=== PATIENT | male | born 1945 | race Caucasian/White ===

== ENCOUNTER → 2018-01-13 07:15 | Outpatient (CLI) | payer MEDICARE, OTHER, SELFPAY ==
--- NOTE | 2018-01-13 07:17 | CT_ITS ---
STUDY: CTA OF THE ABDOMINAL AORTA REASON FOR EXAM: Male, 72 years old. History of abdominal aortic aneurysm. RADIATION DOSAGE (If Supplied By Facility): CTDIvol = ( 38.39 ) mGy, DLP = ( 781.62 ) mGycm TECHNIQUE: Axial CT angiography multi-detector data acquisition was obtained from the dome of the liver to the iliac crests following intravenous administration of 100 ml of Isovue 370 contrast. Axial images and MIP images were reconstructed from the axial data set. Post-processing of the angiographic images was performed, with multiplanar reformation and 3D reconstruction. Individualized dose optimization techniques were used for this CT. TECHNICAL QUALITY: Good COMPARISON: None. Descriptors of Narrowing: None (0%) Mild (< 50%) Moderate (50-70%) Severe (70-90%) Subtotal/Total Occlusion (90-100%) Non-Evaluable (technically non-diagnostic FINDINGS: Mild increased markings at the lung bases suggestive of mild basilar scarring. Fatty infiltration of the liver. Abdominal aorta: Scattered atherosclerotic plaques. Mild fusiform infrarenal abdominal aortic aneurysm with a transverse dimension of 2.9 cm. Minimal mural plaque formation. Celiac and superior mesenteric arteries: No demonstrated narrowing. Inferior mesenteric artery: No demonstrated narrowing. Right renal artery(arteries): Minimal atherosclerotic plaque formation at the origin of the right renal artery. Left renal artery(arteries): No demonstrated narrowing. Right common iliac artery: Nonocclusive atherosclerotic plaque formation. Right external iliac artery: Nonocclusive atherosclerotic plaque formation. Right internal iliac artery: No demonstrated narrowing. Left common iliac artery: Nonocclusive atherosclerotic plaque formation. Left external iliac artery: Nonocclusive atherosclerotic plaque formation. Left internal iliac artery: No demonstrated narrowing. CT/CTA Abdomen W/WO Contrast IMPRESSION: Infrarenal abdominal aortic aneurysm with a transverse dimension of 2.9 cm. Electronically Signed: Sunil Barnhart MD at 10:02 EST Tel [phone], Service support ,
[2018-01-13 07:26] LABS: CREATININE FINGERSTICK 0.9 mg/dL (0.70-1.30); EGFR FINGERSTICK > 60.0000 mL/min (>60)
== END ==
PROVIDERS: Family Provider Nurse Practitioner Family; PCP Nurse Practitioner Family; Visit Provider Physician Assistant Medical
DX: I71.4 Abdominal aortic aneurysm, without rupture (principal)
CPT/HCPCS: 74175; Q9967

== ENCOUNTER → 2018-01-25 06:14 | Outpatient (CLI) | payer MEDICARE, OTHER, SELFPAY ==
--- NOTE | 2018-01-25 09:22 | STRESSREP ---
Stress Test Report Exercise myocardial perfusion stress test. 73-year-old man with a history of shortness of breath and diabetes coronary artery bypass surgery. Stress protocol. Resting EKG demonstrates normal sinus rhythm with a rate of 68 bpm. Resting blood pressure is 118/70 mmHg. Exercised according to the regular Rajan protocol for a total duration of 5 minutes attaining a maximum heart rate of 130 bpm. Patient completed 2 minutes into stage II of the Rajan protocol. The patient attained 87% maximum predicted heart rate and a workload of 7 metabolic equivalents. At rest there were nonspecific ST-T wave changes noted at peak exercise nonspecific ST-T wave changes were noted frequent premature ventricular complexes were noted some in the pattern of bigeminy. The test was terminated due to shortness of breath. No chest pain was noted. The resting blood pressure is 118/70 with a peak blood pressure of 144/80. Patient did experience some tightness in the chest and shortness of breath. Myocardial perfusion protocol. 13.9 mCi of technetium 99m sestamibi was injected at rest. The patient exercised for 5 minutes attaining 7 metabolic equivalents. At peak exercise 41.7 mCi of technetium 99m sestamibi was injected. Stress images were obtained. Stress and rest images were reconstructed and compared in the short axis vertical long and horizontal long axis. Gated images were also obtained Perfusion SPECT analysis: Review of the stress images demonstrate normal uptake of tracer noted in the septum and the mid inferior wall. There is a small defect noted in the basal inferior wall. There is a medium-sized defect noted in the mid anterolateral and lateral wall. During the resting images the above appears to almost completely reperfuse. The above suggests anterolateral and lateral ischemia noted. Gated SPECT analysis. The gated ejection fraction is 59%. Conclusion: Abnormal exercise myocardial perfusion stress test with the following Medium-sized anterolateral and lateral ischemic zone. Previous basal inferior infarct. Preserved ejection fraction. Probable clinical angina.
== END ==
PROVIDERS: Family Provider Nurse Practitioner Family; PCP Nurse Practitioner Family; Visit Provider Physician Assistant Medical
DX: I25.10 Atherosclerotic heart disease of native coronary artery without angina pectoris (principal); I10 Essential (primary) hypertension; R06.09 Other forms of dyspnea
CPT/HCPCS: 78452; 93017; A9500; A4216

== ENCOUNTER → 2018-02-14 08:45 | Outpatient (CLI) | payer MEDICARE, OTHER, SELFPAY ==
--- NOTE | 2018-02-14 08:56 | RAD_ITS ---
STUDY: X-RAY CHEST REASON FOR EXAM: Male, 73 years old. Shortness of breath on extension. TECHNIQUE: PA and lateral views of the chest. COMPARISON: Comparison is made with prior examination dated December 26, 2015. FINDINGS: Mild increased markings in the lingula segment of the left upper lobe suggestive of atelectasis. There is no demonstrated pleural abnormality. Sternal cerclage wires and vascular clips are present from a prior sternotomy and coronary artery bypass graft procedure (CABG). Normal mediastinum and sergo. Normal visualized pulmonary arteries. Normal visualized aortic arch and descending thoracic aorta. There are diffuse degenerative changes of the visualized thoracic spine. Normal visualized ribs, clavicles, and shoulders. There is no demonstrated abnormality of the visualized soft tissue structures of the upper abdomen. RAD/Chest PA and Lateral IMPRESSION: Mild increased markings in the lingular segment of the left upper lobe suggestive of atelectasis. Electronically Signed: Sunil Barnhart MD at 15:45 EDT Tel [phone], Service support ,
[2018-02-14 09:40] LABS: Absolute Lymphocyte Count 1.31 X10^3/ul (0.83-4.51); Absolute Neutrophil Count 5.5 X10^3/uL (2.0-7.7); Basophil# 0.04 X10^3/uL; Basophil% 0.5 % (0-1); Eosinophil# 0.28 X10^3/uL; Eosinophils% 3.7 % (0-5); Hematocrit 43.5 % (40-54); Hemoglobin 14.4 g/dl (13.0-16.5); Lymphocyte # 1.31 X10^3/ul (4.0); Lymphocyte % 17.2 % (19-41); Mean Corp Hgb Conc 33.1 g/gl (32-36); Mean Corpuscular Hgb 33.6 pg (27.0-32.0); Mean Corpuscular Volume 101.6 fL (80-94); Mean Platelet Vol. 9.1 fl (6.2-12.0); Monocyte# 0.48 X10^3/uL; Monocyte% 6.3 % (0-10); Neutrophil % 72.2 % (47-70); POSITIVE COUNT NO; POSITIVE DIFFERENTIAL NO; POSITIVE MORPHOLOGY NO; Platelet Count 154 K/mm3 (150-450); RBC Distribution Width CV 14.3 % (11.6-14.6); RBC Distribution Width SD 52.8 fl (35.1-43.9); Red Blood Count 4.28 M/mm3 (4.6-6.2); White Blood Count 7.6 K/mm3 (4.4-11.0)
[2018-02-14 09:43] LABS: International Normalized Ratio 1.1; Prothrombin Time (Protime)PT. 13.8 SECONDS (11.7-14.9)
[2018-02-14 10:17] LABS: Anion Gap 5 (5-15); BUN 16 mg/dL (7-18); BUN/Creat Ratio 15.7 RATIO (10-20); Calcium,Total 8.3 mg/dL (8.5-10.1); Chloride 106 mmol/L (98-107); Creatinine, Serum 1.02 mg/dL (0.70-1.30); EST Glomerular Filtration Rate 77 mL/min (>60); Est Glom Filt Rate - Afr Amer 93 mL/min (>60); Glucose 96 mg/dL (74-106); Potassium 4.4 mmol/L (3.5-5.1); Sodium Level 142 mmol/L (136-145)
== END ==
PROVIDERS: Family Provider Nurse Practitioner Family; PCP Nurse Practitioner Family; Visit Provider Physician Assistant Medical
DX: I25.2 Old myocardial infarction (principal); I25.10 Atherosclerotic heart disease of native coronary artery without angina pectoris; Z95.1 Presence of aortocoronary bypass graft; Z79.899 Other long term (current) drug therapy; I71.4 Abdominal aortic aneurysm, without rupture; I10 Essential (primary) hypertension; E78.5 Hyperlipidemia, unspecified; E11.9 Type 2 diabetes mellitus without complications; R94.39 Abnormal result of other cardiovascular function study
CPT/HCPCS: 71046; 80048; 85025; 85610

== ENCOUNTER → 2018-02-24 07:01 | Day surgery (SDC) | payer MEDICARE, OTHER, SELFPAY ==
[2018-02-23 07:31] VITALS: BMI 29.5
--- NOTE | 2018-02-24 09:03 | CL.D_ITS ---
Patient Name: CLAUDINE BARONE Study Date: 02/24/2018 Performing: Jhonny Jackson MD Ht: 68.89 inches 175 cm : 1945 Wt: 200.62 lbs 91 kg Age: 73 Gender: male BSA: 2.07 PROCEDURE(S) PERFORMED [id number]/CABG DC11-[id number] ROOT ANGIO WITH HEART CATH CLINICAL PROFILE AND INDICATIONS Indications: Suspected CAD Heart Failure: None Stress/Imaging Stress Test w/SPECT MPI: Yes Result: Positive Intermediate RiskStress Test with SP ECT MPI: Positive Intermediate Risk CAD Presentations: Stable angina. CONCLUSIONS Patent left internal mammary artery to the left anterior descending artery, patent saphenous vein gra ft to the right coronary artery, diffuse distal disease of the circumflex artery. RECOMMENDATIONS Medical therapy DESCRIPTION OF PROCEDURE The patient arrived to the procedure lab. The risks and benefits of the procedure as well as a full d escription of our services here and current unavailability of surgical backup were fully explained to the patient and/or their significant other prior to the catheterization. The Timeout was completed, verifying the correct patient and procedure. The patient's procedural site was prepped and draped in the usual fashion. Local anesthetic was given subcutaneously to right groin region with Lidocaine 2%. Using a modified Seldinger technique, arterial access was obtained via the right femoral artery, a 5 Fr sheath was inserted. Left Coronary Artery selective angiography was performed in multiple views u sing a 5 Fr. JL4 catheter. Right Coronary Artery selective angiography was then performed in multiple views using a 5 Fr. 3DRC (Jomar) catheter. Saphenous Vein graft to the RPDA selective angiography was performed in multiple views using a 5 Fr. 3DRC (Jomar) catheter. Left internal mammary artery graft to the LAD selective angiography was performed in multiple views using a 5 Fr. IM catheter.Con trast was injected through the sheath and the Right Iliac and Femoral artery were assessed for possib le closure device.The arterial sheath was pulled and a Mynx closure device was deployed for hemostasi s CORONARY ANGIOGRAPHY DOMINANCE: Right Dominant LEFT HEART ASSESSMENT Left Ventricular Ejection Fraction: by Echo 50 % LEFT MAIN: Mild luminal irregularities LEFT ANTERIOR DECENDING ARTERY: MID LAD: is occluded CIRCUMFLEX ARTERY: PROX CIRC: Angiographically normal DISTAL CIRC: Diffusely diseased up to 80 % RIGHT CORONARY ARTERY: Mild luminal irregularities GRAFTS: SOMMER graft to the Mid LAD is patent Saphenous Vein graft to the RPDA is patent Saphenous Vein graft to the 1st Diagonal is totally occluded Saphenous Vein graft to the CIRC is totally occluded AORTIC ROOT: Angiographically normal COMPLICATIONS No Complications PROCEDURE MEDICATIONS Versed 1 mg IV Versed 1 mg IV Oxygen: 2 L/min via nasal cannula SUMMARY OF HEMODYNAMIC DATA Time AIR REST ECG 07:22:16 AO 150/72 (103) SA 07:58:14 Signed By Jhonny Jackson MD On 02/24/2018 09:02:54 Jhonny Jackson MD
== END ==
PROVIDERS: Family Provider Nurse Practitioner Family; PCP Nurse Practitioner Family; Visit Provider Internal Medicine Cardiovascular Disease
DX: I25.119 Atherosclerotic heart disease of native coronary artery with unspecified angina pectoris (principal); I10 Essential (primary) hypertension; E78.00 Pure hypercholesterolemia, unspecified; I71.4 Abdominal aortic aneurysm, without rupture; I25.2 Old myocardial infarction; E11.9 Type 2 diabetes mellitus without complications; Z87.891 Personal history of nicotine dependence; Z95.1 Presence of aortocoronary bypass graft; Z79.82 Long term (current) use of aspirin; Z79.02 Long term (current) use of antithrombotics/antiplatelets; Z79.899 Other long term (current) drug therapy; Z79.4 Long term (current) use of insulin
CPT/HCPCS: 93455; 93567; 99152; 99153; C1760; J7030; Q9967; C1769

== ENCOUNTER 2018-05-31 06:17 | Emergency (ER) | payer MEDICARE, OTHER, SELFPAY ==
[2018-05-31 06:18] VITALS: BP 161/87; PULSE 73; RESP 18; TEMP 37.3; O2SAT 97; BMI 29.8
--- NOTE | 2018-05-31 06:24 | CT_ITS ---
STUDY: CT ABDOMEN AND PELVIS WITHOUT CONTRAST REASON FOR EXAM: Male, 73 years old. Left flank pain RADIATION DOSAGE (If Supplied By Facility): CTDIvol = ( 14.00 ) mGy, DLP = ( 732.10 ) mGycm TECHNIQUE: Transaxial images were obtained from the dome of the diaphragm to the symphysis pubis without oral contrast, and without intravenous contrast. Sagittal and coronal images were reconstructed. Individualized dose optimization techniques were used for this CT. COMPARISON: None. FINDINGS: Chronic interstitial changes in the lung bases. No acute airspace disease. Mild cardiomegaly with coronary artery disease. Normal liver. Normal gallbladder and extrahepatic biliary system. Normal spleen. There is diffuse atrophy of the pancreas. Normal bilateral adrenal glands. Normal right kidney. Left sided perinephric fasting edema with mild to moderate hydronephrosis. There is a stone at the left UPJ measuring 1.1 x 0.8 cm. Another large stone in the left lower pole collecting system is noted measuring 0.8 cm. Remainder of the left ureter is within normal limits. Normal visualized stomach. Normal small intestine. There are multiple colonic diverticula consistent with diverticulosis. The appendix is visualized and appears normal. There is diffuse atherosclerotic calcification of the abdominal aorta, without a demonstrated aneurysm. Normal inferior vena cava. Normal retroperitoneum. Normal urinary bladder. There are prostatic calcifications. There is a left-sided inguinal hernia containing adipose tissue. There are diffuse degenerative changes of the visualized lumbar spine. CT/Abdomen/Pelvis without Cont IMPRESSION: Left-sided hydronephrosis or stones the left UPJ as detailed above. Another left lower pole stone is noted. Remaining chronic findings as above Electronically Signed: Manuel Parikh DO at 7:31 EDT Tel , Service support ,
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
[2018-05-31 06:47] LABS: Absolute Lymphocyte Count 1.47 X10^3/ul (0.83-4.51); Absolute Neutrophil Count 4.3 X10^3/uL (2.0-7.7); Basophil# 0.04 X10^3/uL; Basophil% 0.5 % (0-1); Eosinophil# 0.62 X10^3/uL; Eosinophils% 8.4 % (0-5); Lymphocyte # 1.47 X10^3/ul (4.0); Mean Corp Hgb Conc 33.3 g/gl (32-36); Mean Corpuscular Hgb 32.4 pg (27.0-32.0); Mean Corpuscular Volume 97.2 fL (80-94); Mean Platelet Vol. 8.6 fl (6.2-12.0); Monocyte# 0.91 X10^3/uL; Monocyte% 12.4 % (0-10); Neutrophil # 4.28 X10^3/uL (2.7-7.7); Neutrophil % 58.3 % (47-70); Platelet Count 234 K/mm3 (150-450); RBC Distribution Width CV 13.4 % (11.6-14.6); RBC Distribution Width SD 46.8 fl (35.1-43.9); Red Blood Count 4.32 M/mm3 (4.6-6.2); White Blood Count 7.4 K/mm3 (4.4-11.0)
[2018-05-31] MEDS: 0.9% Normal Saline 1,000 ML 1000 ML IV (06:47)
[2018-05-31] MEDS: Ondansetron 4 MG/2 ML Vial IV (06:47)
[2018-05-31] MEDS: Morphine 4 MG/ML Syringe IV (06:47)
[2018-05-31 06:52] LABS: POSITIVE COUNT NO; POSITIVE DIFFERENTIAL NO; POSITIVE MORPHOLOGY NO
[2018-05-31 07:05] LABS: ALB/GLOB Ratio 0.9 RATIO (0.9-2.4); AST(SGOT) 25 U/L (15-37); Alanine Aminotransfer ALT/SGPT 27 U/L (16-61); Albumin, Serum 3.2 g/dL (3.2-5.0); Alkaline Phosphatase 74 U/L (45-117); Anion Gap 8 (5-15); BUN 18 mg/dL (7-18); Calcium,Total 9.1 mg/dL (8.5-10.1); Chloride 108 mmol/L (98-107); Creatinine, Serum 1.29 mg/dL (0.70-1.30); EST Glomerular Filtration Rate 58 mL/min (>60); Est Glom Filt Rate - Afr Amer 71 mL/min (>60); Estimated Creatinine Clearance 52.52 ml/min; Globulin 3.7 g/dL (2.2-4.2); Glucose 123 mg/dL (74-106); Potassium 4.4 mmol/L (3.5-5.1); Protein, Total 6.9 g/dL (6.4-8.2); Sodium Level 143 mmol/L (136-145)
[2018-05-31 07:38] LABS: Bacteria 0 SEEN /hpf (None Seen); Mucous, Urine 0 SEEN /hpf (<or=2+); Squamous Epithelial Cells - UA 0 SEEN /hpf (0-5); White Blood Cells 0 SEEN /hpf (0-5)
[2018-05-31 08:08] LABS: Color, Urine Yellow (Yellow); Glucose, Dipstick Normal (Normal); Ketone-Dipstick Negative (Negative); Leukocyte Esterase-Dipstick Negative /ul (Negative); Nitrite-Dipstick Negative (Negative); Occult Blood-Urine 250 /ul (Negative); Protein-Dipstick 15 mg/dl (Negative); Specific Gravity, Urine 1.015 (1.002-1.030); Urine Bilirubin Dipstick Negative (Negative); Urine Clarity Clear (Clear); Urine Urobilinogen Normal (Normal)
[2018-05-31 08:30] VITALS: BP 139/65; PULSE 65; RESP 18; O2SAT 99
[2018-05-31 08:42] LABS: Red Blood Cells-Urine 10-25 SEEN /hpf (0-5)
[2018-05-31 09:04] VITALS: BP 138/69; PULSE 69; RESP 18; O2SAT 99
== END 2018-05-31 09:08 | disposition home or self-care (01) ==
PROVIDERS: Emergency Provider Emergency Medicine; Family Provider Nurse Practitioner Family; PCP Nurse Practitioner Family
DX: N20.0 Calculus of kidney (principal); E11.9 Type 2 diabetes mellitus without complications; I25.2 Old myocardial infarction; I10 Essential (primary) hypertension; Z79.4 Long term (current) use of insulin; Z79.82 Long term (current) use of aspirin; Z79.02 Long term (current) use of antithrombotics/antiplatelets; Z79.899 Other long term (current) drug therapy
CPT/HCPCS: 74176; 80053; 81001; 85025; 96361; 96374; 96375; 99283; J2405

== ENCOUNTER 2018-06-07 09:27 | Day surgery (SDC) | payer MEDICARE, OTHER, SELFPAY ==
[2018-06-07] VITALS (9 sets, daily range): BP systolic 113–153; BP diastolic 68–81; PULSE 57–61; RESP 16–26; TEMP 36.2–37.5; O2SAT 92–99; BMI 29.0
--- NOTE | 2018-06-07 09:15 | RAD_ITS ---
STUDY: X-RAY - ABDOMEN/PELVIS REASON FOR EXAM: Male, 73 years old. History of left renal calculi. TECHNIQUE: Single AP view of the abdomen / pelvis. COMPARISON: Comparison is made with prior CT scan and abdomen dated May 31, 2018. FINDINGS: There is an unremarkable bowel gas pattern. There is a 1.4 cm calculus in the region of the left renal pelvis. Calcific densities are also seen in the left kidney. Normal soft tissue structures. There are diffuse degenerative changes of the visualized lumbar spine. RAD/Abdomen Single View IMPRESSION: 1.4 cm calculus in the left renal pelvis. Left intrarenal calculi. Electronically Signed: Sunil Barnhart MD at 11:29 EDT Tel [phone], Service support ,
--- NOTE | 2018-06-07 09:48 | EKG12_ITS ---
Test Reason : PREOP Blood Pressure : / mmHG Vent. Rate : 058 BPM Atrial Rate : 058 BPM P-R Int : 138 ms QRS Dur : 090 ms QT Int : 398 ms P-R-T Axes : 045 006 056 degrees QTc Int : 390 ms Sinus bradycardia Incomplete right bundle branch block Nonspecific T wave abnormality Abnormal ECG Confirmed by FRANKI SILVA, SUNG ([id number]), photo editor CHICHI MOHR ([id number]) on 06/12/2018 4:08:59 PM Referred By: Phillip Barillas Confirmed By:SUNG DOAN MD
[2018-06-07 10:31] LABS: Bedside Glucose 129 mg/dL (70-110)
--- NOTE | 2018-06-07 11:57 | DCINST_ITS ---
Discharge Diet: Light diet - advance as tolerated Allergies/Adverse Reactions: Allergies caffeine Allergy (Verified 06/06/18 08:13) Other Palpitations ibuprofen Allergy (Verified 06/06/18 08:13) Rash Penicillins [PCN] Allergy (Verified 06/06/18 08:13) Other Pt doesn't remember - allergy since a child Medications to take at Discharge Atorvastatin Calcium [Lipitor] 20 mg PO QHS 09/15/15 Glimepiride [Amaryl] 2 mg PO DAILY 09/15/15 Metformin HCl [Glucophage] 1,000 mg PO BIDCM 09/15/15 Aspirin [Adult Low Dose Aspirin EC] 81 mg PO DAILY 01/22/16 Clopidogrel Bisulfate [Plavix] 75 mg PO DAILY 01/22/16 metoprolol tartrate 25 mg tablet 25 mg PO BID #180 tab 03/28/18 Omeprazole [Prilosec] 20 mg PO BID 05/31/18 Oxycodone HCl/Acetaminophen [Percocet 5/325] 1 tab PO Q6H PRN PRN 3 Days #12 tab 05/31/18 Psyllium [Metamucil] 1 packet PO DAILY 05/31/18 Tadalafil [Cialis] 5 mg PO PRN PRN 05/31/18 Tamsulosin HCl [Flomax] 0.4 mg PO QHS 05/31/18 mg Trisilicate/Alh/Nahco3/Aa [Gaviscon 80-14.2 mg Tab Chew] 2 each PO PRN PRN Insulin Degludec [Tresiba Flextouch U-100] 30 unit SQ BREAKFAST 06/06/18 Ciprofloxacin [Cipro] 500 mg PO BID #10 tab 06/07/18 Hydrocodone/Acetaminophen [[place]ford 5-325 Tablet] 1 ea PO Q4H PRN PRN 7 Days #20 tab 06/07/18 The following prescriptions were given: Hydrocodone/Acetaminophen [St[place]ford 5-325 Tablet] 1 ea PO Q4H PRN PRN 7 Days #20 tab PRN Reason: Pain Ciprofloxacin [Cipro] 500 mg PO BID #10 tab Primary Care Physician: Jacoby Oviedo, [employer] [Primary Care Provider] - Test Results: Test results from this visit will be discussed in further detail at your follow- up appointment, if applicable. Please Follow Up With: Phillip Barillas MD When: , please call to make an appointment.
--- NOTE | 2018-06-07 11:57 | PCM.OPRPT ---
Report of Operation Date of Procedure: 06/07/18 Pre-Operative Diagnosis: Left renal calculi ?2 Post-Operative Diagnosis: Same Surgery/Procedure Performed:: Cystoscopy left stent placement and left extracorporeal shockwave lithotripsy Description of Surgical Findings:: 73-year-old male taken back to the operating room after smooth induction of general anesthesia he is placed supine on the table in the dorsolithotomy position, penis and testicles were prepped and draped in usual sterile fashion within the bladder the 21 [place] rigid cystourethroscope, he did have bilateral hypertrophy had quite a large median lobe hard to get over this to once I got inside the bladder then identified the left ureteral orifice to the wire advanced a wire up into the kidney and then over the wire place a stent with a string for extraction near future. We then repositioned the patient on the table we delivered 3000 shockwaves to the 2 stones in the left kidney stones broke up really well with no significant fragments seen after the stones were treated. A total of 3000 shockwaves were delivered. At a rate of 90. At the end of the treatment cycle left stent in place a string extraction for near in the near future patient anesthetic reversed plan to see him back next week with an x-ray to get the stent out. Type of Anesthesia:: General Drains: stent - Admit VTE Documentation VTE Present on Admission: No VTE Mechan Device Prophylaxis: SCD's
[2018-06-07] MEDS: HYDROcodone Bitartrate/Apap 5/325 Tablet PO (14:06)
== END 2018-06-07 14:56 | disposition home or self-care (01) ==
LOC: SDC 09:30 → AC 09:36
PROVIDERS: Family Provider Nurse Practitioner Family; PCP Nurse Practitioner Family; Visit Provider Urology
PROC: (CPT 50590; principal; 2018-06-07 11:00)
DX: N20.0 Calculus of kidney (principal); I11.9 Hypertensive heart disease without heart failure; E11.9 Type 2 diabetes mellitus without complications; K21.9 Gastro-esophageal reflux disease without esophagitis; E78.00 Pure hypercholesterolemia, unspecified; I25.2 Old myocardial infarction; I73.9 Peripheral vascular disease, unspecified; I71.4 Abdominal aortic aneurysm, without rupture; Z95.1 Presence of aortocoronary bypass graft; Z87.891 Personal history of nicotine dependence; Z79.4 Long term (current) use of insulin; Z79.82 Long term (current) use of aspirin; Z79.02 Long term (current) use of antithrombotics/antiplatelets; Z79.899 Other long term (current) drug therapy
CPT/HCPCS: 52356; 74018; 82962; 93005; J7120; C1769; C2617; J2405

== ENCOUNTER → 2018-06-13 12:59 | Outpatient (CLI) | payer MEDICARE, OTHER, SELFPAY ==
--- NOTE | 2018-06-13 13:02 | RAD_ITS ---
STUDY: X-RAY - ABDOMEN/PELVIS REASON FOR EXAM: Male, 73 years old. Left ureter stent insertion TECHNIQUE: Two AP supine views of the abdomen and pelvis. COMPARISON: 06/07/2018 FINDINGS: A left ureter stent has been inserted extending from the left renal shadow to the lower midline pelvis. The left renal calculus seen on the prior study is not clearly identified. There is an unremarkable bowel gas pattern. There is no demonstrated free abdominal air. The visualized liver, spleen and kidneys are grossly normal in size and morphology. Normal soft tissue structures. Normal visualized osseous structures. RAD/Abdomen Single View IMPRESSION: Left ureter stent insertion. No suspicious intra-abdominal calcifications identified. Electronically Signed: Ranulfo Moser MD at 11:54 EDT , Service support ,
== END ==
PROVIDERS: Family Provider Nurse Practitioner Family; PCP Nurse Practitioner Family; Visit Provider Urology
DX: N20.0 Calculus of kidney (principal)
CPT/HCPCS: 74018

== ENCOUNTER → 2018-10-16 09:48 | Outpatient (CLI) | payer MEDICARE, OTHER, SELFPAY ==
[2018-08-10 13:32] VITALS: BMI 29.5
--- NOTE | 2018-10-16 10:00 | RAD_ITS ---
STUDY: X-RAY - ABDOMEN/PELVIS REASON FOR EXAM: Male, 73 years old. Follow-up on kidney stones. Prior left ureteral stent removal. TECHNIQUE: Single AP view of the abdomen / pelvis. COMPARISON: 2 AP supine views of the abdomen and pelvis June 13, 2018; single AP view of the abdomen and pelvis June 07, 2018. FINDINGS: Non-visualized lung bases. There is an unremarkable bowel gas pattern. There is no demonstrated free abdominal air. Left ureteral stent has been removed. The stone in the area of the left renal pelvis June 07, 2018 is no longer present. Question of 5-6 mm rounded stone at the midpole of the left renal shadow, overlapping the 12th rib, as well as question of 2-3 mm stone projecting over the lower pole of the left renal shadow. The visualized liver, spleen and right kidney are grossly normal in size and morphology. There are stable calcified phleboliths in the lower right pelvis. There are stable degenerative changes of the visualized lumbar spine and lower bilateral sacroiliac joints. RAD/Abdomen Single View IMPRESSION: 1. Left ureteral stent has been removed since previous study. 2. Question of 2 left renal calculi, as noted. If clinically indicated, these could be further evaluated with repeat renal stone protocol CT. 3. Nonspecific bowel gas pattern. Electronically Signed: Joel Mccormack MD at 19:58 EST , Service support ,
== END ==
PROVIDERS: Family Provider Nurse Practitioner Family; PCP Nurse Practitioner Family; Referring Provider Urology; Visit Provider Urology
DX: N20.0 Calculus of kidney (principal)
CPT/HCPCS: 74018

== ENCOUNTER 2018-12-12 10:32 | Emergency (ER) | payer MEDICARE, OTHER, SELFPAY ==
[2018-12-12 10:32] VITALS: BP 164/95; PULSE 70; RESP 18; TEMP 36.6; O2SAT 98; BMI 29.5
--- NOTE | 2018-12-12 10:43 | CT_ITS ---
STUDY: CT ABDOMEN AND PELVIS WITHOUT CONTRAST REASON FOR EXAM: Male, 73 years old. Left flank pain. RADIATION DOSAGE (If Supplied By Facility): CTDIvol = ( 11.93 ) mGy, DLP = ( 679.71 ) mGycm TECHNIQUE: Transaxial images were obtained from the dome of the diaphragm to the symphysis pubis without oral contrast, and without intravenous contrast. Sagittal and coronal images were reconstructed. Individualized dose optimization techniques were used for this CT. COMPARISON: Comparison is made with prior study dated May 31, 2018. FINDINGS: Mild degree of increased interstitial markings with focal areas of the coalescence at the lung bases suggestive of scarring. Coronary artery calcification. Prior CABG. Normal liver. Normal gallbladder and extrahepatic biliary system. There is mild splenomegaly. Normal pancreas. Normal bilateral adrenal glands. Tiny nonobstructive right intrarenal calculi. Mild right perinephric stranding. There is an 8.1 mm calculus in the lower pole calyx of the left kidney. Mild degree of left hydronephrosis and left hydroureter with perinephric stranding. No left ureteral calculus is seen at this time. This most likely secondary to a recently passed calculus. Normal visualized stomach. Normal small intestine. There are multiple colonic diverticula consistent with diverticulosis. The appendix is visualized and appears normal. There is diffuse atherosclerotic calcification of the abdominal aorta. The distal aorta is slightly dilated measuring 3.2 cm in transverse Normal inferior vena cava. Normal retroperitoneum. Normal urinary bladder. There is enlargement of the prostate gland. It measures 5.1 cm x 4.5 cm. Prostate calcification. There is a left-sided inguinal hernia containing adipose tissue. Small umbilical hernia containing fat. There are diffuse degenerative changes of the visualized lumbar spine. CT/Abdomen/Pelvis without Cont IMPRESSION: Mild degree of left hydronephrosis and hydroureter. No obstructive uropathy is seen at this time. This most likely presents changes secondary to recently passed calculus. Bilateral nonobstructive intrarenal calculi more prominent on the left side Electronically Signed: Sunil Barnhart MD at 12:36 EST , Service support ,
--- NOTE | 2018-12-12 10:45 | ED.VISSUMM ---
- ER Visit Summary Date of Service: 12/12/18 Chief Complaint: Flank pain, abdominal pain History of Present Illness: The patient is a 73 M presents to the emergency department with left flank pain and abdominal pain. The patient does have a history of kidney stone. He did require stenting and lithotripsy in the fall of last year. He states that he has been doing well. This morning, he had sudden pain that he describes a sharp and stabbing in his left lower quadrant into his left flank. He had mild nausea. He states the pain has now almost totally resolved. He denies any fevers or chills. He denies any other systemic symptoms. He does follow with Dr. Barillas. Physical Examination: Vital signs reviewed General: Well-nourished, well-developed Head: Normocephalic, atraumatic Eyes: Pupils equal and reactive, extraocular muscles intact Neck, supple, no lymphadenopathy Heart: Regular rate and rhythm Respiratory: No distress, clear bilaterally Abdomen: Soft, nontender, nondistended, no peritoneal signs Back: Nontender Extremities: Nontender, no edema, no cords Skin: Normal color no rash Neuro: Alert and oriented, no focal or lateralizing deficits Test Results: [] Emergency Department Course and Treatment: The patient presents with signs and symptoms of kidney stone. IV was established. He was given morphine and Zofran. He had total resolution of his pain. Screening labs are unremarkable. Urine shows no evidence of infection. Patient underwent CT imaging. It does show some mild left hydronephrosis, but no obstructing stone. I do feel the patient likely passed a stone especially since he is now pain-free. I will give him a short course of analgesics. He is already established with urology. He was counseled on concerning symptoms and reasons to return. He will be discharged home. Treatment Plan: [] Disposition: Discharge Impression: 1. Left kidney stone-past This note was generated with [employer] dictation software. It may contain incorrect words, spelling, and punctuation that were not noted in review of the chart prior to signing ED Disposition - Plan for ED Patient: Instructions: ED Stone Renal Passed Prescriptions: Hydrocodone Bitart/Apap 5-325 [[place] 5MG-325MG] 1 tab PO Q6H PRN PRN 3 Days #10 tab PRN Reason: Pain Referrals: Phillip Barillas MD [STAFF PHYSICIAN] -
[2018-12-12 11:21] LABS: Absolute Neutrophil Count 4.6 X10^3/uL (2.0-7.7); Basophil# 0.03 X10^3/uL; Basophil% 0.5 % (0-1); Eosinophil# 0.25 X10^3/uL; Eosinophils% 3.9 % (0-5); Hematocrit 42.4 % (40-54); Hemoglobin 13.7 g/dl (13.0-16.5); Lymphocyte % 15.7 % (19-41); Mean Corp Hgb Conc 32.3 g/gl (32-36); Mean Corpuscular Hgb 31.2 pg (27.0-32.0); Mean Corpuscular Volume 96.6 fL (80-94); Mean Platelet Vol. 8.9 fl (6.2-12.0); Monocyte# 0.51 X10^3/uL; Neutrophil # 4.56 X10^3/uL (2.7-7.7); Neutrophil % 71.7 % (47-70); POSITIVE COUNT NO; POSITIVE DIFFERENTIAL NO; POSITIVE MORPHOLOGY NO; Platelet Count 140 K/mm3 (150-450); RBC Distribution Width CV 13.8 % (11.6-14.6); RBC Distribution Width SD 48.8 fl (35.1-43.9); Red Blood Count 4.39 M/mm3 (4.6-6.2); White Blood Count 6.4 K/mm3 (4.4-11.0)
[2018-12-12] MEDS: 0.9% Normal Saline 1,000 ML 250 ML IV (11:23)
[2018-12-12 11:32] LABS: Anion Gap 6 (5-15); BUN 16 mg/dL (7-18); BUN/Creat Ratio 14.2 RATIO (10-20); Calcium,Total 8.2 mg/dL (8.5-10.1); Chloride 108 mmol/L (98-107); Creatinine, Serum 1.13 mg/dL (0.70-1.30); EST Glomerular Filtration Rate 68 mL/min (>60); Est Glom Filt Rate - Afr Amer 82 mL/min (>60); Estimated Creatinine Clearance 59.96 ml/min; Glucose 140 mg/dL (74-106); Potassium 4.3 mmol/L (3.5-5.1); Sodium Level 142 mmol/L (136-145)
[2018-12-12 12:00] LABS: Mucous, Urine 0 SEEN /hpf (<or=2+)
[2018-12-12 12:04] LABS: Color, Urine Yellow (Yellow); Glucose, Dipstick 50 mg/dl (Normal); Ketone-Dipstick Negative (Negative); Leukocyte Esterase-Dipstick 25 /ul (Negative); Nitrite-Dipstick Negative (Negative); Occult Blood-Urine 250 /ul (Negative); Protein-Dipstick 30 mg/dl (Negative); Specific Gravity, Urine 1.015 (1.002-1.030); Urine Bilirubin Dipstick Negative (Negative); Urine Clarity Sl. Cloudy (Clear); Urine Urobilinogen Normal (Normal)
[2018-12-12 12:10] LABS: Bacteria RARE /hpf (None Seen); Red Blood Cells-Urine 50-100 SEEN /hpf (0-5); Squamous Epithelial Cells - UA 0-5 SEEN /hpf (0-5); White Blood Cells 0-5 SEEN /hpf (0-5)
[2018-12-12 12:33] VITALS: RESP 18
[2018-12-12 12:48] VITALS: BP 140/82; PULSE 62; RESP 17; O2SAT 98
--- NOTE | 2018-12-12 12:48 | ED.RN ---
IV DC'ED, CATHETER INTACT, SMALL GAUZE DRESSING PLACED. DISCHARGE INSTRUCTIONS GIVEN TO AND REVIEWED WITH PATIENT, PATIENT DENIES QUESTIONS OR CONCERNS AND VOICES UNDERSTANDING OF DISCHARGE INSTRUCTIONS. PT AMBULATES OUT OF ROOM WITHOUT DIFFICULTY.
== END 2018-12-12 12:49 | disposition home or self-care (01) ==
LOC: ED 10:56
PROVIDERS: Emergency Provider Emergency Medicine; Family Provider Nurse Practitioner Family; PCP Nurse Practitioner Family
DX: N13.2 Hydronephrosis with renal and ureteral calculous obstruction (principal); Z87.442 Personal history of urinary calculi; Z87.891 Personal history of nicotine dependence
CPT/HCPCS: 74176; 80048; 81001; 85025; 96360; 99282; J7030; A4216; J2405

== ENCOUNTER → 2018-12-20 08:18 | Outpatient (CLI) | payer MEDICARE, OTHER, SELFPAY ==
[2018-12-12 10:32] VITALS: BMI 29.5
--- NOTE | 2018-12-20 08:19 | US_ITS ---
STUDY: RENAL ULTRASOUND - COMPLETE REASON FOR EXAM: Male, 73 years old. Hydronephrosis. TECHNIQUE: Ultrasound evaluation of the kidneys was performed with real-time and static wilson-scale imaging. COMPARISON: None. FINDINGS: RIGHT KIDNEY: Normal location of the right kidney, which is normal in size. The right kidney measures 10.3 cm. There is a normal cortex of the right kidney. The renal cortex measures 1.6 cm. There is no right renal mass or cyst. There is a 4 mm echogenic focus in lower pole. Vascular reflectivity versus kidney stone. There is no right hydronephrosis. DISTAL RIGHT URETER: There is non-visualization of the distal right ureter. There is no demonstrated right ureterovesical junction calculus. There is a visualized right ureteral jet. LEFT KIDNEY: Normal location of the left kidney, which is normal in size. The left kidney measures 10.3 cm. There is a normal cortex of the left kidney. The renal cortex measures 1.6 cm. There is no left renal mass or cyst. There is a 6 mm echogenic focus in the lower pole central sinus fat suspicious for calcification. There is no left hydronephrosis. DISTAL LEFT URETER: There is non-visualization of the distal left ureter. There is no demonstrated left ureterovesical junction calculus. There is a visualized left ureteral jet. BLADDER: The distended urinary bladder has normal wall thickness. There is no demonstrated mass within the urinary bladder. There are no demonstrated bladder calculi. The prostate measures 5.3 x 4.8 x 3.5 cm and invaginates into the floor of the urinary bladder. US/Kidney and Bladder IMPRESSION: 1. Question bilateral lower pole renal calculi. The kidneys are otherwise unremarkable. 2. No evidence of hydronephrosis. 3. Normal urinary bladder. 4. Enlarged prostate. Electronically Signed: Edil Menjivar DO at 19:24 EST Tel [phone], Service support ,
== END ==
PROVIDERS: Family Provider Nurse Practitioner Family; PCP Nurse Practitioner Family; Referring Provider Nurse Practitioner Adult Health; Visit Provider Nurse Practitioner Adult Health
DX: N13.30 Unspecified hydronephrosis (principal)
CPT/HCPCS: 76770

== ENCOUNTER 2019-05-01 12:14 | Emergency (ER) | payer MEDICARE, OTHER, SELFPAY ==
[2019-05-01 12:15] VITALS: BP 160/83; PULSE 61; RESP 16; TEMP 36.7; O2SAT 97
--- NOTE | 2019-05-01 12:46 | CT_ITS ---
STUDY: CT ABDOMEN AND PELVIS WITHOUT CONTRAST REASON FOR EXAM: Male, 74 years old. RADIATION DOSAGE (If Supplied By Facility): CTDIvol = ( 12.64 ) mGy, DLP = ( 682.18 ) mGycm TECHNIQUE: Transaxial images were obtained from the dome of the diaphragm to the symphysis pubis without oral contrast, and without intravenous contrast. Sagittal and coronal images were reconstructed. Individualized dose optimization techniques were used for this CT. COMPARISON: December 12, 2089 FINDINGS: The visualized lung bases are unremarkable. The visualized portions of the heart are within normal limits. Normal liver. Normal gallbladder and extrahepatic biliary system. Normal spleen. Normal pancreas. Normal bilateral adrenal glands. Normal right kidney revealed no obstructing tiny calculus upper calyx.. There are multiple tiny calculi within the lower calyx of the left kidney. There is fullness of the left collecting system due to the presence of a tiny stone at the UP junction. No evidence of hydroureter is seen on either side. There is mild focal aneurysmal dilatation of the distal aorta with a diameter of 3.2 cm. Arterial atherosclerotic changes seen. The urinary bladder is not distended but no evidence of free filling defect or stone. The prostate is mildly enlarged there are some phleboliths in the periventricular The small and large bowel are unremarkable the appendix is intact CT/Abdomen/Pelvis without Cont IMPRESSION: Multiple small calculi lower calyx of the left kidney with tiny stone at the UP junction causing mild fullness of the collecting system. New finding since the last exam. Tiny calcification upper half of the right kidney. Minimal aneurysmal dilatation of the distal abdominal aorta Electronically Signed: Luis Angel Cr, at 14:17 EDT Tel , Service support ,
--- NOTE | 2019-05-01 12:50 | ED.DCSUM_ITS ---
- ER Visit Summary Date of Service: 05/01/19 Chief Complaint: Left flank pain History of Present Illness: The patient is a 74 M history of prior kidney stones. Also history of CAD, [place], bypass surgery and diabetes. Patient was around 1030 this morning of left flank pain is down his left lower quadrant. As sociated nausea no vomiting. No fever. No dysuria. He has had prior kidney stones this feels the same. Physical Examination: Older male no acute distress vital signs are stable and afebrile. HEENT exam unremarkable. Neck nontender no lymphadenopathy. Lungs clear to auscultation bilaterally. Heart regular rhythm no murmur. Abdomen soft and nontender. Normal bowel sounds no peritoneal signs. Remedies moves all 4. Calves nontender without edema or cords. Neurologically the patient is awake and alert with no focal motor deficits Test Results: White count 7. Normal hemoglobin. UA shows blood consistent with a kidney stone but no signs of infection. Chemistries are unremarkable. Normal renal function. CAT scan without contrast shows a left UVJ 1 to 2 mm stone. Also a AAA at 3.2 cm I discussed that with the patient and he knew he had waited but not watching it. Emergency Department Course and Treatment: Patient left flank pain that since consistent with a possible kidney stone. He has had stones before in the past. Will be treated with morphine and Zofran. IV fluids. And labs will be obtained along with a CAT scan. Treatment Plan: On repeat exam he is doing much better 1538 PM. He will be given another dose of morphine prior to discharge. Placed on [place] for pain. Disposition: Discharge Impression: Acute left flank pain left 2 mm ureteropelvic junction stone. Known history of AAA This note was generated with [employer] dictation software. It may contain incorrect words, spelling, and punctuation that were not noted in review of the chart prior to signing ED Disposition - Plan for ED Patient: Referrals: Jacoby Oviedo, ALYSSA-C [Primary Care Provider] -
[2019-05-01 13:16] LABS: Mucous, Urine 0 SEEN /hpf (<or=2+)
[2019-05-01 13:23] LABS: Color, Urine Yellow (Yellow); Glucose, Dipstick 100 mg/dl (Normal); Ketone-Dipstick Negative (Negative); Leukocyte Esterase-Dipstick 100 /ul (Negative); Nitrite-Dipstick Negative (Negative); Occult Blood-Urine 250 /ul (Negative); Protein-Dipstick 30 mg/dl (Negative); Urine Bilirubin Dipstick Negative (Negative); Urine Clarity Sl. Cloudy (Clear); Urine Urobilinogen Normal (Normal)
[2019-05-01 13:24] LABS: Absolute Lymphocyte Count 0.94 X10^3/ul (0.83-4.51); Absolute Neutrophil Count 5.2 X10^3/uL (2.0-7.7); Basophil# 0.03 X10^3/uL; Basophil% 0.4 % (0-1); Eosinophil# 0.24 X10^3/uL; Eosinophils% 3.4 % (0-5); Hemoglobin 14.4 g/dl (13.0-16.5); Lymphocyte # 0.94 X10^3/ul (4.0); Lymphocyte % 13.4 % (19-41); Mean Corp Hgb Conc 33.5 g/gl (32-36); Mean Corpuscular Hgb 31.6 pg (27.0-32.0); Mean Corpuscular Volume 94.5 fL (80-94); Mean Platelet Vol. 8.7 fl (6.2-12.0); Monocyte# 0.58 X10^3/uL; Monocyte% 8.3 % (0-10); Neutrophil # 5.19 X10^3/uL (2.7-7.7); Neutrophil % 74.4 % (47-70); Platelet Count 147 K/mm3 (150-450); RBC Distribution Width CV 13.9 % (11.6-14.6); Red Blood Count 4.55 M/mm3 (4.6-6.2)
[2019-05-01 13:25] LABS: POSITIVE COUNT NO; POSITIVE DIFFERENTIAL NO; POSITIVE MORPHOLOGY NO
[2019-05-01 13:29] LABS: Bacteria RARE /hpf (None Seen); Red Blood Cells-Urine 10-25 SEEN /hpf (0-5); Squamous Epithelial Cells - UA 0-5 SEEN /hpf (0-5); White Blood Cells 0-5 SEEN /hpf (0-5)
[2019-05-01] MEDS: 0.9% Normal Saline 1,000 ML 1000 ML IV (13:32)
[2019-05-01] MEDS: morphine 8 MG/ML Syringe 6 MG IV (13:32)
[2019-05-01] MEDS: Ondansetron 4 MG/2 ML Vial IV (13:32)
[2019-05-01 13:37] LABS: Anion Gap 4 (5-15); BUN 17 mg/dL (7-18); BUN/Creat Ratio 13.4 RATIO (10-20); Calcium,Total 8.5 mg/dL (8.5-10.1); Chloride 104 mmol/L (98-107); Creatinine, Serum 1.27 mg/dL (0.70-1.30); EST Glomerular Filtration Rate 59 mL/min (>60); Est Glom Filt Rate - Afr Amer 72 mL/min (>60); Estimated Creatinine Clearance 52.58 ml/min; Glucose 217 mg/dL (74-106); Potassium 4.2 mmol/L (3.5-5.1); Sodium Level 137 mmol/L (136-145)
[2019-05-01 14:12] VITALS: BP 176/79; PULSE 59; RESP 18; O2SAT 97
--- NOTE | 2019-05-01 15:42 | ED.DEP ---
ED Disposition - Plan for ED Patient: Disposition: Home or Assisted Living Instructions: KIDNEY STONE w/ Colic Prescriptions: Hydrocodone/Acetaminophen [Soper 5-325 Tablet] 1 ea PO Q4H PRN PRN 3 Days #14 tab PRN Reason: Pain Prescription Printed Referrals: Jacoby Oviedo, COMMERCIAL PRODUCTION EDITOR-C [Primary Care Provider] - As Needed Phillip Barillas MD [STAFF PHYSICIAN] - As Needed Additional Instructions: Plan fluids and rest. Soper for pain. Follow-up with the urologist as needed.
[2019-05-01] MEDS: Morphine 4 MG/ML Syringe IV (16:00)
[2019-05-01 16:05] VITALS: BP 143/73; PULSE 78; RESP 16; O2SAT 97
== END 2019-05-01 16:05 | disposition home or self-care (01) ==
PROVIDERS: Emergency Provider Emergency Medicine; Family Provider Nurse Practitioner Family; PCP Nurse Practitioner Family
DX: N20.1 Calculus of ureter (principal); I71.4 Abdominal aortic aneurysm, without rupture; E11.9 Type 2 diabetes mellitus without complications; I25.10 Atherosclerotic heart disease of native coronary artery without angina pectoris; I25.2 Old myocardial infarction; Z95.1 Presence of aortocoronary bypass graft; Z87.442 Personal history of urinary calculi; Z79.4 Long term (current) use of insulin; Z79.82 Long term (current) use of aspirin; Z79.899 Other long term (current) drug therapy
CPT/HCPCS: 74176; 80048; 81001; 85025; 96361; 96374; 96375; 96376; 99283; J7030; A4216; J2405

== ENCOUNTER → 2019-06-26 | Outpatient (CLI) | payer MEDICARE, OTHER, SELFPAY ==
[2019-06-26 11:22] LABS: Absolute Lymphocyte Count 1.21 X10^3/uL (0.83-4.51); Absolute Neutrophil Count 5.1 X10^3/uL (2.0-7.7); Basophil# 0.04 X10^3/uL; Basophil% 0.5 % (0-1); Eosinophil# 0.31 X10^3/uL; Eosinophils% 4.2 % (0-5); Hematocrit 41.9 % (40-54); Hemoglobin 13.9 g/dL (13.0-16.5); Lymphocyte # 1.21 X10^3/ul (4.0); Lymphocyte % 16.6 % (19-41); Mean Corp Hgb Conc 33.2 g/dL (32-36); Mean Corpuscular Hgb 31.7 pg (27.0-32.0); Mean Corpuscular Volume 95.7 fL (80-94); Mean Platelet Vol. 8.9 fl (6.2-12.0); Monocyte# 0.66 X10^3/uL; NRBC Flagged by Analyzer 0 % (0-5); Neutrophil # 5.05 X10^3/uL (2.7-7.7); Neutrophil % 69.3 % (47-70); Platelet Count 164 K/mm3 (150-450); RBC Distribution Width CV 13.4 % (11.6-14.6); RBC Distribution Width SD 47.5 fl (35.1-43.9); Red Blood Count 4.38 M/mm3 (4.6-6.2); White Blood Count 7.3 K/mm3 (4.4-11.0)
[2019-06-26 12:02] LABS: ALB/GLOB Ratio 0.9 RATIO (0.9-2.4); AST(SGOT) 19 U/L (15-37); Alanine Aminotransfer ALT/SGPT 25 U/L (16-61); Albumin, Serum 3.3 g/dL (3.2-5.0); Alkaline Phosphatase 85 U/L (45-117); Anion Gap 4 (5-15); BUN 16 mg/dL (7-18); BUN/Creat Ratio 13.3 RATIO (10-20); Calcium,Total 8.5 mg/dL (8.5-10.1); Chloride 109 mmol/L (98-107); Cholesterol 102 mg/dL (200); EST Glomerular Filtration Rate 63 mL/min (>60); Est Glom Filt Rate - Afr Amer 76 mL/min (>60); Globulin 3.5 g/dL (2.2-4.2); Glucose 128 mg/dL (74-106); High Density Lipoprotein 22 mg/dL; PSA,Total - Annual Screen 1.78 ng/mL (0.00-4.00); Potassium 4.2 mmol/L (3.5-5.1); Protein, Total 6.8 g/dL (6.4-8.2); Sodium Level 141 mmol/L (136-145); Triglycerides 218 mg/dL; Very Low Density Lipoprotein 44 mg/dL (5-40)
[2019-06-26 12:07] LABS: Hemoglobin A1c 7.2 % (4.2-6.3)
== END | disposition home or self-care (01) ==
LOC: LAB 10:23
PROVIDERS: Family Provider Nurse Practitioner Family; PCP Nurse Practitioner Family; Referring Provider Nurse Practitioner Family; Visit Provider Nurse Practitioner Family
DX: Z00.00 Encounter for general adult medical examination without abnormal findings (principal); Z12.5 Encounter for screening for malignant neoplasm of prostate; I10 Essential (primary) hypertension; E11.9 Type 2 diabetes mellitus without complications; E78.5 Hyperlipidemia, unspecified
CPT/HCPCS: 36415; 80053; 80061; 82043; 82570; 83036; 84153; 85025; G0103

== ENCOUNTER 2019-08-12 19:22 | Observation (INO) | payer MEDICARE, OTHER, SELFPAY ==
[2019-08-09 10:09] VITALS: BMI 30.1
[2019-08-12 19:23] VITALS: BP 188/89; PULSE 59; RESP 15; TEMP 36.7; O2SAT 96; BMI 29.5
--- NOTE | 2019-08-12 19:44 | CT_ITS ---
STUDY: CT ABDOMEN AND PELVIS WITHOUT CONTRAST REASON FOR EXAM: Male, 74 years old. LLQ PAIN AND LEFT FLANK PAIN TODAY, HX KS WITH LITHOTRIPSY 1 YEAR AGO, DIAB, CABG,HTN, [place] RADIATION DOSAGE (If Supplied By Facility): CTDIvol = ( 11.55 ) mGy, DLP = ( 852.14 ) mGycm TECHNIQUE: Transaxial images were obtained from the dome of the diaphragm to the symphysis pubis without oral contrast, and without intravenous contrast. Sagittal and coronal images were reconstructed. Individualized dose optimization techniques were used for this CT. COMPARISON: None. FINDINGS: The visualized lung bases are unremarkable. The visualized portions of the heart are within normal limits. Normal liver. Normal gallbladder and extrahepatic biliary system. Normal spleen. Normal pancreas. Normal bilateral adrenal glands. Normal right kidney. Multiple stones are seen in the left kidney. There is an 9 mm stone at the ureteropelvic junction with resultant severe left hydronephrosis there is perirenal fat stranding may represent urinoma or pyelonephritis. Normal visualized stomach. Normal small intestine. Normal colon. The appendix is visualized and appears normal. There is diffuse atherosclerotic calcification of the abdominal aorta with elongation and tortuosity, there is 3.5 cm infrarenal abdominal aortic aneurysm. Normal inferior vena cava. Normal retroperitoneum. Normal urinary bladder. Normal abdominal wall. Normal osseous structures. CT/Abdomen/Pelvis without Cont IMPRESSION: Multiple stones are seen in the left kidney. There is an 9 mm stone at the ureteropelvic junction with resultant severe left hydronephrosis. There is perirenal fat stranding may represent urinoma or pyelonephritis. There is 3.5 cm infrarenal abdominal aortic aneurysm Electronically Signed: Ivan Gutierrez, at 21:12 EDT Tel , Service support ,
[2019-08-12 20:03] LABS: Absolute Neutrophil Count 5.2 X10^3/uL (2.0-7.7); Basophil# 0.05 X10^3/uL; Basophil% 0.7 % (0-1); Eosinophil# 0.31 X10^3/uL; Eosinophils% 4.2 % (0-5); Hematocrit 44.9 % (40-54); Hemoglobin 14.8 g/dL (13.0-16.5); Lymphocyte % 14.8 % (19-41); Mean Corpuscular Hgb 31.8 pg (27.0-32.0); Mean Corpuscular Volume 96.6 fL (80-94); Mean Platelet Vol. 8.8 fl (6.2-12.0); Monocyte# 0.69 X10^3/uL; Monocyte% 9.3 % (0-10); NRBC Flagged by Analyzer 0 % (0-5); Neutrophil # 5.24 X10^3/uL (2.7-7.7); Neutrophil % 70.6 % (47-70); Platelet Count 159 K/mm3 (150-450); RBC Distribution Width CV 13.3 % (11.6-14.6); RBC Distribution Width SD 47.5 fl (35.1-43.9); Red Blood Count 4.65 M/mm3 (4.6-6.2); White Blood Count 7.4 K/mm3 (4.4-11.0)
[2019-08-12] MEDS: Morphine 4 MG/ML Syringe IV ×2 (20:19→21:33)
[2019-08-12] MEDS: 0.9% Normal Saline 1,000 ML 125 ML IV (20:19)
[2019-08-12] MEDS: Ondansetron 4 MG/2 ML Vial IV (20:19)
[2019-08-12 20:21] LABS: Anion Gap 5 (5-15); BUN 15 mg/dL (7-18); BUN/Creat Ratio 11.2 RATIO (10-20); Calcium,Total 8.8 mg/dL (8.5-10.1); Chloride 104 mmol/L (98-107); Creatinine, Serum 1.34 mg/dL (0.70-1.30); EST Glomerular Filtration Rate 56 mL/min (>60); Est Glom Filt Rate - Afr Amer 67 mL/min (>60); Estimated Creatinine Clearance 49.83 ml/min; Glucose 136 mg/dL (74-106); Potassium 4.1 mmol/L (3.5-5.1); Sodium Level 140 mmol/L (136-145)
[2019-08-12 21:34] VITALS: RESP 11
[2019-08-12 21:35] LABS: Bacteria 0 SEEN /hpf (None Seen); Color, Urine Yellow (Yellow); Glucose, Dipstick 250 mg/dl (Normal); Ketone-Dipstick Negative (Negative); Leukocyte Esterase-Dipstick Negative /ul (Negative); Mucous, Urine 0 SEEN /hpf (<or=2+); Nitrite-Dipstick Negative (Negative); Occult Blood-Urine 25 /ul (Negative); Protein-Dipstick Negative (Negative); Specific Gravity, Urine 1.015 (1.002-1.030); Squamous Epithelial Cells - UA 0 SEEN /hpf (0-5); Urine Bilirubin Dipstick Negative (Negative); Urine Clarity Clear (Clear); Urine Urobilinogen Normal (Normal)
[2019-08-12 21:44] LABS: White Blood Cells 0-5 SEEN /hpf (0-5)
[2019-08-12 21:47] LABS: Red Blood Cells-Urine 5-10 SEEN /hpf (0-5)
--- NOTE | 2019-08-12 22:21 | ED.VISSUMM ---
- ER Visit Summary Date of Service: 08/12/19 Chief Complaint: [Left flank pain History of present illness: The patient is a 74-year-old male presents to the emergency department complaint of pain in the left flank that started around 4 PM. Patient states the pain can came on gradually. Patient currently rates the pain a 5 out of 10. Patient's had some mild nausea but no vomiting. He denies any diarrhea. Patient does have history of kidney stones and thinks that he is likely got another stone that he is trying to pass. Patient states that last time he had a kidney stone he required lithotripsy and stenting. Patient has history of coronary artery disease.] Physical Examination: HEENT-PERRLA, EOMI. Cranial nerves II through XII grossly intact. TMs clear. Mucous membranes moist. No adenopathy. Cardiovascular-regular rate and rhythm without murmur or ectopy Lungs-clear to auscultation, chest wall stable without crepitus or subcu emphysema Abdomen-normoactive bowel sounds, soft. Patient has tenderness over left lower quadrant and CVA tenderness on the left. There is no rebound, rigidity, or perineal signs. Extremities-intact ?4, normal range of motion, normal pulses, atraumatic [] Test Results: CBC with differential obtained showed a white count of 7.4, hemoglobin 14.8, hematocrit 45, plates 159. Chemistries unremarkable. Creatinine was 1.34. CT flank showed a 9 mm stone at the UPJ with severe hydro-and questionable neuroma or pyelonephritis.] Emergency Department Course and Treatment: Patient was medicated with morphine and Zofran which did help his pain however he had to be remedicated with morphine for an increase in his pain again. [Case was discussed with patient's urologist who can see him in consult tomorrow.] Treatment Plan: [Admit for pain control] Disposition: [Admit] Impression: [Urolithiasis Intractable pain] This note was generated with [employer] dictation software. It may contain incorrect words, spelling, and punctuation that were not noted in review of the chart prior to signing ED Disposition - Plan for ED Patient: Referrals: Jacoby Oviedo, PLANIMETER OPERATOR-C [Primary Care Provider] -
--- NOTE | 2019-08-12 22:27 | HP.PCM_ITS ---
Problem List (1) Nephrolithiasis Status: Acute History of Present Illness Date of Admission: 08/12/19 Chief Complaint: left lower quadrant pain The patient is a 74 year old M with a significant history of hypertension; BPH; type 2 diabetes; CAD status post CABG who presented to the emergency department with progressively worsening left lower quadrant pain that started on the same day of presentation. He reported his pain is steady, substantial, and not sharp. His pain radiates to his left flank area. Associated with his symptoms is mild nausea. He denies vomiting. He denies any ameliorating or aggravating factors to the pain. He took some hydrocodone at home but this did not help with his pain. He reports a previous history of multiple kidney stones for which he has seen Dr. Barillas for procedures. Emergency department doctor discussed the case with Dr. Barillas who is ok to see patient on consultation. Abdomen and pelvis CT showed multiple stones in the left kidney and at the ureteral pelvic junction with severe left hydronephrosis and stranding. Past Medical History Past Medical History (Chronic Problems): Chronic Problems (Last Reviewed 08/12/19 @ 23:15 by Ramon Smith MD) Essential (primary) hypertension (Chronic) Old myocardial infarction (Chronic) Atherosclerotic heart disease of [place] coronary artery without angina pectoris (Chronic) 12/30/15, CABG X 4, SOMMER-LAD, SVG-D1, GRX-Bkfq-Lnz CX, SVG-PDA Abdominal aortic aneurysm (Chronic) Hyperlipidemia (Chronic) Diabetes mellitus type 2 in nonobese (Chronic) Medical History: Medical History (Last Reviewed 08/13/19 @ 01:19 by Ramon Smith MD) Essential (primary) hypertension (Chronic) I10 Old myocardial infarction (Chronic) I25.2 Atherosclerotic heart disease of [place] coronary artery without angina pectoris (Chronic) I25.10 12/30/15, CABG X 4, SOMMER-LAD, SVG-D1, TTP-Xblc-Gbb CX, SVG-PDA Abdominal aortic aneurysm (Chronic) I71.4 Hyperlipidemia (Chronic) E78.5 Diabetes mellitus type 2 in nonobese (Chronic) E11.9 Benign prostatic hyperplasia N40.0 History of kidney stones Z87.442 Allergies caffeine Allergy (Verified 08/12/19 19:27) Other Palpitations ibuprofen Allergy (Verified 08/12/19 19:27) Rash Penicillins [PCN] Allergy (Verified 08/12/19 19:27) Other Pt doesn't remember - allergy since a child Home Medications: Ambulatory Orders Medication Instructions Recorded Atorvastatin Calcium [Lipitor] 20 mg PO QHS 09/15/15 Glimepiride [Amaryl] 2 mg PO DAILY 09/15/15 Aspirin [Adult Low Dose Aspirin EC] 81 mg PO DAILY 01/22/16 Mag/Aluminum/Sod Bicarb/Alginc 2 ea PO DAILY PRN PRN 05/31/18 [Gaviscon 80-14.2 mg Tab Chew] Omeprazole [Prilosec] 20 mg PO BID 05/31/18 Tadalafil [Cialis] 5 mg PO DAILY 05/31/18 Tamsulosin HCl [Flomax] 0.4 mg PO QHS 05/31/18 clopidogrel 75 mg tablet 75 mg PO DAILY #90 tab 07/24/18 metoprolol tartrate 25 mg tablet 25 mg PO BID #180 tab 04/09/19 insulin degludec (U-100) 100 40 unit SC BREAKFAST ml 08/09/19 unit/mL (3 mL) subcutaneous pen loratadine 10 mg disintegrating 10 mg PO DAILY 08/09/19 tablet metformin ER 1,000 mg 24 hr 1,000 mg PO BID tab 08/09/19 tablet,extended release psyllium husk 2.6 gram/4.1 gram 1 tsp PO DAILY 08/09/19 oral powder Surgical History: Surgical History (Last Reviewed 08/13/19 @ 01:19 by Ramon Smith MD) H/O coronary artery bypass surgery (Inactive) Onset Date: 12/30/15 Z95.1 CABG X 4, SOMMER-LAD, SVG-D1, YGN-Fjlj-Dlt CX, SVG-PDA 12/30/15 History of lithotripsy Z98.890 History of tonsillectomy Z90.89 Surgical History: coronary bypass surgery, tonsillectomy Psychiatric History: No pertinent psych hx Lives: Spouse/ Significant Other Smoking Status: Former smoker Alcohol: Occasional - *Family History Paternal Family History: Family History (Last Reviewed 08/13/19 @ 01:19 by Ramon Smith MD) Father FH: CABG (coronary artery bypass surgery) Cancer Heart disease Mother Myocardial infarction Heart disease Brother Myocardial infarction CAD (coronary artery disease) Other Family history of coronary artery disease History Items: Heart Disease Sibling Family History: Family History (Last Reviewed 08/13/19 @ 01:19 by Ramon Smith MD) Father FH: CABG (coronary artery bypass surgery) Cancer Heart disease Mother Myocardial infarction Heart disease Brother Myocardial infarction CAD (coronary artery disease) Other Family history of coronary artery disease History Items: Heart Disease Maternal Family History: Family History (Last Reviewed 08/13/19 @ 01:19 by Ramon Smith MD) Father FH: CABG (coronary artery bypass surgery) Cancer Heart disease Mother Myocardial infarction Heart disease Brother Myocardial infarction CAD (coronary artery disease) Other Family history of coronary artery disease History Items: Heart Disease Review of Systems Constitutional: Denies: Chills, Fever, Weight Change HEENT: Denies: Head Aches, Sinus Congestion, Sinus Drainage Cardiovascular: Denies: Chest Pain, Palpitations Respiratory: Denies: Cough, Shortness of breath at rest, Sputum production Gastrointestinal: Reports: Abdominal Pain, Nausea. Denies: Vomiting Genitourinary: Denies: Dysuria Musculoskeletal: Denies: Joint Pain, Joint Tenderness Skin: Denies: Rash, Wounds Neurological: Denies: Numbness, Tingling, Focal weakness Psychiatric: Denies: Anxiety, Depression, Homicidal Ideations, Suicidal Ideations Hematologic/ Lymphatic: Denies: Easy Bruising, Easy Bleeding VTE Information - Inpt Only VTE Present on Admission: No VTE Mechan Device Prophylaxis: SCD's VTE Pharm Prophylaxis ordered?: No Patient Problems: Active and Suspected Problems (Last Reviewed 08/12/19 @ 23:15 by Ramon Smith MD) Nephrolithiasis (Acute) - Physical Exam General: Alert, Oriented x3, Cooperative HEENT: Atraumatic, PERRLA, EOMI, Normocephalic Neck: Supple, No JVD, Negative Carotid Bruits Lungs: Clear to auscultation, Normal air movement Cardiovascular: Regular rate, No murmurs Abdomen: Bowel Sounds Present, Soft, Non Tender, - - No CVA tenderness Extremities: No edema, Capillary Refill Less than 3 Seconds Skin: No rashes, No breakdown Musculoskeletal: No Tenderness to Palpation of Joints or Extremities Neurological: Cranial nerves II-XII grossly intact Psych/Mental Status: Normal Affect, Appropriate Vital Signs Temp Pulse Resp BP Pulse Ox 98.1 F 59 L 11 L 188/89 H 96 08/12/19 19:23 08/12/19 19:23 08/12/19 21:34 08/12/19 19:23 08/12/19 19:23 Oxygen Delivery Method Room Air Weight: 90.718 kg Body Mass Index (BMI) 29.5 Laboratory Tests Past 24 Hrs 08/12/19 08/12/19 08/12/19 19:55 19:55 21:27 WBC 7.4 RBC 4.65 Hgb 14.8 Hct 44.9 MCV 96.6 H MCH 31.8 MCHC 33.0 RDW Std Deviation 47.5 H RDW Coeff of [place] 13.3 Plt Count 159 MPV 8.8 Immature Gran % (Auto) 0.400 Neut % (Auto) 70.6 H Lymph % (Auto) 14.8 L [place] % (Auto) 9.3 Eos % (Auto) 4.2 Baso % (Auto) 0.7 Absolute Neuts (auto) 5.2 Absolute Lymphs (auto) 1.10 Nucleated RBC % 0 Sodium 140 Potassium 4.1 Chloride 104 Carbon Dioxide 31.0 Anion Gap 5 BUN 15 Creatinine 1.34 H Estim Creat Clear Calc 49.83 Est GFR (MDRD) Af Amer 67 Est GFR (MDRD) Non-Af 56 L BUN/Creatinine Ratio 11.2 Glucose 136 H Calcium 8.8 Urine Color Yellow Urine Clarity Clear Urine pH 8.0 Ur Specific [place] 1.015 Urine Protein Negative Urine Glucose (UA) 250 H Urine Ketones Negative Urine Occult Blood 25 H Urine Nitrite Negative Urine Bilirubin Negative Urine Urobilinogen Normal Ur Leukocyte Esterase Negative Urine RBC 5-10 SEEN Urine WBC 0-5 SEEN Ur Squamous Epith Cells 0 SEEN Urine Bacteria 0 SEEN Urine Mucus 0 SEEN Assessment/Plan All Active Problems (Last Reviewed 08/12/19 @ 23:15 by Ramon Smith MD) Nephrolithiasis (Acute) The patient is a 74 year old M with a significant history of hypertension; BPH; type 2 diabetes; CAD status post CABG; kidney stones who presented to the emergency department with progressively worsening left lower quadrant pain that started on the same day of presentation and with radiographic evidence of multiple stone in the left kidney ureteric junction stones and severe hydronephrosis as well as perinephric stranding consistent with acute recurrent kidney stones. Acute recurrent nephrolithiasis with hydronephrosis and with probable urinoma Patient with classical symptoms of kidney stones and with CTA of abdomen and pelvis showing multiple stones seen in the left kidney; 9 mm stone at the ureteropelvic junction with resultant severe left hydronephrosis. Kelle-renal fat stranding which may represent uroma or pyelonephritis. CT of abdomen and pelvis was independently reviewed. I agree with the interpretation. He has no fever or white counts so unlikely pyelonephritis. We will begin symptomatic pain control with PRN IV morphine and PRN IV Zofran for antiemetics. Maintenance IV hydration with normal saline. Continue home Flomax that he takes for BPH Consult Dr. Barillas, urologist. Keep n.p.o. after midnight for possible urological procedure. Check PT/INR. Hypertensive urgency On presentation his blood pressure was 188/89 Metoprolol continued. PRN hydralazine IV ordered Trend blood pressure and adjust blood pressure medications. Diabetes mellitus Presentation his blood glucose was within goal. Will de-escalate home basal insulin. Hold Amaryl and metformin in the hospital settings. Accu-Chek every 6 hours with correction scale insulin. Lipidemia Lipitor continued GERD Prilosec continued Allergies H1 blockers continued. CAD status post CABG Hold aspirin and Plavix because of likely urological procedure. DVT prophylaxis SCD ordered Code Visit OBSV E&M: 10694 Initial observation care L3
[2019-08-12 23:24] VITALS: BMI 29.8
[2019-08-12 23:25] VITALS: BP 178/85; PULSE 67; RESP 18; TEMP 36.7; O2SAT 98
[2019-08-12 23:36] VITALS: BMI 29.9
[2019-08-12 23:56] VITALS: PULSE 67
[2019-08-12] MEDS: Metoprolol Tartrate 25 MG Tablet PO (23:56)
[2019-08-12] MEDS: Pantoprazole Sodium 20 MG Tablet PO (23:56)
[2019-08-12] MEDS: Atorvastatin Calcium 20 MG Tablet PO (23:56)
[2019-08-12] MEDS: Tamsulosin HCl 0.4 MG Capsule PO (23:56)
[2019-08-13] VITALS (17 sets, daily range): BP systolic 88–157; BP diastolic 51–84; PULSE 57–98; RESP 12–18; TEMP 36.7–37.8; O2SAT 90–99; BMI 30.1
[2019-08-13] MEDS: Insulin Lispro 100 UNIT/ML INSULN.PEN SC
[2019-08-13] MEDS: 0.9% Normal Saline 1,000 ML 75 ML IV (00:01)
[2019-08-13 00:11] LABS: Bedside Glucose 173 mg/dL (70-110)
--- NOTE | 2019-08-13 05:00 | EKG12_ITS ---
Test Reason : MORNING EKG Blood Pressure : / mmHG Vent. Rate : 063 BPM Atrial Rate : 063 BPM P-R Int : 140 ms QRS Dur : 092 ms QT Int : 462 ms P-R-T Axes : 062 021 036 degrees QTc Int : 472 ms Normal sinus rhythm Nonspecific T wave abnormality Abnormal ECG Confirmed by FRANKI SILVA, SUNG ([id number]), medical editor RIGO QUIJANO ([id number]) on 08/15/2019 2:07:21 PM Referred By: Ramon Smith Confirmed By:SUNG DOAN MD
[2019-08-13] MEDS: Morphine 2 MG/ML Syringe IV (06:17)
[2019-08-13 06:36] LABS: Bedside Glucose 115 mg/dL (70-110)
[2019-08-13 07:15] LABS: International Normalized Ratio 1.2; Prothrombin Time (Protime)PT. 14.7 SECONDS (11.7-14.9)
--- NOTE | 2019-08-13 07:33 | PCM.CONS.U ---
Reason for Consult Date of Consultation: 08/13/19 Reason for Consultation: Left kidney stone with obstruction. History of Present Illness: The patient is a 74 year old M with blocking stone in the left kidney admitted for pain control. he was worried pain would come back, I advised discharge and follow up as outpatient Past Medical History Past Medical History (Chronic Problems): Chronic Problems (Last Reviewed 08/13/19 @ 01:19 by Ramon Smith MD) Essential (primary) hypertension (Chronic) Old myocardial infarction (Chronic) Atherosclerotic heart disease of [place] coronary artery without angina pectoris (Chronic) 12/30/15, CABG X 4, SOMMER-LAD, SVG-D1, EKM-Ljbd-Woc CX, SVG-PDA Abdominal aortic aneurysm (Chronic) Hyperlipidemia (Chronic) Diabetes mellitus type 2 in nonobese (Chronic) Medical History: Medical History (Last Reviewed 08/13/19 @ 07:35 by Phillip Barillas MD) Essential (primary) hypertension (Chronic) I10 Old myocardial infarction (Chronic) I25.2 Atherosclerotic heart disease of [place] coronary artery without angina pectoris (Chronic) I25.10 12/30/15, CABG X 4, SOMMER-LAD, SVG-D1, EWU-Ronv-Nix CX, SVG-PDA Abdominal aortic aneurysm (Chronic) I71.4 Hyperlipidemia (Chronic) E78.5 Diabetes mellitus type 2 in nonobese (Chronic) E11.9 Benign prostatic hyperplasia N40.0 History of kidney stones Z87.442 Allergies caffeine Allergy (Verified 08/12/19 19:27) Other Palpitations ibuprofen Allergy (Verified 08/12/19 19:27) Rash Penicillins [PCN] Allergy (Verified 08/12/19 19:27) Other Pt doesn't remember - allergy since a child Home Medications: Ambulatory Orders Medication Instructions Recorded Atorvastatin Calcium [Lipitor] 20 mg PO QHS 09/15/15 Glimepiride [Amaryl] 2 mg PO DAILY 09/15/15 Aspirin [Adult Low Dose Aspirin EC] 81 mg PO DAILY 01/22/16 Mag/Aluminum/Sod Bicarb/Alginc 2 ea PO DAILY PRN PRN 05/31/18 [Gaviscon 80-14.2 mg Tab Chew] Omeprazole [Prilosec] 20 mg PO BID 05/31/18 Tadalafil [Cialis] 5 mg PO DAILY 05/31/18 Tamsulosin HCl [Flomax] 0.4 mg PO QHS 05/31/18 clopidogrel 75 mg tablet 75 mg PO DAILY #90 tab 07/24/18 metoprolol tartrate 25 mg tablet 25 mg PO BID #180 tab 04/09/19 insulin degludec (U-100) 100 40 unit SC BREAKFAST ml 08/09/19 unit/mL (3 mL) subcutaneous pen loratadine 10 mg disintegrating 10 mg PO DAILY 08/09/19 tablet metformin ER 1,000 mg 24 hr 1,000 mg PO BID tab 08/09/19 tablet,extended release psyllium husk 2.6 gram/4.1 gram 1 tsp PO DAILY 08/09/19 oral powder Surgical History: Surgical History (Last Reviewed 08/13/19 @ 07:35 by Phillip Barillas MD) H/O coronary artery bypass surgery (Inactive) Onset Date: 12/30/15 Z95.1 CABG X 4, SOMMER-LAD, SVG-D1, HLG-Dpwu-Ifm CX, SVG-PDA 12/30/15 History of lithotripsy Z98.890 History of tonsillectomy Z90.89 Surgical History: coronary bypass surgery, tonsillectomy Psychiatric History: No pertinent psych hx Lives: Spouse/ Significant Other Smoking Status: Former smoker Alcohol: Occasional - *Family History Paternal Family History: Family History (Last Reviewed 08/13/19 @ 01:19 by Ramon Smith MD) Father FH: CABG (coronary artery bypass surgery) Cancer Heart disease Mother Myocardial infarction Heart disease Brother Myocardial infarction CAD (coronary artery disease) Other Family history of coronary artery disease History Items: Heart Disease Sibling Family History: Family History (Last Reviewed 08/13/19 @ 01:19 by Ramon Smith MD) Father FH: CABG (coronary artery bypass surgery) Cancer Heart disease Mother Myocardial infarction Heart disease Brother Myocardial infarction CAD (coronary artery disease) Other Family history of coronary artery disease History Items: Heart Disease Maternal Family History: Family History (Last Reviewed 08/13/19 @ 01:19 by Ramon Smith MD) Father FH: CABG (coronary artery bypass surgery) Cancer Heart disease Mother Myocardial infarction Heart disease Brother Myocardial infarction CAD (coronary artery disease) Other Family history of coronary artery disease History Items: Heart Disease Review of Systems Constitutional: Denies: Chills, Fever, Weight Change HEENT: Denies: Head Aches, Sinus Congestion, Sinus Drainage Cardiovascular: Denies: Chest Pain, Palpitations Respiratory: Denies: Cough, Shortness of breath at rest, Sputum production Gastrointestinal: Reports: Abdominal Pain. Denies: Nausea, Vomiting Genitourinary: Reports: Hematuria. Denies: Dysuria Musculoskeletal: Denies: Joint Pain, Joint Tenderness Skin: Denies: Rash, Wounds Neurological: Denies: Numbness, Tingling, Focal weakness Psychiatric: Denies: Anxiety, Depression, Homicidal Ideations, Suicidal Ideations Hematologic/ Lymphatic: Denies: Easy Bruising, Easy Bleeding Physical Exam - Physical Exam Vital Signs Temp 99.1 F 08/13/19 06:13 Pulse 63 08/13/19 06:13 Resp 18 08/13/19 06:13 BP 147/78 H 08/13/19 06:13 Pulse Ox 98 08/13/19 06:13 Intake & Output 08/11/19 08/12/19 08/13/19 23:59 23:59 23:59 Intake Total 1000 / 1000 Output Total 425 / 425 Balance 1000 / 850 -425 / -425 Weight: 91.7 kg Intake: Intake, IV Amount 1000 / 1000 0.9% Normal Saline 1,000 ML @ 1000 / 1000 125 mls/hr IV .Q8H [facility] Rx#: [id number] Output: Urine 425 / 425 General: Alert, Oriented x3 HEENT: Atraumatic Oral: Moist Mucosa Neck: Supple Lungs: Normal air movement Cardiovascular: Regular rate Abdomen: Soft Laboratory Tests Past 24 Hrs 08/12/19 08/12/19 08/12/19 19:55 19:55 21:27 WBC 7.4 RBC 4.65 Hgb 14.8 Hct 44.9 MCV 96.6 H MCH 31.8 MCHC 33.0 RDW Std Deviation 47.5 H RDW Coeff of [place] 13.3 Plt Count 159 MPV 8.8 Immature Gran % (Auto) 0.400 Neut % (Auto) 70.6 H Lymph % (Auto) 14.8 L [place] % (Auto) 9.3 Eos % (Auto) 4.2 Baso % (Auto) 0.7 Absolute Neuts (auto) 5.2 Absolute Lymphs (auto) 1.10 Nucleated RBC % 0 PT INR Sodium 140 Potassium 4.1 Chloride 104 Carbon Dioxide 31.0 Anion Gap 5 BUN 15 Creatinine 1.34 H Estim Creat Clear Calc 49.83 Est GFR (MDRD) Af Amer 67 Est GFR (MDRD) Non-Af 56 L BUN/Creatinine Ratio 11.2 Glucose 136 H Hemoglobin A1c Calcium 8.8 Urine Color Yellow Urine Clarity Clear Urine pH 8.0 Ur Specific [place] 1.015 Urine Protein Negative Urine Glucose (UA) 250 H Urine Ketones Negative Urine Occult Blood 25 H Urine Nitrite Negative Urine Bilirubin Negative Urine Urobilinogen Normal Ur Leukocyte Esterase Negative Urine RBC 5-10 SEEN Urine WBC 0-5 SEEN Ur Squamous Epith Cells 0 SEEN Urine Bacteria 0 SEEN Urine Mucus 0 SEEN 08/13/19 08/13/19 05:21 05:21 WBC RBC Hgb Hct MCV MCH MCHC RDW Std Deviation RDW Coeff of [place] Plt Count MPV Immature Gran % (Auto) Neut % (Auto) Lymph % (Auto) [place] % (Auto) Eos % (Auto) Baso % (Auto) Absolute Neuts (auto) Absolute Lymphs (auto) Nucleated RBC % PT 14.7 INR 1.2 Sodium Potassium Chloride Carbon Dioxide Anion Gap BUN Creatinine Estim Creat Clear Calc Est GFR (MDRD) Af Amer Est GFR (MDRD) Non-Af BUN/Creatinine Ratio Glucose Hemoglobin A1c Pending Calcium Urine Color Urine Clarity Urine pH Ur Specific [place] Urine Protein Urine Glucose (UA) Urine Ketones Urine Occult Blood Urine Nitrite Urine Bilirubin Urine Urobilinogen Ur Leukocyte Esterase Urine RBC Urine WBC Ur Squamous Epith Cells Urine Bacteria Urine Mucus Assessment/Plan All Active Problems (Last Reviewed 08/13/19 @ 01:19 by Ramon Smith MD) Nephrolithiasis (Acute) admitted for left obstructing kidney stone admitted for pain control will take to surgery today for stent then follow up in my office after discharge with xray
[2019-08-13 08:14] LABS: Hemoglobin A1c 7.8 % (4.2-6.3)
--- NOTE | 2019-08-13 10:16 | PN_ITS ---
Patient Problems: Active and Suspected Problems (Last Reviewed 08/13/19 @ 07:35 by Phillip Barillas MD) Nephrolithiasis (Acute) Subjective: The patient is a 74-year-old male with a past medical history of hypertension, myocardial infarction, coronary artery disease with CABG x4 vessels on 12/30/2015, abdominal aortic aneurysm, hyperlipidemia tobacco dependence in remission, BPH nephrolithiasis and diabetes mellitus type 2 who presented to the emergency department at [facility] on 08/12/2019 complaining of constant left lower quadrant pain that radiated to the left flank. CT of the abdomen and pelvis showed multiple stones in the left kidney a 9 mm stone at the ureteropelvic junction with severe left hydronephrosis. There was perirenal fat stranding and a 3.5 cm infrarenal abdominal aortic aneurysm. CBC was unremarkable. Creatinine was 1.34, up from 1.2 on 06/26/2019. UA showed 5-10 RBCs and 0-5 white blood cells. It was nitrite negative. Hemoglobin A1c was elevated at 7.8. He was admitted to the hospital for pain control and consultation was ordered with Dr. Barillas. Dr. Barillas has scheduled surgery today to place a stent. - Physical Exam Vital Signs Temp Pulse Resp BP Pulse Ox 100.1 F H 63 12 149/80 H 95 08/13/19 08:43 08/13/19 08:44 08/13/19 08:44 08/13/19 08:43 08/13/19 08:44 Oxygen Delivery Method Room Air Weight: 202 lb 2.622 oz Body Mass Index (BMI) 29.8 Intake and Output for Last 24 Hours 08/11/19 08/12/19 08/13/19 23:59 23:59 23:59 Intake Total 1000 / 1000 Output Total 425 / 425 Balance 1000 / 850 -425 / -425 Laboratory Tests Past 24 Hrs 08/12/19 08/12/19 08/12/19 19:55 19:55 21:27 WBC 7.4 RBC 4.65 Hgb 14.8 Hct 44.9 MCV 96.6 H MCH 31.8 MCHC 33.0 RDW Std Deviation 47.5 H RDW Coeff of [place] 13.3 Plt Count 159 MPV 8.8 Immature Gran % (Auto) 0.400 Neut % (Auto) 70.6 H Lymph % (Auto) 14.8 L [place] % (Auto) 9.3 Eos % (Auto) 4.2 Baso % (Auto) 0.7 Absolute Neuts (auto) 5.2 Absolute Lymphs (auto) 1.10 Nucleated RBC % 0 PT INR Sodium 140 Potassium 4.1 Chloride 104 Carbon Dioxide 31.0 Anion Gap 5 BUN 15 Creatinine 1.34 H Estim Creat Clear Calc 49.83 Est GFR (MDRD) Af Amer 67 Est GFR (MDRD) Non-Af 56 L BUN/Creatinine Ratio 11.2 Glucose 136 H Hemoglobin A1c Calcium 8.8 Urine Color Yellow Urine Clarity Clear Urine pH 8.0 Ur Specific [place] 1.015 Urine Protein Negative Urine Glucose (UA) 250 H Urine Ketones Negative Urine Occult Blood 25 H Urine Nitrite Negative Urine Bilirubin Negative Urine Urobilinogen Normal Ur Leukocyte Esterase Negative Urine RBC 5-10 SEEN Urine WBC 0-5 SEEN Ur Squamous Epith Cells 0 SEEN Urine Bacteria 0 SEEN Urine Mucus 0 SEEN 08/13/19 08/13/19 05:21 05:21 WBC RBC Hgb Hct MCV MCH MCHC RDW Std Deviation RDW Coeff of [place] Plt Count MPV Immature Gran % (Auto) Neut % (Auto) Lymph % (Auto) [place] % (Auto) Eos % (Auto) Baso % (Auto) Absolute Neuts (auto) Absolute Lymphs (auto) Nucleated RBC % PT 14.7 INR 1.2 Sodium Potassium Chloride Carbon Dioxide Anion Gap BUN Creatinine Estim Creat Clear Calc Est GFR (MDRD) Af Amer Est GFR (MDRD) Non-Af BUN/Creatinine Ratio Glucose Hemoglobin A1c 7.8 H Calcium Urine Color Urine Clarity Urine pH Ur Specific [place] Urine Protein Urine Glucose (UA) Urine Ketones Urine Occult Blood Urine Nitrite Urine Bilirubin Urine Urobilinogen Ur Leukocyte Esterase Urine RBC Urine WBC Ur Squamous Epith Cells Urine Bacteria Urine Mucus POC Glucose 08/13/19 08/12/19 06:13 23:54 POC Glucose 115 H 173 H Medical Necessity - Tobacco Use Smoking Status: Former smoker Assessment/Plan All Active Problems (Last Reviewed 08/13/19 @ 07:35 by Phillip Barillas MD) Nephrolithiasis (Acute)
[2019-08-13] MEDS: Metoprolol Tartrate 25 MG Tablet PO (10:36)
--- NOTE | 2019-08-13 12:00 | CASEMGMT ---
RN CM Face to Face with patient for initial transition planning/care coordination assessment. RN CM introduced self and role at [facility]. Patient lying in bed, alert and oriented. Patient willing to participate in assessment and is able to answer all questions appropriately. Care providers, pharmacy, and demographics verified. Patient wishes to discharge home, denies need for home health at this time. Patient states he has no further needs or concerns at this time. CM to follow for discharge planning needs that may arise. PCP: Preet CUTLER Specialists: Manuel, counting machine operator; Nargis, urologist Preferred Pharmacy: [facility] Insurance: [employer] Prescription Benefit: yes Living Will/HPOA: , Alicia Szymanski HPOA LNOK: , son Living Arrangements: Patient lives with and son in 2 story home, patient able to navigate stairs. Transportation: self/ DME/HHC: Patient states he has cane at home. Patient states he has had [facility] in the past. Disposition Plan: Patient to discharge home with family support and follow-up plans in place. Olga STOUT, RN, CM
[2019-08-13 13:00] LABS: Bedside Glucose 93 mg/dL (70-110)
[2019-08-13] MEDS: Lactated Ringers 1,000 ML 100 ML IV (14:23)
--- NOTE | 2019-08-13 14:47 | DCINST_ITS ---
Discharge Diet: Light diet - advance as tolerated Discharge Activity: Return to Normal Activity Call your doctor if you observe: Fever of 101 or Higher Allergies/Adverse Reactions: Allergies caffeine Allergy (Verified 08/12/19 19:27) Other Palpitations ibuprofen Allergy (Verified 08/12/19 19:27) Rash Penicillins [PCN] Allergy (Verified 08/12/19 19:27) Other Pt doesn't remember - allergy since a child Medications to take at Discharge Atorvastatin Calcium [Lipitor] 20 mg PO QHS 09/15/15 Glimepiride [Amaryl] 2 mg PO DAILY 09/15/15 Aspirin [Adult Low Dose Aspirin EC] 81 mg PO DAILY 01/22/16 Mag/Aluminum/Sod Bicarb/Alginc [Gaviscon 80-14.2 mg Tab Chew] 2 ea PO DAILY PRN PRN 05/31/18 Omeprazole [Prilosec] 20 mg PO BID 05/31/18 Tadalafil [Cialis] 5 mg PO DAILY 05/31/18 Tamsulosin HCl [Flomax] 0.4 mg PO QHS 05/31/18 clopidogrel 75 mg tablet 75 mg PO DAILY #90 tab 07/24/18 metoprolol tartrate 25 mg tablet 25 mg PO BID #180 tab 04/09/19 insulin degludec (U-100) 100 unit/mL (3 mL) subcutaneous pen 40 unit SC BREAKFAST ml 08/09/19 loratadine 10 mg disintegrating tablet 10 mg PO DAILY 08/09/19 metformin ER 1,000 mg 24 hr tablet,extended release 1,000 mg PO BID tab 08/09/19 psyllium husk 2.6 gram/4.1 gram oral powder 1 tsp PO DAILY 08/09/19 Primary Care Physician: Jacoby Oviedo NP-C [Primary Care Provider] - Test Results: Test results from this visit will be discussed in further detail at your follow- up appointment, if applicable. Please Follow Up With: Phillip Barillas MD When: please call to make an appointment.
[2019-08-13] MEDS: Lidocaine Jelly 2% 20 ML Syringe (URO-JET) 20 APPLIC (15:05)
--- NOTE | 2019-08-13 15:05 | PCM.OPRPT ---
Report of Operation Date of Procedure: 08/13/19 Pre-Operative Diagnosis: Obstructing left renal calculi Post-Operative Diagnosis: Same Surgery/Procedure Performed:: Cystoscopy left retrograde pyelogram left stent placement interpretation fluoroscopic images. Description of Surgical Findings:: 74-year-old male presents the hospital with severe pain from an obstructing stone in the left kidney also some stones in the left lower pole of the kidney plan to place a stent today under fluoroscopic guidance and cystoscopy. 74 male was taken back to the operating room after smooth induction of anesthesia he was placed in dorsolithotomy position went into the bladder with a 21 [place] rigid cystourethroscope using all bronze bridge the entire length urethra is normal pendulous urethra is normal bulbar is normal sphincter was intact no scar tissue of normality verumontanum was identified prostate was enlarged with a large median lobe had a really torque the scope down to go over the proximal top of the prostate, very large median lobe high riding bladder neck a lot of obstruction once inside the bladder had a very distended bladder and then identified the left ureteral orifice cannulated this with a Pollack catheter performed a retrograde pyelogram to fluoroscopic images could see the stones up in the kidney the proximal ureter in the the lower pole the left kidney that the wire up in the kidney over the wire then placed a stent stent in the kidney bladder good position drained the bladder patient anesthetic reversed and he will be discharged home today after the stent placement and will follow-up this week for shockwave lithotripsy of the stones.
--- NOTE | 2019-08-13 17:09 | DCINST_ITS ---
- Discharge Diagnoses Current Active Problems: Current Active and Chronic Problems (Last Reviewed 08/13/19 @ 07:35 by Phillip Barillas MD) Nephrolithiasis (Acute) You will use the following diet at home:: Other - resume the previous diet, low fat. low salt and reduced carbs. Your food should be the consistency of: Regular Your liquids should be the consistency of: Regular/Thin Discharge Activity: Return to Normal Activity, May not drive while taking narcotic pain medications. Call your doctor if you observe: Fever of 101 or Higher, Shortness of breath, Dizziness, Fainting spells, Swelling in the ankles, Chest pain, - - Nausea, vomiting, recurrent left flank or abdominal pain, blood in the urine.....more than just a pink discoloration Additional Instructions: 1. You had a mild increase in temp on the day of discharge. If you develop fevers, night sweats, painful urination, shaking chils call your PCP or Dr. Barillas or return to the ER. 2. I am giving your oxycodone for pain control. Oxycodone does not continue Tylenol so it is OK to take Tylenol with the Oxycodone. Percocet is Oxycodone + Tylenol. I could not fax Vicodin so that is why I changed it to Oxycodone. 3. Your HGBA1C is 7.8 and this is a little high......ideally I would like to see it less than 7.5. Try an do a little better with your carbohydrate restriction and lose a few pounds and the HGBA1C should improve. Allergies/Adverse Reactions: Allergies caffeine Allergy (Verified 08/12/19 19:27) Other Palpitations ibuprofen Allergy (Verified 08/12/19 19:27) Rash Penicillins [PCN] Allergy (Verified 08/12/19 19:27) Other Pt doesn't remember - allergy since a child Medications to take at Discharge Atorvastatin Calcium [Lipitor] 20 mg PO QHS 09/15/15 Glimepiride [Amaryl] 2 mg PO DAILY 09/15/15 Aspirin [Adult Low Dose Aspirin EC] 81 mg PO DAILY 01/22/16 Mag/Aluminum/Sod Bicarb/Alginc [Gaviscon 80-14.2 mg Tab Chew] 2 ea PO DAILY PRN PRN 05/31/18 Omeprazole [Prilosec] 20 mg PO BID 05/31/18 Tadalafil [Cialis] 5 mg PO DAILY 05/31/18 Tamsulosin HCl [Flomax] 0.4 mg PO QHS 05/31/18 clopidogrel 75 mg tablet 75 mg PO DAILY #90 tab 07/24/18 metoprolol tartrate 25 mg tablet 25 mg PO BID #180 tab 04/09/19 insulin degludec (U-100) 100 unit/mL (3 mL) subcutaneous pen 40 unit SC BREAKFAST ml 08/09/19 loratadine 10 mg disintegrating tablet 10 mg PO DAILY 08/09/19 metformin ER 1,000 mg 24 hr tablet,extended release 1,000 mg PO BID tab 08/09/19 psyllium husk 2.6 gram/4.1 gram oral powder 1 tsp PO DAILY 08/09/19 Oxycodone HCl/Acetaminophen [Percocet 5/325] 1 tab PO Q4H PRN PRN 5 Days #20 tab 08/13/19 Oxycodone [Oxyir] 5 mg PO Q4H PRN PRN 4 Days #16 tablet 08/13/19 The following prescriptions were given: Oxycodone [Oxyir] 5 mg PO Q4H PRN PRN 4 Days #16 tablet PRN Reason: pain unrelieved by tylenol Transmission Status: Sent to [facility] Oxycodone HCl/Acetaminophen [Percocet 5/325] 1 tab PO Q4H PRN PRN 5 Days #20 tab PRN Reason: Pain Prescription Printed Primary Care Physician: Jacoby Oviedo, ALYSSA-C [Primary Care Provider] - Please follow up with your Primary Care Physician in: 5-7 days Test Results: Test results from this visit will be discussed in further detail at your follow- up appointment, if applicable. Please Follow Up With: Phillip Barillas MD When: please call to make an appointment. Proposed Discharge Date: 08/13/19
--- NOTE | 2019-08-13 17:16 | PCM.DC.SUM ---
Discharge Date and Diagnosis - Problem List Patient Problems: Active and Suspected Problems (Last Reviewed 08/13/19 @ 07:35 by Phillip Barillas MD) Hydronephrosis, left (Acute) S/P cystoscopy with ureteral stent placement (Acute) Left ureteral calculus (Acute) Nephrolithiasis (Acute) Date of Admission: 08/12/19 Date of Discharge: 08/13/19 - Primary Discharge Diagnosis Active and Suspected Problems (Last Reviewed 08/13/19 @ 07:35 by Phillip Barillas MD) Hydronephrosis, left (Acute) S/P cystoscopy with Left ureteral stent placement (Acute) Left ureteral calculus (Acute) Recurrent Nephrolithiasis (Acute) - Secondary Discharge Diagnosis Chronic Problems (Last Reviewed 08/13/19 @ 07:35 by Phillip Barillas MD) H/O coronary artery bypass surgery (Chronic 12/30/15) CABG X 4, SOMMER-LAD, SVG-D1, GMT-Wove-Kfi CX, SVG-PDA 12/30/15 Essential (primary) hypertension (Chronic) Old myocardial infarction (Chronic) Atherosclerotic heart disease of [place] coronary artery without angina pectoris (Chronic) 12/30/15, CABG X 4, SOMMER-LAD, SVG-D1, LWS-Lbsw-Zws CX, SVG-PDA Abdominal aortic aneurysm (Chronic) Hyperlipidemia (Chronic) Diabetes mellitus type 2 in nonobese (Chronic) - HGBA1C is 7.8 on 08/13/2019 Nephrolithiasis Overweight Hospital Course and Treatment Imaging Results: 08/13/19 14:50 O.R. Fluoro for C-Arm [RAD] Urgent Clinical Impression(s) from Imaging Studies Abdomen/Pelvis CT 08/12/19 19:44 IMPRESSION: Multiple stones are seen in the left kidney. There is an 9 mm stone at the ureteropelvic junction with resultant severe left hydronephrosis. There is perirenal fat stranding may represent urinoma or pyelonephritis. There is 3.5 cm infrarenal abdominal aortic aneurysm Electronically Signed: Ivan Gutierrez, at 21:12 EDT Tel , Service support , Laboratory Results - last 24 hr 08/12/19 08/12/1908/12/19 19:55 19:55 21:27 WBC 7.4 RBC 4.65 Hgb 14.8 Hct 44.9 MCV 96.6 H MCH 31.8 MCHC 33.0 RDW Std Deviation 47.5 H RDW Coeff of [place] 13.3 Plt Count 159 MPV 8.8 Immature Gran % (Auto) 0.400 Neut % (Auto) 70.6 H Lymph % (Auto) 14.8 L [place] % (Auto) 9.3 Eos % (Auto) 4.2 Baso % (Auto) 0.7 Absolute Neuts (auto) 5.2 Absolute Lymphs (auto) 1.10 Nucleated RBC % 0 PT INR Sodium 140 Potassium 4.1 Chloride 104 Carbon Dioxide 31.0 Anion Gap 5 BUN 15 Creatinine 1.34 H Estim Creat Clear Calc 49.83 Est GFR (MDRD) Af Amer 67 Est GFR (MDRD) Non-Af 56 L BUN/Creatinine Ratio 11.2 Glucose 136 H Hemoglobin A1c Calcium 8.8 Urine Color Yellow Urine Clarity Clear Urine pH 8.0 Ur Specific [place] 1.015 Urine Protein Negative Urine Glucose (UA) 250 H Urine Ketones Negative Urine Occult Blood 25 H Urine Nitrite Negative Urine Bilirubin Negative Urine Urobilinogen Normal Ur Leukocyte Esterase Negative Urine RBC 5-10 SEEN Urine WBC 0-5 SEEN Ur Squamous Epith Cells 0 SEEN Urine Bacteria 0 SEEN Urine Mucus 0 SEEN POC Glucose 08/12/19 08/13/19 08/13/19 23:54 05:21 05:21 WBC RBC Hgb Hct MCV MCH MCHC RDW Std Deviation RDW Coeff of [place] Plt Count MPV Immature Gran % (Auto) Neut % (Auto) Lymph % (Auto) [place] % (Auto) Eos % (Auto) Baso % (Auto) Absolute Neuts (auto) Absolute Lymphs (auto) Nucleated RBC % PT 14.7 INR 1.2 Sodium Potassium Chloride Carbon Dioxide Anion Gap BUN Creatinine Estim Creat Clear Calc Est GFR (MDRD) Af Amer Est GFR (MDRD) Non-Af BUN/Creatinine Ratio Glucose Hemoglobin A1c 7.8 H Calcium Urine Color Urine Clarity Urine pH Ur Specific [place] Urine Protein Urine Glucose (UA) Urine Ketones Urine Occult Blood Urine Nitrite Urine Bilirubin Urine Urobilinogen Ur Leukocyte Esterase Urine RBC Urine WBC Ur Squamous Epith Cells Urine Bacteria Urine Mucus POC Glucose 173 H 08/13/19 08/13/19 06:13 12:48 WBC RBC Hgb Hct MCV MCH MCHC RDW Std Deviation RDW Coeff of [place] Plt Count MPV Immature Gran % (Auto) Neut % (Auto) Lymph % (Auto) [place] % (Auto) Eos % (Auto) Baso % (Auto) Absolute Neuts (auto) Absolute Lymphs (auto) Nucleated RBC % PT INR Sodium Potassium Chloride Carbon Dioxide Anion Gap BUN Creatinine Estim Creat Clear Calc Est GFR (MDRD) Af Amer Est GFR (MDRD) Non-Af BUN/Creatinine Ratio Glucose Hemoglobin A1c Calcium Urine Color Urine Clarity Urine pH Ur Specific [place] Urine Protein Urine Glucose (UA) Urine Ketones Urine Occult Blood Urine Nitrite Urine Bilirubin Urine Urobilinogen Ur Leukocyte Esterase Urine RBC Urine WBC Ur Squamous Epith Cells Urine Bacteria Urine Mucus POC Glucose [address] Severino Barillas-urology Operations: None Procedures: - - Cystoscopy with left ureteral stent insertion Summary of Care Provided: Mr. Szymanski is a 74-year-old male with a past medical history of hypertension, myocardial infarction, coronary artery disease with CABG x4 vessels on 12/30/2015, abdominal aortic aneurysm, hyperlipidemia, tobacco dependence in remission, BPH, nephrolithiasis and diabetes mellitus type 2 who presented to the emergency department at [facility] on 08/12/2019 complaining of constant left lower quadrant pain that radiated to the left flank. CT of the abdomen and pelvis showed multiple stones in the left kidney and a 9 mm stone at the ureteropelvic junction with severe left hydronephrosis. There was perirenal fat stranding and a 3.5 cm infrarenal abdominal aortic aneurysm. CBC was unremarkable. Creatinine was 1.34, up from 1.2 on 06/26/2019. UA showed 5-10 RBCs and 0-5 white blood cells. It was nitrite negative. Hemoglobin A1c was elevated at 7.8. White blood cell count was 7.4 with an unremarkable differential. Hemoglobin was 14.8. He was admitted to the hospital for pain control and consultation was ordered with Dr. Barillas. He was taken to the OR on 08/13/[address] Barillas and had a cystoscopy with placement of a left ureteral stent. Postoperatively he was alert and oriented with stable vital signs. He denied chest pain, shortness of breath, palpitations, nausea/vomiting. Pulse ox on room air was 95 to 96%. He was discharged home with a prescription for oxycodone 5 mg tablets, #16, and this was faxed to the [facility] retail pharmacy. The printed RX for Percocet written by Dr. Barillas was destroyed. He can take Tylenol in conjunction with Oxycodone. Call Dr. Barillas's office to schedule an appointment for lithotripsy. He was instructed to call Dr. Barillas or his PCP if any significant hematuria, fever > 101F, night sweats, shaking chills or dysuria. PHYSICAL EXAM: GENERAL: alert, oriented X 3, Cooperative, NAD ORAL: moist mucosa, no mucosal lesions NECK: No JVD, supple, trachea midline, no carotid bruits, carotids had brisk upstroke and good pulse volume LUNGS: CTA, symmetric chest expansion HEART: RRR, Normal S1 and S2, no rub, no gallop ABDOMEN: soft, NT, ND, BS present, no guarding with palpation EXTREMITIES: no edema, no cyanosis, no calf tenderness SKIN: No rashes, no breakdown NEUROLOGIC: no focal neurologic deficits PSYCH: appropriate, normal affect, pleasant This note was generated with [employer] dictation software. It may contain incorrect words, spelling, and punctuation that were not noted in checking the note before signing. Patient Problems: Active and Suspected Problems (Last Reviewed 08/13/19 @ 07:35 by Phillip Barillas MD) Hydronephrosis, left (Acute) S/P cystoscopy with ureteral stent placement (Acute) Left ureteral calculus (Acute) Nephrolithiasis (Acute) - Physical Exam Vital Signs Temp Pulse Resp BP Pulse Ox 98.0 F 57 L 16 135/67 H 96 08/13/19 16:11 08/13/19 16:11 08/13/19 16:11 08/13/19 16:11 08/13/19 16:11 Oxygen Flow Rate (L/min) 5 Oxygen Delivery Method Room Air Weight: 204 lb Body Mass Index (BMI) 30.1 Intake and Output for Last 24 Hours 08/11/19 08/12/19 08/13/19 23:59 23:59 23:59 Intake Total 1000 / 1000 145 / 145 Output Total 425 / 425 Balance 1000 / 850 -280 / -280 Laboratory Tests Past 24 Hrs 08/12/19 08/12/19 08/12/19 19:55 19:55 21:27 WBC 7.4 RBC 4.65 Hgb 14.8 Hct 44.9 MCV 96.6 H MCH 31.8 MCHC 33.0 RDW Std Deviation 47.5 H RDW Coeff of [place] 13.3 Plt Count 159 MPV 8.8 Immature Gran % (Auto) 0.400 Neut % (Auto) 70.6 H Lymph % (Auto) 14.8 L [place] % (Auto) 9.3 Eos % (Auto) 4.2 Baso % (Auto) 0.7 Absolute Neuts (auto) 5.2 Absolute Lymphs (auto) 1.10 Nucleated RBC % 0 PT INR Sodium 140 Potassium 4.1 Chloride 104 Carbon Dioxide 31.0 Anion Gap 5 BUN 15 Creatinine 1.34 H Estim Creat Clear Calc 49.83 Est GFR (MDRD) Af Amer 67 Est GFR (MDRD) Non-Af 56 L BUN/Creatinine Ratio 11.2 Glucose 136 H Hemoglobin A1c Calcium 8.8 Urine Color Yellow Urine Clarity Clear Urine pH 8.0 Ur Specific [place] 1.015 Urine Protein Negative Urine Glucose (UA) 250 H Urine Ketones Negative Urine Occult Blood 25 H Urine Nitrite Negative Urine Bilirubin Negative Urine Urobilinogen Normal Ur Leukocyte Esterase Negative Urine RBC 5-10 SEEN Urine WBC 0-5 SEEN Ur Squamous Epith Cells 0 SEEN Urine Bacteria 0 SEEN Urine Mucus 0 SEEN 08/13/19 08/13/19 05:21 05:21 WBC RBC Hgb Hct MCV MCH MCHC RDW Std Deviation RDW Coeff of [place] Plt Count MPV Immature Gran % (Auto) Neut % (Auto) Lymph % (Auto) [place] % (Auto) Eos % (Auto) Baso % (Auto) Absolute Neuts (auto) Absolute Lymphs (auto) Nucleated RBC % PT 14.7 INR 1.2 Sodium Potassium Chloride Carbon Dioxide Anion Gap BUN Creatinine Estim Creat Clear Calc Est GFR (MDRD) Af Amer Est GFR (MDRD) Non-Af BUN/Creatinine Ratio Glucose Hemoglobin A1c 7.8 H Calcium Urine Color Urine Clarity Urine pH Ur Specific [place] Urine Protein Urine Glucose (UA) Urine Ketones Urine Occult Blood Urine Nitrite Urine Bilirubin Urine Urobilinogen Ur Leukocyte Esterase Urine RBC Urine WBC Ur Squamous Epith Cells Urine Bacteria Urine Mucus POC Glucose 08/13/19 08/13/19 08/12/19 12:48 06:13 23:54 POC Glucose 93 115 H 173 H Discharge Diet: Light diet - advance as tolerated Discharge Activity: Return to Normal Activity, May not drive while taking narcotic pain medications. Call your doctor if you observe: Fever of 101 or Higher, Shortness of breath, Dizziness, Fainting spells, Swelling in the ankles, Chest pain, - - Nausea, vomiting, recurrent left flank or abdominal pain, blood in the urine.....more than just a pink discoloration Home Medications: Medications to take at Discharge Atorvastatin Calcium [Lipitor] 20 mg PO QHS 09/15/15 Glimepiride [Amaryl] 2 mg PO DAILY 09/15/15 Aspirin [Adult Low Dose Aspirin EC] 81 mg PO DAILY 01/22/16 Mag/Aluminum/Sod Bicarb/Alginc [Gaviscon 80-14.2 mg Tab Chew] 2 ea PO DAILY PRN PRN 05/31/18 Omeprazole [Prilosec] 20 mg PO BID 05/31/18 Tadalafil [Cialis] 5 mg PO DAILY 05/31/18 Tamsulosin HCl [Flomax] 0.4 mg PO QHS 05/31/18 clopidogrel 75 mg tablet 75 mg PO DAILY #90 tab 07/24/18 metoprolol tartrate 25 mg tablet 25 mg PO BID #180 tab 04/09/19 insulin degludec (U-100) 100 unit/mL (3 mL) subcutaneous pen 40 unit SC BREAKFAST ml 08/09/19 loratadine 10 mg disintegrating tablet 10 mg PO DAILY 08/09/19 metformin ER 1,000 mg 24 hr tablet,extended release 1,000 mg PO BID tab 08/09/19 psyllium husk 2.6 gram/4.1 gram oral powder 1 tsp PO DAILY 08/09/19 Oxycodone HCl/Acetaminophen [Percocet 5/325] 1 tab PO Q4H PRN PRN 5 Days #20 tab 08/13/19 Oxycodone [Oxyir] 5 mg PO Q4H PRN PRN 4 Days #16 tablet 08/13/19 Following Prescrptions Were Given to Patient: Oxycodone [Oxyir] 5 mg PO Q4H PRN PRN 4 Days #16 tablet PRN Reason: pain unrelieved by tylenol Transmission Status: Sent to [facility] Oxycodone HCl/Acetaminophen [Percocet 5/325] 1 tab PO Q4H PRN PRN 5 Days #20 tab PRN Reason: Pain Prescription Printed Primary Care Physician: Jacoby Oviedo NP-C [Primary Care Provider] - Please follow up with your Primary Care Physician in: 5-7 days Please Follow Up With: Phillip Barillas MD When: please call to make an appointment. Disposition: Home Minutes spent on discharge:: 35 Patient Condition:: Good Medical Necessity - Tobacco Use Smoking Status: Former smoker Tobacco Use: Non-smoker Meaningful Use Info Meaningful Use Diagnoses (Choose all that apply): None applicable Code Visit OBSV E&M: 86894 Observation care discharge
== END 2019-08-13 17:55 | disposition home health service (06) ==
LOC: ED 19:59 → MS3 23:03
PROVIDERS: Anesthesiology; Urology; Admitting Provider Hospitalist; Emergency Provider Emergency Medicine; Family Provider Nurse Practitioner Family; PCP Nurse Practitioner Family; Referring Provider Hospitalist; Visit Provider Internal Medicine
PROC: (CPT 52332; principal; 2019-08-13 14:50)
DX: N13.2 Hydronephrosis with renal and ureteral calculous obstruction (principal); I16.0 Hypertensive urgency; I25.10 Atherosclerotic heart disease of native coronary artery without angina pectoris; E11.9 Type 2 diabetes mellitus without complications; N40.0 Benign prostatic hyperplasia without lower urinary tract symptoms; I10 Essential (primary) hypertension; I25.2 Old myocardial infarction; E78.5 Hyperlipidemia, unspecified; K21.9 Gastro-esophageal reflux disease without esophagitis; Z87.442 Personal history of urinary calculi; Z79.899 Other long term (current) drug therapy; Z79.02 Long term (current) use of antithrombotics/antiplatelets; Z79.82 Long term (current) use of aspirin; Z95.1 Presence of aortocoronary bypass graft; Z79.4 Long term (current) use of insulin; Z87.891 Personal history of nicotine dependence
CPT/HCPCS: 52332; 36415; 51702; 74176; 76000; 80048; 81001; 82962; 83036; 85025; 85610; 93005; 96361; 96374; 96375; 96376; 99218; 99283; 99284; J7030; J7120; A4216; C1769; C1876; C2617; G0378; J2405

== ENCOUNTER 2019-08-13 22:40 | Emergency (ER) | payer MEDICARE, OTHER, SELFPAY ==
[2019-08-13 14:18] VITALS: BMI 30.1
[2019-08-13 22:41] VITALS: BP 155/87; PULSE 79; RESP 13; TEMP 36.8; O2SAT 98; BMI 31.3
--- NOTE | 2019-08-13 22:54 | ED.DCSUM_ITS ---
History of Present Illness Chief Complaint: Complaint Informant: Patient Narrative: She stated he cannot urinate. He was discharged from the hospital 5 hours ago. He had a cystoscopy and a left ureter stent placed. He has a large 9 mm proximal kidney stone on that side. Patient stated he was able to urinate twice post procedure in the hospital during his hospitalization and a small amount at home. His last urination was approximately 2 hours ago. He said it was a small amount. He stated he did have some small amount of blood in it. He is supposed to follow-up in 4 days and have a lithotripsy outpatient done by Dr. Barillas. Patient stated he is not having any significant left-sided flank pain different from what he was having before. Patient stated he is never had to have a catheter before. They did not place a catheter prior or after his procedure. - Past Medical History (1) Hydronephrosis, left Status: Acute (2) Left ureteral calculus Status: Acute (3) S/P cystoscopy with ureteral stent placement Status: Acute (4) Nephrolithiasis Status: Acute (5) Abdominal aortic aneurysm Status: Chronic (6) Atherosclerotic heart disease of [place] coronary artery without angina pectoris Status: Chronic Comment: 12/30/15, CABG X 4, SOMMER-LAD, SVG-D1, CCX-Lcvp-Nhn CX, SVG-PDA (7) Diabetes mellitus type 2 in nonobese Status: Chronic (8) Essential (primary) hypertension Status: Chronic (9) H/O coronary artery bypass surgery Status: Chronic Comment: CABG X 4, SOMMER-LAD, SVG-D1, MPU-Jmto-Ggz CX, SVG-PDA 12/30/15 (10) Hyperlipidemia Status: Chronic (11) Old myocardial infarction Status: Chronic Past Medical History - Allergies and Home Meds Allergies/Adverse Reactions: Allergies caffeine Allergy (Verified 08/13/19 22:43) Other Palpitations ibuprofen Allergy (Verified 08/13/19 22:43) Rash Penicillins [PCN] Allergy (Verified 08/13/19 22:43) Other Pt doesn't remember - allergy since a child Primary Care Physician: Jacoby Oviedo, FIRE AND EXPLOSION INVESTIGATOR-C [Primary Care Provider] - Prior records reviewed: Yes Past Medical History: - - See problem list Surgical History: coronary bypass surgery, tonsillectomy, - - Left ureter stent Smoking Status: Former smoker Alcohol: None Drugs: None - Family History Paternal Family History: Family History (Last Reviewed 08/13/19 @ 01:19 by Ramon Smith MD) Father FH: CABG (coronary artery bypass surgery) Cancer Heart disease Mother Myocardial infarction Heart disease Brother Myocardial infarction CAD (coronary artery disease) Other Family history of coronary artery disease Family History: Reports: Heart Disease Sibling Family History: Family History (Last Reviewed 08/13/19 @ 01:19 by Ramon Smith MD) Father FH: CABG (coronary artery bypass surgery) Cancer Heart disease Mother Myocardial infarction Heart disease Brother Myocardial infarction CAD (coronary artery disease) Other Family history of coronary artery disease Family History: Reports: Heart Disease Maternal Family History: Family History (Last Reviewed 08/13/19 @ 01:19 by Ramon Smith MD) Father FH: CABG (coronary artery bypass surgery) Cancer Heart disease Mother Myocardial infarction Heart disease Brother Myocardial infarction CAD (coronary artery disease) Other Family history of coronary artery disease Family History: Reports: Heart Disease Review of Systems General: Denies: Chills, Fever, Sweats Eyes: Denies: Visual changes - bilaterally, Diplopia ENT: Denies: Rhinorrhea, Sore throat Cardiovascular: Denies: Chest pain, Palpitations Respiratory: Denies: Dyspnea, Cough, Dyspnea on exertion Gastrointestinal: Denies: Abdominal pain, Nausea, Vomiting, Diarrhea, Melena, Hematochezia Genitourinary: Reports: Hematuria, - - Positive urinary retention. Denies: Dysuria, Frequency Musculoskeletal: Reports: Back pain - Mild chronic in nature. Denies: Extremity Pain Skin: Denies: Rash, Wounds Neurological: Denies: Headache, Weakness, Numbness Physical Exam Vital Signs/Narrative: Vital Signs Temp Pulse Resp BP Pulse Ox 08/13/19 22:41 98.3 F 79 13 155/87 H 98 General: Well nourished, Well developed, No Acute Distress Head: Normocephalic, Atraumatic Eyes: Perrl, EOMI ENT: Moist mucous membranes, No rhinorrhea Neck: Supple, Nontender Cardiovascular: Regular rate, Regular rhythm, No murmurs Respiratory: No distress, CTA bilaterally, Chest nontender Abdomen: Soft, Nondistended, Normal bowel sounds, Tender - Mild suprapubic fullness secondary to urinary retention. Negative for: Nontender Back: Nontender, Normal Inspection Extremities: Nontender, No edema Skin: Normal color, No rash Neurological: Alert, Oriented x3, Cranial nerves II-XII grossly intact, Normal Strength, Normal Sensation Psychological: Normal affect, Normal Mood Diagnostic/Tx/Re-eval - Medical Decision Making [place] catheter placed. 20-gauge placed due to his previous hematuria. 400 cc of blood-tinged urine out. Patient has mild blood-tinged urine without clots afterwards. Feels back to normal. At this time he will be given a leg bag. He had a stent placed years ago which had some bleeding for about 4 days before it resolved I suspect this is going to happen again. Patient has an appointment in 4 days with his urologist. He was on Plavix and aspirin but stopped this as an inpatient. ED Disposition - Plan for ED Patient: Disposition: Home or Assisted Living Diagnosis: Acute urinary retention Instructions: [place] Catheter, Care Referrals: Phillip Barillas MD [STAFF PHYSICIAN] -
== END 2019-08-14 00:01 | disposition home or self-care (01) ==
PROVIDERS: Emergency Provider Emergency Medicine; Family Provider Nurse Practitioner Family; PCP Nurse Practitioner Family
DX: R33.9 Retention of urine, unspecified (principal); N13.2 Hydronephrosis with renal and ureteral calculous obstruction; I25.10 Atherosclerotic heart disease of native coronary artery without angina pectoris; E11.9 Type 2 diabetes mellitus without complications; I10 Essential (primary) hypertension; I25.2 Old myocardial infarction; Z87.891 Personal history of nicotine dependence
CPT/HCPCS: 51702

== ENCOUNTER 2019-08-19 09:08 | Emergency (ER) | payer MEDICARE, OTHER, SELFPAY ==
[2019-08-19 09:10] VITALS: BP 131/63; PULSE 101; RESP 18; TEMP 38.2; O2SAT 96; BMI 30.2
--- NOTE | 2019-08-19 09:35 | ED.DCSUM_ITS ---
History of Present Illness Chief Complaint: Fever Informant: Patient, Significant Other Onset: Days Current Severity: Mild Maximum Severity: Moderate Narrative: Patient presents with a 3 to 4-day history of fever at home. T-max is 102.8. Patient did have a urinary stent placed 6 days ago. He does report some dysuria, but states he always has this with spasms when he has a stent in place. He does report some dizziness and unsteadiness on his feet. He denies chest pain or cough. He denies abdominal pain, nausea, vomiting, or diarrhea. Last dose of Tylenol was 2-1/2 hours prior to presentation. He does have an allergy to ibuprofen. Past Medical History - Allergies and Home Meds Allergies/Adverse Reactions: Allergies caffeine Allergy (Verified 08/19/19 09:13) Other Palpitations ibuprofen Allergy (Verified 08/19/19 09:13) Rash Penicillins [PCN] Allergy (Verified 08/19/19 09:13) Other Pt doesn't remember - allergy since a child Primary Care Physician: Jacoby Oviedo, PROTOTYPE CARPENTER-C [Primary Care Provider] - Doctors: Dr. Barillas Prior records reviewed: Yes Past Medical History: - - Reviewed Surgical History: coronary bypass surgery, tonsillectomy, - - Left ureter stent Lives: Spouse/ Significant Other Smoking Status: Former smoker - Family History Paternal Family History: Family History (Last Reviewed 08/13/19 @ 01:19 by Ramon Smith MD) Father FH: CABG (coronary artery bypass surgery) Cancer Heart disease Mother Myocardial infarction Heart disease Brother Myocardial infarction CAD (coronary artery disease) Other Family history of coronary artery disease Family History: Reports: Heart Disease Sibling Family History: Family History (Last Reviewed 08/13/19 @ 01:19 by Ramon Smith MD) Father FH: CABG (coronary artery bypass surgery) Cancer Heart disease Mother Myocardial infarction Heart disease Brother Myocardial infarction CAD (coronary artery disease) Other Family history of coronary artery disease Family History: Reports: Heart Disease Maternal Family History: Family History (Last Reviewed 08/13/19 @ 01:19 by Ramon Smith MD) Father FH: CABG (coronary artery bypass surgery) Cancer Heart disease Mother Myocardial infarction Heart disease Brother Myocardial infarction CAD (coronary artery disease) Other Family history of coronary artery disease Family History: Reports: Heart Disease Review of Systems General: Reports: Fever. Denies: Chills Eyes: Denies: Visual changes - bilaterally ENT: Denies: Bilateral ear pain Cardiovascular: Denies: Chest pain Respiratory: Denies: Dyspnea, Cough Gastrointestinal: Denies: Abdominal pain, Nausea, Vomiting, Diarrhea Genitourinary: Reports: Dysuria Musculoskeletal: Denies: Back pain, Extremity Pain Skin: Denies: Rash Neurological: Reports: Weakness - Generalized weakness. Denies: Headache Endocrine: Denies: Polydipsia Hematologic: Denies: Easy bruising Allergy: Denies: Uticaria Physical Exam Vital Signs/Narrative: Vital Signs Temp Pulse Resp BP Pulse Ox 08/19/19 09:10 100.7 F H 101 H 18 131/63 H 96 Inital Vital Signs reviewed: Yes General: Well nourished, Well developed, - - Nontoxic-appearing Head: Normocephalic Eyes: Perrl ENT: Moist mucous membranes Neck: Supple Cardiovascular: Regular rate, Regular rhythm Respiratory: No distress, CTA bilaterally Abdomen: Soft, Nontender, Hypoactive bowel sounds Extremities: Nontender Skin: Normal color, No rash Neurological: Alert, Oriented x3 Psychological: Normal affect Diagnostic/Tx/Re-eval Impressions Chest X-Ray 08/19/19 10:00 IMPRESSION: Status post sternotomy. Stable lung markings no evidence of acute focal infiltrate. Electronically Signed: Alfreda Mendoza MD at 10:25 EDT Tel , Service support , 08/19/19 10:00 Chest PA and Lateral [RAD] Stat Laboratory Results 08/19/19 08/19/19 08/19/19 09:35 09:44 09:44 WBC 16.8 H RBC 4.51 L Hgb 14.4 Hct 43.6 MCV 96.7 H MCH 31.9 MCHC 33.0 RDW Std Deviation 50.1 H RDW Coeff of [place] 14.3 Plt Count 160 MPV 9.2 Immature Gran % (Auto) 0.700 Neut % (Auto) 87.1 H Lymph % (Auto) 4.6 L [place] % (Auto) 7.1 Eos % (Auto) 0.3 Baso % (Auto) 0.2 Absolute Neuts (auto) 14.7 H Absolute Lymphs (auto) 0.78 L Nucleated RBC % 0 Sodium 135 L Potassium 3.6 Chloride 99 Carbon Dioxide 27.0 Anion Gap 9 BUN 23 H Creatinine 1.79 H Estim Creat Clear Calc 37.30 Est GFR (MDRD) Af Amer 48 L Est GFR (MDRD) Non-Af 40 L BUN/Creatinine Ratio 12.8 Glucose 174 H Calcium 8.7 Urine Color Yellow Urine Clarity Cloudy Urine pH 5.0 Ur Specific [place] 1.020 Urine Protein 100 H Urine Glucose (UA) Normal Urine Ketones 15 H Urine Occult Blood 250 H Urine Nitrite Negative Urine Bilirubin Negative Urine Urobilinogen Normal Ur Leukocyte Esterase 500 H Urine RBC 5-10 SEEN Urine WBC 10-25 SEEN Ur Squamous Epith Cells 0-5 SEEN Urine Bacteria 1+ Urine Mucus 0 SEEN - Medical Decision Making Patient was given IV fluids. He did take Tylenol prior to arrival and has an allergy to ibuprofen so no other medication was given for fever. Labs are reviewed with patient and at bedside. White count is elevated. Renal function is slightly worse when compared to 1 week ago. Urine does reveal bacteria and white cells. He will receive a dose of Rocephin. I spoke with Dr. Barillas. Patient be discharged with a 7-day course of Cipro. His creatinine clearance is 37.3 so still qualifies for regular dosing at this point. ED Disposition - Plan for ED Patient: Disposition: Home or Assisted Living Diagnosis: Cystitis Instructions: Bladder Infection, Male (Adult) Prescriptions: Ciprofloxacin [Cipro] 500 mg PO BID #14 tablet Referrals: Phillip Barillas MD [STAFF PHYSICIAN] - Keep Regine appointment
[2019-08-19 09:46] LABS: Mucous, Urine 0 SEEN /hpf (<or=2+)
[2019-08-19 09:53] LABS: Color, Urine Yellow (Yellow); Glucose, Dipstick Normal (Normal); Ketone-Dipstick 15 mg/dl (Negative); Leukocyte Esterase-Dipstick 500 /ul (Negative); Nitrite-Dipstick Negative (Negative); Occult Blood-Urine 250 /ul (Negative); Protein-Dipstick 100 mg/dl (Negative); Urine Bilirubin Dipstick Negative (Negative); Urine Clarity Cloudy (Clear); Urine Urobilinogen Normal (Normal)
[2019-08-19 09:55] LABS: Bacteria 1+ /hpf (None Seen); Red Blood Cells-Urine 5-10 SEEN /hpf (0-5); Squamous Epithelial Cells - UA 0-5 SEEN /hpf (0-5); White Blood Cells 10-25 SEEN /hpf (0-5)
[2019-08-19] MEDS: 0.9% Normal Saline 1,000 ML 150 ML IV (09:56)
[2019-08-19 09:58] LABS: Absolute Lymphocyte Count 0.78 X10^3/uL (0.83-4.51); Absolute Neutrophil Count 14.7 X10^3/uL (2.0-7.7); Basophil# 0.03 X10^3/uL; Basophil% 0.2 % (0-1); Eosinophil# 0.05 X10^3/uL; Eosinophils% 0.3 % (0-5); Hematocrit 43.6 % (40-54); Hemoglobin 14.4 g/dL (13.0-16.5); Lymphocyte # 0.78 X10^3/ul (4.0); Lymphocyte % 4.6 % (19-41); Mean Corpuscular Hgb 31.9 pg (27.0-32.0); Mean Corpuscular Volume 96.7 fL (80-94); Mean Platelet Vol. 9.2 fl (6.2-12.0); Monocyte% 7.1 % (0-10); NRBC Flagged by Analyzer 0 % (0-5); Neutrophil # 14.66 X10^3/uL (2.7-7.7); Neutrophil % 87.1 % (47-70); Platelet Count 160 K/mm3 (150-450); RBC Distribution Width CV 14.3 % (11.6-14.6); RBC Distribution Width SD 50.1 fl (35.1-43.9); Red Blood Count 4.51 M/mm3 (4.6-6.2); White Blood Count 16.8 K/mm3 (4.4-11.0)
--- NOTE | 2019-08-19 10:00 | RAD_ITS ---
STUDY: X-RAY CHEST REASON FOR EXAM: Male, 74 years old. Fever TECHNIQUE: PA and lateral views of the chest. COMPARISON: February 14, 2018 chest x-ray FINDINGS: Interstitial markings are minimally prominent at the left lung base similar to the prior study. Overall the chest appears stable. There is no demonstrated pleural abnormality. Sternal cerclage wires are present from a prior sternotomy. Normal mediastinum and sergo. Normal visualized pulmonary arteries. Normal visualized aortic arch and descending thoracic aorta. There are diffuse degenerative changes of the visualized thoracic spine. Normal visualized ribs, clavicles, and shoulders. There is no demonstrated abnormality of the visualized soft tissue structures of the upper abdomen. RAD/Chest PA and Lateral IMPRESSION: Status post sternotomy. Stable lung markings no evidence of acute focal infiltrate. Electronically Signed: Alfreda Mendoza MD at 10:25 EDT Tel , Service support ,
[2019-08-19 10:13] LABS: Anion Gap 9 (5-15); BUN 23 mg/dL (7-18); BUN/Creat Ratio 12.8 RATIO (10-20); Calcium,Total 8.7 mg/dL (8.5-10.1); Chloride 99 mmol/L (98-107); Creatinine, Serum 1.79 mg/dL (0.70-1.30); EST Glomerular Filtration Rate 40 mL/min (>60); Est Glom Filt Rate - Afr Amer 48 mL/min (>60); Glucose 174 mg/dL (74-106); Potassium 3.6 mmol/L (3.5-5.1); Sodium Level 135 mmol/L (136-145)
[2019-08-19] MEDS: Ceftriaxone 1 GM/50 ML BAG IV (11:05)
[2019-08-19 11:53] VITALS: BP 138/73; PULSE 85; RESP 16; O2SAT 97
--- NOTE | 2019-08-19 11:54 | ED.RN ---
IV DC'ED, CATHETER INTACT, SMALL GUAZE DRESSING PLACED. DISCHARGE INSTRUCTIONS GIVEN TO AND REVIEWED WITH PATIENT, PATIENT DENIES QUESTIONS OR CONCERNS AND VOICES UNDERSTANDING OF DISCHARGE INSTRUCTIONS. PT AMBULATES OUT OF ROOM WITHOUT DIFFICULTY.
== END 2019-08-19 11:55 | disposition home or self-care (01) ==
PROVIDERS: Emergency Provider Emergency Medicine; Family Provider Nurse Practitioner Family; PCP Nurse Practitioner Family
DX: N30.90 Cystitis, unspecified without hematuria (principal); Z87.891 Personal history of nicotine dependence
CPT/HCPCS: 71046; 80048; 81001; 85025; 87040; 87077; 87086; 87088; 87186; 96365; 99283; J7030; A4216

== ENCOUNTER 2019-08-24 08:02 | Day surgery (SDC) | payer MEDICARE, OTHER, SELFPAY ==
[2019-08-24 08:51] VITALS: BP 130/68; PULSE 75; RESP 16; TEMP 37.6; O2SAT 95; BMI 28.9
[2019-08-24] MEDS: Lactated Ringers 1,000 ML 100 ML IV (08:51)
[2019-08-24 09:21] LABS: Bedside Glucose 140 mg/dL (70-110)
--- NOTE | 2019-08-24 09:33 | PCM.HP.BLA ---
History and Physical Date of Admission: 08/24/19 Patient returns 74-year-old male who I place a stent in, on the left side for an obstructing kidney stone also after the procedure he developed retention of urine he takes Flomax for BPH obstruction. Today we removed the catheter for a voiding trial. We talked about the treatment of the kidney stone ALLERGIES: Caffeine Ibuprofen penicillin MEDICATIONS: Cialis 5 mg tablet Allergy Relief 10 mg tablet,disintegrating 10 tablet,disintegrating None Aspir 81 81 mg tablet, delayed release 1 tablet PO Daily Atorvastatin Calcium Elocon Gaviscon Gaviscon 14.2 mg-80 mg tablet,chewable 2 tablet,chewable None Glimepiride Lantus 100 unit/ml vial Metformin Hcl Metoprolol Succinate Omeprazole Plavix psyllium husk 2.6 gram/4.1 gram oral powderDAILY DAILY Tamsulosin Hcl 0.4 mg capsule PSH: Cysto Remove Stent FB Sim - 06/13/2018 Cystoscopy Insert Stent - 06/07/2018 Cystoscopy Retrogrades - 08/13/2019 Renal ESWL - 06/07/2018 NON- PSH: Coronary Artery Bypass Grafting - 2015 PMH: Unspecified hydronephrosis - 12/18/2018 Calculus of kidney (Stable) - 10/16/2018, - 06/13/2018, - 06/01/2018 Generalized abdominal pain Hematuria, unspecified Nocturia NON- PMH: Essential (primary) hypertension Heart disease, unspecified Old myocardial infarction Type 2 diabetes mellitus without complications Immunizations: None FAMILY HISTORY: Heart Disease - Runs in Family SOCIAL HISTORY: Marital Status: Preferred Language: Persian; Race: White Current Smoking Status: Patient does not smoke anymore. Tobacco Use Assessment Completed: Used Tobacco in last 30 days? Smoking cessation counseling was provided. Does not use smokeless tobacco. Social Drinker. Has not had a blood transfusion. REVIEW OF SYSTEMS: Constitutional: Patient denies fever, chills, weight loss, and weight gain. Genitourinary: Patient denies frequent urination, urinary retention, get up at night to void, leakage of urine, painful urination, blood in the urine, frequent uti's, history of stones, difficulty starting stream, weak stream/scanty, and bedwetting. VITAL SIGNS: 08/16/2019 11:32 AM Weight 200 lb / 90.72 kg Height 69 in / 175.26 cm BP 160/80 mmHg BMI 29.5 kg/m? - BMI Counseling was provided. PHYSICAL EXAMINATION: Epididymides: Right: no spermatocele, no masses, no cysts, no tenderness, no induration, no enlargement. Left: no spermatocele, no masses, no cysts, no tenderness, no induration, no enlargement. Testes: No tenderness, no swelling, no enlargement left testes. No tenderness, no swelling, no enlargement right testes. Normal location left testes. Normal location right testes. No mass, no cyst, no varicocele, no hydrocele left testes. No mass, no cyst, no varicocele, no hydrocele right testes. Urethral Meatus: Normal size. No lesion, no wart, no discharge, no polyp. Normal location. Penis: Penile sánchez catheter present. Circumcised, no foreskin warts, no cracks. No dorsal peyronie's plaques, no left corporal peyronie's plaques, no right corporal peyronie's plaques, no scarring, no shaft warts. No balanitis, no meatal stenosis. Seminal Vesicles: Nonpalpable. MULTI-SYSTEM PHYSICAL EXAMINATION: Constitutional: Well-nourished. No physical deformities. Normally developed. Good grooming. Neck: Neck symmetrical, not swollen. Normal tracheal position. Respiratory: No labored breathing, no use of accessory muscles. Cardiovascular: Normal temperature, normal extremity pulses, no swelling, no varicosities. Lymphatic: No enlargement of neck, axillae, groin. Skin: No paleness, no jaundice, no cyanosis. No lesion, no ulcer, no rash. Neurologic / Psychiatric: Oriented to time, oriented to place, oriented to person. No depression, no anxiety, no agitation. Gastrointestinal: No mass, no tenderness, no rigidity, non obese abdomen. Eyes: Normal conjunctivae. Normal eyelids. Ears, Nose, Mouth, and Throat: Left ear no scars, no lesions, no masses. Right ear no scars, no lesions, no masses. Nose no scars, no lesions, no masses. Normal hearing. Normal lips. Musculoskeletal: Normal gait and station of head and neck. PAST DATA REVIEWED: Source Of History: Patient PROCEDURES: Voiding Trial - 35151 Voided Volume: 200 cc Notes: bladder filled with tap water. and voiding trial given. Instilled Volume: 250 cc ASSESSMENT: ICD-10 Details 1 : Calculus of kidney - N20.0 2 Benign prostatic hyperplasia with lower urinary tract symptoms - N40.1 3 Other retention of urine - R33.8 PLAN: Document Letter(s): Created for Patient: Clinical Summary Notes: 74-year-old male status post stent for kidney stone, catheter removed today if he can urinate successfully then we'll see him for treatment of the kidney stone, otherwise he can't void told to come back to the office replace catheter. Rescheduled for today because last time did not stop his blood thinner. planf or ESWL of the left side
--- NOTE | 2019-08-24 10:45 | DCINST_ITS ---
Discharge Diet: Light diet - advance as tolerated Discharge Activity: Return to Normal Activity Call your doctor if your incision/area has: Sudden Increased Bleeding Call your doctor if you observe: Fever of 101 or Higher Instructions: Shock Wave Lithotripsy Allergies/Adverse Reactions: Allergies caffeine Allergy (Verified 08/24/19 08:46) Other Palpitations ibuprofen Allergy (Verified 08/24/19 08:46) Rash Penicillins [PCN] Allergy (Verified 08/24/19 08:46) Other Pt doesn't remember - allergy since a child ciprofloxacin Adverse Reaction (Verified 08/24/19 08:47) Upset Stomach Medications to take at Discharge Atorvastatin Calcium [Lipitor] 20 mg PO QHS 09/15/15 Glimepiride [Amaryl] 2 mg PO DAILY 09/15/15 Aspirin [Adult Low Dose Aspirin EC] 81 mg PO DAILY 01/22/16 Mag/Aluminum/Sod Bicarb/Alginc [Gaviscon 80-14.2 mg Tab Chew] 2 ea PO PRN PRN 05/31/18 Omeprazole [Prilosec] 20 mg PO BID 05/31/18 Tadalafil [Cialis] 5 mg PO DAILY 05/31/18 Tamsulosin HCl [Flomax] 0.8 mg PO QHS 05/31/18 clopidogrel 75 mg tablet 75 mg PO DAILY #90 tab 07/24/18 metoprolol tartrate 25 mg tablet 25 mg PO BID #180 tab 04/09/19 insulin degludec (U-100) 100 unit/mL (3 mL) subcutaneous pen 40 unit SC KYRA KFAST ml 08/09/19 loratadine 10 mg disintegrating tablet 10 mg PO DAILY 08/09/19 metformin ER 1,000 mg 24 hr tablet,extended release 1,000 mg PO BID tab 08/09/19 psyllium husk 2.6 gram/4.1 gram oral powder 1 tsp PO DAILY 08/09/19 Hydrocodone/Acetaminophen [Kerby 5-325 Tablet] 1 ea PO Q4H PRN PRN 5 Days #14 tab 08/24/19 Nitrofurantoin Macrocrystals [Macrobid] 100 cap PO BID 08/24/19 The following prescriptions were given: Hydrocodone/Acetaminophen [Kerby 5-325 Tablet] 1 ea PO Q4H PRN PRN 5 Days #14 tab PRN Reason: Pain Or Fever Prescription Printed Primary Care Physician: Jacoby Oviedo, [employer] [Primary Care Provider] - Test Results: Test results from this visit will be discussed in further detail at your follow- up appointment, if applicable. Please Follow Up With: Phillip Barillas MD When: please call to make an appointment.
[2019-08-24] MEDS: Cefazolin 2 GM in 0.9% Normal Saline 100 ML IV (10:52)
--- NOTE | 2019-08-24 11:48 | PCM.OPRPT ---
Report of Operation Date of Procedure: 08/24/19 Pre-Operative Diagnosis: Left renal calculi x2 Post-Operative Diagnosis: Same Surgery/Procedure Performed:: Left extracorporeal shockwave lithotripsy. Description of Surgical Findings:: 74-year-old male presented with obstructing stone in the left ureter he underwent cystoscopy and stent placement, he is now stopped his Plavix and aspirin and now he presents the hospital for shockwave lithotripsy and treatment of the kidney stones. He was taken back to the operating room at the smooth induction of general anesthesia he was placed supine on the table we then identified the stones in the left renal pelvis and left lower pole the kidney and proceeded with shockwave lithotripsy stones were monitored with fluoroscopy during the treatment we made sure that the F2 focal point was on the stone during during entire treatment. We increased the power from 3 kV to 7 kV and we gave treatment of the stones at 90 shocks per minute at the end of 3000 shockwaves we completed the total treatment and the stone the broken up fairly well on fluoroscopy appeared to be a successful treatment. Plan to see him back in about a week for a KUB and then at that point we will plan to remove the stent. Patient anesthetic was reversed to take back to PACU in good condition. Type of Anesthesia:: General Drains: stent in place - Admit VTE Documentation VTE Present on Admission: No VTE Mechan Device Prophylaxis: SCD's
[2019-08-24 11:57] VITALS: BP 111/64; BP 130/68; PULSE 72; RESP 16; TEMP 36.4; O2SAT 93
[2019-08-24 12:00] VITALS: BP 121/70; BP 130/68; PULSE 69; RESP 16; O2SAT 92
[2019-08-24 12:15] VITALS: BP 130/68; PULSE 67; RESP 16; O2SAT 93
[2019-08-24 12:21] VITALS: BP 130/65; BP 130/68; PULSE 67; RESP 16; TEMP 36.4; O2SAT 94
[2019-08-24 13:12] VITALS: BP 108/69; BP 130/68; PULSE 64; RESP 18; TEMP 36.3; O2SAT 95
== END 2019-08-24 13:16 | disposition home or self-care (01) ==
LOC: SDC 08:03 → AC 08:03
PROVIDERS: Family Provider Nurse Practitioner Family; PCP Nurse Practitioner Family; Referring Provider Urology; Visit Provider Urology
PROC: (CPT 50590; principal; 2019-08-24 10:00)
DX: N20.0 Calculus of kidney (principal); N40.1 Benign prostatic hyperplasia with lower urinary tract symptoms; R33.8 Other retention of urine; K21.9 Gastro-esophageal reflux disease without esophagitis; E78.00 Pure hypercholesterolemia, unspecified; E11.9 Type 2 diabetes mellitus without complications; I25.2 Old myocardial infarction; I10 Essential (primary) hypertension; Z79.4 Long term (current) use of insulin; Z79.82 Long term (current) use of aspirin; Z79.02 Long term (current) use of antithrombotics/antiplatelets; Z79.899 Other long term (current) drug therapy; Z87.891 Personal history of nicotine dependence; Z87.442 Personal history of urinary calculi; Z95.1 Presence of aortocoronary bypass graft
CPT/HCPCS: 00873; 50590; 82962; J7120; J2405

== ENCOUNTER → 2019-08-30 | Outpatient (CLI) | payer MEDICARE, OTHER, SELFPAY ==
[2019-08-24 08:51] VITALS: BMI 28.9
--- NOTE | 2019-08-30 08:06 | RAD_ITS ---
STUDY: X-RAY - ABDOMEN/PELVIS REASON FOR EXAM: Male, 74 years old. Kidney stones TECHNIQUE: Single AP view of the abdomen / pelvis. COMPARISON: None. FINDINGS: Normal visualized lung bases. There is an unremarkable bowel gas pattern. There is no demonstrated free abdominal air. There is a left-sided ureteral stent in place. No distinct stone along the trajectory of the left ureter. There is a questionable subtle stone projecting over the lower pole of the left kidney measuring 3 mm. The visualized liver, spleen and kidneys are grossly normal in size and morphology. Normal soft tissue structures. Normal visualized osseous structures. RAD/Abdomen Single View IMPRESSION: Left-sided ureteral stent in place with no distinct stone along the trajectory of the stent. Possible tiny calcification in the expected region of the lower pole of the left kidney measuring approximately 3 mm. Electronically Signed: Princess Jo MD at 0:19 EDT , Service support ,
[2019-09-11 12:08] LABS: Uric Acid 100 % (.)
== END | disposition home or self-care (01) ==
LOC: RAD 08:01
PROVIDERS: Family Provider Nurse Practitioner Family; PCP Nurse Practitioner Family; Referring Provider Urology; Visit Provider Urology
DX: N20.0 Calculus of kidney (principal)
CPT/HCPCS: 74018; 82360

== ENCOUNTER → 2020-04-28 15:35 | Outpatient (CLI) | payer MEDICARE, OTHER, SELFPAY ==
--- NOTE | 2020-04-28 15:39 | RAD_ITS ---
STUDY: X-RAY - LUMBAR SPINE REASON FOR EXAM: Male, 75 years old. ACUTE BACK PAIN WITH SCIATICA, NO KNOWN INJURY TECHNIQUE: 3 view(s) of the lumbar spine were obtained. COMPARISON: None FINDINGS: There is straightening of the normal lumbar lordosis. There is no substantial scoliosis. There is a normal alignment of the vertebrae. There is multilevel endplate spondylosis of the lumbar vertebrae. Disc spaces are fairly well-preserved except for significant narrowing at L3-4. Additionally at L3-4 there are significant sclerotic changes involving the inferior endplate of L3 and superior endplate of L4 along with anterior and posterior spurs. There is likely disc pathology at this level but MRI would be needed for more thorough evaluation. Calcifications noted in the abdominal aorta with a likely infrarenal aneurysm measuring 4 cm. RAD/Lumbar Spine 2 or 3 Views IMPRESSION: Significant degenerative changes at L3-4 with significant disc space narrowing, endplate changes and spur formation. Disc pathology is suspected here but MRI would be needed for more thorough evaluation Mild degenerative changes elsewhere, no demonstrated fracture Peripherally calcified 4 cm infrarenal abdominal aortic aneurysm Electronically Signed: Joel Reeves MD at 7:46 EDT , Service support ,
--- NOTE | 2020-04-28 15:40 | RAD_ITS ---
STUDY: X-RAY - THORACIC SPINE REASON FOR EXAM: Male, 75 years old. ACUTE BACK PAIN WITH SCIATICA, NO KNOWN INJURY TECHNIQUE: 3 view(s) of the thoracic spine were obtained. COMPARISON: None. FINDINGS: Normal kyphosis of the thoracic spine. There is no substantial scoliosis. There is multilevel endplate spondylosis of the thoracic vertebrae. There is multilevel disc space narrowing of the thoracic spine. Multiple bridging anterior osteophytic spurs throughout the mid and lower thoracic spine. Remote CABG. RAD/Thoracic Spine 2 Views IMPRESSION: Multilevel degenerative changes, no acute findings Electronically Signed: Joel Reeves MD at 7:44 EDT , Service support ,
== END ==
PROVIDERS: PCP Nurse Practitioner Family; Referring Provider Nurse Practitioner Family; Visit Provider Nurse Practitioner Family
DX: M54.40 Lumbago with sciatica, unspecified side (principal)
CPT/HCPCS: 72070; 72100

== ENCOUNTER 2020-05-08 15:47 | Inpatient (IN) | payer MEDICARE, OTHER, SELFPAY ==
[2020-05-08] VITALS (17 sets, daily range): BP systolic 95–173; BP diastolic 63–88; PULSE 73–92; RESP 15–24; TEMP 36.3–39.6; O2SAT 94–99; BMI 29.5; BMI 29.2; BMI 28.3; BMI 28.4
--- NOTE | 2020-05-08 16:02 | ED.RN ---
reports pt had fever starting yesterday. pt denies pain, urinary or GI symptoms. denies resp symptoms. reports pt was sleepy yesterday and all day today. noticed delay in speech since this am when he woke up. none noticed at this time.
[2020-05-08 16:11] LABS: Bedside Glucose 233 mg/dL (70-110)
--- NOTE | 2020-05-08 16:16 | CT_ITS ---
We are attempting to reach an attending provider to discuss findings. An addendum with communication details will be sent when the communication is complete. STUDY: CT BRAIN WITHOUT CONTRAST REASON FOR EXAM: Male, 75 years old. EXPRESSIVE [place]IA RADIATION DOSAGE (If Supplied By Facility): CTDIvol = ( 44.99 ) mGy, DLP = ( ) mGycm TECHNIQUE: Transaxial CT imaging of the brain was performed without administration of intravenous contrast material. Individualized dose optimization techniques were used for this CT. COMPARISON: No relevant priors. FINDINGS: Normal soft tissue structures. Normal calvarium. Normal size ventricles and extra-axial spaces for the patient''s age. Normal white matter tracts of the cerebral hemispheres. Normal basal ganglia and thalami. Normal brainstem. Normal cerebellum. There is no intracranial hemorrhage. There are no findings of an acute ischemic infarction. Normal visualized paranasal sinuses. CT/Brain/Head without Contrast IMPRESSION: Normal unenhanced CT scan of the brain. Electronically Signed: Jacoby Phillips MD at 16:36 EDT Tel , Service support ,
--- NOTE | 2020-05-08 16:16 | EKG12_ITS ---
Test Reason : STROKE Blood Pressure : / mmHG Vent. Rate : 086 BPM Atrial Rate : 086 BPM P-R Int : 134 ms QRS Dur : 092 ms QT Int : 390 ms P-R-T Axes : 075 040 066 degrees QTc Int : 466 ms Normal sinus rhythm Nonspecific ST and T wave abnormality Prolonged QT Abnormal ECG Confirmed by ALEX AHUMADA ([id number]), supervising editor news reel SARAH HO ([id number]) on 05/12/2020 2:21:12 PM Referred By: ZOE Confirmed By:ALEX AHUMADA
--- NOTE | 2020-05-08 16:17 | CT_ITS ---
We are attempting to reach an attending provider to discuss findings. An addendum with communication details will be sent when the communication is complete. STUDY: CTA HEAD AND NECK WITH CONTRAST REASON FOR EXAM: Male, 75 years old. EXPRESSIVE [place]IA RADIATION DOSAGE (If Supplied By Facility): CTDIvol = ( 20.94 ) mGy, DLP = ( 874.34 ) mGycm TECHNIQUE: CT angiography was performed with a multi-detector CT scanner. Data acquisition was obtained from the skull base through the vertex following intravenous administration of [id number] [id number]. MIP images were reconstructed from the axial data set. Post-processing of the angiographic images was performed, with multiplanar reformation and 3D reconstruction. Individualized dose optimization techniques were used for this CT. COMPARISON: No relevant priors. FINDINGS: Normal bilateral petrous carotid arteries. Normal right cavernous carotid artery with a normal supraclinoid bifurcation. Normal left cavernous carotid artery with a normal supraclinoid bifurcation. Normal right A1 segments of the anterior cerebral artery. Normal left A1 segments of the anterior cerebral artery. Normal intact anterior communicating artery (ACOM). Normal bilateral A2 segments of the anterior cerebral arteries. Normal right M1 and M2 segments of the middle cerebral arteries, with a normal M1 bifurcation. Normal left M1 and M2 segments of the middle cerebral arteries, with a normal M1 bifurcation. Normal right posterior communicating artery (PCOM). Normal left posterior communicating artery (PCOM). Normal bilateral vertebral arteries. Normal basilar artery with a normal basilar bifurcation. The visualized bilateral superior cerebellar (SCA) arteries are normal. Normal bilateral P1, P2 and visualized P3 segments of the posterior cerebral arteries. There is no demonstrated aneurysm of the [place]. There is no demonstrated abnormality of the visualized brain. AORTIC ARCH: Normal visualized aortic arch. Normal origins of the brachiocephalic, left common carotid, and left subclavian arteries. RIGHT CAROTID ARTERIES: Normal right common carotid artery (CCA). Normal right common carotid bulb. Normal origin of the right internal carotid (ICA) artery without a hemodynamically significant stenosis. Normal visualized cervical portion of the right internal carotid artery. Normal origin of the right external carotid artery (ECA). LEFT CAROTID ARTERIES: Normal left common carotid artery (CCA). Normal left common carotid bulb. Normal origin of the left internal carotid (ICA) artery without a hemodynamically significant stenosis. Normal visualized cervical portion of the left internal carotid artery. Normal origin of the left external carotid artery (ECA). VERTEBRAL ARTERIES: Normal bilateral vertebral arteries. CT/CTA Head AND Neck W/ Contrast IMPRESSION: Normal CTA Head and neck with contrast. Electronically Signed: Jacoby Phillips MD at 16:43 EDT Tel , Service support ,
--- NOTE | 2020-05-08 16:20 | ED.DCSUM_ITS ---
History of Present Illness Chief Complaint: Neuro S/Sx Informant: Patient, Family Onset: Today Narrative: Patient here with by private vehicle after calling PCP. Spouse reports he slept all day yesterday. He did have a good night's rest prior. Other than sleeping he was normal. States today similar however about 1:30 PM discussion about him calling his PCP, patient and spouse reports he had troubles trying to verbalize what he wanted to do. There was no slurring. He states he was slower to respond than normal. He is typically sharp. Denies headache or visual changes. No weakness or hemiparesis. Spouse does state he has history of sciatica and seemed more off balance today. No cough. No vomiting or diarrhea. No urinary symptoms. No strokes in the past. He does have history of four- vessel CABG on baby aspirin. There is no other anticoagulation medications. After discussion with PCP, was told to go the ED for evaluation. Prior similar symptoms: No Past Medical History - Allergies and Home Meds Allergies/Adverse Reactions: Allergies caffeine Allergy (Verified 05/08/20 15:50) Other Palpitations ibuprofen Allergy (Verified 05/08/20 15:50) Rash Penicillins [PCN] Allergy (Verified 05/08/20 15:50) Other Pt doesn't remember - allergy since a child ciprofloxacin Adverse Reaction (Verified 05/08/20 15:50) Upset Stomach Past Medical History: - - Hypertension, hyperlipidemia, diabetes, sciatica, coronary disease, MS Surgical History: coronary bypass surgery, tonsillectomy, - - Left ureter stent Smoking Status: Former smoker - Family History Paternal Family History: Family History (Last Reviewed 08/13/19 @ 01:[address] Ramon Smith MD) Father FH: CABG (coronary artery bypass surgery) Cancer Heart disease Mother Myocardial infarction Heart disease Brother Myocardial infarction CAD (coronary artery disease) Other Family history of coronary artery disease Family History: Reports: Heart Disease Sibling Family History: Family History (Last Reviewed 08/13/19 @ 01:[address] Ramon Smith MD) Father FH: CABG (coronary artery bypass surgery) Cancer Heart disease Mother Myocardial infarction Heart disease Brother Myocardial infarction CAD (coronary artery disease) Other Family history of coronary artery disease Family History: Reports: Heart Disease Maternal Family History: Family History (Last Reviewed 08/13/19 @ 01:[address] Ramon Smith MD) Father FH: CABG (coronary artery bypass surgery) Cancer Heart disease Mother Myocardial infarction Heart disease Brother Myocardial infarction CAD (coronary artery disease) Other Family history of coronary artery disease Family History: Reports: Heart Disease Review of Systems General: Denies: Chills, Fever, Sweats Eyes: Denies: Visual changes - bilaterally, Diplopia ENT: Denies: Rhinorrhea, Sore throat Cardiovascular: Denies: Chest pain, Palpitations Respiratory: Denies: Dyspnea, Cough, Dyspnea on exertion Gastrointestinal: Denies: Abdominal pain, Nausea, Vomiting, Diarrhea, Melena, Hematochezia Genitourinary: Denies: Dysuria, Hematuria, Frequency Musculoskeletal: Denies: Back pain, Extremity Pain Skin: Denies: Rash, Wounds Neurological: Reports: - - Expressive aphasia,. Denies: Headache, Weakness, Numbness Physical Exam Vital Signs/Narrative: Vital Signs Temp Pulse Resp BP Pulse Ox 05/08/20 15:57 89 19 H 152/70 H 96 05/08/20 15:48 98.1 F 92 18 146/79 H 96 Inital Vital Signs reviewed: Yes General: Well nourished, Well developed, No Acute Distress Head: Normocephalic, Atraumatic Eyes: Perrl, EOMI ENT: Moist mucous membranes, No rhinorrhea Neck: Supple, Nontender Cardiovascular: Regular rate, Regular rhythm, No murmurs Respiratory: No distress, CTA bilaterally, Chest nontender Abdomen: Soft, Nontender, Nondistended, Normal bowel sounds Back: Nontender, Normal Inspection Extremities: Nontender, No edema Skin: Normal color, No rash Neurological: Alert, Oriented x3, Cranial nerves II-XII grossly intact, Normal Strength, Normal Sensation, - - NIH equal 1 for not knowing the month. Upper and lower cerebellar testing intact. Psychological: Normal affect, Normal Mood Diagnostic/Tx/Re-eval Clinical Impression(s) from Imaging Studies Brain CT 05/08/20 16:16 IMPRESSION: Normal unenhanced CT scan of the brain. Electronically Signed: Jacoby Phillips MD at 16:36 EDT Tel , Service support , ADDENDUM: 05/08/20 1654 IMPRESSION: Normal unenhanced CT scan of the brain. N.B. : The above information has been verbally conveyed by Jacoby Phillips MD to Alexis Brush on 05/08/2020 16:47:01 (ET). Electronically Signed: Jacoby Phillips MD at 16:36 EDT Tel , Service support , Head/Neck CTA 05/08/20 16:17 IMPRESSION: Normal CTA Head and neck with contrast. Electronically Signed: Jacoby Phillips MD at 16:43 EDT Tel , Service support , ADDENDUM: 05/08/20 1653 IMPRESSION: Normal CTA Head and neck with contrast. N.B. : The above information has been verbally conveyed by Jacoby Phillips MD to Dr. Alexis Brush MD, on 05/08/2020 16:46:57 (ET). Electronically Signed: Jacoby Phillips MD at 16:43 EDT Tel , Service support , Chest X-Ray 05/08/20 17:43 IMPRESSION: Normal x-ray examination of the chest. Electronically Signed: Romaine Gannon at 17:53 EDT Tel , Service support , Abnormal Lab Results 05/08/20 05/08/20 05/08/20 15:57 16:35 16:35 WBC 11.2 H RBC 4.00 L Hgb 12.8 L Hct 39.0 L MCV 97.5 H MCH 32.0 MCHC 32.8 RDW Std Deviation 50.2 H RDW Coeff of [place] 14.1 Plt Count 123 L MPV 8.7 Immature Gran % (Auto) 0.600 Neut % (Auto) 81.4 H Lymph % (Auto) 7.6 L [place] % (Auto) 10.1 H Eos % (Auto) 0.0 Baso % (Auto) 0.3 Absolute Neuts (auto) 9.1 H Absolute Lymphs (auto) 0.85 Nucleated RBC % 0 Differential Comment PT 15.9 H INR 1.3 APTT 38.2 H Sodium Potassium Chloride Carbon Dioxide Anion Gap BUN Creatinine Estim Creat Clear Calc Est GFR (MDRD) Af Amer Est GFR (MDRD) Non-Af BUN/Creatinine Ratio Glucose Lactic Acid Calcium Troponin I Procalcitonin Urine Color Urine Clarity Urine pH Ur Specific [place] Urine Protein Urine Glucose (UA) Urine Ketones Urine Occult Blood Urine Nitrite Urine Bilirubin Urine Urobilinogen Ur Leukocyte Esterase Urine RBC Urine WBC Ur Squamous Epith Cells Urine Bacteria Urine Mucus COVID-19 (LETTY) POC Glucose 233 H 05/08/20 05/08/20 05/08/20 16:35 16:35 16:40 WBC RBC Hgb Hct MCV MCH MCHC RDW Std Deviation RDW Coeff of [place] Plt Count MPV Immature Gran % (Auto) Neut % (Auto) Lymph % (Auto) [place] % (Auto) Eos % (Auto) Baso % (Auto) Absolute Neuts (auto) Absolute Lymphs (auto) Nucleated RBC % Differential Comment PT INR APTT Sodium 133 L Potassium 4.1 Chloride 96 L Carbon Dioxide 28.0 Anion Gap 9 BUN 20 H Creatinine 1.46 H Estim Creat Clear Calc 45.06 Est GFR (MDRD) Af Amer 61 Est GFR (MDRD) Non-Af 50 L BUN/Creatinine Ratio 13.7 Glucose 222 H Lactic Acid Calcium 7.8 L Troponin I < 0.015 Procalcitonin 0.23 H Urine Color Yellow Urine Clarity Sl. Cloudy Urine pH 5.0 Ur Specific [place] 1.015 Urine Protein 30 H Urine Glucose (UA) 250 H Urine Ketones 5 H Urine Occult Blood 50 H Urine Nitrite Negative Urine Bilirubin Negative Urine Urobilinogen Normal Ur Leukocyte Esterase 25 H Urine RBC 0-5 SEEN Urine WBC 5-10 SEEN Ur Squamous Epith Cells 0 SEEN Urine Bacteria 0 SEEN Urine Mucus 0 SEEN COVID-19 (LETTY) POC Glucose 05/08/20 05/08/20 16:45 16:55 WBC RBC Hgb Hct MCV MCH MCHC RDW Std Deviation RDW Coeff of [place] Plt Count MPV Immature Gran % (Auto) Neut % (Auto) Lymph % (Auto) [place] % (Auto) Eos % (Auto) Baso % (Auto) Absolute Neuts (auto) Absolute Lymphs (auto) Nucleated RBC % Differential Comment PT INR APTT Sodium Potassium Chloride Carbon Dioxide Anion Gap BUN Creatinine Estim Creat Clear Calc Est GFR (MDRD) Af Amer Est GFR (MDRD) Non-Af BUN/Creatinine Ratio Glucose Lactic Acid 2.0 Calcium Troponin I Procalcitonin Urine Color Urine Clarity Urine pH Ur Specific [place] Urine Protein Urine Glucose (UA) Urine Ketones Urine Occult Blood Urine Nitrite Urine Bilirubin Urine Urobilinogen Ur Leukocyte Esterase Urine RBC Urine WBC Ur Squamous Epith Cells Urine Bacteria Urine Mucus COVID-19 (LETTY) Not Detected POC Glucose - EKG Initial EKG Interpretation: Sinus Rhythm - Sinus rate of 86, no ST changes, there is T wave inversions in lead II and flattening of T3. - Medical Decision Making Blood glucose 233. Patient onset of symptoms 1:30 PM less than 3 hours ago with NIH of 1. Stroke alert initiated. CT CTA ordered. Shortly after returning from CT recheck of his temperature was 103 orally. I did sepsis labs lactic acid was 2. He is evaluated by stroke neurologist, Dr. Lopez on the monitor, did not feel he was a TPA candidate state he is outside the window especially with fever. Chest x-ray negative. CAT scans were normal. Urine noted leukocytes and white blood cells. Urine culture and blood culture pending. Patient started on antibiotics of Rocephin. Patient admitted to hospitalist service. - Critical Care Time Critical care time (excluding procedures): 30-74 minutes, Discussing w/Patient &/or Family/Automotive Repair Technician, Discussing w/Consultants ED Disposition - Plan for ED Patient: Disposition: Acute Care Hospital [facility] Diagnosis: Sepsis, UTI (urinary tract infection), TIA (transient ischemic attack), CKD (chronic kidney disease)
--- NOTE | 2020-05-08 16:22 | CM.ED ---
Social Work Responding to Stroke Alert. Patient spouse, Alicia present. Support provided. Patient lives at home with spouse. Arcelia PALAFOX, EVITA
--- NOTE | 2020-05-08 16:22 | NURSING ---
FACESHEET FAXED TO [facility]
--- NOTE | 2020-05-08 16:38 | ED.RN ---
[facility] neurologist on robot computer with ED physician at bedside.
[2020-05-08 16:41] LABS: Absolute Lymphocyte Count 0.85 X10^3/uL (0.83-4.51); Absolute Neutrophil Count 9.1 X10^3/uL (2.0-7.7); Basophil# 0.03 X10^3/uL; Basophil% 0.3 % (0-1); Hemoglobin 12.8 g/dL (13.0-16.5); Lymphocyte # 0.85 X10^3/ul (4.0); Lymphocyte % 7.6 % (19-41); Mean Corp Hgb Conc 32.8 g/dL (32-36); Mean Corpuscular Volume 97.5 fL (80-94); Mean Platelet Vol. 8.7 fl (6.2-12.0); Monocyte# 1.13 X10^3/uL; Monocyte% 10.1 % (0-10); NRBC Flagged by Analyzer 0 % (0-5); Neutrophil # 9.14 X10^3/uL (2.7-7.7); Neutrophil % 81.4 % (47-70); POSITIVE MORPHOLOGY YES; Platelet Count 123 K/mm3 (150-450); RBC Distribution Width CV 14.1 % (11.6-14.6); RBC Distribution Width SD 50.2 fl (35.1-43.9); White Blood Count 11.2 K/mm3 (4.4-11.0)
--- NOTE | 2020-05-08 16:44 | CHAPLAIN ---
Type of Pastoral Visit ___ Initial Visit ___ Follow-up Visit ___ On-call Visit ___ General Patient Visit ___ Spiritual Assessment ___ Family Conference ___ Bereavement _x__ Rapid Response ___ Code Blue ___ Other (describe below) Pastoral Care Referral From ___ Patient ___ Family ___ Nurse ___ Physician ___ Fashion Consultant ___ Supervisor Agency Appointments _x__ Other (describe below) Sacrament/Intervention _x__ Active listening ___ Anointing ___ Gnosticism ___ Bereavement ___ Communion ___ Stella exploration ___ ___ Life review ___ Prayer ___ Reconciliation ___ Sacrament of Sick _x__ Supportive presence ___ Wedding ___ Other (describe below) Pastoral Comments met with spouse as patient was in CT Scan; spouse is talkative about situation and health history of her and herself; gave presence, time, and water
[2020-05-08 16:45] LABS: Differential Indicated SCAN CRITERIA MET
[2020-05-08] MEDS: Acetaminophen 500 MG Tablet 1000 MG PO (16:45)
[2020-05-08 17:05] LABS: Bacteria 0 SEEN /hpf (None Seen); Mucous, Urine 0 SEEN /hpf (<or=2+); Squamous Epithelial Cells - UA 0 SEEN /hpf (0-5)
[2020-05-08 17:09] LABS: International Normalized Ratio 1.3; Partial Thromboplast Time 38.2 Seconds (24.1-36.2); Prothrombin Time (Protime)PT. 15.9 SECONDS (11.7-14.9)
[2020-05-08 17:14] LABS: Color, Urine Yellow (Yellow); Glucose, Dipstick 250 mg/dl (Normal); Ketone-Dipstick 5 mg/dl (Negative); Leukocyte Esterase-Dipstick 25 /ul (Negative); Nitrite-Dipstick Negative (Negative); Occult Blood-Urine 50 /ul (Negative); Protein-Dipstick 30 mg/dl (Negative); Specific Gravity, Urine 1.015 (1.002-1.030); Urine Bilirubin Dipstick Negative (Negative); Urine Clarity Sl. Cloudy (Clear); Urine Urobilinogen Normal (Normal)
[2020-05-08 17:18] LABS: Anion Gap 9 (5-15); BUN 20 mg/dL (7-18); BUN/Creat Ratio 13.7 RATIO (10-20); Calcium,Total 7.8 mg/dL (8.5-10.1); Chloride 96 mmol/L (98-107); Creatinine, Serum 1.46 mg/dL (0.70-1.30); EST Glomerular Filtration Rate 50 mL/min (>60); Est Glom Filt Rate - Afr Amer 61 mL/min (>60); Estimated Creatinine Clearance 45.06 ml/min; Glucose 222 mg/dL (74-106); Potassium 4.1 mmol/L (3.5-5.1); Sodium Level 133 mmol/L (136-145)
[2020-05-08 17:22] LABS: Red Blood Cells-Urine 0-5 SEEN /hpf (0-5); White Blood Cells 5-10 SEEN /hpf (0-5)
--- NOTE | 2020-05-08 17:43 | RAD_ITS ---
STUDY: X-RAY CHEST REASON FOR EXAM: Male, 75 years old. INCREASED FATIGUE AND DIFFICULTY WITH SPEECH, NEURO SX TECHNIQUE: Frontal view of the chest COMPARISON: August 19, 2019 FINDINGS: Sternotomy wires are present. The lungs are clear and expanded. There is no demonstrated pleural abnormality. Normal size heart. Normal mediastinum and sergo. Normal visualized pulmonary arteries. Normal visualized aortic arch and descending thoracic aorta. Normal visualized thoracic spine. Normal visualized ribs, clavicles, and shoulders. There is no demonstrated abnormality of the visualized soft tissue structures of the upper abdomen. RAD/Chest 1 View IMPRESSION: Normal x-ray examination of the chest. Electronically Signed: Romaine Gannon, at 17:53 EDT Tel , Service support ,
--- NOTE | 2020-05-08 18:32 | NURSING ---
DR EJ ENRIQUEZ
[2020-05-08] MEDS: Ceftriaxone 1 GM/50 ML BAG IV (18:40)
--- NOTE | 2020-05-08 18:41 | NURSING ---
MS2 COVID LE SEPSIS, UTI, EXPRESSIVE ASHPAGIA, CKD
--- NOTE | 2020-05-08 19:12 | PCM.HP.STD ---
Problem List (1) Dysarthria Status: Acute (2) Hyponatremia Status: Acute (3) Thrombocytopenia Status: Acute (4) LAZARA (acute kidney injury) Status: Acute History of Present Illness Date of Admission: 05/08/20 Chief Complaint: slurred speech The patient is a 75 year old M who presented to the ED today after calling PCP with concerns about a fever that the pt had had since Tuesday. Yesterday he had a Tmax of 102 and slept most of the day. The pt was on the phone with the PCP and asked to speak to his and requested she bring him to the ED as he felt he was slow to answer questions and his speech was slurred. Per his he is typically very sharp. A stroke team was called. Initial NIH was 1 and repeat was 0. No tPA was given with sx resolution and retrospectively the thinks all of his sx are fever related. Tmas in the ED was 101.5. He reports fatigue over the last few days but denies, N/V/D, chills, myalgias, URI sx and pharyngitis. He feels like he is just about back to baseline after the APAP he was given for his fever and his confims this. His VS are otherwise stable. He has a mildly elevated white count with a L shift. Mild thrombocytopenia and sCr elevation although when compared to older lab work is stable. His lactate is neg. His UA is mildly suspicious. He was given CTX by the ED and Blood and Ucx were sent. COVID 19 was also sent. Past Medical History Past Medical History (Chronic Problems): Chronic Problems (Last Reviewed 05/08/20 @ 19:[address] Ilene Lopez DO) H/O coronary artery bypass surgery (Chronic 12/30/15) CABG X 4, SOMMER-LAD, SVG-D1, QKO-Kwln-Rbg CX, SVG-PDA 12/30/15 Essential (primary) hypertension (Chronic) Old myocardial infarction (Chronic) Atherosclerotic heart disease of [place] coronary artery without angina pectoris (Chronic) 12/30/15, CABG X 4, SOMMER-LAD, SVG-D1, HMU-Hayi-Hlo CX, SVG-PDA Abdominal aortic aneurysm (Chronic) Hyperlipidemia (Chronic) Diabetes mellitus type 2 in nonobese (Chronic) Medical History: Medical History (Last Reviewed 05/08/20 @ 19:[address] Ilene Lopez, DO) Essential (primary) hypertension (Chronic) I10 Old myocardial infarction (Chronic) I25.2 Atherosclerotic heart disease of [place] coronary artery without angina pectoris (Chronic) I25.10 12/30/15, CABG X 4, SOMMER-LAD, SVG-D1, ITL-Jahr-Pkh CX, SVG-PDA Abdominal aortic aneurysm (Chronic) I71.4 Hyperlipidemia (Chronic) E78.5 Diabetes mellitus type 2 in nonobese (Chronic) E11.9 Benign prostatic hyperplasia N40.0 History of kidney stones Z87.442 Allergies caffeine Allergy (Verified 05/08/20 15:50) Other Palpitations ibuprofen Allergy (Verified 05/08/20 15:50) Rash Penicillins [PCN] Allergy (Verified 05/08/20 15:50) Other Pt doesn't remember - allergy since a child ciprofloxacin Adverse Reaction (Verified 05/08/20 15:50) Upset Stomach Home Medications: Ambulatory Orders Medication Instructions Recorded Atorvastatin Calcium [Lipitor] 20 mg PO QHS 09/15/15 Glimepiride [Amaryl] 2 mg PO DAILY 09/15/15 Aspirin [Adult Low Dose Aspirin EC] 81 mg PO DAILY 01/22/16 Tadalafil [Cialis] 5 mg PO DAILY 05/31/18 Tamsulosin HCl [Flomax] 0.8 mg PO QHS 05/31/18 clopidogrel 75 mg tablet 75 mg PO DAILY #90 tab 07/24/18 metoprolol tartrate 25 mg tablet 25 mg PO BID #180 tab 04/09/19 metformin 1,000 mg 24 hr 1,000 mg PO BID tab 08/09/19 tablet,extended release Insulin Degludec [Tresiba 40 units SQ DAILY 05/08/20 Flextouch U-200] Loratadine 10 mg PO DAILY 05/08/20 Omeprazole 40 mg PO DAILY 05/08/20 Psyllium Husk (with Sugar) [Fiber 5 ml PO DAILY 05/08/20 Therapy Powder] Surgical History: Surgical History (Last Reviewed 05/08/20 @ 19:[address] Ilene Lopez DO) H/O coronary artery bypass surgery (Chronic) Onset Date: 12/30/15 Z95.1 CABG X 4, SOMMER-LAD, SVG-D1, EVM-Iggi-Sxx CX, SVG-PDA 12/30/15 History of lithotripsy Z98.890 History of tonsillectomy Z90.89 Surgical History: coronary bypass surgery, tonsillectomy, - - Left ureter stent Psychiatric History: No pertinent psych hx Smoking Status: Former smoker Alcohol: Rare Drugs: None - *Family History Paternal Family History: Family History (Last Reviewed 08/13/19 @ 01:[address] Ramon Smith MD) Father FH: CABG (coronary artery bypass surgery) Cancer Heart disease Mother Myocardial infarction Heart disease Brother Myocardial infarction CAD (coronary artery disease) Other Family history of coronary artery disease History Items: Heart Disease Sibling Family History: Family History (Last Reviewed 08/13/19 @ 01:[address] Ramon Smith MD) Father FH: CABG (coronary artery bypass surgery) Cancer Heart disease Mother Myocardial infarction Heart disease Brother Myocardial infarction CAD (coronary artery disease) Other Family history of coronary artery disease History Items: Heart Disease Maternal Family History: Family History (Last Reviewed 08/13/19 @ 01:[address] Ramon Smith MD) Father FH: CABG (coronary artery bypass surgery) Cancer Heart disease Mother Myocardial infarction Heart disease Brother Myocardial infarction CAD (coronary artery disease) Other Family history of coronary artery disease History Items: Heart Disease Review of Systems Constitutional: Reports: Chills, Fever, Malaise, Weakness, Fatigue. Denies: Anorexia, Night Sweats, Weight Change Eyes: Denies: Blurred vision, Conjunctivae Inflammation, Drainage, Pain, Redness HEENT: Denies: Difficulty Swallowing, Eye Pain, Nasal bleeding, Nasal Congestion, Post Nasal Drip, Sinus Congestion, Sinus Drainage, Sore Throat Cardiovascular: Denies: Chest Pain, Claudication, Chest Pressure, Chest Tightness, Edema, Heaviness, Light Headedness, Orthopnea, Palpitations, Paroxysmal Noc. Dyspnea, Syncope Respiratory: Denies: Cough, Hemoptysis, Pleuritic Pain, Shortness of Breath, Shortness of breath at rest, Shortness of breath upon exertion, Sputum production, Wheezing Gastrointestinal: Denies: Abdominal Pain, Constipation, Diarrhea, Dyspepsia, Hematemesis, Hematochezia, Nausea, Melena, Vomiting Genitourinary: Reports: Dysuria. Denies: Frequency, Hematuria, Hesitancy, Incontinence, Nocturia, Retention, Urgency Musculoskeletal: Reports: Arm Pain. Denies: Back Pain, Joint Pain, Joint stiffness, Joint swelling, Joint Tenderness, Muscle pain, Neck Pain Skin: Reports: Pruritis - back, Rash - back. Denies: Dryness, Jaundice, Lesions, Skin Changes, Wounds Neurological: Reports: Slurred speech - now resolved. Denies: Balance problems, Blurred vision, Double vision, Change in Speech, Confusion, Difficulty swallowing, Focal weakness, Headaches, Incoordination, Numbness, Tingling, Tremor, Seizures Psychiatric: Denies: Anxiety, Depression, Homicidal Ideations, Suicidal Ideations Endocrine: Denies: Change in Body Habitus, Heat/ Cold Intolerance, Polydipsia, Polyuria Hematologic/ Lymphatic: Denies: Adenopathy, Anemia, Easy Bruising, Easy Bleeding, Petechiae, Purpura VTE Information - Inpt Only VTE Present on Admission: No VTE Mechan Device Prophylaxis: None VTE Pharm Prophylaxis ordered?: Yes Patient Problems: Active and Suspected Problems (Last Reviewed 05/08/20 @ 19:[address] Ilene Lopez, DO) Dysarthria (Acute) Hyponatremia (Acute) Thrombocytopenia (Acute) LAZARA (acute kidney injury) (Acute) - Physical Exam Vitals/I&O's: Vital Signs Temp Pulse Resp BP Pulse Ox 100.3 F H 80 19 H 115/63 95 05/08/20 18:41 05/08/20 18:41 05/08/20 18:41 05/08/20 18:41 05/08/20 18:41 Oxygen Delivery Method Room Air Weight: 89.7 kg Body Mass Index (BMI) 29.2 Finger Stick Blood Glucose 233 General: Alert, Oriented x3, Cooperative, No apparent distress, Well developed, Well nourished, - - WM, sitting up in bed, at bedside, appears well HEENT: Atraumatic, PERRLA, EOMI, Normocephalic, EAC Clear Oral: Moist Mucosa, No Gingival or Mucosal Lesions/ Ulcerations, - - mallampati 2 Neck: Supple, No JVD, Negative Carotid Bruits, Negative Hepatojugular Reflux, No Nodes, No Nuchal Rigidity, Trachea Midline, Thyroid Normal Size and Texture Lungs: Clear to auscultation, Normal air movement, No rhonchi, No wheeze, No rales Cardiovascular: Regular rate, Regular Rhythm, Normal S1, Normal S2, No murmurs, No rub noted, No Gallop Abdomen: Bowel Sounds Present, Soft, Non Tender, Non-Distended, No Hepato-splenomegaly, Hernia - mild umbilical hernia Extremities: No clubbing, No cyanosis, No edema, Capillary Refill Less than 3 Seconds, No Calf Tenderness, Peripheral Pulses Normal Skin: No rashes, No breakdown Musculoskeletal: No Tenderness to Palpation of Joints or Extremities, No Muscle Wasting Lymphatic: No Cervical, Supraclavicular, or Inguinal Adenopathy Neurological: Cranial nerves II-XII grossly intact, Deep Tendon Reflexes 2+/4 and Symmetrical, Neuro grossly intact, Motor Exam 5/5 strength throughout, Muscle tone normal, Sensory exam intact to light touch and pain, Coordination normal Psych/Mental Status: Normal Affect, Appropriate, Alert and oriented to time, place, person, mood and affect Laboratory Results 05/08/20 15:57: POC Glucose 233 H 05/08/20 16:35: WBC 11.2 H, RBC 4.00 L, Hgb 12.8 L, Hct 39.0 L, MCV 97.5 H, MCH 32.0, MCHC 32.8, RDW Std Deviation 50.2 H, RDW Coeff of [place] 14.1, Plt Count 123 L, MPV 8.7, Immature Gran % (Auto) 0.600, Neut % (Auto) 81.4 H, Lymph % (Auto) 7.6 L, [place] % (Auto) 10.1 H, Eos % (Auto) 0.0, Baso % (Auto) 0.3, Absolute Neuts (auto) 9.1 H, Absolute Lymphs (auto) 0.85, Nucleated RBC % 0, Differential Comment 05/08/20 16:35: PT 15.9 H, INR 1.3, APTT 38.2 H 05/08/20 16:35: Sodium 133 L, Potassium 4.1, Chloride 96 L, Carbon Dioxide 28.0, Anion Gap 9, BUN 20 H, Creatinine 1.46 H, Estim Creat Clear Calc 45.06, Est GFR (MDRD) Af Amer 61, Est GFR (MDRD) Non-Af 50 L, BUN/Creatinine Ratio 13.7, Glucose 222 H, Calcium 7.8 L, Troponin I < 0.015 05/08/20 16:40: Urine Color Yellow, Urine Clarity Sl. Cloudy, Urine pH 5.0, Ur Specific [place] 1.015, Urine Protein 30 H, Urine Glucose (UA) 250 H, Urine Ketones 5 H, Urine Occult Blood 50 H, Urine Nitrite Negative, Urine Bilirubin Negative, Urine Urobilinogen Normal, Ur Leukocyte Esterase 25 H, Urine RBC 0-5 SEEN, Urine WBC 5-10 SEEN, Ur Squamous Epith Cells 0 SEEN, Urine Bacteria 0 SEEN, Urine Mucus 0 SEEN 05/08/20 16:45: Lactic Acid 2.0 05/08/20 16:55: COVID-19 (LETTY) Pending Current Medications Labetalol HCl (Trandate) 20 mg IV X1 PRN PRN Reason: BLOOD PRESSURE Assessment/Plan All Active Problems (Last Reviewed 05/08/20 @ 19:[address] Ilene Lopez, DO) Dysarthria (Acute) Hyponatremia (Acute) Thrombocytopenia (Acute) LAZARA (acute kidney injury) (Acute) Hydronephrosis, left (Acute) S/P cystoscopy with ureteral stent placement (Acute) Left ureteral calculus (Acute) Nephrolithiasis (Acute) Slurred Speech--> R/O Stroke -Stroke team called -NIH 1 on presentation and now 0 -CT neg -check MRI in am--> suspect will be negative -ECHO if + -continue home ASA and Plavix -check NIH Fever -103 in ED -apap PRN -UA done and cx sent -blood cx sent -lactate WNL -COVID P -start Cefepime (PCN allergy) and VANC x 1 dose -procal -vanc level in am LAZARA on ?CKD -sCr has been elevated since 08/2019 -will hydrate with LR and trend Mild Anemia and Thrombocytopenia -both a bit lower than baseline -will trend Hyponatremia -133 in admission -hydration and repeat in am DM-2 -hold orals -continue basal insulin -ssi -BGT q ACHS H/O nephrolithiasis -no sx now -if urine is + may need imaging CAD/HTN/HPL -CABG x 4 2015 -stable -continue statin/antihypertensives/plavix/asa BPH -continue Flomax GERD -PPI DVT Prophylaxis -heparin Code Status -FUll Inpatient E&M: 76084 Init Hosp L3
--- NOTE | 2020-05-08 19:41 | MRI_ITS ---
STUDY: MRI BRAIN WITHOUT CONTRAST REASON FOR EXAM: Male, 75 years old. cva, aphasia, confusion TECHNIQUE: Standardized multiplanar fat and water weighted pulse sequences were obtained. COMPARISON: CT head without contrast 05/08/2020. FINDINGS: No restricted diffusion to suspect acute or subacute ischemic infarct. No midline shift and no mass effects. Normal size of the ventricles and extra-axial spaces for the patient''s age. Normal white matter tracts of the supratentorial brain. Tiny solitary FLAIR hyperintensity focus in the left frontal convexity (series 6, image 19) is nonspecific. It may represent focal gliosis possibly from remote injury. Normal bilateral basal ganglia. Normal thalami. There is no extra-axial fluid accumulation. Normal flow voids within the major intracranial circulation suggesting patency by spin echo criteria. Normal sella turcica, pituitary gland, infundibular stalk, optic chiasm and hypothalamus. Normal tectal plate and pineal gland. Normal midbrain, isidro and medulla. Normal cerebellum. Normal basal cisterns. Normal bilateral temporal bones. Normal bilateral internal auditory canals. No demonstrated orbital abnormality, within the constraints of a routine brain study. Normal visualized paranasal sinuses. Normal calvarium and skull base. Normal visualized soft tissue structures. Normal visualized upper cervical spine. MRI/Brain without Contrast IMPRESSION: 1. No MRI evidence of acute or subacute ischemic infarct or remote ischemic infarct. 2. No MRI evidence of internal mass. 3. No significant interval change when compared to noncontrast CT head scan of 05/08/2020. Electronically Signed: Kwesi Ace MD at 10:31 EDT , Service support ,
[2020-05-08] MEDS: Lactated Ringers 1,000 ML 75 ML IV (20:30)
[2020-05-08 20:50] LABS: Reflex Lactate? Y
[2020-05-08 20:55] LABS: Procalcitonin 0.23 ng/mL (0.00-0.09)
[2020-05-08 22:01] LABS: Bedside Glucose 200 mg/dL (70-110)
[2020-05-08] MEDS: Metoprolol Tartrate 25 MG Tablet PO (22:02)
[2020-05-08] MEDS: Atorvastatin Calcium 20 MG Tablet PO (22:02)
[2020-05-08] MEDS: Tamsulosin HCl 0.4 MG Capsule 0.8 MG PO (22:03)
[2020-05-08] MEDS: 0.9% Saline Lock 10 ML Syringe IV (22:05)
[2020-05-08] MEDS: Acetaminophen 325 MG Tablet 650 MG PO (22:06)
[2020-05-09] VITALS (13 sets, daily range): BP systolic 103–137; BP diastolic 61–71; PULSE 64–110; RESP 10–18; TEMP 36.4–37.6; O2SAT 94–99; BMI 28.3
--- NOTE | 2020-05-09 00:15 | DIALYSIS ---
Pt tolerated 3.75hrs of 4hr tx fair. BP low throughout, stable with decrease in UFR. Venous needle infiltrated LUAF while turning pt to get onto bedpan.Small hematoma noted distal to insertion site. Thrill and bruit noted, ice pack applied. Pt denies pain at site. Net UF -1125ml. See flow record for other tx data.
--- NOTE | 2020-05-09 01:40 | NURSING ---
Auditing pt's chart and found inaccurate information documented in error on wrong pt by HD RN Dae German timed for 001. This pt, Ananth Szymanski, did not receive dialysis.
[2020-05-09] MEDS: 0.9% Saline Lock 10 ML Syringe IV (04:27)
[2020-05-09] MEDS: Acetaminophen 325 MG Tablet 650 MG PO ×2 (04:27→18:42)
[2020-05-09 04:36] LABS: Absolute Lymphocyte Count 0.72 X10^3/uL (0.83-4.51); Absolute Neutrophil Count 7.6 X10^3/uL (2.0-7.7); Basophil# 0.03 X10^3/uL; Basophil% 0.3 % (0-1); Eosinophil# 0.01 X10^3/uL; Eosinophils% 0.1 % (0-5); Hemoglobin 14.1 g/dL (13.0-16.5); Lymphocyte # 0.72 X10^3/ul (4.0); Lymphocyte % 7.7 % (19-41); Mean Corpuscular Hgb 31.2 pg (27.0-32.0); Mean Corpuscular Volume 97.3 fL (80-94); Mean Platelet Vol. 8.9 fl (6.2-12.0); Monocyte# 0.86 X10^3/uL; Monocyte% 9.2 % (0-10); NRBC Flagged by Analyzer 0 % (0-5); Neutrophil # 7.64 X10^3/uL (2.7-7.7); Neutrophil % 82.1 % (47-70); Platelet Count 119 K/mm3 (150-450); RBC Distribution Width CV 14.3 % (11.6-14.6); RBC Distribution Width SD 50.4 fl (35.1-43.9); Red Blood Count 4.52 M/mm3 (4.6-6.2); White Blood Count 9.3 K/mm3 (4.4-11.0)
[2020-05-09 04:58] LABS: Anion Gap 5 (5-15); BUN 18 mg/dL (7-18); BUN/Creat Ratio 13.7 RATIO (10-20); Calcium,Total 8.5 mg/dL (8.5-10.1); Chloride 100 mmol/L (98-107); Cholesterol 115 mg/dL (200); Creatinine, Serum 1.31 mg/dL (0.70-1.30); EST Glomerular Filtration Rate 57 mL/min (>60); Est Glom Filt Rate - Afr Amer 69 mL/min (>60); Estimated Creatinine Clearance 50.22 ml/min; Glucose 156 mg/dL (74-106); High Density Lipoprotein 11 mg/dL; Potassium 3.9 mmol/L (3.5-5.1); Sodium Level 135 mmol/L (136-145); Triglycerides 331 mg/dL; Vancomycin, Random Level 14.1 ug/mL (0.0-15.0); Very Low Density Lipoprotein 66 mg/dL (5-40)
[2020-05-09 05:05] LABS: Lactic Acid 1.1 mmol/L (0.4-1.9)
--- NOTE | 2020-05-09 07:16 | PN_ITS ---
Patient Problems: Active and Suspected Problems (Last Reviewed 05/08/20 @ 19:[address] Ilene Lopez, DO) Dysarthria (Acute) Hyponatremia (Acute) Thrombocytopenia (Acute) LAZARA (acute kidney injury) (Acute) Sepsis (Acute) UTI (urinary tract infection) (Acute) TIA (transient ischemic attack) (Acute) Vitals/I&O's: Vital Signs Temp Pulse Resp BP Pulse Ox 99.7 F H 66 16 103/71 99 05/09/20 04:00 05/09/20 06:00 05/09/20 06:00 05/09/20 06:00 05/09/20 06:00 Oxygen Flow Rate (L/min) 4 Oxygen Delivery Method Room Air Weight: 87.09 kg Body Mass Index (BMI) 28.3 Finger Stick Blood Glucose 233 Intake and Output for Last 24 Hours 05/07/20 05/08/20 05/09/20 23:59 23:59 23:59 Intake Total 387.5 / 387.5 680 / 680 Output Total 1475 / 1475 300 / 300 Balance -1087.5 / -1087.5 380 / 380 Laboratory Results 05/08/20 15:57: POC Glucose 233 H 05/08/20 16:35: WBC 11.2 H, RBC 4.00 L, Hgb 12.8 L, Hct 39.0 L, MCV 97.5 H, MCH 32.0, MCHC 32.8, RDW Std Deviation 50.2 H, RDW Coeff of [place]ip[place] 14.1, Plt Count 123 L, MPV 8.7, Immature Gran % (Auto) 0.600, Neut % (Auto) 81.4 H, Lymph % (Auto) 7.6 L, [place] % (Auto) 10.1 H, Eos % (Auto) 0.0, Baso % (Auto) 0.3, Absolute Neuts (auto) 9.1 H, Absolute Lymphs (auto) 0.85, Nucleated RBC % 0, Differential Comment 05/08/20 16:35: PT 15.9 H, INR 1.3, APTT 38.2 H 05/08/20 16:35: Sodium 133 L, Potassium 4.1, Chloride 96 L, Carbon Dioxide 28.0, Anion Gap 9, BUN 20 H, Creatinine 1.46 H, Estim Creat Clear Calc 45.06, Est GFR (MDRD) Af Amer 61, Est GFR (MDRD) Non-Af 50 L, BUN/Creatinine Ratio 13.7, Glucose 222 H, Calcium 7.8 L, Troponin I < 0.015 05/08/20 16:35: Procalcitonin 0.23 H 05/08/20 16:40: Urine Color Yellow, Urine Clarity Sl. Cloudy, Urine pH 5.0, Ur Specific [place] 1.015, Urine Protein 30 H, Urine Glucose (UA) 250 H, Urine Ketones 5 H, Urine Occult Blood 50 H, Urine Nitrite Negative, Urine Bilirubin Negative, Urine Urobilinogen Normal, Ur Leukocyte Esterase 25 H, Urine RBC 0-5 SEEN, Urine WBC 5-10 SEEN, Ur Squamous Epith Cells 0 SEEN, Urine Bacteria 0 SEEN, Urine Mucus 0 SEEN 05/08/20 16:45: Lactic Acid 2.0 05/08/20 16:55: COVID-19 (LETTY) Not Detected 05/08/20 21:55: Lactic Acid 3.0 H* 05/08/20 21:55: POC Glucose 200 H 05/09/20 04:20: Sodium 135 L, Potassium 3.9, Chloride 100, Carbon Dioxide 30.0, Anion Gap 5, BUN 18, Creatinine 1.31 H, Estim Creat Clear Calc 50.22, Est GFR (MDRD) Af Amer 69, Est GFR (MDRD) Non-Af 57 L, BUN/Creatinine Ratio 13.7, Glucose 156 H, Calcium 8.5, Triglycerides 331 H, Cholesterol 115, LDL Cholesterol 38, VLDL Cholesterol 66 H, HDL Cholesterol 11 L 05/09/20 04:20: WBC 9.3, RBC 4.52 L, Hgb 14.1, Hct 44.0, MCV 97.3 H, MCH 31.2, MCHC 32.0, RDW Std Deviation 50.4 H, RDW Coeff of [place] 14.3, Plt Count 119 L, MPV 8.9, Immature Gran % (Auto) 0.600, Neut % (Auto) 82.1 H, Lymph % (Auto) 7.7 L, Holmes % (Auto) 9.2, Eos % (Auto) 0.1, Baso % (Auto) 0.3, Absolute Neuts (auto) 7.6, Absolute Lymphs (auto) 0.72 L, Nucleated RBC % 0 05/09/20 04:20: Random Vancomycin 14.1 05/09/20 04:20: Lactic Acid 1.1 Current Medications Acetaminophen (Tylenol) 650 mg PO Q6H PRN PRN PRN Reason: Pain Score 1-10/Temp > 100.7 F Last Admin: 05/09/20 04:27 Dose: 650 mg Documented by: [facility]) [facility] Atorvastatin Calcium (Lipitor) 20 mg PO QHS [facility] Last Admin: 05/08/20 22:02 Dose: 20 mg Documented by: Clopidogrel Bisulfate (Plavix) 75 mg PO DAILY [facility] Dextrose (D50w Syringe) 0 gm IV X1 PRN; Protocol PRN Reason: Hypoglycemia Glucagon () 1 mg IM .X1 PRN PRN Reason: Hypoglycemia Hydralazine HCl (Apresoline Iv) 5 mg IV Q30M PRN PRN Reason: to maintain BP goals Lactated Ringer's () 1,000 mls @ 75 mls/hr IV .[id number] [facility] Last Infusion: 05/09/20 00:15 Dose: 75 mls/hr Documented by: Cefepime HCl 1 gm/ Sodium (Chloride) 50 mls @ 100 mls/hr IV Q12 [facility] Last Infusion: 05/08/20 22:40 Dose: Infused Documented by: Sodium Chloride () 250 mls @ 15 mls/hr IV .[id number] PRN PRN Reason: Saline Flush Sodium Chloride () 250 mls @ 15 mls/hr IV .[id number] PRN PRN Reason: Additional IVPB Infusion Insulin Glargine (Lantus (Bkc)) 40 units SC DAILY [facility] Insulin Human Lispro (Humalog Kwikpen (Bkc)) 0 unit SC TIDAC [facility]; Protocol Labetalol HCl (Trandate) 10 - 20 mg IV Q10M PRN PRN PRN Reason: TO MAINTAIN BP GOALS Loratadine (Claritin) 10 mg PO DAILY [facility] Metoprolol Tartrate (Lopressor (Beta Lucie)) 25 mg PO BID [facility] Last Admin: 05/08/20 22:02 Dose: 25 mg Documented by: Pantoprazole Sodium (Protonix) 40 mg PO DAILY [facility] Psyllium Hydrophilic Mucilloid (Metamucil) 1 packet PO DAILY [facility] Sodium Chloride () 10 - 40 ml IV UD PRN PRN Reason: SALINE FLUSH Last Admin: 05/09/20 04:27 Dose: 10 ml Documented by: Tamsulosin HCl (Flomax) 0.8 mg PO QHS [facility] Last Admin: 05/08/20 22:03 Dose: 0.8 mg Documented by: STROKE Vital Signs/Narrative: Vital Signs Temp Pulse Resp BP Pulse Ox 05/09/20 06:00 66 16 103/71 99 05/09/20 04:00 99.7 F H 72 18 137/67 H 94 Medical Necessity - Tobacco Use Smoking Status: Former smoker Assessment/Plan All Active Problems (Last Reviewed 05/08/20 @ 19:[address] Ilene Lopez, DO) Dysarthria (Acute) Hyponatremia (Acute) Thrombocytopenia (Acute) LAZARA (acute kidney injury) (Acute) Sepsis (Acute) UTI (urinary tract infection) (Acute) TIA (transient ischemic attack) (Acute) Hydronephrosis, left (Acute) S/P cystoscopy with ureteral stent placement (Acute) Left ureteral calculus (Acute) Nephrolithiasis (Acute)
--- NOTE | 2020-05-09 07:19 | PCM.PN.HOSP ---
Patient Problems: Active and Suspected Problems (Last Reviewed 05/08/20 @ 19:[address] Ilene Lopez, DO) Dysarthria (Acute) Hyponatremia (Acute) Thrombocytopenia (Acute) LAZARA (acute kidney injury) (Acute) Sepsis (Acute) UTI (urinary tract infection) (Acute) TIA (transient ischemic attack) (Acute) Reason for Visit: Follow-up severe sepsis and TIA Subjective: Patient is a 75-year-old gentleman admitted with slurred speech. Patient was also found to be febrile in the ED with elevated lactic acid. Urinalysis obtained was slightly abnormal admitted to the intensive care unit for further management Objective: GENERAL: cooperative HEENT: Atraumatic; EYES; Anicteric, Normal Conjunctiva NECK; supple, normal thyroid, RESPIRATORY: Diminished to auscultation CARDIOVASCULAR: Regular S1 S2, GI: soft, normoactive bowel sounds, : No Renal angle tenderness; EXTREMITIES: No edema, no clubbing, MUSCULOSKELETAL: no muscle waisting NEURO: Awake; no lateralizing signs. SKIN: No Rash PSYCH; Flat affect Vitals/I&O's: Vital Signs Temp Pulse Resp BP Pulse Ox 99.7 F H 66 16 103/71 99 05/09/20 04:00 05/09/20 06:00 05/09/20 06:00 05/09/20 06:00 05/09/20 06:00 Oxygen Flow Rate (L/min) 4 Oxygen Delivery Method Room Air Weight: 87.09 kg Body Mass Index (BMI) 28.3 Finger Stick Blood Glucose 233 Intake and Output for Last 24 Hours 05/07/20 05/08/20 05/09/20 23:59 23:59 23:59 Intake Total 387.5 / 387.5 680 / 680 Output Total 1475 / 1475 300 / 300 Balance -1087.5 / -1087.5 380 / 380 Laboratory Results 05/08/20 15:57: POC Glucose 233 H 05/08/20 16:35: WBC 11.2 H, RBC 4.00 L, Hgb 12.8 L, Hct 39.0 L, MCV 97.5 H, MCH 32.0, MCHC 32.8, RDW Std Deviation 50.2 H, RDW Coeff of Mariposa 14.1, Plt Count 123 L, MPV 8.7, Immature Gran % (Auto) 0.600, Neut % (Auto) 81.4 H, Lymph % (Auto) 7.6 L, [place] % (Auto) 10.1 H, Eos % (Auto) 0.0, Baso % (Auto) 0.3, Absolute Neuts (auto) 9.1 H, Absolute Lymphs (auto) 0.85, Nucleated RBC % 0, Differential Comment 05/08/20 16:35: PT 15.9 H, INR 1.3, APTT 38.2 H 05/08/20 16:35: Sodium 133 L, Potassium 4.1, Chloride 96 L, Carbon Dioxide 28.0, Anion Gap 9, BUN 20 H, Creatinine 1.46 H, Estim Creat Clear Calc 45.06, Est GFR (MDRD) Af Amer 61, Est GFR (MDRD) Non-Af 50 L, BUN/Creatinine Ratio 13.7, Glucose 222 H, Calcium 7.8 L, Troponin I < 0.015 05/08/20 16:35: Procalcitonin 0.23 H 05/08/20 16:40: Urine Color Yellow, Urine Clarity Sl. Cloudy, Urine pH 5.0, Ur Specific [place] 1.015, Urine Protein 30 H, Urine Glucose (UA) 250 H, Urine Ketones 5 H, Urine Occult Blood 50 H, Urine Nitrite Negative, Urine Bilirubin Negative, Urine Urobilinogen Normal, Ur Leukocyte Esterase 25 H, Urine RBC 0-5 SEEN, Urine WBC 5-10 SEEN, Ur Squamous Epith Cells 0 SEEN, Urine Bacteria 0 SEEN, Urine Mucus 0 SEEN 05/08/20 16:45: Lactic Acid 2.0 05/08/20 16:55: COVID-19 (LETTY) Not Detected 05/08/20 21:55: Lactic Acid 3.0 H* 05/08/20 21:55: POC Glucose 200 H 05/09/20 04:20: Sodium 135 L, Potassium 3.9, Chloride 100, Carbon Dioxide 30.0, Anion Gap 5, BUN 18, Creatinine 1.31 H, Estim Creat Clear Calc 50.22, Est GFR (MDRD) Af Amer 69, Est GFR (MDRD) Non-Af 57 L, BUN/Creatinine Ratio 13.7, Glucose 156 H, Calcium 8.5, Triglycerides 331 H, Cholesterol 115, LDL Cholesterol 38, VLDL Cholesterol 66 H, HDL Cholesterol 11 L 05/09/20 04:20: WBC 9.3, RBC 4.52 L, Hgb 14.1, Hct 44.0, MCV 97.3 H, MCH 31.2, MCHC 32.0, RDW Std Deviation 50.4 H, RDW Coeff of [place] 14.3, Plt Count 119 L, MPV 8.9, Immature Gran % (Auto) 0.600, Neut % (Auto) 82.1 H, Lymph % (Auto) 7.7 L, [place] % (Auto) 9.2, Eos % (Auto) 0.1, Baso % (Auto) 0.3, Absolute Neuts (auto) 7.6, Absolute Lymphs (auto) 0.72 L, Nucleated RBC % 0 05/09/20 04:20: Random Vancomycin 14.1 05/09/20 04:20: Lactic Acid 1.1 Current Medications Acetaminophen (Tylenol) 650 mg PO Q6H PRN PRN PRN Reason: Pain Score 1-10/Temp > 100.7 F Last Admin: 05/09/20 04:27 Dose: 650 mg Documented by: [facility]) [facility] Atorvastatin Calcium (Lipitor) 20 mg PO QHS [facility] Last Admin: 05/08/20 22:02 Dose: 20 mg Documented by: Clopidogrel Bisulfate (Plavix) 75 mg PO DAILY [facility] Dextrose (D50w Syringe) 0 gm IV X1 PRN; Protocol PRN Reason: Hypoglycemia Glucagon () 1 mg IM .X1 PRN PRN Reason: Hypoglycemia Hydralazine HCl (Apresoline Iv) 5 mg IV Q30M PRN PRN Reason: to maintain BP goals Lactated Ringer's () 1,000 mls @ 75 mls/hr IV .[id number] [facility] Last Infusion: 05/09/20 00:15 Dose: 75 mls/hr Documented by: Cefepime HCl 1 gm/ Sodium (Chloride) 50 mls @ 100 mls/hr IV Q12 [facility] Last Infusion: 05/08/20 22:40 Dose: Infused Documented by: Sodium Chloride () 250 mls @ 15 mls/hr IV .[id number] PRN PRN Reason: Saline Flush Sodium Chloride () 250 mls @ 15 mls/hr IV .[id number] PRN PRN Reason: Additional IVPB Infusion Insulin Glargine (Lantus (Bkc)) 40 units SC DAILY [facility] Insulin Human Lispro (Humalog Kwikpen (Bkc)) 0 unit SC TIDAC [facility]; Protocol Labetalol HCl (Trandate) 10 - 20 mg IV Q10M PRN PRN PRN Reason: TO MAINTAIN BP GOALS Loratadine (Claritin) 10 mg PO DAILY [facility] Metoprolol Tartrate (Lopressor (Beta Lucie)) 25 mg PO BID [facility] Last Admin: 05/08/20 22:02 Dose: 25 mg Documented by: Pantoprazole Sodium (Protonix) 40 mg PO DAILY [facility] Psyllium Hydrophilic Mucilloid (Metamucil) 1 packet PO DAILY [facility] Sodium Chloride () 10 - 40 ml IV UD PRN PRN Reason: SALINE FLUSH Last Admin: 05/09/20 04:27 Dose: 10 ml Documented by: Tamsulosin HCl (Flomax) 0.8 mg PO QHS [facility] Last Admin: 05/08/20 22:03 Dose: 0.8 mg Documented by: STROKE Vital Signs/Narrative: Vital Signs Temp Pulse Resp BP Pulse Ox 05/09/20 06:00 66 16 103/71 99 05/09/20 04:00 99.7 F H 72 18 137/67 H 94 Medical Necessity - Tobacco Use Smoking Status: Former smoker Assessment/Plan All Active Problems (Last Reviewed 05/08/20 @ 19:[address] Ilene Lopez, DO) Dysarthria (Acute) Hyponatremia (Acute) Thrombocytopenia (Acute) LAZARA (acute kidney injury) (Acute) Sepsis (Acute) UTI (urinary tract infection) (Acute) TIA (transient ischemic attack) (Acute) Hydronephrosis, left (Acute) S/P cystoscopy with ureteral stent placement (Acute) Left ureteral calculus (Acute) Nephrolithiasis (Acute) Patient is a 75-year-old gentleman admitted with slurred speech. Patient was also found to be febrile in the ED with elevated lactic acid. Urinalysis obtained was slightly abnormal admitted to the intensive care unit for further management 1. Severe sepsis (present on admission) ?Secondary to acute cystitis admitted to the intensive care unit managed per protocol patient started on cefepime after cultures have been sent 2. Suspected TIA -Seen in consultation by neurology. Recommendations reviewed. Plans for patient to undergo subsequent evaluation with an MRI 2D echo. Already on aspirin and Plavix did continue 3. Diabetes mellitus type II - Controlled patient's oral hypoglycemics held. Placed on long acting insulin, Accu-Cheks a.c. and at bedtime and covered with sliding scale insulin 4. Diabetic nephropathy (chronic kidney disease stage III) -Patient kidney function was slightly elevated on admission started on IV fluid with some improvement 5. Hypertension - Blood pressure controlled, home medications continued with dose adjustment as needed 6. Dyslipidemia -Patient is on statin therapy, continued at home dose 7. Coronary artery disease ?With previous CABG patient is is on recommended medications 8. BPH ?Patient is on tamsulosin did continue 9. History of nephrolithiasis ?Currently asymptomatic 10. Mild hyponatremia ?On fluids with monitoring of electrolyte 11. GERD ?On PPI 12. DVT prophylaxis ?Heparin Advance planning; did discuss with the patient regarding advanced directives as well as CODE STATUS. Did explain the various scenarios involved ( FULL CODE, DNR CCA, DNR CCA with no intubation, and DNR CC and what each meant) patient elected to full code with CPR and intubation if indicated order was placed. Time spent on discussion 18 minutes. Inpatient E&M: [id number] [facility] L[facility] Procedures: [id number] Advncd Care Plan 30 Min
[2020-05-09] MEDS: Insulin Lispro 100 UNIT/ML INSULN.PEN SC ×3 (07:56→16:11)
[2020-05-09 08:01] LABS: Bedside Glucose 203 mg/dL (70-110)
[2020-05-09] MEDS: Aspirin E.C. 81 MG Tablet PO (10:11)
[2020-05-09] MEDS: Clopidogrel Bisulfate 75 MG Tablet PO (10:12)
[2020-05-09] MEDS: Loratadine 10 MG Tablet PO (10:12)
[2020-05-09] MEDS: Metoprolol Tartrate 25 MG Tablet PO ×2 (10:12→21:08)
[2020-05-09] MEDS: Pantoprazole Sodium 40 MG Tablet PO (10:13)
[2020-05-09] MEDS: Psyllium 1 PACKET PO (10:13)
[2020-05-09] MEDS: Lactated Ringers 1,000 ML 75 ML IV (10:52)
[2020-05-09 11:06] LABS: Bedside Glucose 265 mg/dL (70-110)
--- NOTE | 2020-05-09 14:15 | CASEMGMT ---
RN CM VENDOR MANAGEMENT SPECIALIST CM to room to meet with patient for initial transition planning/care coordination assessment. RN KRISTY introduced self and role at [facility]. Pt voices understanding and consents to assessment at this time. Pt resting in bed in no distress at this time. Pt is A/O at this time and answers all questions appropriately. Care providers, pharmacy, and demographics verified/updated at this time. PCP: Jacoby Oviedo NP Specialists: Dr Jackson--cardiology, Dr Barillas--urology Preferred Pharmacy: [facility] Insurance: [employer] Prescription Benefit: Yes Living Will/HPOA: Has both LW and POA, who is his , Julianna LNOK: , Julianna. Son, Wero Living Arrangements: Lives w/his in 2-story home. Bed and bath on 2nd floor. Denies difficulty w/stairs. Independent w/ADL's and IADL's. Transportation: Pt states drives self and states no transportation concerns at this time. will take him home @ discharge DME: States has the following DME: glucometer. Has a cane he uses as needed. Pt states no need for further DME at this time. HHC/SNF: No history of either, no needs identified, and pt denies needs. Also denies OP therapy at this time. Pt wishes to return home and states has no concerns with going home at time of discharge. CM to follow for any discharge planning/needs. Pt voices no concerns/needs at this time. Advised pt to ask for CM if any questions/concerns/needs arise. Voices understanding. PLAN: Home [employer] [facility] RN, CM
[2020-05-09 16:16] LABS: Bedside Glucose 178 mg/dL (70-110)
[2020-05-09] MEDS: Atorvastatin Calcium 20 MG Tablet PO (21:07)
[2020-05-09] MEDS: Tamsulosin HCl 0.4 MG Capsule 0.8 MG PO (21:08)
[2020-05-09 22:31] LABS: Bedside Glucose 168 mg/dL (70-110)
[2020-05-10] MEDS: Lactated Ringers 1,000 ML 75 ML IV (00:12)
[2020-05-10] MEDS: Heparin Injection (Vial) 5,000 UNIT/ML VIAL 5000 UNIT SC ×2 (00:13→08:51)
[2020-05-10 02:59] VITALS: PULSE 69
[2020-05-10 03:00] VITALS: BP 131/70; PULSE 68; RESP 16; TEMP 37.2; O2SAT 94
[2020-05-10] MEDS: Acetaminophen 325 MG Tablet 650 MG PO (03:08)
[2020-05-10] MEDS: 0.9% Saline Lock 10 ML Syringe IV (06:13)
[2020-05-10 06:46] LABS: Bedside Glucose 111 mg/dL (70-110)
[2020-05-10 06:52] VITALS: PULSE 76
--- NOTE | 2020-05-10 07:58 | PN_ITS ---
Patient Problems: Active and Suspected Problems (Last Reviewed 05/08/20 @ 19:[address] Ilene Lopez DO) Dysarthria (Acute) Hyponatremia (Acute) Thrombocytopenia (Acute) LAZARA (acute kidney injury) (Acute) Sepsis (Acute) UTI (urinary tract infection) (Acute) TIA (transient ischemic attack) (Acute) Reason for Visit: Follow-up acute cystitis Subjective: Patient seen reports significant improvement in overall condition. Culture results still pending. Patient was transferred from intensive care unit to PCU today. Objective: GENERAL: cooperative HEENT: Atraumatic; EYES; Anicteric, Normal Conjunctiva NECK; supple, normal thyroid, RESPIRATORY: Diminished to auscultation CARDIOVASCULAR: Regular S1 S2, GI: soft, normoactive bowel sounds, : No Renal angle tenderness; EXTREMITIES: No edema, no clubbing, MUSCULOSKELETAL: no muscle waisting NEURO: Awake; no lateralizing signs. SKIN: No Rash PSYCH; Flat affect Vitals/I&O's: Vital Signs Temp Pulse Resp BP Pulse Ox 99.0 F 76 16 131/70 H 94 05/10/20 03:00 05/10/20 06:52 05/10/20 03:00 05/10/20 03:00 05/10/20 03:00 Oxygen Flow Rate (L/min) 4 Oxygen Delivery Method Room Air Weight: 87.09 kg Body Mass Index (BMI) 28.3 Finger Stick Blood Glucose 233 Intake and Output for Last 24 Hours 05/08/20 05/09/20 05/10/20 23:59 23:59 23:59 Intake Total 387.5 / 387.5 2346.25 / 2346.25 1685 / 1685 Output Total 1475 / 1475 1275 / 1275 400 / 400 Balance -1087.5 / -1087.5 1071.25 / 1071.25 1285 / 1285 Laboratory Results 05/09/20 07:51: POC Glucose 203 H 05/09/20 10:52: POC Glucose 265 H 05/09/20 16:10: POC Glucose 178 H 05/09/20 21:02: POC Glucose 168 H 05/10/20 06:39: POC Glucose 111 H Current Medications Acetaminophen (Tylenol) 650 mg PO Q6H PRN PRN PRN Reason: Pain Score 1-10/Temp > 100.7 F Last Admin: 05/10/20 03:08 Dose: 650 mg Documented by: Aspirin (Ecotrin) 81 mg PO DAILYCM [facility] Last Admin: 05/09/20 10:11 Dose: 81 mg Documented by: Atorvastatin Calcium (Lipitor) 20 mg PO QHS [facility] Last Admin: 05/09/20 21:07 Dose: 20 mg Documented by: Clopidogrel Bisulfate (Plavix) 75 mg PO DAILY [facility] Last Admin: 05/09/20 10:12 Dose: 75 mg Documented by: Dextrose (D50w Syringe) 0 gm IV X1 PRN; Protocol PRN Reason: Hypoglycemia Glucagon () 1 mg IM .X1 PRN PRN Reason: Hypoglycemia Heparin Sodium (Porcine) (Heparin Na) 5,000 unit SC Q12 [facility] Last Admin: 05/10/20 00:13 Dose: 5,000 unit Documented by: Hydralazine HCl (Apresoline Iv) 5 mg IV Q30M PRN PRN Reason: to maintain BP goals Lactated Ringer's () 1,000 mls @ 75 mls/hr IV .[id number] [facility] Last Infusion: 05/10/20 06:00 Dose: 75 mls/hr Documented by: Cefepime HCl 1 gm/ Sodium (Chloride) 50 mls @ 100 mls/hr IV Q12 [facility] Last Infusion: 05/09/20 21:37 Dose: Infused Documented by: Sodium Chloride () 250 mls @ 15 mls/hr IV .[id number] PRN PRN Reason: Saline Flush Sodium Chloride () 250 mls @ 15 mls/hr IV .[id number] PRN PRN Reason: Additional IVPB Infusion Insulin Glargine (Lantus (Bkc)) 40 units SC DAILY [facility] Last Admin: 05/09/20 10:12 Dose: 40 u Documented by: Insulin Human Lispro (Humalog Kwikpen (Bk)) 0 unit SC TIDAC [facility]; Protocol Last Admin: 05/10/20 06:41 Dose: Not Given Documented by: Labetalol HCl (Trandate) 10 - 20 mg IV Q10M PRN PRN PRN Reason: TO MAINTAIN BP GOALS Loratadine (Claritin) 10 mg PO DAILY [facility] Last Admin: 05/09/20 10:12 Dose: 10 mg Documented by: Metoprolol Tartrate (Lopressor (Beta Lucie)) 25 mg PO BID [facility] Last Admin: 05/09/20 21:08 Dose: 25 mg Documented by: Pantoprazole Sodium (Protonix) 40 mg PO DAILY [facility] Last Admin: 05/09/20 10:13 Dose: 40 mg Documented by: Psyllium Hydrophilic Mucilloid (Metamucil) 1 packet PO DAILY [facility] Last Admin: 05/09/20 10:13 Dose: 1 packet Documented by: Sodium Chloride () 10 - 40 ml IV UD PRN PRN Reason: SALINE FLUSH Last Admin: 05/10/20 06:13 Dose: 30 ml Documented by: Tamsulosin HCl (Flomax) 0.8 mg PO QHS [facility] Last Admin: 05/09/20 21:08 Dose: 0.8 mg Documented by: STROKE Vital Signs/Narrative: Vital Signs Pulse 05/10/20 06:52 76 Medical Necessity - Tobacco Use Smoking Status: Former smoker Assessment/Plan All Active Problems (Last Reviewed 05/08/20 @ 19:[address] Ilene Lopez, DO) Dysarthria (Acute) Hyponatremia (Acute) Thrombocytopenia (Acute) LAZARA (acute kidney injury) (Acute) Sepsis (Acute) UTI (urinary tract infection) (Acute) TIA (transient ischemic attack) (Acute) Hydronephrosis, left (Acute) S/P cystoscopy with ureteral stent placement (Acute) Left ureteral calculus (Acute) Nephrolithiasis (Acute) Patient is a 75-year-old gentleman admitted with slurred speech. Patient was also found to be febrile in the ED with elevated lactic acid. Urinalysis obtained was slightly abnormal admitted to the intensive care unit for further management 1. Severe sepsis (present on admission) ?Secondary to acute cystitis admitted to the intensive care unit managed per protocol patient started on cefepime after cultures have been sent 05/10/2020: Patient continues to improve clinically cultures still pending. 2. Suspected TIA -Seen in consultation by neurology. Recommendations reviewed. Plans for patient to undergo subsequent evaluation with an MRI 2D echo. Already on aspirin and Plavix did continue ?05/10/2020 MRI obtained was negative for acute CVA 3. Diabetes mellitus type II - Controlled patient's oral hypoglycemics held. Placed on long acting insulin, Accu-Cheks a.c. and at bedtime and covered with sliding scale insulin 4. Diabetic nephropathy (chronic kidney disease stage III) -Patient kidney function was slightly elevated on admission started on IV fluid with some improvement 5. Hypertension - Blood pressure controlled, home medications continued with dose adjustment as needed 6. Dyslipidemia -Patient is on statin therapy, continued at home dose 7. Coronary artery disease ?With previous CABG patient is is on recommended medications 8. BPH ?Patient is on tamsulosin did continue 9. History of nephrolithiasis ?Currently asymptomatic 10. Mild hyponatremia ?On fluids with monitoring of electrolyte 11. GERD ?On PPI 12. DVT prophylaxis ?Heparin Inpatient E&M: 74967 Subs Hosp L2
[2020-05-10] MEDS: Aspirin E.C. 81 MG Tablet PO (08:41)
[2020-05-10] MEDS: Loratadine 10 MG Tablet PO (08:41)
[2020-05-10 08:42] VITALS: PULSE 67
[2020-05-10] MEDS: Clopidogrel Bisulfate 75 MG Tablet PO (08:42)
[2020-05-10] MEDS: Psyllium 1 PACKET PO (08:42)
[2020-05-10] MEDS: Metoprolol Tartrate 25 MG Tablet PO (08:42)
[2020-05-10] MEDS: Pantoprazole Sodium 40 MG Tablet PO (08:43)
[2020-05-10 09:00] VITALS: BP 115/61; PULSE 68; RESP 16; TEMP 36.8; O2SAT 99
[2020-05-10] MEDS: Insulin Lispro 100 UNIT/ML INSULN.PEN SC (11:31)
[2020-05-10 11:51] LABS: Bedside Glucose 235 mg/dL (70-110)
--- NOTE | 2020-05-10 12:29 | PCM.DC ---
- Discharge Diagnoses Current Active Problems: Current Active and Chronic Problems (Last Reviewed 05/08/20 @ 19:[address] Ilene Lopez, DO) Dysarthria (Acute) Hyponatremia (Acute) Thrombocytopenia (Acute) LAZARA (acute kidney injury) (Acute) Sepsis (Acute) UTI (urinary tract infection) (Acute) TIA (transient ischemic attack) (Acute) CKD (chronic kidney disease) (Chronic) You will use the following diet at home:: Calorie/Carbohydrate Controlled (specify 1200, 1400, etc) - 1800 Discharge Activity: Return to Normal Activity Allergies/Adverse Reactions: Allergies caffeine Allergy (Verified 05/08/20 15:50) Other Palpitations ibuprofen Allergy (Verified 05/08/20 15:50) Rash Penicillins [PCN] Allergy (Verified 05/08/20 15:50) Other Pt doesn't remember - allergy since a child ciprofloxacin Adverse Reaction (Verified 05/08/20 15:50) Upset Stomach Medications to take at Discharge Atorvastatin Calcium [Lipitor] 20 mg PO QHS 09/15/15 Glimepiride [Amaryl] 2 mg PO DAILY 09/15/15 Aspirin [Adult Low Dose Aspirin EC] 81 mg PO DAILY 01/22/16 Tadalafil [Cialis] 5 mg PO DAILY 05/31/18 Tamsulosin HCl [Flomax] 0.8 mg PO QHS 05/31/18 clopidogrel 75 mg tablet 75 mg PO DAILY #90 tab 07/24/18 metoprolol tartrate 25 mg tablet 25 mg PO BID #180 tab 04/09/19 metformin 1,000 mg 24 hr tablet,extended release 1,000 mg PO BID tab 08/09/19 Insulin Degludec [Tresiba Flextouch U-200] 40 units SQ DAILY 05/08/20 Loratadine 10 mg PO DAILY 05/08/20 Omeprazole 40 mg PO DAILY 05/08/20 Psyllium Husk (with Sugar) [Fiber Therapy Powder] 5 ml PO DAILY 05/08/20 Cefdinir [Omnicef [equiv]] 300 mg PO Q12H #10 cap 05/10/20 The following prescriptions were given: Cefdinir [Omnicef [equiv]] 300 mg PO Q12H #10 cap Transmission Status: Pending to [employer] [employer] [facility] Primary Care Physician: Jacoby Oviedo, [employer]-C [Primary Care Provider] - Please follow up with your Primary Care Physician in: in 1 week Test Results: Test results from this visit will be discussed in further detail at your follow-up appointment, if applicable. Proposed Discharge Date: 05/10/20
--- NOTE | 2020-05-10 12:30 | PCM.DC.SUM ---
Discharge Date and Diagnosis - Problem List Patient Problems: Active and Suspected Problems (Last Reviewed 05/08/20 @ 19:[address] Ilene Lopez DO) Dysarthria (Acute) Hyponatremia (Acute) Thrombocytopenia (Acute) LAZARA (acute kidney injury) (Acute) Sepsis (Acute) UTI (urinary tract infection) (Acute) TIA (transient ischemic attack) (Acute) Date of Admission: 05/08/20 Date of Discharge: 05/10/20 - Primary Discharge Diagnosis Acute Problems: Active Problems (Last Reviewed 05/08/20 @ 19:[address] Ilene Lopez DO) Dysarthria (Acute) Hyponatremia (Acute) Thrombocytopenia (Acute) LAZARA (acute kidney injury) (Acute) Sepsis (Acute) UTI (urinary tract infection) (Acute) TIA (transient ischemic attack) (Acute) - Secondary Discharge Diagnosis Chronic Problems: Chronic Problems (Last Reviewed 05/08/20 @ 19:[address] 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) CABG X 4, SOMMER-LAD, SVG-D1, JDU-Xqhl-Igp CX, SVG-PDA 12/30/15 Essential (primary) hypertension (Chronic) Old myocardial infarction (Chronic) Atherosclerotic heart disease of [place] coronary artery without angina pectoris (Chronic) 12/30/15, CABG X 4, SOMMER-LAD, SVG-D1, BPV-Gvnm-Xqw CX, SVG-PDA Abdominal aortic aneurysm (Chronic) Hyperlipidemia (Chronic) Diabetes mellitus type 2 in nonobese (Chronic) Hospital Course and Treatment Imaging Results: Microbiology 05/08/20 16:40 Urine Culture - Preliminary Urine, Catheterized GPC Poss Enterococcus sp Clinical Impression(s) from Imaging Studies Brain CT 05/08/20 16:16 IMPRESSION: Normal unenhanced CT scan of the brain. Electronically Signed: Jacoby Phillips MD at 16:36 EDT Tel , Service support , ADDENDUM: 05/08/20 6799 IMPRESSION: Normal unenhanced CT scan of the brain. N.B. : The above information has been verbally conveyed by Jacoby Phillips MD to Alexis Brush on 05/08/2020 16:47:01 (ET). Electronically Signed: Jacoby Phillips MD at 16:36 EDT Tel , Service support , Head/Neck CTA 05/08/20 16:17 IMPRESSION: Normal CTA Head and neck with contrast. Electronically Signed: Jacoby Phillips MD at 16:43 EDT Tel , Service support , ADDENDUM: 05/08/20 1653 IMPRESSION: Normal CTA Head and neck with contrast. N.B. : The above information has been verbally conveyed by Jacoby Phillips MD to Dr. Alexis Brush MD, on 05/08/2020 16:46:57 (ET). Electronically Signed: Jacoby Phillips MD at 16:43 EDT Tel , Service support , Chest X-Ray 05/08/20 17:43 IMPRESSION: Normal x-ray examination of the chest. Electronically Signed: Romaine Gannon at 17:53 EDT Tel , Service support , Brain MRI 05/08/20 19:41 IMPRESSION: 1. No MRI evidence of acute or subacute ischemic infarct or remote ischemic infarct. 2. No MRI evidence of internal mass. 3. No significant interval change when compared to noncontrast CT head scan of 05/08/2020. Electronically Signed: Kwesi Ace MD at 10:31 EDT , Service support , Operations: None Summary of Care Provided: The patient is a 75 year old M [] Patient is a 75-year-old gentleman admitted with slurred speech. Patient was also found to be febrile in the ED with elevated lactic acid. Urinalysis obtained was slightly abnormal admitted to the intensive care unit for further management 1. Severe sepsis (present on admission) ?Secondary to acute cystitis admitted to the intensive care unit managed per protocol patient started on cefepime after cultures have been sent 05/10/2020: Patient continues to improve clinically cultures still pending. -Urine cultures came back positive for enterococcus with no significant colony count. Patient was discharged home on Omnicef 300 mg p.o. twice daily for 5 more days. 2. Suspected TIA -Seen in consultation by neurology. Recommendations reviewed. Plans for patient to undergo subsequent evaluation with an MRI 2D echo. Already on aspirin and Plavix did continue ?05/10/2020 MRI obtained was negative for acute CVA 3. Diabetes mellitus type II - Controlled patient's oral hypoglycemics held. Placed on long acting insulin, Accu-Cheks a.c. and at bedtime and covered with sliding scale insulin 4. Diabetic nephropathy (chronic kidney disease stage III) -Patient kidney function was slightly elevated on admission started on IV fluid with some improvement 5. Hypertension - Blood pressure controlled, home medications continued with dose adjustment as needed 6. Dyslipidemia -Patient is on statin therapy, continued at home dose 7. Coronary artery disease ?With previous CABG patient is is on recommended medications 8. BPH ?Patient is on tamsulosin did continue 9. History of nephrolithiasis ?Currently asymptomatic 10. Mild hyponatremia ?On fluids with monitoring of electrolyte 11. GERD ?On PPI 12. DVT prophylaxis ?Heparin Patient Problems: Active and Suspected Problems (Last Reviewed 05/08/20 @ 19:[address] Ilene Lopez, DO) Dysarthria (Acute) Hyponatremia (Acute) Thrombocytopenia (Acute) LAZARA (acute kidney injury) (Acute) Sepsis (Acute) UTI (urinary tract infection) (Acute) TIA (transient ischemic attack) (Acute) - Physical Exam Vitals/I&O's: Vital Signs Temp Pulse Resp BP Pulse Ox 98.3 F 68 16 115/61 99 05/10/20 09:00 05/10/20 09:00 05/10/20 09:00 05/10/20 09:00 05/10/20 09:00 Oxygen Flow Rate (L/min) 4 Oxygen Delivery Method Room Air Weight: 87.09 kg Body Mass Index (BMI) 28.3 Finger Stick Blood Glucose 233 Intake and Output for Last 24 Hours 05/08/20 05/09/20 05/10/20 23:59 23:59 23:59 Intake Total 387.5 / 387.5 2346.25 / 2346.25 2215 / 2215 Output Total 1475 / 1475 1275 / 1275 900 / 900 Balance -1087.5 / -1087.5 1071.25 / 1071.25 1315 / 1315 General: Alert, Oriented x3 Cardiovascular: Regular rate, Regular Rhythm Neurological: Neuro grossly intact Psych/Mental Status: Normal Affect Microbiology Past 72 Hours 05/08/20 16:40 Urine, Catheterized Urine Culture - Preliminary GPC Poss Enterococcus sp Laboratory Results 05/09/20 16:10: POC Glucose 178 H 05/09/20 21:02: POC Glucose 168 H 05/10/20 06:39: POC Glucose 111 H 05/10/20 11:30: POC Glucose 235 H Current Medications Acetaminophen (Tylenol) 650 mg PO Q6H PRN PRN PRN Reason: Pain Score 1-10/Temp > 100.7 F Last Admin: 05/10/20 03:08 Dose: 650 mg Documented by: [facility] Last Admin: 05/10/20 08:41 Dose: 81 mg Documented by: Atorvastatin Calcium (Lipitor) 20 mg PO QHS [facility] Last Admin: 05/09/20 21:07 Dose: 20 mg Documented by: Clopidogrel Bisulfate (Plavix) 75 mg PO DAILY [facility] Last Admin: 05/10/20 08:42 Dose: 75 mg Documented by: Dextrose (D50w Syringe) 0 gm IV X1 PRN; Protocol PRN Reason: Hypoglycemia Glucagon () 1 mg IM .X1 PRN PRN Reason: Hypoglycemia Heparin Sodium (Porcine) (Heparin Na) 5,000 unit SC Q12 [facility] Last Admin: 05/10/20 08:51 Dose: 5,000 unit Documented by: Hydralazine HCl (Apresoline Iv) 5 mg IV Q30M PRN PRN Reason: to maintain BP goals Lactated Ringer's () 1,000 mls @ 75 mls/hr IV .[id number] [facility] Last Infusion: 05/10/20 06:00 Dose: 75 mls/hr Documented by: Cefepime HCl 1 gm/ Sodium (Chloride) 50 mls @ 100 mls/hr IV Q12 [facility] Last Infusion: 05/10/20 11:33 Dose: Infused Documented by: Sodium Chloride () 250 mls @ 15 mls/hr IV .[id number] PRN PRN Reason: Saline Flush Sodium Chloride () 250 mls @ 15 mls/hr IV .[id number] PRN PRN Reason: Additional IVPB Infusion Insulin Glargine (Lantus ([facility])) 40 units SC DAILY [facility] Last Admin: 05/10/20 08:41 Dose: 40 u Documented by: Insulin Human Lispro (Humalog Kwikpen ([facility])) 0 unit SC TIDAC [facility]; Protocol Last Admin: 05/10/20 11:31 Dose: 2 u Documented by: Labetalol HCl (Trandate) 10 - 20 mg IV Q10M PRN PRN PRN Reason: TO MAINTAIN BP GOALS Loratadine (Claritin) 10 mg PO DAILY [facility] Last Admin: 05/10/20 08:41 Dose: 10 mg Documented by: Metoprolol Tartrate (Lopressor (Beta Lucie)) 25 mg PO BID [facility] Last Admin: 05/10/20 08:42 Dose: 25 mg Documented by: Pantoprazole Sodium (Protonix) 40 mg PO DAILY [facility] Last Admin: 05/10/20 08:43 Dose: 40 mg Documented by: Psyllium Hydrophilic Mucilloid (Metamucil) 1 packet PO DAILY [facility] Last Admin: 05/10/20 08:42 Dose: 1 packet Documented by: Sodium Chloride () 10 - 40 ml IV UD PRN PRN Reason: SALINE FLUSH Last Admin: 05/10/20 06:13 Dose: 30 ml Documented by: Tamsulosin HCl (Flomax) 0.8 mg PO QHS [facility] Last Admin: 05/09/20 21:08 Dose: 0.8 mg Documented by: Discharge Diet: 1800 Calorie Control Diet Discharge Activity: Return to Normal Activity Home Medications: Medications to take at Discharge Atorvastatin Calcium [Lipitor] 20 mg PO QHS 09/15/15 Glimepiride [Amaryl] 2 mg PO DAILY 09/15/15 Aspirin [Adult Low Dose Aspirin EC] 81 mg PO DAILY 01/22/16 Tadalafil [Cialis] 5 mg PO DAILY 05/31/18 Tamsulosin HCl [Flomax] 0.8 mg PO QHS 05/31/18 clopidogrel 75 mg tablet 75 mg PO DAILY #90 tab 07/24/18 metoprolol tartrate 25 mg tablet 25 mg PO BID #180 tab 04/09/19 metformin 1,000 mg 24 hr tablet,extended release 1,000 mg PO BID tab 08/09/19 Insulin Degludec [Tresiba Flextouch U-200] 40 units SQ DAILY 05/08/20 Loratadine 10 mg PO DAILY 05/08/20 Omeprazole 40 mg PO DAILY 05/08/20 Psyllium Husk (with Sugar) [Fiber Therapy Powder] 5 ml PO DAILY 05/08/20 Cefdinir [Omnicef [equiv]] 300 mg PO Q12H #10 cap 05/10/20 Following Prescrptions Were Given to Patient: Cefdinir [Omnicef [equiv]] 300 mg PO Q12H #10 cap Transmission Status: Received by [facility] Primary Care Physician: Jacoby Oviedo NP-C [Primary Care Provider] - Please follow up with your Primary Care Physician in: in 1 week Disposition: Home Minutes spent on discharge:: 35 Patient Condition:: Stable Medical Necessity - Tobacco Use Smoking Status: Former smoker Meaningful Use Info Meaningful Use Diagnoses (Choose all that apply): None applicable Inpatient E&M: [id number] Disch Hosp
[2020-05-10 13:52] VITALS: BP 136/73; PULSE 71; RESP 18; TEMP 37.3; O2SAT 98
[2020-05-10 14:13] VITALS: BMI 28.3
--- NOTE | 2020-05-12 15:15 | CASEMGMT ---
AUDREY WAGNER DC PHONE CALL DC DATE: 05/10/2020 DC DISPOSITION: Home DC DIAGNOSIS: Dysarthria, Hyponatremia. LACE/STRATA: 10/10 F/U APPTS MADE PRIOR TO DC: NO PRESCRIPTIONS ACQUIRED BY PT: yes. Intro role of CM to patient via phone. Patient states he is doing well, no questions re: instructions, medications or f/u. Patient has his Cefdinir medication and f/u appointment with his PCP is made for next week. No care improvement suggestions given. Rosario CAGLEN RN ACM
== END 2020-05-10 14:11 | disposition home or self-care (01) | DRG 872 ==
LOC: ED 16:18 → ICU 19:31 → PCU 05-12 07:57
PROVIDERS: Hospitalist; Admitting Provider Internal Medicine; Emergency Provider Emergency Medicine; PCP Nurse Practitioner Family; Visit Provider Internal Medicine
DX: A41.9 Sepsis, unspecified organism (principal); G45.9 Transient cerebral ischemic attack, unspecified; N17.9 Acute kidney failure, unspecified; E87.1 Hypo-osmolality and hyponatremia; N30.00 Acute cystitis without hematuria; D69.6 Thrombocytopenia, unspecified; R47.1 Dysarthria and anarthria; Z95.1 Presence of aortocoronary bypass graft; I12.9 Hypertensive chronic kidney disease with stage 1 through stage 4 chronic kidney disease, or unspecified chronic kidney disease; N18.3 Chronic kidney disease, stage 3 (moderate); E78.5 Hyperlipidemia, unspecified; E11.22 Type 2 diabetes mellitus with diabetic chronic kidney disease; D63.1 Anemia in chronic kidney disease; I25.2 Old myocardial infarction; Z87.891 Personal history of nicotine dependence; R29.701 NIHSS score 1; Z79.82 Long term (current) use of aspirin; Z79.899 Other long term (current) drug therapy; Z79.4 Long term (current) use of insulin; Z79.02 Long term (current) use of antithrombotics/antiplatelets; I25.10 Atherosclerotic heart disease of native coronary artery without angina pectoris; N40.0 Benign prostatic hyperplasia without lower urinary tract symptoms; K21.9 Gastro-esophageal reflux disease without esophagitis; E11.21 Type 2 diabetes mellitus with diabetic nephropathy; Z87.442 Personal history of urinary calculi; R65.20 Severe sepsis without septic shock; B95.2 Enterococcus as the cause of diseases classified elsewhere
CPT/HCPCS: 70450; 70496; 70498; 70551; 71045; 80048; 80061; 80202; 81001; 82962; 83605; 84145; 84484; 85025; 85610; 85730; 87040; 87077; 87086; 87088; 87186; 87635; 93005; 99251; 99285; G2023; J7040; J7050; J7120; Q9967; A4216; G0463; U0003

== ENCOUNTER → 2020-05-15 | Outpatient (CLI) | payer MEDICARE, OTHER, SELFPAY ==
[2020-05-10 14:13] VITALS: BMI 28.3
[2020-05-15 11:36] LABS: Color, Urine Yellow (Yellow); Glucose, Dipstick 1000 mg/dl (Normal); Ketone-Dipstick 5 mg/dl (Negative); Leukocyte Esterase-Dipstick Negative /ul (Negative); Nitrite-Dipstick Negative (Negative); Occult Blood-Urine 10 /ul (Negative); Protein-Dipstick 15 mg/dl (Negative); Urine Bilirubin Dipstick Negative (Negative); Urine Clarity Clear (Clear); Urine Urobilinogen Normal (Normal)
[2020-05-15 12:46] LABS: Hematocrit 40.5 % (40-54); Hemoglobin 13.2 g/dL (13.0-16.5); Mean Corp Hgb Conc 32.6 g/dL (32-36); Mean Corpuscular Hgb 31.8 pg (27.0-32.0); Mean Corpuscular Volume 97.6 fL (80-94); Mean Platelet Vol. 9.2 fl (6.2-12.0); Platelet Count 290 K/mm3 (150-450); RBC Distribution Width CV 14.2 % (11.6-14.6); RBC Distribution Width SD 51.4 fl (35.1-43.9); Red Blood Count 4.15 M/mm3 (4.6-6.2)
[2020-05-15 13:25] LABS: ALB/GLOB Ratio 0.7 RATIO (0.9-2.4); AST(SGOT) 23 U/L (15-37); Alanine Aminotransfer ALT/SGPT 46 U/L (16-61); Albumin, Serum 2.9 g/dL (3.2-5.0); Alkaline Phosphatase 101 U/L (45-117); Anion Gap 8 (5-15); BUN 14 mg/dL (7-18); BUN/Creat Ratio 11.3 RATIO (10-20); Calcium,Total 8.4 mg/dL (8.5-10.1); Chloride 106 mmol/L (98-107); Creatinine, Serum 1.24 mg/dL (0.70-1.30); EST Glomerular Filtration Rate 61 mL/min (>60); Est Glom Filt Rate - Afr Amer 73 mL/min (>60); Globulin 4.1 g/dL (2.2-4.2); Glucose 297 mg/dL (74-106); Potassium 4.2 mmol/L (3.5-5.1); Sodium Level 140 mmol/L (136-145)
== END | disposition home or self-care (01) ==
LOC: LAB 10:56
PROVIDERS: PCP Nurse Practitioner Family; Referring Provider Nurse Practitioner Family; Visit Provider Nurse Practitioner Family
DX: A41.9 Sepsis, unspecified organism (principal); N17.9 Acute kidney failure, unspecified; N39.0 Urinary tract infection, site not specified
CPT/HCPCS: 36415; 80053; 81002; 85027; 87086

== ENCOUNTER 2020-05-28 09:48 | Outpatient (RCR) | payer MEDICARE, OTHER, SELFPAY ==
--- NOTE | 2020-05-28 11:39 | HP.PTEVAL_ITS ---
Patient's Visit Information CLAUDINE BARONE is a 75 year old M referred to Physical Therapy by Jacoby Oviedo NP-C with a diagnosis of INTERVERTBRAL DISC DEGENERATION ,LUMBAR REGION. Date of Evaluation: 05/28/20 Physical Therapist: Arya Delgado PT, Cert MDT, OCS - Visit Plan Frequency: 1VISIT Plan: D/C TO HEP - Subjective This 75 y/o male presents to physical therapy with lumbar pain . Patient has had lumbar pain ~ 1 month. Patient also states that right knee pain gives way. Patient had on incident falling on step due to right knee giving way. Patient developed right lumbar pain with symptoms lateral knee,but those symptoms improved. Patient has decrease pain but impaired walking with weakness right leg . Denies parathesia/tingling. Coughing/sneezing -. Bowel/bladder -.Patient had no diagnostics . Patient condition affects QOL and ADL'S. Patient sleeping good. Pateint seen DR marcelino COSTA pain is better.As walking back patient tripped on feet fell to ground on knee and hands caused small abrasion left knee no pain,placed bandage -assesed balance and strength. Patient has h/o back pain. SOCIAL: . VOCATION: retired - Objective POSTURE: mild foward posture. GAIT: mild foward posture foot flat. NEURO: denies parathesia/tingling ,reflexes L3-4,L4-5,L5-S1 1/3. SYMMTRIES: aligned. FLEXABLITY: hams min tight. MMT: quads/hams R 4-/5,left 4/5,hip flexion 4- /5,hip abd 4-/5. LUMBAR ROM: flexion min loss,extension min/mod loss,side glides min loss - Special Tests L/S Slump test left side: Negative L/S Slump test right side: Negative L/S Left Straight Leg Raise: Negative L/S Right Straight Leg Raise: Negative Lumbar Standing: Flexion - Mechanical Response: No effect Lumbar Standing: Flexion - Symptoms During Testing: No effect Lumbar Standing: Flexion - Symptoms After Testing: No effect Lumbar Standing: Extension - Mechanical Response: No effect Lumbar Standing: Extension - Symptoms During Testing: No effect Lumbar Standing: Extension - Symptoms After Testing: No effect Lumbar Standing: Right Side Glides - Mechanical Response: No effect Lumbar Standing: Right Side [place] - Symptoms During Testing: No effect Lumbar Standing: Right Side [place] - Symptoms After Testing: No effect Lumbar Standing: Left Side [place] - Mechanical Response: No effect Lumbar Standing: Left Side [place] - Symptoms During Testing: No effect Lumbar Standing: Left Side [place] - Symptoms After Testing: No effect - Goals Goal 1:: Patient provide HEP - Rehabilitation Potential Physical Therapy Diagnosis: This patient developed lumbar pain affects RLE with pain is improved with weakness right impairs gait with incidant of falling at home tripped and today tripped with right foot got on floor assessed balance and strength.Patient only wants HEP and D/C Rehabilitation Potential: Good - Anticipated Interventions Patient/Client Instruction: Educate patient on: Condition, Plan of Care For the Purpose of:: To increase ROM, To improve muscle performance and motor function, To improve ability to perform ADL's, To increase tolerance to activity/condition/position, To improve ability of physical actions for home/community/work/leisure, To increase flexibility/ROM, To improve safety with gait Other: HEP Thank you for the opportunity to evaluate your patient. For Medicare and Medicare HMO plans, please review the plan of care and approve it. It will need to be FAXED BACK to us at [phone] for Medicare purposes. For Medicare only, by signing this I certify the plan of care. Please let me know if there are questions or concerns regarding this plan of care. Physician Jewels gnature: Date:
== END 2020-05-28 19:00 | disposition home or self-care (01) ==
LOC: PT 09:48
PROVIDERS: PCP Nurse Practitioner Family; Referring Provider Nurse Practitioner Family; Visit Provider Nurse Practitioner Family
DX: M51.36 Other intervertebral disc degeneration, lumbar region (principal)
CPT/HCPCS: 97110; 97162

== ENCOUNTER → 2020-06-24 | Outpatient (CLI) | payer MEDICARE, OTHER, SELFPAY ==
[2020-06-24 10:41] LABS: Hematocrit 41.3 % (40-54); Hemoglobin 13.4 g/dL (13.0-16.5); Mean Corp Hgb Conc 32.4 g/dL (32-36); Mean Corpuscular Hgb 31.9 pg (27.0-32.0); Mean Corpuscular Volume 98.3 fL (80-94); Mean Platelet Vol. 8.9 fl (6.2-12.0); Platelet Count 180 K/mm3 (150-450); RBC Distribution Width CV 14.2 % (11.6-14.6); RBC Distribution Width SD 51.2 fl (35.1-43.9)
[2020-06-24 11:02] LABS: Hemoglobin A1c 8.1 % (3.8-5.6)
[2020-06-24 11:15] LABS: ALB/GLOB Ratio 0.9 RATIO (0.9-2.4); AST(SGOT) 20 U/L (15-37); Alanine Aminotransfer ALT/SGPT 28 U/L (16-61); Albumin, Serum 3.2 g/dL (3.2-5.0); Alkaline Phosphatase 83 U/L (45-117); Anion Gap 5 (5-15); BUN 12 mg/dL (7-18); BUN/Creat Ratio 11.5 RATIO (10-20); Calcium,Total 8.1 mg/dL (8.5-10.1); Chloride 107 mmol/L (98-107); Cholesterol 91 mg/dL (200); Creatinine, Serum 1.04 mg/dL (0.70-1.30); EST Glomerular Filtration Rate 74 mL/min (>60); Est Glom Filt Rate - Afr Amer 90 mL/min (>60); Globulin 3.5 g/dL (2.2-4.2); Glucose 114 mg/dL (74-106); High Density Lipoprotein 23 mg/dL; PSA,Total - Annual Screen 1.79 ng/mL (0.00-4.00); Potassium 3.7 mmol/L (3.5-5.1); Protein, Total 6.7 g/dL (6.4-8.2); Sodium Level 141 mmol/L (136-145); Triglycerides 193 mg/dL; Very Low Density Lipoprotein 39 mg/dL (5-40)
== END | disposition home or self-care (01) ==
LOC: LAB 09:49
PROVIDERS: PCP Nurse Practitioner Family; Referring Provider Nurse Practitioner Family; Visit Provider Nurse Practitioner Family
DX: E11.9 Type 2 diabetes mellitus without complications (principal); I10 Essential (primary) hypertension; E78.5 Hyperlipidemia, unspecified; Z12.5 Encounter for screening for malignant neoplasm of prostate
CPT/HCPCS: 36415; 80053; 80061; 83036; 84153; 85027; G0103

== ENCOUNTER → 2021-01-01 09:52 | Outpatient (CLI) | payer MEDICARE, OTHER, SELFPAY ==
[2020-08-12 10:09] VITALS: BMI 29.3
[2021-01-01 10:22] LABS: Hematocrit 46.3 % (40-54); Mean Corp Hgb Conc 32.4 g/dL (32-36); Mean Corpuscular Hgb 31.2 pg (27.0-32.0); Mean Corpuscular Volume 96.3 fL (80-94); Mean Platelet Vol. 8.8 fl (6.2-12.0); Platelet Count 190 K/mm3 (150-450); RBC Distribution Width CV 13.7 % (11.6-14.6); RBC Distribution Width SD 48.3 fl (35.1-43.9); Red Blood Count 4.81 M/mm3 (4.6-6.2); White Blood Count 8.3 K/mm3 (4.4-11.0)
[2021-01-01 10:58] LABS: Hemoglobin A1c 8.9 % (3.8-5.6)
[2021-01-01 11:10] LABS: AST(SGOT) 17 U/L (15-37); Alanine Aminotransfer ALT/SGPT 28 U/L (16-61); Albumin, Serum 3.5 g/dL (3.2-5.0); Alkaline Phosphatase 93 U/L (45-117); Anion Gap 4 (5-15); BUN 17 mg/dL (7-18); Calcium,Total 8.8 mg/dL (8.5-10.1); Chloride 107 mmol/L (98-107); Cholesterol 85 mg/dL (200); Creatinine, Serum 1.21 mg/dL (0.70-1.30); EST Glomerular Filtration Rate 62 mL/min (>60); Est Glom Filt Rate - Afr Amer 75 mL/min (>60); Globulin 3.5 g/dL (2.2-4.2); Glucose 98 mg/dL (74-106); High Density Lipoprotein 21 mg/dL; Potassium 4.1 mmol/L (3.5-5.1); Sodium Level 142 mmol/L (136-145); Triglycerides 192 mg/dL; Very Low Density Lipoprotein 38 mg/dL (5-40)
== END ==
PROVIDERS: PCP Nurse Practitioner Family; Visit Provider Nurse Practitioner Family
DX: E11.9 Type 2 diabetes mellitus without complications (principal); I10 Essential (primary) hypertension; I25.10 Atherosclerotic heart disease of native coronary artery without angina pectoris; E78.5 Hyperlipidemia, unspecified; E78.1 Pure hyperglyceridemia
CPT/HCPCS: 36415; 80053; 80061; 83036; 85027

== ENCOUNTER 2021-01-05 08:56 | Outpatient (RCR) | payer MEDICARE, OTHER, SELFPAY ==
[2020-08-12 10:09] VITALS: BMI 29.3
== END 2021-01-05 23:59 ==
LOC: IMMUN 08:56
PROVIDERS: PCP Nurse Practitioner Family; Visit Provider Family Medicine
DX: Z23 Encounter for immunization (principal)
CPT/HCPCS: 0011A; 0012A

== ENCOUNTER 2021-05-05 20:27 | Emergency (ER) | payer MEDICARE, OTHER, SELFPAY ==
[2020-08-12 10:09] VITALS: BMI 29.3
[2021-05-05 20:28] VITALS: BP 165/84; PULSE 70; RESP 15; TEMP 36.4; O2SAT 98; BMI 29.2
[2021-05-05 21:39] LABS: Bacteria 0 SEEN /hpf (None Seen); Mucous, Urine 0 SEEN /hpf (<or=2+); Squamous Epithelial Cells - UA 0 SEEN /hpf (0-5)
[2021-05-05 21:40] LABS: Absolute Lymphocyte Count 1.08 X10^3/uL (0.83-4.51); Absolute Neutrophil Count 5.7 X10^3/uL (2.0-7.7); Basophil# 0.05 X10^3/uL; Basophil% 0.6 % (0-1); Color, Urine Yellow (Yellow); Eosinophil# 0.53 X10^3/uL; Eosinophils% 6.4 % (0-5); Glucose, Dipstick 1000 mg/dl (Normal); Hematocrit 44.2 % (40-54); Hemoglobin 14.8 g/dL (13.0-16.5); Ketone-Dipstick 5 mg/dl (Negative); Leukocyte Esterase-Dipstick 25 /ul (Negative); Lymphocyte # 1.08 X10^3/ul (0.83-4.51); Mean Corp Hgb Conc 33.5 g/dL (32-36); Mean Corpuscular Hgb 31.8 pg (27.0-32.0); Mean Corpuscular Volume 94.8 fL (80-94); Monocyte# 0.86 X10^3/uL; Monocyte% 10.4 % (0-10); NRBC Flagged by Analyzer 0 % (0-5); Neutrophil % 68.9 % (47-70); Nitrite-Dipstick Negative (Negative); Occult Blood-Urine 250 /ul (Negative); Platelet Count 195 K/mm3 (150-450); Protein-Dipstick 100 mg/dl (Negative); RBC Distribution Width CV 13.7 % (11.6-14.6); RBC Distribution Width SD 47.9 fl (35.1-43.9); Red Blood Count 4.66 M/mm3 (4.6-6.2); Urine Bilirubin Dipstick Negative (Negative); Urine Clarity Sl. Cloudy (Clear); Urine Urobilinogen Normal (Normal); White Blood Count 8.3 K/mm3 (4.4-11.0)
[2021-05-05] MEDS: Ondansetron 4 MG/2 ML Vial IV (21:44)
[2021-05-05] MEDS: 0.9% Normal Saline 1,000 ML 1000 ML IV (21:44)
[2021-05-05] MEDS: Morphine 4 MG/ML Syringe IV (21:45)
--- NOTE | 2021-05-05 21:52 | CT_ITS ---
INDICATION: Pain EXAMINATION: CT Abdomen And Pelvis W/O Contrast Injection TECHNIQUE: Helically acquired images were obtained of the abdomen and pelvis without the use of IV contrast. A radiation dose optimization technique was used for this scan. Oral contrast: None. COMPARISON: 08/12/2019 FINDINGS: Evaluation of the solid organs and vascular structures is limited without intravenous contrast. Visualized lung bases: Chronic interstitial fibrotic changes. Liver: Unremarkable Gallbladder: Unremarkable Spleen: Unremarkable Pancreas: Unremarkable Adrenal Glands: Unremarkable Kidneys: Obstructing 4 mm stone in the left ureterovesical junction with associated mild left hydroureteronephrosis. Additional nonobstructing 7 mm stone in the left lower pole. Vasculature: Moderate aortoiliac atherosclerotic disease. Stable 3.4 cm infrarenal abdominal aortic aneurysm. GI Tract: Unremarkable Lymphadenopathy: None Peritoneum: No ascites. Bladder: Unremarkable Reproductive organs: The prostate is moderately enlarged. Bones/Soft tissues: There are diffuse degenerative changes of the spine. Small fat-containing umbilical hernia. CT/Abdomen/Pelvis without Cont IMPRESSION: Obstructing 4 mm stone in the left ureterovesical junction with associated mild left hydroureteronephrosis. Additional nonobstructing 7 mm stone in the left lower pole. Stable 3.4 cm infrarenal abdominal aortic aneurysm. Moderate prostatomegaly. Correlate with PSA levels. Interstitial lung disease. Electronically Signed: Mich Tirado MD at 22:32 EDT Tel , Service support ,
[2021-05-05 21:53] LABS: ALB/GLOB Ratio 0.9 RATIO (0.9-2.4); AST(SGOT) 18 U/L (15-37); Alanine Aminotransfer ALT/SGPT 23 U/L (16-61); Albumin, Serum 3.5 g/dL (3.2-5.0); Alkaline Phosphatase 99 U/L (45-117); Anion Gap 7 (5-15); BUN 17 mg/dL (7-18); Calcium,Total 8.7 mg/dL (8.5-10.1); Chloride 106 mmol/L (98-107); Creatinine, Serum 1.21 mg/dL (0.70-1.30); EST Glomerular Filtration Rate 62 mL/min (>60); Est Glom Filt Rate - Afr Amer 75 mL/min (>60); Estimated Creatinine Clearance 53.56 ml/min; Globulin 3.8 g/dL (2.2-4.2); Glucose 164 mg/dL (74-106); Potassium 4.1 mmol/L (3.5-5.1); Protein, Total 7.3 g/dL (6.4-8.2); Red Blood Cells-Urine > 100 SEEN /hpf (0-5); Sodium Level 139 mmol/L (136-145); White Blood Cells 0-5 SEEN /hpf (0-5)
[2021-05-05 22:23] VITALS: RESP 16
--- NOTE | 2021-05-06 00:07 | EDS_ITS ---
HPI History of Present Illness Chief Complaint: Flank Pain Informant: patient Onset/Context/Timing Onset: Today Narrative Narrative: Patient is presenting with left lower quadrant abdominal pain that radiates from his back. He states he feels like his prior kidney stones. It started around 4 PM today. He has associated nausea but no vomiting. He notes his stomach feels upset. He denies associated dysuria or hematuria but does note his urine is dark. He has had prior lithotripsy with Dr. Barillas. He describes pain is sharp. No other complaints at this time. Is currently on Flomax. [facility] Medical History (Updated 05/06/21 @ 00:[address] Lilliam Austin, DO) Abdominal aortic aneurysm Atherosclerosis of coronary artery bypass graft without angina pectoris Atherosclerotic heart disease of [place] coronary artery without angina pectoris Benign prostatic hyperplasia CKD (chronic kidney disease) Diabetes mellitus type 2 in nonobese Dysarthria Essential (primary) hypertension History of kidney stones History of non-ST elevation myocardial infarction (NSTEMI) (12/2015) Hydronephrosis, left Hyperlipidemia Left ureteral calculus Nephrolithiasis Seasonal allergies Thrombocytopenia TIA (transient ischemic attack) Home Medications atorvastatin 20 mg PO QHS 09/15/15 [History Last Taken 05/07/20] aspirin 81 mg PO DAILY 01/22/16 [History Last Taken 05/07/20] tadalafil 5 mg PO DAILY 05/31/18 [History Last Taken 05/07/20] tamsulosin 0.8 mg PO QHS 05/31/18 [History Last Taken 05/07/20] clopidogrel 75 mg tablet 75 mg PO DAILY #90 tab 07/24/18 [Rx Last Taken 05/07/20] metoprolol tartrate 25 mg tablet 25 mg PO BID #180 tab 04/09/19 [Rx Last Taken 05/07/20] metformin 1,000 mg 24 hr tablet,extended release 1,000 mg PO BID tab 08/09/19 [History Last Taken 05/07/20] loratadine 10 mg PO DAILY 05/08/20 [History Last Taken 05/07/20] omeprazole 40 mg PO DAILY 05/08/20 [History Last Taken 05/07/20] psyllium husk (with sugar) 5 ml PO DAILY 05/08/20 [History Last Taken 05/07/20] clobetasol 0.05 % topical ointment g TOPICAL 08/12/20 [History Last Taken Unknown] insulin degludec 200 unit/mL (3 mL) subcutaneous pen 54 unit SC DAILY ml 08/12/20 [History Last Taken Unknown] allopurinol 100 mg PO DAILY 05/05/21 [History Last Taken Unknown] ondansetron HCl [Zofran] 4 mg PO Q8H PRN #14 tab 05/06/21 [Rx Last Taken Unknown] oxycodone-acetaminophen [Percocet] 1 tab PO Q6H PRN 3 Days #12 tab 05/06/21 [Rx Last Taken Unknown] Allergy/AdvReac Type Severity Reaction Status Date / Time caffeine Allergy Other Verified 05/05/21 20:28 ibuprofen Allergy Rash Verified 05/05/21 20:28 Penicillins [PCN] Allergy Other Verified 05/05/21 20:28 ciprofloxacin AdvReac Upset Verified 05/05/21 20:28 Stomach Family History Father FH: CABG (coronary artery bypass surgery) Cancer Pancreatic cancer Heart disease Mother Myocardial infarction Heart disease Brother Myocardial infarction CAD (coronary artery disease) Other Family history of coronary artery disease Surgical History H/O coronary artery bypass surgery (12/30/15) History of cystoscopy History of lithotripsy History of tonsillectomy Social History (Updated 08/12/20 @ 10:[address] Jhonny Jackson MD) Smoking Status: Former smoker how long ago did patient quit smokin + years ago alcohol intake: current alcohol intake frequency: a few times a month Alcohol type: hard liquor substance use type: does not use caffeine: No what type of physical activity do you participate in: none seatbelt use: always do you feel safe at home: Yes ROS ROS ED Constitutional Constitutional ED: Denies chills or fever(s) Eyes Eyes: Denies change in vision ENT ENT ED: Denies rhinorrhea or sore throat Cardiovascular Cardiovascular: Denies chest pain or palpitations Respiratory/Chest Respiratory/Chest: Denies dyspnea Gastrointestinal Gastrointestinal: Reports abdominal pain and nausea; Denies diarrhea or vomiting Genitourinary Genitourinary ED: Reports urinary frequency; Denies dysuria or hematuria Musculoskeletal Musculoskeletal: Reports back pain; Denies arthralgias or myalgias Integumentary Denies rash Neurologic Neurologic: Denies headache(s) or weakness EXAM Physical Exam Const Vital Signs: 05/05/21 20:28 05/05/21 22:23 05/06/21 00:22 Temperature 97.6 F L Temperature Source Temporal Pulse Rate 70 75 Respiratory Rate 15 16 15 Blood Pressure 165/84 H 146/82 H Blood Pressure Mean 111 Pulse Ox 98 98 Oxygen Delivery Method Room Air Positive well nourished and well developed General Appearance ED: well developed HEENT Reports moist mucous membranes Negative for trauma Eyes PERRL and EOMs intact bilaterally Neck supple and no JVD Chest Wall inspection of chest normal Resp normal respiratory effort and clear to auscultation bilaterally Cardio regular rate and regular rhythm GI normal to inspection, nondistended, normoactive bowel sounds Back/Spine no CVA tenderness Thoracic Spine / Upper Back: Negative for paraspinal muscle tenderness Extremity normal to inspection Neuro oriented x3 Sensorium / Orientation: alert Psych mental status grossly normal Skin no rashes or lesions noted MDM MDM MDM Narrative Medical decision making narrative: Patient is evaluated for 1 day of flank pain. It feels like his prior kidney stones. He is given IV morphine, fluids and Zofran in the ER. His kidney function is at his baseline with a creatinine of 1.21. CBC is unremarkable. Urinalysis is consistent with a kidney stone as he has greater than 100 red blood cells and 0-5 white blood cells with no bacteria. CT of the abdomen pelvis without contrast shows a 4 mm obstructing stone at the left UVJ. Case is discussed with his urologist who agrees that he is stable for outpatient follow-up. Patient should pass the stone spontaneously. Patient is already on Flomax. He is allergic to NSAIDs. He will be discharged home with a prescription for Zofran and Percocet for pain control. Patient agreeable with this plan of care. He is discharged home in stable and improved condition. Lab Data Labs: Laboratory Results - last 24 hr 05/05/21 05/05/21 05/05/21 21:05 21:05 21:05 WBC 8.3 RBC 4.66 Hgb 14.8 Hct 44.2 MCV 94.8 H MCH 31.8 MCHC 33.5 RDW Std Deviation 47.9 H RDW Coeff of [place] 13.7 Plt Count 195 MPV 9.0 Immature Gran % (Auto) 0.700 Neut % (Auto) 68.9 Lymph % (Auto) 13.0 L [place] % (Auto) 10.4 H Eos % (Auto) 6.4 H Baso % (Auto) 0.6 Absolute Neuts (auto) 5.7 Absolute Lymphs (auto) 1.08 Nucleated RBC % 0 Sodium 139 Potassium 4.1 Chloride 106 Carbon Dioxide 26.0 Anion Gap 7 BUN 17 Creatinine 1.21 Estim Creat Clear Calc 53.56 Est GFR (MDRD) Af Amer 75 Est GFR (MDRD) Non-Af 62 BUN/Creatinine Ratio 14.0 Glucose 164 H Calcium 8.7 Total Bilirubin 0.30 AST 18 ALT 23 Alkaline Phosphatase 99 Total Protein 7.3 Albumin 3.5 Globulin 3.8 Albumin/Globulin Ratio 0.9 Urine Color Yellow Urine Clarity Sl. Cloudy Urine pH 5.0 Ur Specific [place] 1.020 Urine Protein 100 H Urine Glucose (UA) 1000 H Urine Ketones 5 H Urine Occult Blood 250 H Urine Nitrite Negative Urine Bilirubin Negative Urine Urobilinogen Normal Ur Leukocyte Esterase 25 H Urine RBC > 100 SEEN Urine WBC 0-5 SEEN Ur Squamous Epith Cells 0 SEEN Urine Bacteria 0 SEEN Urine Mucus 0 SEEN Radiography Diagnostic Testing: Radiology Impression Abdomen/Pelvis CT 05/05/21 21:52 IMPRESSION: Obstructing 4 mm stone in the left ureterovesical junction with associated mild left hydroureteronephrosis. Additional nonobstructing 7 mm stone in the left lower pole. Stable 3.4 cm infrarenal abdominal aortic aneurysm. Moderate prostatomegaly. Correlate with PSA levels. Interstitial lung disease. Electronically Signed: Mich Tirado MD at 22:32 EDT Tel , Service support , Discharge Plan Triage Chief Complaint: Flank Pain ED Provider: Lilliam Austin Dx/Rx/DC Orders Clinical Impression: Calculus of distal left ureter Instructions: ED Kidney Stone w/ Colic Prescriptions: New oxycodone-acetaminophen [Percocet] 5-325 mg tablet 1 tab PO Q6H PRN (Reason: pain) 3 Days Qty: 12 RF: 0 ondansetron HCl [Zofran] 4 mg tablet 4 mg PO Q8H PRN (Reason: nausea and vomiting) Qty: 14 RF: 0 No Action metformin 1,000 mg tablet,ER gita.retention 24 hr 1,000 mg PO BID RF: 0 clobetasol 0.05 % ointment TOPICAL RF: 0 atorvastatin 20 MG tablet 20 mg PO QHS RF: 0 aspirin 81 MG tablet,delayed release (DR/EC) 81 mg PO DAILY RF: 0 tamsulosin 0.4 MG capsule 0.8 mg PO QHS RF: 0 tadalafil 5 MG tablet 5 mg PO DAILY RF: 0 omeprazole 40 MG capsule,delayed release(DR/EC) 40 mg PO DAILY RF: 0 loratadine 10 MG tablet 10 mg PO DAILY RF: 0 psyllium husk (with sugar) 368 GM powder 5 ml PO DAILY RF: 0 insulin degludec 200 unit/mL (3 mL) insulin pen 54 unit SC DAILY RF: 0 allopurinol 100 mg Tablet 100 mg PO DAILY RF: 0 clopidogrel 75 mg tablet 75 mg PO DAILY Qty: 90 RF: 3 metoprolol tartrate 25 mg tablet 25 mg PO BID Qty: 180 RF: 3 Primary Care Provider: Jacoby Oviedo NP Referrals: Phillip Barillas MD [STAFF PHYSICIAN] - Jacoby Oviedo NP, CUSTOMER SERVICE SALES CONSULTANT-C [Primary Care Provider] - Disposition Disposition: Home, Self Care Discharge Date/Time: 05/06/21 00:23
[2021-05-06 00:22] VITALS: BP 146/82; PULSE 75; RESP 15; O2SAT 98
== END 2021-05-06 00:23 | disposition home or self-care (01) ==
PROVIDERS: Emergency Provider Emergency Medicine; PCP Nurse Practitioner Family
DX: N13.2 Hydronephrosis with renal and ureteral calculous obstruction (principal); I25.10 Atherosclerotic heart disease of native coronary artery without angina pectoris; I12.9 Hypertensive chronic kidney disease with stage 1 through stage 4 chronic kidney disease, or unspecified chronic kidney disease; E11.22 Type 2 diabetes mellitus with diabetic chronic kidney disease; N18.9 Chronic kidney disease, unspecified; E78.5 Hyperlipidemia, unspecified; Z86.73 Personal history of transient ischemic attack (TIA), and cerebral infarction without residual deficits; Z87.442 Personal history of urinary calculi; Z79.4 Long term (current) use of insulin; Z79.899 Other long term (current) drug therapy; Z87.891 Personal history of nicotine dependence
CPT/HCPCS: 74176; 80053; 81001; 85025; 96361; 96374; 96375; 99285; J7030; A4216; J2405

== ENCOUNTER 2021-06-16 16:39 | Emergency (ER) | payer MEDICARE, OTHER, SELFPAY ==
[2021-06-16 16:40] VITALS: BP 158/97; PULSE 72; RESP 16; TEMP 36.9; O2SAT 100; BMI 29.7
--- NOTE | 2021-06-16 17:14 | EKG12_ITS ---
Test Reason : CP Blood Pressure : / mmHG Vent. Rate : 069 BPM Atrial Rate : 069 BPM P-R Int : 152 ms QRS Dur : 084 ms QT Int : 414 ms P-R-T Axes : 043 012 032 degrees QTc Int : 443 ms Normal sinus rhythm Nonspecific ST and T wave abnormality Abnormal ECG Confirmed by DALTON SILVA, NILESH ([id number]), market editor SARAH HO ([id number]) on 06/19/2021 9:25:32 AM Referred By: PAULIE/MICHAEL Confirmed By:RODERICK HOFFMAN MD
--- NOTE | 2021-06-16 17:15 | EDS_ITS ---
HPI History of Present Illness Chief Complaint: Chest Pain Informant: patient Onset/Context/Timing Onset: Days Activity at onset: sudden Timing: Intermittent Quality: Negative for Aching, Burning, Dull, Heaviness, Indigestion, Pain, Pressure, Sharp, Stabbing and Tightness Location: Left Parasternal Current Severity: Gone Maximum Severity: Mild Worsened By: Nothing; Not Worsened By Exertion, Movement of Torso, Eating, Palpation, Breathing and Coughing Relieved By: Nothing Associated Symptoms: Negative for Nausea, Vomiting, Diaphoresis, Dyspnea, Cough, Fever, Lightheadedness, Acid Reflux and Palpitations Narrative Narrative: 76-year-old male history of prior HI about 6 years ago with a four- way bypass. Has had no symptoms since that time. At that time it was exertional chest pain with nausea and shortness of breath. He states this is nothing like that for the last three or 4 days he has had intermittent chest discomfort that only last 15 to 20 seconds. Is not at all related to exertion. Currently he is completely symptom-free. No history of DVT or PE in the past. No recent travel, surgery or immobilization. No leg pain or swelling. No hemoptysis. Nothing specifically makes his chest discomfort better or worse. He describes it as a pinching sensation that resolves quickly. Prior Similar Symptoms: No Recent Illness/Hospitalization: No CVD Risk Factors: Positive for Hypertension, Diabetes and Hypercholesterolemia PE Risk Factors: Negative for Recent Travel/Surgery, Recent Immobilization, Prior DVT or PE and Cancer TAD Risk Factors: Negative for Marfan's Syndrome and Hypertension [facility] Medical History (Updated 06/16/21 @ 19:[address] Josemanuel Romero MD) Abdominal aortic aneurysm Atherosclerosis of coronary artery bypass graft without angina pectoris Atherosclerotic heart disease of [place] coronary artery without angina pectoris Benign prostatic hyperplasia CKD (chronic kidney disease) Diabetes mellitus type 2 in nonobese Dysarthria Essential (primary) hypertension History of kidney stones History of non-ST elevation myocardial infarction (NSTEMI) (12/2015) Hydronephrosis, left Hyperlipidemia Left ureteral calculus Nephrolithiasis Seasonal allergies Thrombocytopenia TIA (transient ischemic attack) Home Medications atorvastatin 20 mg PO QHS 09/15/15 [History Last Taken 05/07/20] aspirin 81 mg PO DAILY 01/22/16 [History Last Taken 05/07/20] tadalafil 5 mg PO DAILY 05/31/18 [History Last Taken 05/07/20] tamsulosin 0.8 mg PO QHS 05/31/18 [History Last Taken 05/07/20] clopidogrel 75 mg tablet 75 mg PO DAILY #90 tab 07/24/18 [Rx Last Taken 05/07/20] metoprolol tartrate 25 mg tablet 25 mg PO BID #180 tab 04/09/19 [Rx Last Taken 05/07/20] metformin 1,000 mg 24 hr tablet,extended release 1,000 mg PO BID tab 08/09/19 [History Last Taken 05/07/20] loratadine 10 mg PO DAILY 05/08/20 [History Last Taken 05/07/20] omeprazole 40 mg PO DAILY 05/08/20 [History Last Taken 05/07/20] psyllium husk (with sugar) 5 ml PO DAILY 05/08/20 [History Last Taken 05/07/20] clobetasol 0.05 % topical ointment g TOPICAL 08/12/20 [History Last Taken Unknown] insulin degludec 200 unit/mL (3 mL) subcutaneous pen 52 unit SC DAILY ml 08/12/20 [History Last Taken Unknown] allopurinol 100 mg PO DAILY 05/05/21 [History Last Taken Unknown] ondansetron HCl [Zofran] 4 mg PO Q8H PRN #14 tab 05/06/21 [Rx Last Taken Unknown] oxycodone-acetaminophen [Percocet] 1 tab PO Q6H PRN 3 Days #12 tab 05/06/21 [Rx Last Taken Unknown] dulaglutide [Trulicity] 0.75 mg SUBCUT QWEEK 06/16/21 [History Last Taken Unknown] Allergy/AdvReac Type Severity Reaction Status Date / Time caffeine Allergy Other Verified 06/16/21 16:42 ibuprofen Allergy Rash Verified 06/16/21 16:42 Penicillins [PCN] Allergy Other Verified 06/16/21 16:42 ciprofloxacin AdvReac Upset Verified 06/16/21 16:42 Stomach Family History Father FH: CABG (coronary artery bypass surgery) Cancer Pancreatic cancer Heart disease Mother Myocardial infarction Heart disease Brother Myocardial infarction CAD (coronary artery disease) Other Family history of coronary artery disease Surgical History H/O coronary artery bypass surgery (12/30/15) History of cystoscopy History of lithotripsy History of tonsillectomy Social History Smoking Status: Former smoker how long ago did patient quit smokin + years ago alcohol intake: current alcohol intake frequency: a few times a month Alcohol type: hard liquor substance use type: does not use caffeine: No what type of physical activity do you participate in: none seatbelt use: always do you feel safe at home: Yes ROS ROS ED Review of Systems ROS Unobtainable: Denies due to encephalopathy Constitutional Constitutional ED: Denies chills or fever(s) Eyes Eyes: Denies none ENT ENT ED: Denies ear pain Cardiovascular Cardiovascular: Reports as per HPI and chest pain; Denies palpitations or racing heartbeat Respiratory/Chest Respiratory/Chest: Denies cough or dyspnea Gastrointestinal Gastrointestinal: Denies abdominal pain, diarrhea, nausea or vomiting Genitourinary Genitourinary ED: Denies dysuria Musculoskeletal Musculoskeletal: Denies myalgias Integumentary Denies rash Neurologic Neurologic: Denies headache(s) Psychiatric Psychiatric: Denies depression Endocrine Endocrinology: Denies polyuria Hematologic/Lymphatic Hematologic/Lymphatic: Denies easy bruising Allergic/Immunologic Allergic/Immunologic ED: Denies urticaria EXAM Physical Exam Narrative Exam Narrative: Older male no acute distress. Vital signs stable afebrile. Pulse ox 100% on room air no signs hypoxia. Lungs are clear. Heart regular rate and rhythm no murmur rate about seventy. Chest wall nontender. Abdomen soft nontender. Patient moving all four extremities. Calves are nontender without edema or cords. Neurologically patient is awake alert with no focal motor deficits. Const Vital Signs: 06/16/21 16:40 06/16/21 16:46 06/16/21 17:25 Temperature 98.4 F Temperature Source Oral Pulse Rate 72 Respiratory Rate 16 Respiratory Effort Normal Non-Labored Blood Pressure 158/97 H Blood Pressure Mean 117 Pulse Ox 100 Oxygen Delivery Method Room Air Room Air 06/16/21 17:52 06/16/21 19:00 Temperature Temperature Source Pulse Rate 63 66 Respiratory Rate 16 16 Respiratory Effort Blood Pressure 138/85 H 154/88 H Blood Pressure Mean 102 110 Pulse Ox 97 98 Oxygen Delivery Method Room Air Room Air Positive well nourished and well developed; Negative for obese or cachectic General Appearance ED: well developed; Negative for cachectic Nutritional Appearance: Negative for cachectic or obese HEENT Reports moist mucous membranes normocephalic and atraumatic; Negative for trauma or tenderness Eyes PERRL and EOMs intact bilaterally Neck no lymphadenopathy, supple and no JVD General: Negative for tenderness Chest Wall inspection of chest normal and palpation of chest normal Resp normal respiratory effort and clear to auscultation bilaterally Effort and Inspection: respiratory distress Auscultation: Negative for rales, rhonchi or wheezes Cardio regular rate, regular rhythm, S1 normal heart sound, S2 normal heart sound and no murmurs GI normal to inspection, nondistended, normoactive bowel sounds, soft to palpation, non-tender, non-distended and no masses Back/Spine no CVA tenderness Extremity normal to inspection General Extremety ED: Negative for edema or tenderness General Extremity: Negative for edema Neuro oriented x3 and CN's II-XII intact bilaterally Sensorium / Orientation: awake, alert, oriented to person, oriented to place and oriented to time Motor Exam: strength 5/5 throughout Psych mental status grossly normal Skin no rashes or lesions noted and no wounds Heart Score History: Slightly/Non-Suspicious ECG: Normal Age: >/= 65 years Risk Factors: >/= 3 Risk Factors or History of CAD Troponin: </= Normal Limit Score: 4 MDM MDM MDM Narrative Medical decision making narrative: 76-year-old male history of cardiac disease with prior CABG. Having very atypical nonexertional chest discomfort. Clinically does not sound cardiac. He will undergo cardiac work-up due to this atypical chest pain. Repeat exam patient is doing well at 7:20 PM. Will be discharged home with outpatient follow-up. He knows return if feeling worse. He had I discussed all his test results. Lab Data Attestation: I reviewed the patient's lab results. Lab results narrative: CBC normal white count 8. Hemoglobin 14. Electrolytes unremarkable gap of 5. Creatinine 1. High-sensitivity troponin normal at 5. Labs: Laboratory Results - last 24 hr 06/16/21 06/16/21 16:45 16:45 WBC 8.5 RBC 4.70 Hgb 14.8 Hct 46.2 MCV 98.3 H MCH 31.5 MCHC 32.0 RDW Std Deviation 50.1 H RDW Coeff of [place] 13.8 Plt Count 190 MPV 9.2 Immature Gran % (Auto) 0.700 Neut % (Auto) 68.9 Lymph % (Auto) 15.4 L [place] % (Auto) 8.9 Eos % (Auto) 5.4 H Baso % (Auto) 0.7 Absolute Neuts (auto) 5.8 Absolute Lymphs (auto) 1.30 Nucleated RBC % 0 Sodium 139 Potassium 4.1 Chloride 103 Carbon Dioxide 31.0 Anion Gap 5 BUN 17 Creatinine 1.10 Estim Creat Clear Calc 58.92 Est GFR (MDRD) Af Amer 84 Est GFR (MDRD) Non-Af 70 BUN/Creatinine Ratio 15.5 Glucose 220 H Calcium 8.8 Troponin I High Sens 5.2 Radiography Chest X-Ray - ED: 1 View, Read by Radiologist, Heart, Lungs, Mediastinum, Bony Structures, No Acute Disease and Chronic Changes Diagnostic Testing: Radiology Impression Chest X-Ray 06/16/21 17:25 IMPRESSION: No acute radiographic abnormalities. Electronically Signed: Mich Tirado MD at 17:54 EDT Tel , Service support , Checks x-ray interpreted by me shows no acute abnormality. Also read by the radiologist and agrees. Rhythm Strip Rhythm Strip: Sinus Rhythm Rate: 69 Ectopy: None EKG Initial EKG: Attestation: I personally reviewed and interpreted this EKG as follows: Interpretation: Sinus Rhythm and No Acute Injury Pattern Comments: Normal sinus rhythm rate sixty-nine no acute signs of HI or ischemia. Discharge Plan Triage Chief Complaint: Chest Pain ED Provider: Josemanuel Romero Dx/Rx/DC Orders Clinical Impression: Chest pain in adult Instructions: ED Chest Pain, Uncertain Cause Prescriptions: No Action metformin 1,000 mg tablet,ER gita.retention 24 hr 1,000 mg PO BID RF: 0 clobetasol 0.05 % ointment TOPICAL RF: 0 atorvastatin 20 MG tablet 20 mg PO QHS RF: 0 aspirin 81 MG tablet,delayed release (DR/EC) 81 mg PO DAILY RF: 0 tamsulosin 0.4 MG capsule 0.8 mg PO QHS RF: 0 tadalafil 5 MG tablet 5 mg PO DAILY RF: 0 omeprazole 40 MG capsule,delayed release(DR/EC) 40 mg PO DAILY RF: 0 loratadine 10 MG tablet 10 mg PO DAILY RF: 0 psyllium husk (with sugar) 368 GM powder 5 ml PO DAILY RF: 0 insulin degludec 200 unit/mL (3 mL) insulin pen 52 unit SC DAILY RF: 0 allopurinol 100 mg Tablet 100 mg PO DAILY RF: 0 oxycodone-acetaminophen [Percocet] 5-325 mg tablet 1 tab PO Q6H PRN (Reason: pain) 3 Days Qty: 12 RF: 0 ondansetron HCl [Zofran] 4 mg tablet 4 mg PO Q8H PRN (Reason: nausea and vomiting) Qty: 14 RF: 0 Trulicity 0.75 mg/0.5 mL pen injector 0.75 mg SUBCUT QWEEK RF: 0 clopidogrel 75 mg tablet 75 mg PO DAILY Qty: 90 RF: 3 metoprolol tartrate 25 mg tablet 25 mg PO BID Qty: 180 RF: 3 Primary Care Provider: Jacoby Oviedo NP Referrals: Jacoby Oviedo NP, MARKETING INSTRUCTOR-C [Primary Care Provider] - 1 Week if not improving Activity Restrictions/Additional Instructions: All your test tonight were normal. This does not sound like cardiac chest pain. Your exam is normal. Follow-up your primary care physician if not improving. Return if worse. Disposition Disposition: Home, Self Care
--- NOTE | 2021-06-16 17:25 | RAD_ITS ---
INDICATION: chest pain EXAMINATION/TECHNIQUE: X-RAY - XR Chest 1 View COMPARISON: 05/08/2020. FINDINGS: The lungs are clear. Sternal cerclage wires and vascular clips are present from a prior sternotomy and coronary artery bypass graft procedure (CABG). No pleural effusion or pneumothorax. No acute osseous abnormalities. RAD/Chest 1 View (Portable) IMPRESSION: No acute radiographic abnormalities. Electronically Signed: Mich Tirado MD at 17:54 EDT Tel , Service support ,
[2021-06-16] MEDS: Aspirin 81 MG TAB.CHEW 324 MG PO (17:29)
[2021-06-16 17:39] LABS: Absolute Neutrophil Count 5.8 X10^3/uL (2.0-7.7); Basophil# 0.06 X10^3/uL; Basophil% 0.7 % (0-1); Eosinophil# 0.46 X10^3/uL; Eosinophils% 5.4 % (0-5); Hematocrit 46.2 % (40-54); Hemoglobin 14.8 g/dL (13.0-16.5); Lymphocyte % 15.4 % (19-41); Mean Corpuscular Hgb 31.5 pg (27.0-32.0); Mean Corpuscular Volume 98.3 fL (80-94); Mean Platelet Vol. 9.2 fl (6.2-12.0); Monocyte# 0.75 X10^3/uL; Monocyte% 8.9 % (0-10); NRBC Flagged by Analyzer 0 % (0-5); Neutrophil # 5.82 X10^3/uL (2.7-7.7); Neutrophil % 68.9 % (47-70); Platelet Count 190 K/mm3 (150-450); RBC Distribution Width CV 13.8 % (11.6-14.6); RBC Distribution Width SD 50.1 fl (35.1-43.9); White Blood Count 8.5 K/mm3 (4.4-11.0)
[2021-06-16 17:50] LABS: Anion Gap 5 (5-15); BUN 17 mg/dL (7-18); BUN/Creat Ratio 15.5 RATIO (10-20); Calcium,Total 8.8 mg/dL (8.5-10.1); Chloride 103 mmol/L (98-107); EST Glomerular Filtration Rate 70 mL/min (>60); Est Glom Filt Rate - Afr Amer 84 mL/min (>60); Estimated Creatinine Clearance 58.92 ml/min; Glucose 220 mg/dL (74-106); Potassium 4.1 mmol/L (3.5-5.1); Sodium Level 139 mmol/L (136-145); Troponin-I HS 5.2 pg/mL (3.0-78.5)
[2021-06-16 17:52] VITALS: BP 138/85; PULSE 63; RESP 16; O2SAT 97
[2021-06-16 19:00] VITALS: BP 154/88; PULSE 66; RESP 16; O2SAT 98
[2021-06-16 19:55] VITALS: BP 151/71; PULSE 63; RESP 16; O2SAT 97
== END 2021-06-16 20:07 | disposition home or self-care (01) ==
PROVIDERS: Emergency Provider Emergency Medicine; PCP Nurse Practitioner Family
DX: R07.9 Chest pain, unspecified (principal); I25.810 Atherosclerosis of coronary artery bypass graft(s) without angina pectoris; I12.9 Hypertensive chronic kidney disease with stage 1 through stage 4 chronic kidney disease, or unspecified chronic kidney disease; E11.22 Type 2 diabetes mellitus with diabetic chronic kidney disease; N18.9 Chronic kidney disease, unspecified; E78.5 Hyperlipidemia, unspecified; Z95.1 Presence of aortocoronary bypass graft; Z79.4 Long term (current) use of insulin; Z79.899 Other long term (current) drug therapy; Z87.891 Personal history of nicotine dependence
CPT/HCPCS: 71045; 80048; 84484; 85025; 93005; 99284; A4216

== ENCOUNTER → 2021-07-09 09:06 | Outpatient (CLI) | payer MEDICARE, OTHER, SELFPAY ==
[2021-07-09 09:48] LABS: Hematocrit 45.5 % (40-54); Hemoglobin 14.8 g/dL (13.0-16.5); Mean Corp Hgb Conc 32.5 g/dL (32-36); Mean Corpuscular Volume 98.3 fL (80-94); Mean Platelet Vol. 8.7 fl (6.2-12.0); Platelet Count 172 K/mm3 (150-450); RBC Distribution Width CV 13.8 % (11.6-14.6); Red Blood Count 4.63 M/mm3 (4.6-6.2); White Blood Count 7.9 K/mm3 (4.4-11.0)
[2021-07-09 10:20] LABS: AST(SGOT) 17 U/L (15-37); Alanine Aminotransfer ALT/SGPT 27 U/L (16-61); Albumin, Serum 3.4 g/dL (3.2-5.0); Alkaline Phosphatase 91 U/L (45-117); Anion Gap 4 (5-15); BUN 15 mg/dL (7-18); Calcium,Total 8.3 mg/dL (8.5-10.1); Chloride 106 mmol/L (98-107); Cholesterol 79 mg/dL (200); Creatinine, Serum 1.07 mg/dL (0.70-1.30); EST Glomerular Filtration Rate 72 mL/min (>60); Est Glom Filt Rate - Afr Amer 87 mL/min (>60); Globulin 3.3 g/dL (2.2-4.2); Glucose 109 mg/dL (74-106); High Density Lipoprotein 18 mg/dL; PSA,Total - Annual Screen 1.71 ng/mL (0.00-4.00); Protein, Total 6.7 g/dL (6.4-8.2); Sodium Level 140 mmol/L (136-145); Triglycerides 233 mg/dL; Very Low Density Lipoprotein 47 mg/dL (5-40)
[2021-07-09 10:36] LABS: Hemoglobin A1c 7.6 % (3.8-5.6)
== END ==
PROVIDERS: PCP Nurse Practitioner Family; Referring Provider Nurse Practitioner Family; Visit Provider Nurse Practitioner Family
DX: E11.9 Type 2 diabetes mellitus without complications (principal); I10 Essential (primary) hypertension; E78.5 Hyperlipidemia, unspecified; E78.1 Pure hyperglyceridemia; I25.10 Atherosclerotic heart disease of native coronary artery without angina pectoris; Z12.5 Encounter for screening for malignant neoplasm of prostate
CPT/HCPCS: 36415; 80053; 80061; 83036; 84153; 85027; G0103

== ENCOUNTER 2021-11-12 10:47 | Outpatient (CLI) | payer MEDICARE, OTHER, SELFPAY ==
--- NOTE | 2021-11-12 11:05 | RAD_ITS ---
STUDY: X-RAY - ABDOMEN/PELVIS REASON FOR EXAM: Male, 76 years old. CALCULUS OF KIDNEY W/CALCULUS OF URETER TECHNIQUE: Single AP view of the abdomen / pelvis. COMPARISON: None. FINDINGS: Normal visualized lung bases. There is an unremarkable bowel gas pattern. There is no demonstrated free abdominal air. There is a stone in the lower pole calyx of the left kidney measuring 3 mm. The visualized liver, spleen and kidneys are grossly normal in size and morphology. Normal soft tissue structures. Normal visualized osseous structures. RAD/Abdomen Single View IMPRESSION: There is a stone in the lower pole calyx of the left kidney measuring 3 mm. Electronically Signed: Ivan Gutierrez MD at 5:05 EST Tel , Service support ,
== END 2021-11-12 23:59 | disposition short-term general hospital (02) ==
LOC: RAD.FUTURE 10:54
PROVIDERS: PCP Nurse Practitioner Family; Referring Provider Urology; Visit Provider Urology
DX: N20.0 Calculus of kidney (principal)
CPT/HCPCS: 74018

== ENCOUNTER 2022-01-07 08:12 | Outpatient (CLI) | payer MEDICARE, OTHER, SELFPAY ==
[2022-01-07 09:29] LABS: Hematocrit 46.4 % (40-54); Hemoglobin 15.2 g/dL (13.0-16.5); Mean Corp Hgb Conc 32.8 g/dL (32-36); Mean Corpuscular Volume 97.7 fL (80-94); Mean Platelet Vol. 8.9 fl (6.2-12.0); Platelet Count 182 K/mm3 (150-450); RBC Distribution Width CV 13.5 % (11.6-14.6); RBC Distribution Width SD 48.8 fl (35.1-43.9); Red Blood Count 4.75 M/mm3 (4.6-6.2); White Blood Count 5.7 K/mm3 (4.4-11.0)
[2022-01-07 09:50] LABS: Hemoglobin A1c 7.7 % (3.8-5.6)
[2022-01-07 09:56] LABS: AST(SGOT) 14 U/L (15-37); Alanine Aminotransfer ALT/SGPT 22 U/L (16-61); Albumin, Serum 3.4 g/dL (3.2-5.0); Alkaline Phosphatase 82 U/L (45-117); Anion Gap 3 (5-15); BUN 14 mg/dL (7-18); BUN/Creat Ratio 11.8 RATIO (10-20); Chloride 105 mmol/L (98-107); Cholesterol 77 mg/dL (200); Creatinine, Serum 1.19 mg/dL (0.70-1.30); EST Glomerular Filtration Rate 63 mL/min (>60); Est Glom Filt Rate - Afr Amer 77 mL/min (>60); Globulin 3.4 g/dL (2.2-4.2); Glucose 96 mg/dL (74-106); High Density Lipoprotein 18 mg/dL; Potassium 4.1 mmol/L (3.5-5.1); Protein, Total 6.8 g/dL (6.4-8.2); Sodium Level 140 mmol/L (136-145); Triglycerides 211 mg/dL; Very Low Density Lipoprotein 42 mg/dL (5-40)
== END 2022-01-07 23:59 | disposition home or self-care (01) ==
LOC: LAB 08:14
PROVIDERS: PCP Nurse Practitioner Family; Referring Provider Nurse Practitioner Family; Visit Provider Nurse Practitioner Family
DX: E11.9 Type 2 diabetes mellitus without complications (principal); I10 Essential (primary) hypertension; E78.5 Hyperlipidemia, unspecified; I25.10 Atherosclerotic heart disease of native coronary artery without angina pectoris; K21.9 Gastro-esophageal reflux disease without esophagitis
CPT/HCPCS: 36415; 80053; 80061; 83036; 85027

== ENCOUNTER 2022-04-12 12:10 | Day surgery (SDC) | payer MEDICARE, OTHER, SELFPAY ==
[2022-04-12] MEDS: Lactated Ringers 1,000 ML 15 ML IV (12:20)
[2022-04-12 12:32] VITALS: BP 162/97; PULSE 66; RESP 18; TEMP 36.2; O2SAT 100; BMI 28.3
--- NOTE | 2022-04-12 13:15 | COLBX_PTH ---
PATIENT: CLAUDINE BARONE LOC: EN U#:[id number] AGE/SX: 77/M ROOM: RE04/12/[address]: Dr. Drew Branham MD : 1945 BED: DIS: 04/12/2022 SPEC #: [id number] RECD: 04/12/22 14:43 STATUS: MICHEL REAlan #: [id number] EDWIGE: 04/12/22 13:[address]: Drew Branham DEPT: SURGICAL PATHOLOGY RECD BY: Sujata Delvalle ENTERED: 04/13/22 07:51 SP TYPE: COLON BX OT DR: Jacoby Oviedo, MASTER MECHANIC-C Tissues: A - Ascending colon B - Descending colon Procedures: Surgery Specimen Level IV HEADER OPERATION: Colonoscopy (MAC) PRE-OP DIAGNOSIS: Surveillance colonoscopy for history of colon polyps TISSUE SUBMITTED: A ? Ascending colon polyp, B ? Descending colon polyp biopsy MICROSCOPIC DIAGNOSIS A. Ascending colon polyp, biopsy: Tubular adenoma with cautery artifacts. B. Descending colon polyp, biopsy: Tubular adenoma. YAN:nya 04/14/2022 MICROSCOPIC DESCRIPTION Slides are reviewed. GROSS DESCRIPTION A - Received in fixative is one container labeled with the patient's name and designated ascending colon polyp. The specimen consists of one irregular fragment of light lloyd soft tissue that measures 0.3 x 0.2 x 0.1 cm. The specimen is totally submitted in one cassette. B - Received in fixative is one container labeled with the patient's name and designated descending colon polyp biopsy. The specimen consists of one irregular fragment of light lloyd soft tissue that measures 0.4 x 0.3 x 0.1 cm. The specimen is totally submitted in one cassette. / YAN:nya 04/13/2022 TC:1 CPT: 41456 x2
--- NOTE | 2022-04-12 13:22 | HP.PCM_ITS ---
History and Physical Date of Admission: 04/12/22 HISTORY AND PHYSICAL ? Ananth Szymanski 1945 ? REFERRING PHYSICIAN: Self ? CHIEF COMPLAINT: Consult (colonoscopy) ? HPI: The patient is a pleasant 77 year old male presents for screening for colon cancer via colonoscopy ? The patient denies blood in stools, denies abdominal pain, and denies changes in bowel habits. ? The patient notes no colon cancer in immediate family. ? The patient has previous colonoscopy in 2017 with findings of multiple tubular adenomas and was rec'd for follow up in 5 years. ? ? PAST MEDICAL HISTORY Diagnosis Date ? Diabetes mellitus (HCC) ? ? Essential hypertension ? ? Kidney stones ? ? PAST SURGICAL HISTORY Procedure Laterality Date ? COLONOSCOPY ? 2017 ? PAST SURGICAL HISTORY OF ? 2017 ? open heart surgery ? REMOVE KIDNEY STONE ? Current Outpatient Medications Medication Sig ? omeprazole (PRILOSEC) 40 mg capsule ? ? TRULICITY 4.5 mg/0.5 mL pen injector ? ? TRESIBA FLEXTOUCH U-200 200 unit/mL (3 mL) injection ? ? metoprolol tartrate, short acting, (LOPRESSOR) 25 mg tablet ? ? allopurinol (ZYLOPRIM) 100 mg tablet Take 100 mg by mouth once daily. ? Psyllium powd Take 1 Packet by mouth once daily. ? aspirin 81 mg chewable tablet Take 81 mg by mouth once daily. ? atorvastatin (LIPITOR) 20 mg tablet Take 20 mg by mouth once daily. ? Tadalafil (CIALIS) 5 mg tablet Take 5 mg by mouth. ? clopidogrel (PLAVIX) 75 mg tablet Take 75 mg by mouth once daily. ? metFORMIN (GLUCOPHAGE) 1,000 mg tablet Take 1,000 mg by mouth twice daily with meals. ? metoprolol feliz-hydrochlorothiaz 25-12.5 mg Tb24 Take by mouth. ? tamsulosin ER (FLOMAX) 0.4 mg cp24 Take 0.4 mg by mouth. ? acetaminophen (TYLENOL) 325 mg tablet Take 650 mg by mouth every 6 hours as needed. ? CLENPIQ 10 mg-3.5 gram -12 gram/160 mL soln Refer to instructions given by your provider. ? Al Hyd-Mg Tr-Alg Ac-Sod Bicarb (GAVISCON) 80-14.2 mg tablet Aluminum Hydroxide / magnesium trisilicate Mag/Aluminum/Sod Bicarb/Alginc [Gaviscon 80- 14.2 Mg Tab Chew] 2 EA PO NEEDED PRN For bowels May 31, 2018 Active 05-31-2018 [facility] ([id number]) ? iv contrast (radiology procedure) CT Enterography W Inject, intravenously, once for 1 dose.No IV access, insert saline lock prior to the beginning of sedation, infusion, injection of imaging exam. Discontinue saline lock post exam. If Pt. has a central line or IVAD, may access for administration according to line specific nursing protocol. Once exam is complete flush line and de- access according to line specific nursing protocol in the CT contrast administration guidelines link. ? enteric contrast (radiology procedure) For CT ENTEROGRAPHY W IVCON order Administer, As Directed One Time Only, via Oral, Rectal, both Oral and Rectal, Enteric Tube, Stoma or Indwelling Catheter,? Enteric Contrast as designated per enteric contrast guidelines. ? dicyclomine (BENTYL) 20 mg tablet Take 20 mg by mouth every 6 hours. ? mometasone (ELOCON) 0.1 % cream Apply to affected area once daily. ? glimepiride (AMARYL) 1 mg tablet Take 2 mg by mouth daily with breakfast. ? Multivitamin capsule Take 1 capsule by mouth once daily. ? ? ALLERGIES: Caffeine, Ibuprofen, and Penicillin ? PERSONAL HISTORY: Social History ? Tobacco Use ? Smoking status: Former Smoker ? Smokeless tobacco: Never Used ? Tobacco comment: QUIT 35 years ago Vaping Use ? Vaping Use: Never used Substance Use Topics ? Alcohol use: Yes ? ? Comment: occasional ? Drug use: No ? FAMILY HISTORY Problem Relation Age of Onset ? Pancreatic Cancer Father ? ? Coronary Artery Disease Father ? ? Heart disease Father ? ? Hypertension Father ? ? The review of systems data was entered by the nurse and reviewed by me ? Nursing Notes: Nirmala Zhou RN 01/29/2022 1:20 PM Signed REVIEW OF SYSTEMS: General: The patient denies fatigue, denies weight loss, denies weight gain, denies feeling hot, and denies feelings of cold. Eyes: The patient denies glaucoma, denies eye injury/surgery, wears glasses or contacts. Ear/Nose/Throat: The patient NOTES allergies, denies hayfever, denies ear infections, and denies bloody noses. Cardiovascular: The patient NOTES chest pain, NOTES heart disease, NOTES high blood pressure,denies cardiac stent, NOTES prior heart attack, NOTES irregular heart beat, NOTES high cholesterol, denies poor circulation, denies heart failure, other cardiac issues, denies claudication, denies cold feet, denies peripheral arterial stent. Respiratory: The patient denies tuberculosis, NOTES pneumonia, denies frequent cough, denies pulmonary embolism, denies shortness of breath, and denies coughing up blood. Gastrointestinal: The patient denies difficulty swallowing, denies acid reflux, denies ulcers, denies vomiting, denies jaundice/hepatitis, denies gallbladder problems, denies black or tarry stools, NOTES hemorrhoids, denies bleeding from rectum, denies diverticulitis, denies constipation, denies diarrhea, denies loss of stool control, and denies hernias. Kidney/Bladder: The patient NOTES kidney stones, denies urine infections, and denies bloody urine. Skin: The patient denies a history of skin cancer, denies bleeding/changing moles, and denies a history of skin rash. Neurologic: The patient denies a history of epilepsy/convulsions, NOTES headaches, denies head/spinal injuries, and denies stroke/TIA. Psychiatric: The patient denies psychiatric medications, denies depression, and denies voices, denies substance abuse. Endocrine: The patient denies thyroid disorders, NOTES diabetes, and denies hormonal problems. Hematologic: The patient NOTES a history of bruising, denies bleeding, and denies anemia, denies blood clots. Infections: The patient NOTES a history of measles and mumps, denies rheumatic fever, and denies sexually transmitted diseases. Musculoskeletal: The patient NOTES back pain/injury, denies back problems, NOTES sciatica, denies knee/foot trouble, denies arthritis, or denies gout. When was patient's last Mammogram screening? N/A Last Colonoscopy: 2017 Nirmala Zhou RN ? ? PHYSICAL EXAMINATION: ? General: The patient is 77 year old male, well nourished, well hydrated in no acute distress. The patient is oriented to time, place, and person. ? VITALS: Blood pressure 130/74, pulse (!) 53, temperature 36.4 ?C (97.5 ?F), height 175.3 cm (5' 9), weight 91.3 kg (201 lb 3.2 oz), SpO2 98 %. Body mass index is 29.71 kg/m?. ? Head: Normal cephalic, atraumatic ? Eyes: pupils are equally round, sclera are clear/anicteric ? Neck is supple with no tracheal deviation ? Respiratory: Normal respiratory excursion and pattern. ? Abdominal exam: benign ? Extremities: no clubbing, cyanosis or edema. ? Neuro: non focal ? Psych: normal mood ? ? Assessment IMPRESSION: surveillance colonoscopy for history of colon polyps ? PLAN: I have discussed the above with the patient. I have offered colonoscopy , possible biopsies I have explained the procedure to the patient. I have counseled the patient as to the risks of the procedure, including but not limited to: infection, bleeding, injury to any intrabdominal organs such as liver/spleen, perforation of the GI tract, inability to complete the procedure, complications of anesthesia, etc. ? the patient understands. ? The patient was offered a surgery/procedure at a [facility] facility. The provider and patient have discussed in detail the risk of exposure to and/or potential harm posed by the COVID-19 virus with having a surgery/procedure at this time versus the risk of? delaying the surgery/procedure. It is not possible to know either the risk of delaying the surgery or procedure or chance of getting an infection with perfect accuracy, but a joint decision was made between the patient and the provider ?to proceed at this time with the scheduled surgery/procedure. ? I have explained to the patient the difference between IV conscious sedation and MAC anesthesia - and I have offered either, according to the patient's wishes. I have explained that with IV conscious sedation there is no anesthesia provider available and therefore there is a limitation of the amount of IV medications that can be given and that the patient may wake up in the middle of the procedure and/or experience pain/discomfort during the procedure. Further discussion was done and the patient was given the opportunity to ask questions and all questions were answered. The patient chooses IV conscious sedation. ? The patient wishes to proceed. I have answered all questions to the patient?s satisfaction and the patient has no further questions. ? Will order Clenpiq colon cleansing preparation as per patient's request. ? Diagnoses: (Z86.010) History of colonic polyps (primary encounter diagnosis) ? I have confirmed and edited as necessary, the PFSH and ROS obtained by others. ? Medical Decision Making: Risk: Low: Low risk from testing/treatment ? Medical Decision Making Level: 2 - Straightforward ? . ? Tess Kothari MD I have re-examined the patient. There are no clinical changes since date of exam.
[2022-04-12 13:50] LABS: Bedside Glucose 89 mg/dL (74-106)
--- NOTE | 2022-04-12 14:05 | OP.COLON_ITS ---
Patient Name: Ananth Szymanski Procedure Date: 04/12/2022 1:31 PM Date of : 1945 Age: 77 Procedure: Colonoscopy Indications: High risk colon cancer surveillance: Personal history of colonic polyps Providers: Drew Branham MD Referring MD: Drew Branham MD Medicines: See the Anesthesia note for documentation of the administered medications Patient Profile: This is a 77 year old male. Refer to note in patient chart for documentation of history and physical. Last Colonoscopy: 2016. Complications: No immediate complications. Estimated blood loss: Minimal. Procedure: Pre-Anesthesia Assessment: - Prior to the procedure, a History and Physical was performed, and patient medications and allergies were reviewed. The patient's tolerance of previous anesthesia was also reviewed. The risks and benefits of the procedure and the sedation options and risks were discussed with the patient. All questions were answered, and informed consent was obtained. Prior Anticoagulants: The patient has taken Plavix (clopidogrel), last dose was 5 days prior to procedure. ASA Grade Assessment: III - A patient with severe systemic disease. After reviewing the risks and benefits, the patient was deemed in satisfactory condition to undergo the procedure. After I obtained informed consent, the scope was passed under direct vision. Throughout the procedure, the patient's blood pressure, pulse, and oxygen saturations were monitored continuously. The Colonoscope was introduced through the anus and advanced to the cecum, identified by appendiceal orifice and ileocecal valve. The colonoscopy was performed without difficulty. The patient tolerated the procedure well. The quality of the bowel preparation was good. The ileocecal valve, appendiceal orifice, and rectum were photographed. Scope In: 1:40:30 PM Scope Withdrawal Time 0 hours 8 minutes 53 seconds Scope Out: 1:58:26 PM Total Procedure Duration Time 0 hours 17 minutes 56 seconds Findings: A small polyp was found in the ascending colon. The polyp was sessile. The polyp was removed with a hot snare. Resection and retrieval were complete. A few small-mouthed diverticula were found in the sigmoid colon. Non-bleeding internal hemorrhoids were found during retroflexion. The hemorrhoids were mild and small. The exam was otherwise without abnormality. Impression: - One small polyp in the ascending colon, removed with a hot snare. Resected and retrieved. - Diverticulosis in the sigmoid colon. - Non-bleeding internal hemorrhoids. - The examination was otherwise normal. Recommendation: - Patient has a contact number available for emergencies. The signs and symptoms of potential delayed complications were discussed with the patient. Return to normal activities tomorrow. Written discharge instructions were provided to the patient. - Resume previous diet. - Continue present medications. - Await pathology results. - Repeat colonoscopy in 3 - 5 years for surveillance. - Return to physician metallurgical laboratory assistant in 1 week. Procedure Code(s): --- Professional --- 72664, Colonoscopy, flexible; with removal of tumor(s), polyp(s), or other lesion(s) by snare technique Diagnosis Code(s): --- Professional --- Z86.010, Personal history of colonic polyps D12.2, Benign neoplasm of ascending colon K64.8, Other hemorrhoids K57.30, Diverticulosis of large intestine without perforation or abscess without bleeding CPT copyright 2017 [employer]. All rights reserved. The codes documented in this report are preliminary and upon distribution tech review may be revised to meet current compliance requirements. MD Drew Shahid MD 04/12/2022 2:05:03 PM This report has been signed electronically. Number of Addenda: 0 Note Initiated On: 04/12/2022 1:31 PM
[2022-04-12 14:06] VITALS: BP 153/119; PULSE 77; RESP 16; TEMP 36.3; O2SAT 94
--- NOTE | 2022-04-12 14:06 | OP.CCLET_ITS ---
04/12/2022 Jacoby Oviedo Re : Colonoscopy procedure for Ananth Heard Preet This procedure was performed on Tuesday, April 12, 2022. My impressions and recommendations are as follows: Impressions : - One small polyp in the ascending colon, removed with a hot snare. Resected and retrieved. - Diverticulosis in the sigmoid colon. - Non-bleeding internal hemorrhoids. - The examination was otherwise normal. Recommendations : - Patient has a contact number available for emergencies. The signs and symptoms of potential delayed complications were discussed with the patient. Return to normal activities tomorrow. Written discharge instructions were provided to the patient. - Resume previous diet. - Continue present medications. - Await pathology results. - Repeat colonoscopy in 3 - 5 years for surveillance. - Return to physician assistant analyst in 1 week. My findings are described in the full procedure note, which is enclosed. If I can be of further assistance, please feel free to contact me at Doctor phone number(s): , Work: . Sincerely, MD Drew Shahid MD 04/12/2022 2:05:03 PM This report has been signed electronically.
[2022-04-12 14:10] VITALS: BP 105/67; PULSE 71; RESP 16; O2SAT 97
[2022-04-12 14:14] VITALS: BP 105/69; PULSE 67; RESP 16; O2SAT 97
[2022-04-12 14:19] VITALS: BP 113/74; PULSE 67; RESP 16; O2SAT 96
[2022-04-12 14:21] VITALS: BP 113/70; PULSE 66; RESP 16; TEMP 36.6; O2SAT 98
== END 2022-04-12 15:00 | disposition home or self-care (01) ==
LOC: EN 12:11 → AC 12:12
PROVIDERS: PCP Nurse Practitioner Family; Referring Provider Surgery; Visit Provider Surgery
PROC: 0DJD8ZZ Inspection of Lower Intestinal Tract, Via Natural or Artificial Opening Endoscopic (ICD-10-PCS; CPT 45378; principal; 2022-04-12 13:10)
DX: Z12.11 Encounter for screening for malignant neoplasm of colon (principal); E11.9 Type 2 diabetes mellitus without complications; D12.4 Benign neoplasm of descending colon; D12.2 Benign neoplasm of ascending colon; K64.8 Other hemorrhoids; I25.10 Atherosclerotic heart disease of native coronary artery without angina pectoris; I25.2 Old myocardial infarction; N40.0 Benign prostatic hyperplasia without lower urinary tract symptoms; I10 Essential (primary) hypertension; K57.30 Diverticulosis of large intestine without perforation or abscess without bleeding; E78.00 Pure hypercholesterolemia, unspecified; Z86.73 Personal history of transient ischemic attack (TIA), and cerebral infarction without residual deficits; Z87.891 Personal history of nicotine dependence; Z79.82 Long term (current) use of aspirin; Z79.84 Long term (current) use of oral hypoglycemic drugs; Z79.899 Other long term (current) drug therapy; Z79.02 Long term (current) use of antithrombotics/antiplatelets; Z95.1 Presence of aortocoronary bypass graft; Z79.01 Long term (current) use of anticoagulants
CPT/HCPCS: 45385; 82962; 88305; J7120

== ENCOUNTER → 2022-07-06 | Outpatient (CLI) | payer MEDICARE, OTHER, SELFPAY ==
[2022-07-06 11:52] LABS: ALB/GLOB Ratio 0.9 RATIO (0.9-2.4); AST(SGOT) 13 U/L (15-37); Alanine Aminotransfer ALT/SGPT 22 U/L (16-61); Albumin, Serum 3.3 g/dL (3.2-5.0); Alkaline Phosphatase 92 U/L (45-117); Anion Gap 5 (5-15); BUN 14 mg/dL (7-18); BUN/Creat Ratio 12.6 RATIO (10-20); Calcium,Total 8.5 mg/dL (8.5-10.1); Chloride 102 mmol/L (98-107); Cholesterol 76 mg/dL (200); Creatinine, Serum 1.11 mg/dL (0.70-1.30); EST Glomerular Filtration Rate 69 mL/min (>60); Est Glom Filt Rate - Afr Amer 83 mL/min (>60); Globulin 3.7 g/dL (2.2-4.2); Glucose 101 mg/dL (74-106); High Density Lipoprotein 18 mg/dL; PSA,Total- Diagnostic 2.86 ng/mL (0.0-4.0); Potassium 4.2 mmol/L (3.5-5.1); Sodium Level 138 mmol/L (136-145); Triglycerides 214 mg/dL; Very Low Density Lipoprotein 43 mg/dL (5-40)
[2022-07-06 11:54] LABS: Hemoglobin A1c 6.4 % (3.8-5.6)
== END | disposition home or self-care (01) ==
LOC: LAB 10:16
PROVIDERS: PCP Nurse Practitioner Family; Referring Provider Nurse Practitioner Family; Visit Provider Nurse Practitioner Family
DX: I10 Essential (primary) hypertension (principal); E11.9 Type 2 diabetes mellitus without complications; E78.5 Hyperlipidemia, unspecified; I25.10 Atherosclerotic heart disease of native coronary artery without angina pectoris; N40.0 Benign prostatic hyperplasia without lower urinary tract symptoms
CPT/HCPCS: 36415; 80053; 80061; 83036; 84153

== ENCOUNTER → 2022-09-22 | Outpatient (CLI) | payer MEDICARE, OTHER, SELFPAY ==
--- NOTE | 2022-09-22 06:28 | ECHOCS_ITS ---
Reason For Study: S/P CABG Procedure This was a 2D Doppler, Color Flow transthoracic echocardiogram. The study was technically difficult. Exam performed in department. Left Ventricle Normal LV size. Left ventricular systolic function is normal. The estimated ejection fraction is 60 %. No regional wall motion abnormalities noted. Right Ventricle Normal RV size. Normal systolic function. Atria Normal left atrium. Normal right atrium. Bubble contrast study negative for right to left interatrial shunt. Mitral Valve Normal mitral valve. Tricuspid Valve Normal tricuspid valve. Mild (1+) tricuspid valve insufficiency. Pulmonary artery systolic pressure is 34 mmHg. Aortic Valve Trisinus/trileaflet aortic valve. Pulmonic Valve Normal pulmonic valve. Great Vessels Normal aortic root. The pulmonary artery is normal size. Normal inferior vena cava. Pericardium/Pleural No pericardial effusion. Medication Diluted definity 2ml given slow IV push to enhance endocardial definition. Performed a rapid injection of agitated mix of 9 cc saline and 1cc air to assess for atrial septal defect. MMode/2D Measurements & Calculations LVIDd: 5.5 cm IVSd: 0.99 cm Ao root diam: 3.2 cm LVIDs: 4.4 cm LVPWd: 0.98 cm RVDd: 3.0 cm FS: 19.7 % LAV(MOD-bp): 40.0 ml LVAd ap4: 30.9 cm2 SV(MOD-sp4): 45.8 ml LAV(MOD-bp) Indexed: 28.1 ml/m2 LVLd ap4: 8.3 cm LAV(MOD-sp2): 39.6 ml EDV(MOD-sp4): 97.1 ml LAV(MOD-sp4): 36.3 ml EDV(sp4-el): 97.4 ml LVAs ap4: 20.7 cm2 LVLs ap4: 7.3 cm ESV(MOD-sp4): 51.3 ml ESV(sp4-el): 49.6 ml EF(MOD-sp4): 47.2 % EF(sp4-el): 49.0 % SV(sp4-el): 47.8 ml LA A4 area: 17.2 cm2 LA dimension(2D): 3.7 cm RA A4 area: 15.3 cm2 Time Measurements MV dec time: 0.18 sec Doppler Measurements & Calculations MV E max bucky: 64.6 cm/sec Lat Peak E' Bucky: 10.3 cm/sec Med Peak E' Bucky: 7.2 cm/sec MV A max bucky: 101.5 cm/sec E/E' lat: 6.3 E/E' med: 8.9 MV E/A: 0.64 Ao V2 max: 146.2 cm/sec LV V1 max: 89.2 cm/sec PA V2 max: 136.5 cm/sec Ao max P.6 mmHg LV V1 max P.2 mmHg TR max bucky: 276.3 cm/sec TR max P.5 mmHg ECHO/Echo Complete W/ Contrast Interpretation Summary Normal LV size. Left ventricular systolic function is normal. The estimated ejection fraction is 60 %. Bubble contrast study negative for right to left interatrial shunt. Pulmonary artery systolic pressure is 34 mmHg. Contrast injection was performed. Ordering Physician: Jhonny Jackson Referring Physician: KYLE ZHOU Performed By: Jory Heredia RDCS
--- NOTE | 2022-09-22 09:04 | STRESSREP ---
Stress Test Report Pharmacologic myocardial perfusion stress test. 77-year-old man with a history of coronary artery disease. Stress protocol: Resting EKG demonstrates normal sinus rhythm with a rate of 75 bpm resting blood pressure is 118/80 mmHg. 0.4 mg of regadenoson was infused per usual protocol followed by Intravenous saline flush injection continuous EKG monitoring was performed. The maximum heart rate attained was 123 bpm which was 84% of max impacted heart rate the maximum workload was 1 metabolic equivalent. At rest there were no ST or T wave changes noted to suggest abnormal flow reserve and at peak infusion nonspecific ST changes were noted with did not meet the criteria for ischemia. No clinical angina was noted. The test was terminated due to completion of the protocol. Myocardial perfusion protocol. 8.8 mCi of technetium 99m sestamibi was injected at rest. 0.4 mg of regadenoson was infused per usual protocol. At peak infusion 32.1 mCi of technetium 99m sestamibi was injected stress images were obtained stress and rest images were reconstructed and compared in the short axis vertical long and horizontal long axis. Gated images were also obtained Perfusion SPECT analysis: Review of the stress images demonstrates mildly reduced perfusion noted in the mid anterior wall on the stress and rest images to a similar extent. There is also a focal area in the mid lateral wall with a medium size perfusion defect. The resting images demonstrate a similar pattern in the anterior wall as well as in the lateral wall. The above is suggestive of a previous lateral infarct. No ischemia is noted. Gated ejection fraction. Estimated ejection fraction is 58%. Conclusion: Pharmacologic myocardial perfusion stress test with no evidence of ischemia noted. 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
== END | disposition home or self-care (01) ==
LOC: CVS 06:26
PROVIDERS: PCP Nurse Practitioner Family; Referring Provider Internal Medicine Cardiovascular Disease; Visit Provider Internal Medicine Cardiovascular Disease
DX: I25.10 Atherosclerotic heart disease of native coronary artery without angina pectoris (principal); I71.40 Abdominal aortic aneurysm, without rupture, unspecified; Z95.1 Presence of aortocoronary bypass graft
CPT/HCPCS: 78452; 93017; 93306; A9500; Q9957; A4216; C8929; J2785

== ENCOUNTER → 2022-10-01 | Outpatient (CLI) | payer MEDICARE, OTHER, SELFPAY ==
--- NOTE | 2022-10-01 08:05 | US_ITS ---
PROCEDURES: ULTRASOUND AORTA REASON FOR EXAM: Male, 77 years old. AAA TECHNIQUE: Ultrasound evaluation of the aorta was performed with real-time and static vo-scale imaging. COMPARISON: CT May 05, 2001. FINDINGS: There is obscuration of the abdominal aorta by overlying bowel gas Aorta measures: Proximal 2.3 cm. Middle 1.8 cm. Distal 3.0 cm. Aorta measure transversely: Proximal 2.1 cm. Middle 2.4 cm. Distal 3.3 cm. Right iliac artery measures: 0.9 cm. Right iliac artery measure transversely: 1.4 cm. Left iliac artery measures: 0.8 cm. Left iliac artery measure transversely: 0.8 cm. There is a demonstrated aneurysm. US/US ABD AORTA SCREEN/AAA IMPRESSION: Infrarenal abdominal aortic aneurysm. Electronically Signed: Ion Mahajan MD at 9:21 EST ,
== END | disposition home or self-care (01) ==
LOC: US 07:59
PROVIDERS: PCP Nurse Practitioner Family; Visit Provider Internal Medicine Cardiovascular Disease
DX: I71.43 Infrarenal abdominal aortic aneurysm, without rupture (principal)
CPT/HCPCS: 76706

== ENCOUNTER 2022-10-21 11:00 | Outpatient (RCR) | payer MEDICARE, OTHER, SELFPAY ==
--- NOTE | 2022-09-23 11:34 | HP.PTEVAL_ITS ---
Patient's Visit Information CLAUDINE BARONE is a 77 year old M referred to Physical Therapy by Jacoby Oviedo, ALYSSA-C with a diagnosis of Chronic back pain. Date of Evaluation: 09/23/22 Physical Therapist: MELODY AmaralT, OCS, CSCS - Visit Plan Frequency: 2x /Week Duration: 4-6 Weeks Plan: 2x/week for 4-6 weeks for.. 1. rollout and stretch gluts, quads, psoas and progress to HEP. 2. pelvic and LB mobility exercises. 3. core NS strength and progress to HEP. Home vs gym. Emphasize NS with ambulation and ex. Aggressive pelvic, LB ROM flexion bias. - Subjective Lori got LBP. Had it twenty years ago and it went away . it came back about 6 months ago for no apparent reason. Has some deterioration of discs. Had x ray long time ago showing DDD. Saw chiropractor a few times which did not help. No t on meds except tylenol and has not had injections. Problem is standing and walking and wants to go on cruise in [place]. Avoids walking dog b/c a mile is all he can tolerate and then it hurts for a while.Pain is mid LB and down into B buttocks. Nothing further down legs. No numbness or tingling. Sits down and feels better. Sitting and sleeping are no problem. Basic ADLs are no problem. Jarring and steps can hurt a lot. 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 - Pain LBP Pain Intensity (Out of 10): 0 Pain Intensity Range: 0, 6 - Objective Walks I with short stance time on R but no problems and good balance. Transfers I chair and bed, pain with shear force in supine pelvic movements. L/S AROM is poor in extension and painful, flexion is stiff adn painfree, SB are mod limtied adn without pain. poor pelvic mobility but good motor control to the movement that he does have. Hips are very stiff. With ROM WFL but max tight in psoas, quads and mod tightness in HS to -25 90/90 test. reflexes 2/3 patella and achilles B. sensation LE WNL to gross light touch. strength knees and ankles 4+, hip flexion 4 B and painful in LB, abd and ext 3+ B. - slump, - SLR, + instability - Balance/Special Test Scores Oswestry Low Back Score: 11 - Goals Goal 1:: 4 laps a Gault without pain Goal 2:: Pain 80% better adn 1/10 at worst Goal Time Frame: 4-6 Weeks Goal 3:: I management of condtion with posture, stretches and strength ex Goal Time Frame: 4-6 Weeks Goal 4:: oswestry score 5 or better Goal Time Frame: 4-6 Weeks Goal 5:: walk dog>1 mile without pain increase Goal Time Frame: 4-6 Weeks - Rehabilitation Potential Physical Therapy Diagnosis: chronic back pain starting to effect function/ambulation Rehabilitation Potential: Fair - Anticipated Interventions Patient/Client Instruction: Educate patient on: Condition, Plan of Care For the Purpose of:: To decrease pain, To increase ROM, To improve muscle performance and motor function, To increase tolerance to activity/condition/position, To improve ability of physical actions for home/community/work/leisure Therapeutic Exercise to Include: Strength training, Balance training, Postural training, Flexibilty training For the Purpose of:: To decrease pain, To increase ROM, To improve muscle perfor carolyn and motor function, To increase tolerance to activity/condition/position, To improve ability of physical actions for home/community/work/leisure Manual Therapy Techniques to Include: Mobilization, Passive ROM, Soft tissue mobilization For the Purpose of:: To decrease pain, To increase ROM Thank you for the opportunity to evaluate your patient. For Medicare and Medicare HMO plans, please review the plan of care and approve it. It will need to be FAXED BACK to us at [phone] for Medicare purposes. For Medicare only, by signing this I certify the plan of care. Please let me know if there are questions or concerns regarding this plan of care. Physician Signature: Date:
--- NOTE | 2022-10-21 11:49 | HP.PTDCSUM ---
It has been my pleasure to treat CLAUDINE BARONE referred by Jacoby Oviedo NP-Manohar, with the diagnosis of Chronic back pain for a total of 8 visit(s). Discharge Date: 10/21/22 Please see the following information for a summary of their discharge status. Subjective: Feel some relief after exercise but pain returns not too much lately. Walking and standing are still problematic after an hour. Pain gets to 4/10 LB and gone with sitting. NS position helps but hard to find at times. No f/u scheduled with doctor. Doing home exercises and strength at home. LBP Pain Intensity (Out of 10): 0 % Improvement: 10 Objective/Function: Good aROM lumbar but painful extension still. Hurts to walk too far, comfortable sitting. Walks slow but I. Goal 1:: 4 laps a G[place] without pain Goal Progress: No Goal 2:: Pain 80% better adn 1/10 at worst Goal Progress: SLOW Goal 3:: I management of condtion with posture, stretches and strength ex Goal Progress: Progressing Goal 4:: oswestry score 5 or better Goal Progress: Goal Met Goal 5:: walk dog>1 mile without pain increase Goal Progress: Not Progressing Plan: d/c, pt to go back to doctor for next step adn continue NS focus, strength adn ROM at home. Discharge Comments: Pt to doctor for next medical option. Continue home exercises for ROM and strength adn NE position. If there are questions or concerns regarding this patient's physical therapy, please feel free to call me at [phone]. Thank you for the referral of this patient. Sincerely, Travis Richardson, DPT, OCS, CSCS Balance/Gait/Functional tests - Balance/Special Test Scores Oswestry Low Back Score: 5
== END 2022-10-21 13:03 | disposition home or self-care (01) ==
LOC: PT 11:00
PROVIDERS: PCP Nurse Practitioner Family; Referring Provider Nurse Practitioner Family; Visit Provider Nurse Practitioner Family
DX: M54.9 Dorsalgia, unspecified (principal); G89.29 Other chronic pain
CPT/HCPCS: 97110; 97140; 97161; 97164

== ENCOUNTER → 2022-12-15 | Outpatient (CLI) | payer MEDICARE, OTHER, SELFPAY ==
--- NOTE | 2022-12-15 12:17 | MRI_ITS ---
INDICATION: Low back and bilateral lower extremity pain. EXAMINATION: MRI - MR Spine Lumbar W/O Contrast TECHNIQUE: Multiplanar and multisequence MR images of the lumbar spine. IV Contrast Dosage and Agent: None. COMPARISON: 01/13/2018 CT abdomen. FINDINGS: No fracture or acute osseous abnormality. Marked disc degeneration at L3-4 with complete loss of disc space, vacuum phenomenon, and prominent endplate and vertebral body degenerative signal changes, similar to the previous CT. Marked bilateral facet degeneration L4-5 and to a lesser extent L3-4 also similar to prior. Mild, 2 mm, degenerative anterolisthesis of L4 on L5. Alignment otherwise anatomic. Conus terminates at the level of the L2 superior endplate with normal contour and signal. Normal arborization of the cauda equina. At L1-2 and L2-3, mild bilateral facet degeneration causes only mild narrowing of the spinal canal and foramina with no evidence of nerve root impingement. At L3-4, vertebral body osteophytes and facet degeneration with degenerative buckling of the ligamentum flavum causes moderate narrowing of the bilateral subarticular zones and foramina. Disc and ligamentum flavum abut and may compress the traversing bilateral L4 nerve roots in the subarticular zones, and osteophyte abuts but does not displace the exiting bilateral L3 nerve roots in the foramina. At L4-5, diffuse disc bulge, marked bilateral facet degeneration with mild degenerative anterolisthesis and unroofing of the disc, causes moderate to severe narrowing of both subarticular zones with disc and ligamentum flavum likely compressing the traversing bilateral L5 nerve roots. Disc and osteophyte extend into and moderately now both foramina, abutting but not compressing the exiting bilateral L4 nerve roots. At L5-S1, facet osteophytes mildly narrow the foramina. Small disc bulge but no significant narrowing of the spinal canal. Infrarenal abdominal aortic aneurysm 4.4 cm in AP diameter, increased from 3.3 cm. No acute finding in the paraspinal soft tissues. MRI/Spine Lumbar (Routine) IMPRESSION: Marked disc degeneration L3-4. This could cause discogenic pain. Changes at L4-5 which could cause either side L5 radiculopathy. Marked facet degeneration bilaterally at L4-5 with mild anterolisthesis; consider flexion-extension views to assess for mechanical instability. Less prominent degenerative changes at other levels. Electronically Signed: Harinder Norman MD at 3:56 EST Reading Location ID and State: [facility] [place] Tel , Service support ,
== END | disposition home or self-care (01) ==
LOC: MRI 12:17
PROVIDERS: PCP Nurse Practitioner Family; Referring Provider Orthopaedic Surgery; Visit Provider Orthopaedic Surgery
DX: M54.50 Low back pain, unspecified (principal)
CPT/HCPCS: 72148

== ENCOUNTER → 2023-01-04 | Outpatient (CLI) | payer MEDICARE, OTHER, SELFPAY ==
[2023-01-04 10:35] LABS: ALB/GLOB Ratio 0.9 RATIO (0.9-2.4); AST(SGOT) 19 U/L (15-37); Alanine Aminotransfer ALT/SGPT 24 U/L (16-61); Albumin, Serum 3.3 g/dL (3.2-5.0); Alkaline Phosphatase 94 U/L (45-117); Anion Gap 7 (5-15); BUN 13 mg/dL (7-18); BUN/Creat Ratio 11.4 RATIO (10-20); Calcium,Total 8.8 mg/dL (8.5-10.1); Chloride 104 mmol/L (98-107); Cholesterol 71 mg/dL (200); Creatinine, Serum 1.14 mg/dL (0.70-1.30); EST Glomerular Filtration Rate 66 mL/min (>60); Est Glom Filt Rate - Afr Amer 80 mL/min (>60); Globulin 3.6 g/dL (2.2-4.2); Glucose 96 mg/dL (74-106); High Density Lipoprotein 20 mg/dL; Protein, Total 6.9 g/dL (6.4-8.2); Sodium Level 140 mmol/L (136-145); Triglycerides 187 mg/dL; Very Low Density Lipoprotein 37 mg/dL (5-40)
[2023-01-04 11:06] LABS: Hemoglobin A1c 7.4 % (3.8-5.6)
== END | disposition home or self-care (01) ==
LOC: LAB 09:10
PROVIDERS: PCP Nurse Practitioner Family; Referring Provider Nurse Practitioner Family; Visit Provider Nurse Practitioner Family
DX: E11.9 Type 2 diabetes mellitus without complications (principal); I10 Essential (primary) hypertension; E78.5 Hyperlipidemia, unspecified; E78.1 Pure hyperglyceridemia; I25.10 Atherosclerotic heart disease of native coronary artery without angina pectoris
CPT/HCPCS: 36415; 80053; 80061; 83036

== ENCOUNTER → 2023-07-06 | Outpatient (CLI) | payer MEDICARE, OTHER, SELFPAY ==
[2023-07-06 08:27] LABS: ALB/GLOB Ratio 0.9 RATIO (0.9-2.4); AST(SGOT) 19 U/L (15-37); Alanine Aminotransfer ALT/SGPT 25 U/L (16-61); Albumin, Serum 3.2 g/dL (3.2-5.0); Alkaline Phosphatase 89 U/L (45-117); Anion Gap 4 (5-15); BUN 13 mg/dL (7-18); Calcium,Total 8.3 mg/dL (8.5-10.1); Chloride 106 mmol/L (98-107); Cholesterol 81 mg/dL (200); EST Glomerular Filtration Rate 57 mL/min (>60); Est Glom Filt Rate - Afr Amer 69 mL/min (>60); Globulin 3.7 g/dL (2.2-4.2); Glucose 99 mg/dL (74-106); High Density Lipoprotein 19 mg/dL; Potassium 3.7 mmol/L (3.5-5.1); Protein, Total 6.9 g/dL (6.4-8.2); Sodium Level 140 mmol/L (136-145); Triglycerides 292 mg/dL; Very Low Density Lipoprotein 58 mg/dL (5-40)
== END | disposition home or self-care (01) ==
LOC: LAB 07:40
PROVIDERS: PCP Nurse Practitioner Family; Referring Provider Nurse Practitioner Family; Visit Provider Nurse Practitioner Family
DX: I10 Essential (primary) hypertension (principal); E11.9 Type 2 diabetes mellitus without complications; E78.5 Hyperlipidemia, unspecified; I25.10 Atherosclerotic heart disease of native coronary artery without angina pectoris
CPT/HCPCS: 36415; 80053; 80061

== ENCOUNTER → 2023-11-22 | Outpatient (CLI) | payer MEDICARE, OTHER, SELFPAY ==
--- NOTE | 2023-11-22 11:13 | RAD_ITS ---
STUDY: X-RAY - ABDOMEN/PELVIS REASON FOR EXAM: Male, 78 years old. Left kidney stone. TECHNIQUE: Single AP view of the abdomen / pelvis. COMPARISON: Comparison is made with prior study dated 2021. FINDINGS: There is an abundance of fecal material throughout the colon. 2 mm calculus is seen overlying the lower pole of the left kidney. Normal soft tissue structures. There are diffuse degenerative changes of the visualized lumbar spine. RAD/Abdomen Single View IMPRESSION: Stable tiny calculus in the lower pole of the left kidney. Large amount of fecal material is seen in the colon Electronically Signed: Sunil Barnhart MD at 15:02 EST ,
--- OUTSIDE RECORDS SUMMARY | 2023-11-22 11:43 | XMS RPT_ITS | CCD ---
Author Name Unknown Address [address] [place] [address] Organization [facility] Care Team Providers Care [place] Name Role Phone Natividad Ann Unavailable Natividad Ann Unavailable Tania Adam PA-C Unavailable KACI DUMONT Attending Unavailable SELF, SELF Referring Unavailable JACOBY BLOCK APRN, CNP Primary Care Phys ician Jacoby Oviedo CNP Primary Care Provider JACOBY OVIEDO Primary Care Unavailable JACOBY OVIEDO Attending Unavailable JACOBY OVIEDO Attending Unavailable JACOBY OVIEDO Primary Care Unavailable Allergies Allergy Classification Reported Allergen(s) Allergy Type Date of Onset Reaction(s) Facility (19 sources) caffeine drug allergy 5 Intolerance [facility] Work Phone: (17 sources) ibuprofen; Translations: [Ibuprofen] drug allergy 5 Rash [facility] Work Phone: (17 sources) penicillin; Translations: [penicillins] drug allergy 5 Unknown [facility] Work Phone: (5 sources) Ciprofloxacin; Translations: [ciprofloxacin] Drug Allergy Nausea (finding) [facility] (5 sources) Hydrocortisone; Translations: [hydrocortisone topical] Drug Allergy Eruption of skin (disorder) [facility] (5 sources) Lisinopril; Translations: [lisinopril] Drug Allergy Weal (disorder) [facility] (1 source) dulaglutide; Translations: [dulaglutide] Drug Allergy Fatigue (finding), Vomiting (disorder), Diarrhea (finding), Nausea (finding) [facility] (1 source) insulin degludec; Translations: [insulin degludec] Drug Allergy Diarrhea (finding), Headache (finding) [facility] (1 source) metFORMIN; Translations: [metformin] Drug Allergy Diarrhea (finding), Nausea (finding) [facility] Omeprazole; Translations: [omeprazole] Drug Allergy Headache (finding), Nausea (finding) [facility] (1 source) tadalafil; Translations: [tadalafil] Drug Allergy Indigestion (finding), Headache (finding), Nausea (finding) [facility] (1 source) tamsulosin; Translations: [tamsulosin] Drug Allergy Drowsy (finding), Dizziness (finding) [facility] Medic[facility] Current Medications Medication Drug Class(es) Dates Sig (Normalized) Sig (Original) acetaminophen 325 mg oral tablet (17 sources) Start: 08-20-2019 Tylenol 325 mg oral tablet Dose : 650 mg = 2 tab(s), Oral, q4hr, PRN for pain, 0 Refill(s) Start Date: 08/20/19 Status: Ordered Completed/Discontinued Medications Medication Drug Class(es) Dates Sig (Normalized) Sig (Original) ALUM HYDROXIDE-MAG TRISILICATE CHEW (7 sources) Start: 07-12-2017 ANTACID CHEW Two tablets by mouth as needed ALUM HYDROXIDE-MAG TRISILICATE CHEW Jhonny Jackson MD Problems Active Problems Problem Classification Problem Date Documented Da te Episodic/Chronic Abdominal pain (1 source) Epigastric pain 06-03-2022 Episodic Acute myocardial infarction (7 sources) Non-ST elevation (NSTEMI) myocardial infarction; Translations: [Non-ST elevation (NSTEMI) myocardial infarction] Onset: 01-06-2016 01-06-2016 Chronic Aortic; peripheral; and visceral artery aneurysms (12 sources) Abdominal aortic aneurysm; Translations: [Abdominal aortic aneurysm, without rupture] Onset: 01-12-2017 01-12-2017 Chronic Past or Other Problems Problem Classification Problem Date Documented Da te Episodic/Chronic Coronary atherosclerosis and other heart disease (7 sources) Presence of aortocoronary bypass graft; Translations: [Presence of aortocoronary bypass graft] Onset: 01-06-2016 01-06-2016 Episodic Other aftercare (2 sources) 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; Translations: [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] Onset: 01-06-2016 01-06-2016 Episodic Other nutritional; endocrine; and metabolic disorders (7 sources) Body mass index (BMI) 29.0-29.9, adult; Translations: [Body mass index (BMI) 29.0-29.9, adult] Onset: 01-06-2016 04-08-2016 Episodic Unclassified (7 sources) Encounter for screening for malignant neoplasm of colon; Translations: [Encounter for screening for malignant neoplasm of colon] Onset: 09-01-2015 09-01-2015 Episodic Unclassified (14 sources) Family history of ischemic heart disease and other diseases of the circulatory system; Translations: [Family history of ischemic heart disease and other diseases of the circulatory system] 01-06-2016 Episodic Results Test Name Value Interpretation Reference Range Facil ity Vital Signs Date Time Vital Sign Value Performing Clinician Facility 01-29-2022 13:04-0400 Body height 175.3 cm Tess Kothari MD Work Phone: [facility] 01-29-2022 13:04-0400 Body temperature 97.5 [degF] Tess Kothari MD Work Phone: [facility] 01-29-2022 13:04-0400 Body weight 91.26 kg Tess Kothari MD Work Phone: [facility] 01-29-2022 13:04-0400 Diastolic blood pressure 74 mm[Hg] Tess Kothari MD Work Phone: [facility] 01-29-2022 13:04-0400 Heart rate 53 /min Tess Kothari MD Work Phone: [facility] 01-29-2022 13:04-0400 SaO2% (BldA) [Mass fraction] 98 % Tess Kothari MD Work Phone: [facility] 01-29-2022 13:04-0400 Systolic blood pressure 130 mm[Hg] Tess Kothari MD Work Phone: [facility] 08-18-2017 13:48-0400 BMI (Body Mass Index) 29.45 kg/m2 Tania Mahajandiamante MAURER-C [facility] Work Phone: 08-18-2017 13:48-0400 Body Temperature 98.5 [degF] Tania Adam PA-C [facility] Work Phone: 08-18-2017 13:48-0400 Body Temperature 98.49 [degF] Tania Adam PA-C [facility] Work Phone: 08-18-2017 13:48-0400 BP Diastolic 77 mm[Hg] Tania Adam LIBERTAD-C [facility] Work Phone: 08-18-2017 13:48-0400 BP Systolic 118 mm[Hg] Tanai Adam LIBERTAD-C [facility] Work Phone: 08-18-2017 13:48-0400 Height 173.99 cm Tania Adam PA-C [facility] Work Phone: 08-18-2017 13:48-0400 Pulse (Heart Rate) 60 /min Tania Adam LIBERTADAllanC [facility] Work Phone: 08-18-2017 13:48-0400 Respiratory Rate 20 /min Tania Adam LIBERTAD-C [facility] Work Phone: 08-18-2017 13:48-0400 Weight 89.18 kg Tania Mahajandiamante MAURER-C [facility] Work Phone: 07-12-2017 10:50-0400 BMI (Body Mass Index) 29.89 kg/m2 Natividad Ann [facility] Work Phone: 07-12-2017 10:50-0400 BP Diastolic 50 mm[Hg] [facility]ad [facility] Work Phone: 07-12-2017 10:50-0400 BP Systolic 90 mm[Hg] [facility]ividad [facility] Work Phone: 07-12-2017 10:50-0400 Height 173.99 cm Natividad [facility] Work Phone: 07-12-2017 10:50-0400 Pulse (Heart Rate) 68 /min Natividad [facility] Work Phone: 07-12-2017 10:50-0400 Respiratory Rate 20 /min [facility] Work Phone: 07-12-2017 10:50-0400 Weight 90.49 kg [facility]ividad [facility] Work Phone: 01-12-2017 09:13-0500 Heart rate 63 /min Tania Adam PA-C [facility] Work Phone: 07-16-2016 10:22-0400 BSA (Body Surface Area) 2.08 m2 Natividad [facility] Work Phone: 01-07-2016 11:00-0500 Body Temperature 96.9 [degF] [facility]ividad [facility] Work Phone: 01-07-2016 11:00-0500 Pulse Oximetry 98 % [facility]ividad [facility] Work Phone: Encounters Encounter Date Encounter Type Care Provider Facility Start: 10-11-2023 ambulatory JACOBY OVIEDO Facili ty:B Start: 04-08-2023 End: 04-13-2023 ambulatory JACOBY OVIEDO Facility:B Start: 04-08-2023 End: 04-12-2023 Outreach Lab JACOBY OVIEDO PRESS BRAKE OPERATOR - INSTRUCTIONAL RESOURCE TEACHER [facility] Start: 04-19-2022 Telephone encounter Drew mcadams MD Work Phone: General Surgery Procedures Date Procedure Procedure Detail Performing Clinician Start: 09-13-2017 Colonoscopy Tess Kothari MD Work Phone: Start: 07-12-2017 End: 07-12-2017 Follow Up Appt 6 months Jozef Donato Start: 07-12-2017 End: 07-12-2017 CORNELIO Jackson MD Start: 07-12-2017 End: 07-12-2017 Follow Up Appt 6 months Jozef Donato Start: 07-12-2017 End: 07-12-2017 CORNELIO Jackson MD Start: 01-12-2017 End: 01-12-2017 FACILITATOR Sonia Ye PA-C Work Phone: Start: 01-12-2017 End: 01-12-2017 Ecg routine ecg w/least 12 lds w/i&r Sonia Ye PA-C Work Phone: Start: 01-12-2017 End: 01-12-2017 Follow Up Appt 6 months Sonia page PA-C Work Phone: Start: 01-12-2017 End: 01-12-2017 FACILITATOR Sonia Ye PA-C Work Phone: Start: 01-12-2017 End: 01-12-2017 Electrocardiogram, complete Sonia Ye PA-C Work Phone: Start: 01-12-2017 End: 01-12-2017 Follow Up Appt 6 months Sonia page PA-C Work Phone: Start: 07-16-2016 End: 07-16-2016 Follow Up Appt 6 months Jozef Donato Start: 07-16-2016 End: 07-16-2016 CORNELIO Jackson MD Start: 07-16-2016 End: 07-16-2016 Follow Up Appt 6 months Jozef Donato Start: 07-16-2016 End: 07-16-2016 CORNELIO Jackson MD Start: 04-08-2016 End: 04-08-2016 FACILITATOR Sonia Ye PA-C Work Phone: Start: 04-08-2016 End: 04-08-2016 Follow Up Appt 3 months Sonia page PA-C Work Phone: Start: 04-08-2016 End: 04-08-2016 TANNA Ye PA-C Work Phone: Start: 04-08-2016 End: 04-08-2016 Follow Up Appt 3 months Sonia page PA-C Work Phone: Start: 01-07-2016 End: 01-07-2016 Ecg routine ecg w/least 12 lds w/i&r Jhonny Jackson MD Start: 01-07-2016 End: 01-07-2016 Follow Up Appt 3 months Jozef Donato Start: 01-07-2016 End: 01-07-2016 CORNELIO Jackson MD Start: 01-07-2016 End: 01-08-2016 Referral to self sealing fuel tank builder Jhonny Jackson MD Start: 01-07-2016 End: 01-07-2016 Electrocardiogram, complete Jhonny Jackson MD Start: 01-07-2016 End: 01-07-2016 Follow Up Appt 3 months Jozef Donato Start: 01-07-2016 End: 01-07-2016 CORNELIO Jackson MD Start: 01-07-2016 End: 01-08-2016 Referral to self sealing fuel tank builder Jhonny Jackson MD Start: 09-01-2015 End: 09-13-2017 Colonoscopy flx dx w/collj spec when pfrmd Tess Haskins Taye Work Phone: Arthritis (disorder) JACOBY OVIEDO PRESS BRAKE OPERATOR - INSTRUCTIONAL RESOURCE TEACHER Plan of Treatment Date Care Activity Detail Author Start: 09-13-2022 Colonoscopy COLONOSCOPY [facility] Start: 09-13-2022 COLORECTAL CANCER SCREENING COLORECTAL CANCER SCREENING [facility] Start: 02-12-2022 COVID-19 VACCINE (4 - Booster for Moderna series) COVID-19 VACCINE (4 - Booster for Moderna series) [facility] Start: 11-07-2021 ADVANCE DIRECTIVE DISCUSSION ADVANCE DIRECTIVE DISCUSSION [facility] Start: 03-02-2020 DIABETES SCREEN DIABETES SCREEN [facility] Start: 09-13-2018 Colonoscopy COLONOSCOPY [facility] Start: 09-13-2018 COLORECTAL CANCER SCREENING COLORECTAL CANCER SCREENING [facility] Start: 01-10-2018 End: 01-10-2018 Appointment Appointment [facility] Work Phone: Start: 08-18-2017 End: 08-18-2017 Appointment Appointment [facility] Work Phone: Start: 07-12-2017 End: 07-12-2017 Follow Up Appt 6 months Follow Up Appt 6 months [facility] Work Phone: Start: 07-12-2017 End: 07-12-2017 MMM MMM [facility] Work Phone: Start: 07-12-2017 End: 07-12-2017 Follow Up Appt 6 months Follow Up Appt 6 months [facility] Work Phone: Start: 07-12-2017 End: 07-12-2017 MMM MMM [facility] Work Phone: Start: 01-12-2017 End: 01-12-2017 FACILITATOR FACILITATOR [facility] Work Phone: Start: 01-12-2017 End: 01-12-2017 Ecg routine ecg w/least 12 lds w/i&r EKG (In office) [facility] Work Phone: Start: 01-12-2017 End: 01-12-2017 Follow Up Appt 6 months Follow Up Appt 6 months [facility] Work Phone: Start: 01-12-2017 End: 01-12-2017 FACILITATOR FACILITATOR [facility] Work Phone: Start: 01-12-2017 End: 01-12-2017 Electrocardiogram, complete EKG (In office) [facility] Work Phone: Start: 01-12-2017 End: 01-12-2017 Follow Up Appt 6 months Follow Up Appt 6 months [facility] Work Phone: Start: 07-16-2016 End: 07-16-2016 Follow Up Appt 6 months Follow Up Appt 6 months [facility] Work Phone: Start: 07-16-2016 End: 07-16-2016 MMM MMM [facility] Work Phone: Start: 07-16-2016 End: 07-16-2016 Follow Up Appt 6 months Follow Up Appt 6 months [facility] Work Phone: Start: 07-16-2016 End: 07-16-2016 MMM MMM [facility] Work Phone: Start: 04-08-2016 End: 04-08-2016 FACILITATOR FACILITATOR [facility] Work Phone: Start: 04-08-2016 End: 04-08-2016 Follow Up Appt 3 months Follow Up Appt 3 months [facility] Work Phone: Start: 04-08-2016 End: 04-08-2016 FACILITATOR FACILITATOR [facility] Work Phone: Start: 04-08-2016 End: 04-08-2016 Follow Up Appt 3 months Follow Up Appt 3 months [facility] Work Phone: Start: 01-07-2016 End: 03-23-2016 Cardiac Rehab Cardiac Rehab [email or web address] Work Phone: Start: 01-07-2016 End: 01-07-2016 Ecg routine ecg w/least 12 lds w/i&r EKG (In office) [email or web address] Work Phone: Start: 01-07-2016 End: 01-07-2016 Follow Up Appt 3 months Follow Up Appt 3 months [email or web address] Work Phone: Start: 01-07-2016 End: 01-07-2016 MMM MMM [email or web address] Work Phone: Start: 01-07-2016 End: 03-23-2016 Cardiac Rehab Cardiac Rehab [facility] Work Phone: Start: 01-07-2016 End: 01-07-2016 Electrocardiogram, complete EKG (In office) [facility] Work Phone: Start: 01-07-2016 End: 01-07-2016 Follow Up Appt 3 months Follow Up Appt 3 months [facility] Work Phone: Start: 01-07-2016 End: 01-07-2016 MMM MMM [facility] Work Phone: Start: 09-01-2015 End: 09-13-2017 Colonoscopy flx dx w/collj spec when pfrmd Colonoscopy [email or web address] Work Phone: Start: 09-01-2015 End: 09-01-2015 Diagnostic colonoscopy Colonoscopy [facility] Work Phone: Start: 01-15-2012 PNEUMOCOCCAL: 65+ (1 - PCV) PNEUMOCOCCAL: 65+ (1 - PCV) [facility] Start: 01-15-2012 PNEUMOVAX AGE 65 AND OVER WITH 5YR LOOKBACK (#1) PNEUMOVAX AGE 65 AND OVER WITH 5YR LOOKBACK (#1) [facility] Start: 1997 SHINGRIX VACCINE (1 of 2) SHINGRIX VACCINE (1 of 2) [facility] Start: 01-15-1992 COLOGUARD (FIT-DNA) COLOGUARD (FIT-DNA) [facility] Start: 01-15-[address] COLONOGRAPHY [facility] Start: 01-15-1992 FECAL OCCULT BLOOD FECAL OCCULT BLOOD [facility] Start: 01-15-1992 SIGMOIDOSCOPY SIGMOIDOSCOPY [facility] Start: 1982 LIPID SCREEN LIPID SCREEN [facility] Start: 1966 Urine microalbumin profile DTAP,TDAP,TD (1 - Tdap) [facility] Start: 1965 HEPATITIS C SCREENING HEPATITIS C SCREENING [facility] Start: 1959 Adult depression screening assessment DEPRESSION SCREENING [facility] Start: 1947 ABDOMINAL AORTIC ANEURYSM SCREENING ABDOMINAL AORTIC ANEURYSM SCREENING [facility] Patient Education Medications [facility] Work Phone: End: 01-29-2023 Screening colonoscopy COLONOSCOPY SCREENING Endoscopy Routine History of colonic polyps 1 Occurrences starting 01/29/2022 until 01/29/2023 [facility] Work Phone: Immunizations Immunization Date Immunization Notes Care Provider Fa cili 08-15-2022 influenza virus vacc ine, unspecified formulation JACOBY OVIEDO PRESS BRAKE OPERATOR - INSTRUCTIONAL RESOURCE TEACHER [facility] 10-14-2021 SARS-CoV-2 (COVID-19 ) mRNA-1273 vaccine JACOBY OVIEDO PRESS BRAKE OPERATOR - INSTRUCTIONAL RESOURCE TEACHER [facility] 08-05-2021 influenza virus vacc ine, unspecified formulation JACOBY OVIEDO PRESS BRAKE OPERATOR - INSTRUCTIONAL RESOURCE TEACHER [facility] 02-02-2021 SARS-CoV-2 (COVID-19 ) mRNA-1273 vaccine JACOBY OVIEDO PRESS BRAKE OPERATOR - INSTRUCTIONAL RESOURCE TEACHER [facility] 01-05-2021 SARS-CoV-2 (COVID-19 ) mRNA-1273 vaccine JACOBY OVIEDO PRESS BRAKE OPERATOR - INSTRUCTIONAL RESOURCE TEACHER [facility] 07-27-2016 influenza virus vacc ine, unspecified formulation JACOBY OVIEDO PRESS BRAKE OPERATOR - INSTRUCTIONAL RESOURCE TEACHER [facility] 07-29-2015 influenza virus vacc ine, unspecified formulation JACOBY OVIEDO PRESS BRAKE OPERATOR - INSTRUCTIONAL RESOURCE TEACHER [facility] 05-15-2015 pneumococcal conjuga te vaccine, 13 valent JACOBY OVIEDO PRESS BRAKE OPERATOR - INSTRUCTIONAL RESOURCE TEACHER [facility] 05-07-2015 pneumococcal conjuga te vaccine, 13 valent JACOBY OVIEDO PRESS BRAKE OPERATOR - INSTRUCTIONAL RESOURCE TEACHER [facility] 05-06-2015 pneumococcal conjuga te vaccine, 13 valent JACOBY OVIEDO PRESS BRAKE OPERATOR - INSTRUCTIONAL RESOURCE TEACHER [facility] 09-07-2014 influenza virus vacc ine, unspecified formulation JACOBY OVIEDO PRESS BRAKE OPERATOR - INSTRUCTIONAL RESOURCE TEACHER [facility] 01-31-2014 pneumococcal polysaccharide vaccine, 23 valent JACOBY OVIEDO PRESS BRAKE OPERATOR - INSTRUCTIONAL RESOURCE TEACHER [facility] 08-15-2013 influenza virus vacc ine, unspecified formulation JACOBY OVIEDO PRESS BRAKE OPERATOR - INSTRUCTIONAL RESOURCE TEACHER [facility] 08-01-2012 influenza virus vacc ine, unspecified formulation JACOBY OVIEDO PRESS BRAKE OPERATOR - INSTRUCTIONAL RESOURCE TEACHER [facility] 06-07-2011 zoster vaccine, live JACOBY OVIEDO PRESS BRAKE OPERATOR - INSTRUCTIONAL RESOURCE TEACHER [facility] 06-06-2011 zoster vaccine, live JACOBY OVIEDO PRESS BRAKE OPERATOR - INSTRUCTIONAL RESOURCE TEACHER [facility] 03-07-2011 tetanus toxoid, redu chandrakant diphtheria toxoid, and acellular pertussis vaccine, adsorbed JACOBY OVIEDO PRESS BRAKE OPERATOR - INSTRUCTIONAL RESOURCE TEACHER [facility] 03-06-2011 tetanus toxoid, redu chandrakant diphtheria toxoid, and acellular pertussis vaccine, adsorbed JACOBY OVIEDO PRESS BRAKE OPERATOR - INSTRUCTIONAL RESOURCE TEACHER [facility] 11-07-2006 pneumococcal polysaccharide vaccine, 23 valent JACOBY OVIEDO PRESS BRAKE OPERATOR - INSTRUCTIONAL RESOURCE TEACHER [facility] 11-06-2006 pneumococcal polysaccharide vaccine, 23 valent JACOBY OVIEDO PRESS BRAKE OPERATOR - INSTRUCTIONAL RESOURCE TEACHER [facility] Payers Date Payer Category Payer Private Health Insurance [id number] 2017 Medicare [id number] 2015 Private Health Insurance HUMANA HUMANA MEDICARE SUPPLEMENT [id number] 2015-Present [phone] [address] [address] [place] [address] Indemnity [id number] 2012 Medicare MEDICARE MEDICAR E A AND B [id number] 2012-Present [phone] [place] [address] Medicare [id number] 1945 Unknown [id number] 1945 Unknown [id number] 1945 Unknown [id number] Social History Date Type Detail Facility Start: 12-24-2016 End: 07-10-2020 Ex-smoker (finding) [facility] Medical Equipment Procedure Code Equipment Code Equipment Origin al Text Equipment Identifier Dates Blood Glucose Te st Strips Start: 04-03-[address] Start: 04-03-[address] Start: 04-03-2021 See Instructions , 1 bottle of 100 True Metrix Test strips. Pt. tests TID, # 1 EA, 11 Refill(s), Pharmacy: [facility] [address], 172.5, cm, 01/08/21 11:25:00 EST, Height, 91.1, kg, 01/08/21 11:25:00 EST, Dosing Weight Start: 04-03-2021 See Instructions , 1 bottle of 100 True Metrix Test strips. Pt. tests TID, # 1 EA, 11 Refill(s), Pharmacy: [facility] [address], 172.5, cm, 01/08/21 11:25:00 EST, Height, 91.1, kg, 01/08/21 11:25:00 EST, Dosing Weight Start: 04-03-2021 Clinical Notes 01-29-2022 to 04-19-2022 Telephone Encounter - Margarita Gama RN - 04/19/2022 2:17 PM EDTTelephone Encounter - Drew Branham MD - 04/09/2022 12:14 PM EDTTelephone Encounter - Nicole Katz - 04/08/2022 3:40 PM EDT Note Date & Type Note Facility 04-19-2022 Miscellaneous Notes Received results of colonoscopy from 04/12/2022. Per Dr. Branham, the polyp removed was returned as a tubular adenoma and Claudine will need to have a colonoscopy repeated in 5 years. Called Claudine and reviewed Dr. Branham's note. Patient voiced understanding. Health maintenance, surgical history and placed a recall letter for 5 years. Margarita Gama RN documented in this encounter [facility] 04-09-2022 Miscellaneous Notes Sounds good thank you Patient informed and made aware okay to continue Aspirin Nicole Katz Patient called back and is wondering if he should also stop taking his low dose Asprin as well? Nicole Katz Called patient and informed him that he can be seen for his procedure with his originally schedule provider; Dr. Kothari at [facility]. When stated this to the patient per patient stated No way am I going to [place]. I will stick with the doctor I have now and do the procedure at [facility]. Patient is still set to have procedure at [facility] with [place] 04/12 as patient wishes Patient was made aware per Dr. Kothari to hold Plavix X 2 days and will be stopping the medication on 04/10. [facility] called and made aware of holding Plavix X 2 days Nicole Katz Spoke with Dr. Kothari. Claudine was supposed to be placed on her schedule for the colonoscopy, not Dr. Branham. Please reschedule Claudine for [facility] on 04/22/2022. Claudine will need to hold his Plavix for 2 days prior to the procedure. Margarita Gama RN [facility] with [facility] pre admission called regarding patient, medication to be held prior to procedure on 04/12/22. Questioning if patient should hold Plavix? [phone] [facility] pre admission documented in this encounter [facility] 03-09-2022 Miscellaneous Notes 04-12-2022 was rescheduled to [facility], patient received the max does op sedation and should be done in a hospital setting to be properly sedated. Patient agreed to be rescheduled but wishes to be done at [facility]. Due to the original reschedule of Dr Kothari to Dr Branham and then cancellation I scheduled accordingly to patients wishes. 03-12-2022 Colon ASC documented in this encounter [facility] 03-01-2022 Miscellaneous Notes Spoke to patient, will call [facility] and have Rx pulled for CLENPIQ to be filled. documented in this encounter [facility] 01-29-2022 Note HNO ID: [id number] Author: Tess Kothari MD Service: ? Author Type: Physician Type: Progress Notes Filed: 02/01/2022 7:39 AM Note Text: HISTORY AND PHYSICAL Claudine Barone 1945 REFERRING PHYSICIAN: Self CHIEF COMPLAINT: Consult (colonoscopy) HPI: The patient is a pleasant 77 year old male presents for screening for colon cancer via colonoscopy The patient denies blood in stools, denies abdominal pain, and denies changes in bowel habits. The patient notes no colon cancer in immediate family. The patient has previous colonoscopy in 2017 with findings of multiple tubular adenomas and was rec'd for follow up in 5 years. PAST MEDICAL HISTORY Diagnosis Date - Diabetes mellitus (HCC) - Essential hypertension - Kidney stones PAST SURGICAL HISTORY Procedure Laterality Date - COLONOSCOPY 2017 - PAST SURGICAL HISTORY OF 2017 open heart surgery - REMOVE KIDNEY STONE Current Outpatient Medications Medication Sig - omeprazole (PRILOSEC) 40 mg capsule - TRULICITY 4.5 mg/0.5 mL pen injector - TRESIBA FLEXTOUCH U-200 200 unit/mL (3 mL) injection - metoprolol tartrate, short acting, (LOPRESSOR) 25 mg tablet - allopurinol (ZYLOPRIM) 100 mg tablet Take 100 mg by mouth once daily. - Psyllium powd Take 1 Packet by mouth once daily. - aspirin 81 mg chewable tablet Take 81 mg by mouth once daily. - atorvastatin (LIPITOR) 20 mg tablet Take 20 mg by mouth once daily. - Tadalafil (CIALIS) 5 mg tablet Take 5 mg by mouth. - clopidogrel (PLAVIX) 75 mg tablet Take 75 mg by mouth once daily. - metFORMIN (GLUCOPHAGE) 1,000 mg tablet Take 1,000 mg by mouth twice daily with meals. - metoprolol feliz-hydrochlorothiaz 25-12.5 mg Tb24 Take by mouth. - tamsulosin ER (FLOMAX) 0.4 mg cp24 Take 0.4 mg by mouth. - acetaminophen (TYLENOL) 325 mg tablet Take 650 mg by mouth every 6 hours as needed. - CLENPIQ 10 mg-3.5 gram -12 gram/160 mL soln Refer to instructions given by your provider. - Al Hyd-Mg Tr-Alg Ac-Sod Bicarb (GAVISCON) 80-14.2 mg tablet Aluminum Hydroxide / magnesium trisilicate Mag/Aluminum/Sod Bicarb/Alginc [Gaviscon 80-14.2 Mg Tab Chew] 2 EA PO NEEDED PRN For bowels May 31, 2018 Active 05-31-2018 [facility] ([id number]) - iv contrast (radiology procedure) CT Enterography W Inject, intravenously, once for 1 dose.No IV access, insert saline lock prior to the beginning of sedation, infusion, injection of imaging exam. Discontinue saline lock post exam. If Pt. has a central line or IVAD, may access for administration according to line specific nursing protocol. Once exam is complete flush line and de-access according to line specific nursing protocol in the CT contrast administration guidelines link. - enteric contrast (radiology procedure) For CT ENTEROGRAPHY W IVCON order Administer, As Directed One Time Only, via Oral, Rectal, both Oral and Rectal, Enteric Tube, Stoma or Indwelling Catheter,? Enteric Contrast as designated per enteric contrast guidelines. - dicyclomine (BENTYL) 20 mg tablet Take 20 mg by mouth every 6 hours. - mometasone (ELOCON) 0.1 % cream Apply to affected area once daily. - glimepiride (AMARYL) 1 mg tablet Take 2 mg by mouth daily with breakfast. - Multivitamin capsule Take 1 capsule by mouth once daily. ALLERGIES: Caffeine, Ibuprofen, and Penicillin PERSONAL HISTORY: Social History Tobacco Use - Smoking status: Former Smoker - Smokeless tobacco: Never Used - Tobacco comment: QUIT 35 years ago Vaping Use - Vaping Use: Never used Substance Use Topics - Alcohol use: Yes Comment: occasional - Drug use: No FAMILY HISTORY Problem Relation Age of Onset - Pancreatic Cancer Father - Coronary Artery Disease Father - Heart disease Father - Hypertension Father The review of systems data was entered by the nurse and reviewed by wy Nursing Notes: Nirmala Zhou RN 01/29/2022 1:20 PM Signed REVIEW OF SYSTEMS: General: The patient denies fatigue, denies weight loss, denies weight gain, denies feeling hot, and denies feelings of cold. Eyes: The patient denies glaucoma, denies eye injury/surgery, wears glasses or contacts. Ear/Nose/Throat: The patient NOTES allergies, denies hayfever, denies ear infections, and denies bloody noses. Cardiovascular: The patient NOTES chest pain, NOTES heart disease, NOTES high blood pressure,denies cardiac stent, NOTES prior heart attack, NOTES irregular heart beat, NOTES high cholesterol, denies poor circulation, denies heart failure, other cardiac issues, denies claudication, denies cold feet, denies peripheral arterial stent. Respiratory: The patient denies tuberculosis, NOTES pneumonia, denies frequent cough, denies pulmonary embolism, denies shortness of breath, and denies coughing up blood. Gastrointestinal: The patient denies difficulty swallowing, denies acid reflux, denies ulcers, denies vomiting, denies jaundice/hepatitis, denies gallbladder problems, de (more content not included)... [facility] 01-29-2022 Nurse Note REVIEW OF SYSTEMS: General: The patient denies fatigue, denies weight loss, denies weight gain, denies feeling hot, and denies feelings of cold. Eyes: The patient denies glaucoma, denies eye injury/surgery, wears glasses or contacts. Ear/Nose/Throat: The patient NOTES allergies, denies hayfever, denies ear infections, and denies bloody noses. Cardiovascular: The patient NOTES chest pain, NOTES heart disease, NOTES high blood pressure,denies cardiac stent, NOTES prior heart attack, NOTES irregular heart beat, NOTES high cholesterol, denies poor circulation, denies heart failure, other cardiac issues, denies claudication, denies cold feet, denies peripheral arterial stent. Respiratory: The patient denies tuberculosis, NOTES pneumonia, denies frequent cough, denies pulmonary embolism, denies shortness of breath, and denies coughing up blood. Gastrointestinal: The patient denies difficulty swallowing, denies acid reflux, denies ulcers, denies vomiting, denies jaundice/hepatitis, denies gallbladder problems, denies black or tarry stools, NOTES hemorrhoids, denies bleeding from rectum, denies diverticulitis, denies constipation, denies diarrhea, denies loss of stool control, and denies hernias. Kidney/Bladder: The patient NOTES kidney stones, denies urine infections, and denies bloody urine. Skin: The patient denies a history of skin cancer, denies bleeding/changing moles, and denies a history of skin rash. Neurologic: The patient denies a history of epilepsy/convulsions, NOTES headaches, denies head/spinal injuries, and denies stroke/TIA. Psychiatric: The patient denies psychiatric medications, denies depression, and denies voices, denies substance abuse. Endocrine: The patient denies thyroid disorders, NOTES diabetes, and denies hormonal problems. Hematologic: The patient NOTES a history of bruising, denies bleeding, and denies anemia, denies blood clots. Infections: The patient NOTES a history of measles and mumps, denies rheumatic fever, and denies sexually transmitted diseases. Musculoskeletal: The patient NOTES back pain/injury, denies back problems, NOTES sciatica, denies knee/foot trouble, denies arthritis, or denies gout. When was patient's last Mammogram screening? N/A Last Colonoscopy: 2016 Nirmala Zhou RN documented in this encounter [facility] 01-29-2022 History of Presen t illness Narrative HISTORY AND PHYSICAL Claudine Barone 1945 REFERRING PHYSICIAN: Self CHIEF COMPLAINT: Consult (colonoscopy) HPI: The patient is a pleasant 77 year old male presents for screening for colon cancer via colonoscopy The patient denies blood in stools, denies abdominal pain, and denies changes in bowel habits. The patient notes no colon cancer in immediate family. The patient has previous colonoscopy in 2017 with findings of multiple tubular adenomas and was rec'd for follow up in 5 years. PAST MEDICAL HISTORY Diagnosis Date Diabetes mellitus (HCC) Essential hypertension Kidney stones PAST SURGICAL HISTORY Procedure Laterality Date COLONOSCOPY 2016 PAST SURGICAL HISTORY OF 2017 open heart surgery REMOVE KIDNEY STONE Current Outpatient Medications Medication Sig omeprazole (PRILOSEC) 40 mg capsule TRULICITY 4.5 mg/0.5 mL pen injector TRESIBA FLEXTOUCH U-200 200 unit/mL (3 mL) injection metoprolol tartrate, short acting, (LOPRESSOR) 25 mg tablet allopurinol (ZYLOPRIM) 100 mg tablet Take 100 mg by mouth once daily. Psyllium powd Take 1 Packet by mouth once daily. aspirin 81 mg chewable tablet Take 81 mg by mouth once daily. atorvastatin (LIPITOR) 20 mg tablet Take 20 mg by mouth once daily. Tadalafil (CIALIS) 5 mg tablet Take 5 mg by mouth. clopidogrel (PLAVIX) 75 mg tablet Take 75 mg by mouth once daily. metFORMIN (GLUCOPHAGE) 1,000 mg tablet Take 1,000 mg by mouth twice daily with meals. metoprolol feliz-hydrochlorothiaz 25-12.5 mg Tb24 Take by mouth. tamsulosin ER (FLOMAX) 0.4 mg cp24 Take 0.4 mg by mouth. acetaminophen (TYLENOL) 325 mg tablet Take 650 mg by mouth every 6 hours as needed. CLENPIQ 10 mg-3.5 gram -12 gram/160 mL soln Refer to instructions given by your provider. Al Hyd-Mg Tr-Alg Ac-Sod Bicarb (GAVISCON) 80-14.2 mg tablet Aluminum Hydroxide / magnesium trisilicate Mag/Aluminum/Sod Bicarb/Alginc [Gaviscon 80-14.2 Mg Tab Chew] 2 EA PO NEEDED PRN For bowels May 31, 2018 Active 05-31-2018 [facility] ([id number]) iv contrast (radiology procedure) CT Enterography W Inject, intravenously, once for 1 dose.No IV access, insert saline lock prior to the beginning of sedation, infusion, injection of imaging exam. Discontinue saline lock post exam. If Pt. has a central line or IVAD, may access for administration according to line specific nursing protocol. Once exam is complete flush line and de-access according to line specific nursing protocol in the CT contrast administration guidelines link. enteric contrast (radiology procedure) For CT ENTEROGRAPHY W IVCON order Administer, As Directed One Time Only, via Oral, Rectal, both Oral and Rectal, Enteric Tube, Stoma or Indwelling Catheter, Enteric Contrast as designated per enteric contrast guidelines. dicyclomine (BENTYL) 20 mg tablet Take 20 mg by mouth every 6 hours. mometasone (ELOCON) 0.1 % cream Apply to affected area once daily. glimepiride (AMARYL) 1 mg tablet Take 2 mg by mouth daily with breakfast. Multivitamin capsule Take 1 capsule by mouth once daily. ALLERGIES: Caffeine, Ibuprofen, and Penicillin PERSONAL HISTORY: Social History Tobacco Use Smoking status: Former Smoker Smokeless tobacco: Never Used Tobacco comment: QUIT 35 years ago Vaping Use Vaping Use: Never used Substance Use Topics Alcohol use: Yes Comment: occasional Drug use: No FAMILY HISTORY Problem Relation Age of Onset Pancreatic Cancer Father Coronary Artery Disease Father Heart disease Father Hypertension Father The review of systems data was entered by the nurse and reviewed by wy Nursing Notes: Nirmala Zhou RN 01/29/2022 1:20 PM Signed REVIEW OF SYSTEMS: General: The patient denies fatigue, denies weight loss, denies weight gain, denies feeling hot, and denies feelings of cold. Eyes: The patient denies glaucoma, denies eye injury/surgery, wears glasses or contacts. Ear/Nose/Throat: The patient NOTES allergies, denies hayfever, denies ear infections, and denies bloody noses. Cardiovascular: The patient NOTES chest pain, NOTES heart disease, NOTES high blood pressure,denies cardiac stent, NOTES prior heart attack, NOTES irregular heart beat, NOTES high cholesterol, denies poor circulation, denies heart failure, other cardiac issues, denies claudication, denies cold feet, denies peripheral arterial stent. Respiratory: The patient denies tuberculosis, NOTES pneumonia, denies frequent cough, denies pulmonary embolism, denies shortness of breath, and denies coughing up blood. Gastrointestinal: The patient denies difficulty swallowing, denies acid reflux, denies ulcers, denies vomiting, denies jaundice/hepatitis, denies gallbladder problems, denies black or tarry stools, NOTES hemorrhoids, denies bleeding from rectum, denies diverticulitis, denies constipation, denies diarrhea, denies loss of stool control, and denies hernias. Kidney/Bladder: The patient NOTES kidney stones, denies urine infections, and denies bloody urine. Skin: The patient denies a history of skin cancer, denies bleeding/changing moles, and denies a history of skin rash. Neurologic: The patient denies a history of epilepsy/convulsions, NOTES headaches, denies head/spinal injuries, and denies stroke/TIA. Psychiatric: The patient denies psychiatric medications, denies depression, and denies voices, denies substance abuse. Endocrine: The patient denies thyroid disorders, NOTES diabetes, and denies hormonal problems. Hematologic: The patient NOTES a history of bruising, denies bleeding, and denies anemia, denies blood clots. Infections: The patient NOTES a history of measles and mumps, denies rheumatic fever, and denies sexually transmitted diseases. Musculoskeletal: The patient NOTES back pain/injury, denies back problems, NOTES sciatica, denies knee/foot trouble, denies arthritis, or denies gout. When was patient's last Mammogram screening? N/A Last Colonoscopy: 2017 Nirmala Zhou RN PHYSICAL EXAMINATION: General: The patient is 77 year old male, well nourished, well hydrated in no acute distress. The patient is oriented to time, place, and person. VITALS: Blood pressure 130/74, pulse (!) 53, temperature 36.4 C (97.5 F), height 175.3 cm (5' 9 ), weight 91.3 kg (201 lb 3.2 oz), SpO2 98 %. Body mass index is 29.71 kg/m . Head: Normal cephalic, atraumatic Eyes: pupils are equally round, sclera are clear/anicteric Neck is supple with no tracheal deviation Respiratory: Normal respiratory excursion and pattern. Abdominal exam: benign Extremities: no clubbing, cyanosis or edema. Neuro: non focal Psych: normal mood Assessment IMPRESSION: surveillance colonoscopy for history of colon polyps PLAN: I have discussed the above with the patient. I have offered colonoscopy , possible biopsies I have explained the procedure to the patient. I have counseled the patient as to the risks of the procedure, including but not limited to: infection, bleeding, injury to any intrabdominal organs such as liver/spleen, perforation of the GI tract, inability to complete the procedure, complications of anesthesia, etc. the patient understands. The patient was offered a surgery/procedure at a [facility] facility. The provider and patient have discussed in detail the risk of exposure to and/or potential harm posed by the COVID-19 virus with having a surgery/procedure at this time versus the risk of delaying the surgery/procedure. It is not possible to know either the risk of delaying the surgery or procedure or chance of getting an infection with perfect accuracy, but a joint decision was made between the patient and the provider to proceed at this time with the scheduled surgery/procedure. I have explained to the patient the difference between IV conscious sedation and MAC anesthesia - and I have offered either, according to the patient's wishes. I have explained that with IV conscious sedation there is no anesthesia provider available and therefore there is a limitation of the amount of IV medications that can be given and that the patient may wake up in the middle of the procedure and/or experience pain/discomfort during the procedure. Further discussion was done and the patient was given the opportunity to ask questions and all questions were answered. The patient chooses IV conscious sedation. The patient wishes to proceed. I have answered all questions to the patient s satisfaction and the patient has no further questions. Will order Clenpiq colon cleansing preparation as per patient's request. Diagnoses: (Z86.010) History of colonic polyps (primary encounter diagnosis) I have confirmed and edited as necessary, the PFSH and ROS obtained by others. Medical Decision Making: Risk: Low: Low risk from testing/treatment Medical Decision Making Level: 2 - Straightforward . Tess Kothari MD documented in this encounter [facility] 01-29-2022 Instructions Tess Kothari MD - 01/29/2022 1:09 PM EDT Images from the original note were not included. Bowel Preparation Instructions for: CLENPIQ IF YOU DO NOT FOLLOW THESE DIRECTIONS, YOUR COLONOSCOPY WILL BE CANCELLED. [facility] Instructions: Your bowel must be empty so that your doctor can clearly view your colon. Follow all of the instructions in this handout EXACTLY as they are written. Do NOT eat any solid food the ENTIRE day before your colonoscopy. Buy your bowel preparation at least 5 days before your colonoscopy. TRANSPORTATION on the Day of Your Exam A responsible adult MUST be present with you at Check In prior to your colonoscopy and REMAIN in the endoscopy area until you are discharged. You are NOT ALLOWED to drive, take a taxi or bus, or leave the Endoscopy Center ALONE. If you do not have a responsible day haul or farm charter bus driver (family member or friend) with you to take you home, your exam cannot be done with sedation and will be cancelled. Please bring a list of all of your current medications, including any Over-the Counter medications with you. Medications If you take insulin, diabetic medications or blood thinners such as Coumadin (warfarin), Plavix (clopidogrel), Ticlid (ticlopidine hydrochloride), Agrylin (anagrelide), Xarelto (Rivaroxaban), Pradaxa (Dabigatran), Eliquis (Apixaban), and Effient (Prasugrel). You MUST call the doctors who orders those medicines for instructions on altering the dosage before your colonoscopy. All other medications should be taken the day of the exam with a sip of water including ASPIRIN. Five (5) Days Before Your Colonoscopy Do NOT take medicines that stop diarrhea - such as Imodium, Kaopectate, or Pepto Bismol. Do NOT take fiber supplements - such as Metamucil, Citrucel, or Perdiem. Do NOT take products that contain iron - such as multi-vitamins (the label lists what is in the products). Three (3) Days Before Your Colonoscopy Do NOT eat high-fiber foods - such as popcorn, beans, seeds (flax, sunflower, quinoa), multigrain bread, nuts, salad/vegetables, or fresh and dried fruit. 2 10/2019 Bowel Preparation Instructions for: CLENPIQ One (1) Day Before Your Colonoscopy Only drink clear liquids the ENTIRE DAY before your colonoscopy. Do NOT eat any solid foods. Drink at least 8 ounces of clear liquids every hour after waking up. The clear liquids you can drink include: Clear Liquid (NO RED LIQUIDS) DO NOT DRINK Gatorade, Pedialyte or Powerade Clear broth or bouillon Coffee or tea (no milk or non-dairy creamer) Carbonated and non-carbonated soft drinks Russel-Aid or other fruit flavored drinks Strained fruit juices (no pulp) Jell-O, popsicles, hard candy Water Alcohol Milk or non-dairy creamers Noodles or vegetables in soup Juice with pulp Liquid you cannot see through The bowel preparation solution will be consumed in two parts. Part 1 6 PM - Evening before your colonoscopy Drink one bottle of CLENPIQ. Over the next 5 hours, drink at least 5 cups (8 oz. Each) of clear liquid, at your own pace. You may continue to drink clear liquids until midnight. Part 2 4 1/2 hours before your colonoscopy Drink the bottle of CLENPIQ, then drink one cup (8 oz. Each) of clear liquid, every 15 minutes for at least 4 cups. You may continue to drink clear liquids up to (three) 3 hours before your exam. 2 10/2019 Do not take Plavix and Cialis at least 72 hours prior to procedure Hold any diabetic medication that you take in the morning, until after the procedure documented in this encounter [facility] Evaluation + Plan note Future Appointments Appointment Date:01/04/2022 11:30:00 AM Scheduled Provider: Location:[facility] Appointment Type:NUT Diet Visit Individual Appointment Date:01/11/2022 09:00:00 AM Scheduled Provider: Location:[facility] Appointment Type:DB Diabetic Individual Visit Appointment Date:2022 10:20:00 AM Scheduled Provider:JACOBY OVIEDO APRN, CNP Location:[facility] Appointment Type:PC OV Follow Up Future Scheduled [id number] Hemoglobin 01/13/22A1C Hemoglobin 01/13/22Complete Blood Count 01/13/22Lipid Profile 01/13/22Complete Metabolic Panel 01/13/22 [facility] Evaluation + Plan note Future Appointments Appointment Date:01/11/2022 09:00:00 AM Scheduled Provider: Location:[facility] Appointment Type:DB Diabetic Individual Visit Appointment Date:2022 10:20:00 AM Scheduled Provider:JACOBY OVIEDO APRN, CNP Location:[facility] Appointment Type:PC OV Follow Up Appointment Date:01/27/2022 11:30:00 AM Scheduled Provider: Location:[facility] Appointment Type:NUT Diet Visit Individual Future Scheduled [id number] Hemoglobin 01/13/22A1C Hemoglobin 01/13/22Complete Blood Count 01/13/22Lipid Profile 01/13/22Complete Metabolic Panel 01/13/22 [facility] Evaluation + Plan note Future Appointments Appointment Date:02/16/2022 11:30:00 AM Scheduled Provider: Location:[facility] Appointment Type:NUT Diet Visit Individual Appointment Date:04/13/2022 10:00:00 AM Scheduled Provider: Location:[facility] Appointment Type:DB Diabetic Individual Visit Appointment Date:04/15/2022 10:40:00 AM Scheduled Provider:JACOBY OVIEDO APRN, CNP Location:[facility] Appointment Type:PC OV Follow Up Appointment Date:07/15/2022 11:00:00 AM Scheduled Provider:JACOBY OVIEDO APRN, CNP Location:[facility] Appointment Type:PC OV Follow Up Future Scheduled TestsProstate Specific Antigen 07/17/22A1C Hemoglobin 01/13/22A1C Hemoglobin 04/16/22A1C Hemoglobin 07/17/22Lipid Profile 07/17/22Microalbumin Level Urine 07/17/22Complete Metabolic Panel 07/17/22 [facility] Evaluation + Plan note Future Appointments Appointment Date:04/13/2022 10:00:00 AM Scheduled Provider: Location:[facility] Appointment Type:DB Diabetic Individual Visit Appointment Date:04/15/2022 10:40:00 AM Scheduled Provider:JACOBY OVIEDO APRN, CNP Location:[facility] Appointment Type:PC OV Follow Up Appointment Date:07/15/2022 11:00:00 AM Scheduled Provider:JACOBY OVIEDO APRN, CNP Location:[facility] Appointment Type:PC OV Follow Up Future Scheduled TestsProstate Specific Antigen 9/10/22A1C Hemoglobin 3/9/22A1C Hemoglobin 6/10/22A1C Hemoglobin 9/10/22Lipid Profile 9/10/22Microalbumin Level Urine 9//22Complete Metabolic Panel 07/17/22 [facility] Evaluation + Plan note Future Appointments Appointment Date:07/12/2023 01:00:00 PM Scheduled Provider: Location:[facility] Appointment Type:DB Diabetic Individual Visit ([facility]OH) Appointment Date:07/14/2023 10:40:00 AM Scheduled Provider:JACOBY OVIEDO APRN, CNP Location:[facility] Appointment Type:PC OV Follow Up Future Scheduled TestsProstate Specific Antigen 9/A1C Hemoglobin 9/2/23A1C Hemoglobin 9//23A1C Hemoglobin 9//22A1C Hemoglobin 6/10/22Lipid Profile 9/2/23Lipid Profile 9//23Lipid Profile 07/16/Albumin/Creatinine Ratio, Random Urine 9//Microalbumin Level Urine 9//23Microalbumin Level Urine 9//22Microalbumin Level Urine 3/8/23Microalbumin Level Urine //Complete Metabolic Panel 9/2/23Complete Metabolic Panel 9//23Complete Metabolic Panel /07/29 [facility] N[facility] No data available for this section [facility] Hospital Discharge instructions No data available for this section [facility] Progress note No data available for this section [facility] Reason for referral (narrative)* Outpatient Procedure (Routine) - Authorized Specialty Diagnoses / Procedures Referred By Patty t Referred To Contact [facility] Diagnoses History of colonic polyps Procedures COLONOSCOPY SCREENING COLONOSCOPY FLX DX W/COLLJ SPEC WHEN PFRMD Tess Kothari MD [address] [place] [address] [facility] [address] [place] [address] Referral ID Status Reason Start Date Expiration Date Visits Requested Visits Authorized [id number] Authorized Auto-Generat ed Referral 01/29/2022 01/29/2023 1 1 [facility] Summary Purpose Family History No Family History Records FoundNo Family History Records FoundNo Family History Records Found Advance Directives No Advanced Directives Records FoundDocuments on File Type Date 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 Advance Directive(s) 02/26/2022 1:13 PM Additional Source Comments (unrecognized sect ion and content) No Status Records FoundNo Status Records FoundNo Status Records Found INFORMATION SOURCE (unrecogn ized section and content) DATE CREATED AUTHOR AUTHOR'S ORGANIZ ATION 05/05/2022 [facility] DATE CREATED AUTHOR AUTHOR'S ORGANIZ ATION 10/13/2023 [facility] [place] [facility] ([place]) Source Comments (unrecognize d section and content) In the event this informatio n is protected by the Federal Confidentiality of Alcohol and Drug Abuse Patient Records regulations: The Federal rules restrict any use of the information to criminally investigate or prosecute any alcohol or drug abuse patient.[facility] the event this information is protected by the Federal Confidentiality of Alcohol and Drug Abuse Patient Records regulations: The Federal rules restrict any use of the information to criminally investigate or prosecute any alcohol or drug abuse patient.[facility] the event this information is protected by the Federal Confidentiality of Alcohol and Drug Abuse Patient Records regulations: The Federal rules restrict any use of the information to criminally investigate or prosecute any alcohol or drug abuse patient.[facility] the event this information is protected by the Federal Confidentiality of Alcohol and Drug Abuse Patient Records regulations: The Federal rules restrict any use of the information to criminally investigate or prosecute any alcohol or drug abuse patient.[facility] the event this information is protected by the Federal Confidentiality of Alcohol and Drug Abuse Patient Records regulations: The Federal rules restrict any use of the information to criminally investigate or prosecute any alcohol or drug abuse patient.[facility] Reason for Visit (unrecogniz ed section and content) Reason Comments 04-12-2022 Colon [facility] Medical Research Associate - Other Reason Comments Results Colonoscopy results 04/12/2022 Reason Comments Patient Question plavix Care Teams (unrecognized sec tion and content) Wood Buffer Relationship Specialty Start Date End Date Jacoby Oviedo, INSTRUCTIONAL RESOURCE TEACHER [address] [place] [address] PCP - General Family Practice 07/29/16 Wood Buffer Relationship Specialty Start Date End Date Jacoby Oviedo, INSTRUCTIONAL RESOURCE TEACHER [address] [place] [address] PCP - General Family Practice 07/29/16 Wood Buffer Relationship Specialty Start Date End Date Jacoby Oviedo, INSTRUCTIONAL RESOURCE TEACHER [address] [place] [address] PCP - General Family Practice 07/29/16 Wood Buffer Relationship Specialty Start Date End Date Jacoby Oviedo, INSTRUCTIONAL RESOURCE TEACHER [address] [place] [address] PCP - General Family Practice 07/29/16 FOR RECORDS PERTAINING TO PATIENTS WHO ARE OR HAVE BEEN ENROLLED IN A CHEMICAL DEPENDENCY/SUBSTANCEABUSE PROGRAM, SOME INFORMATION MAY BE OMITTED. This clinical summary was aggregated from multiple sources. Caution should be exercised in using it in the provision of clinical care. This summary normalizes information from multiple sources, and as a consequence, information in this document may materially change the coding, format and clinical context of patient data. In addition, data may be omitted in some cases. CLINICAL DECISIONS SHOULD BE BASED ON THE PRIMARY CLINICAL RECORDS. [facility] [email or web address] [facility] provides no warranty or guarantee of the accuracy or completeness of information in this document.
== END | disposition home or self-care (01) ==
LOC: LAB 11:01 → RAD 11:04
PROVIDERS: PCP Nurse Practitioner Family; Referring Provider Nurse Practitioner; Visit Provider Nurse Practitioner
DX: N20.0 Calculus of kidney (principal)
CPT/HCPCS: 74018

== ENCOUNTER → 2024-01-03 | Outpatient (CLI) | payer MEDICARE, OTHER, SELFPAY ==
--- OUTSIDE RECORDS SUMMARY | 2024-01-03 08:42 | XMS RPT_ITS | CCD ---
Author Name Unknown Address [address] [place] [address] Organization [facility] Care Team Providers Care Lure Maker Name Role Phone Natividad Ann Unavailable Natividad [...] (19 sources) caffeine drug allergy 5 Intolerance [facility] Work Phone: (17 sources) ibuprofen; Translations: [Ibuprofen] drug allergy 5 Rash [facility] Work Phone: (17 sources) penicillin; Translations: [penicillins] drug allergy 5 Unknown [facility] Work Phone: (5 sources) Ciprofloxacin; Translations: [ciprofloxacin] Drug Allergy Nausea (finding) [facility] (5 sources) Hydrocortisone; Translations: [hydrocortisone topical] Drug Allergy Eruption of skin (disorder) [facility] (5 sources) Lisinopril; Translations: [lisinopril] Drug Allergy Weal (disorder) [facility] (1 source) dulaglutide; Translations: [dulaglutide] Drug Allergy Fatigue (finding), Vomiting (disorder), Diarrhea (finding), Nausea (finding) [facility] (1 source) insulin degludec; Translations: [insulin degludec] Drug Allergy Diarrhea (finding), Headache (finding) [facility] (1 source) metFORMIN; Translations: [metformin] Drug Allergy Diarrhea (finding), Nausea (finding) [facility] ([facility] source) Omeprazole; Translations: [omeprazole] Drug Allergy Headache (finding), Nausea (finding) [facility] (1 source) tadalafil; Translations: [tadalafil] Drug Allergy Indigestion (finding), Headache (finding), Nausea (finding) [facility] (1 source) tamsulosin; Translations: [tamsulosin] Drug Allergy Drowsy (finding), Dizziness (finding) [facility] Medic[facility] Current Medications Medication Drug Class(es) Dates [...] 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; Translations: [Other longterm (current) drug therapy] Onset: 01-06-2016 01-06-2016 Episodic [...] 175.3 cm Tess Kothari MD Work Phone: [facility] 01-29-2022 13:04-0400 Body temperature 97.5 [degF] Tess Kothari MD Work Phone: [facility] 01-29-2022 13:04-0400 Body weight 91.26 kg Tess Kothari MD Work Phone: [facility] 01-29-2022 13:04-0400 Diastolic blood pressure 74 mm[Hg] Tess Kothari MD Work Phone: [facility] 01-29-2022 13:04-0400 Heart rate 53 /min Tess Kothari MD Work Phone: [facility] 01-29-2022 13:04-0400 SaO2% (BldA) [Mass fraction] 98 % Tess oKthari MD Work Phone: [facility] 01-29-2022 13:04-0400 Systolic blood pressure 130 mm[Hg] Tess Kothari MD Work Phone: [facility] 08-18-2017 13:48-0400 BMI (Body Mass Index) 29.45 kg/m2 Tania Mahajandiamante MAURER-C [facility] Work Phone: 08-18-2017 13:48-0400 Body Temperature 98.5 [degF] Tania Adam PA-C [facility] Work Phone: 08-18-2017 13:48-0400 Body Temperature 98.49 [degF] Tania Adam PA-C [facility] Work Phone: 08-18-2017 13:48-0400 BP Diastolic 77 mm[Hg] Tania Adam LIBERTAD-C [facility] Work Phone: 08-18-2017 13:48-0400 BP Systolic 118 mm[Hg] Tania Adam LIBERTAD-C [facility] Work Phone: 08-18-2017 13:48-0400 Height 173.99 cm Tania Adam PA-C [facility] Work Phone: 08-18-2017 13:48-0400 Pulse (Heart Rate) 60 /min Tania Adam LIBERTADAllanC [facility] Work Phone: 08-18-2017 13:48-0400 Respiratory Rate 20 /min Tania Adam LIBERTAD-C [facility] Work Phone: 08-18-2017 13:48-0400 Weight 89.18 kg Tania Mahajandiamante MAURER-C [facility] Work Phone: 07-12-2017 10:50-0400 BMI (Body Mass Index) 29.89 kg/m2 Natividad Ann [facility] Work Phone: 07-12-2017 10:50-0400 BP [...] Heart rate 63 /min Tania Adam PA-C [facility] Work Phone: 07-16-2016 10:22-0400 BSA (Body Surface Area) 2.08 m2 Natividad [facility] Work Phone: 01-07-2016 11:00-0500 Body Temperature 96.9 [degF] [facility]ividad [facility] Work Phone: 01-07-2016 11:00-0500 Pulse Oximetry 98 % Nativdiad [facility] Work Phone: Encounters Encounter Date Encounter Type Care Provider Facility Start: 10-11-2023 ambulatory JACOBY OVIEDO Facili ty:B Start: 04-08-2023 End: 04-13-2023 ambulatory JACOBY OVIEDO Facility:B Start: 04-08-2023 End: 04-12-2023 Outreach Lab JACOBY OVIEDO [employer]INTER - CLIENT SERVICE CONSULTANT [facility] Start: 04-19-2022 Telephone encounter Drew mcadams [...] CORNELIO Jackson MD Start: 01-12-2017 End: 01-12-2017 OCCUPATIONAL MEDICINE OFFICER Sonia Ye PA-C Work Phone: Start: 01-12-2017 End: 01-12-2017 Ecg routine ecg w/least 12 lds w/i&r Sonia Ye PA-C Work Phone: Start: 01-12-2017 End: 01-12-2017 Follow Up Appt 6 months Sonia page PA-C Work Phone: Start: 01-12-2017 End: 01-12-2017 OCCUPATIONAL MEDICINE OFFICER Sonia Ye PA-C Work Phone: Start: 01-12-2017 [...] CORNELIO Jackson MD Start: 04-08-2016 End: 04-08-2016 OCCUPATIONAL MEDICINE OFFICER Sonia Ye PA-C Work Phone: Start: 04-08-2016 [...] MD Start: 01-07-2016 End: 01-08-2016 Referral to speech instructor Jhonny Jackson MD Start: 01-07-2016 End: 01-07-2016 Electrocardiogram, complete Jhonny Jackson MD Start: 01-07-2016 End: 01-07-2016 Follow Up Appt 3 months Jozef Donato Start: 01-07-2016 End: 01-07-2016 CORNELIO Jackson MD Start: 01-07-2016 End: 01-08-2016 Referral to speech instructor Jhonny Jackson MD Start: 09-01-2015 End: 09-13-2017 Colonoscopy flx dx w/collj spec when pfrmd Tess Haskins Taye Work Phone: Arthritis (disorder) JACOBY OVIEDO [employer] LEAF PRINTER - CLIENT SERVICE CONSULTANT Plan of Treatment Date Care Activity Detail Author Start: 09-13-2022 Colonoscopy COLONOSCOPY [facility] Start: 09-13-2022 COLORECTAL CANCER SCREENING COLORECTAL CANCER SCREENING [facility] Start: 02-12-2022 COVID-19 VACCINE (4 - Booster for Moderna series) COVID-19 VACCINE (4 - Booster for Moderna series) [facility] Start: 11-07-2021 ADVANCE DIRECTIVE DISCUSSION ADVANCE DIRECTIVE DISCUSSION [facility] Start: 03-02-2020 DIABETES SCREEN DIABETES SCREEN [facility] Start: 09-13-2018 Colonoscopy COLONOSCOPY [facility] Start: 09-13-2018 COLORECTAL CANCER SCREENING COLORECTAL CANCER SCREENING [facility] Start: 01-10-2018 End: 01-10-2018 Appointment Appointment [facility] Work Phone: Start: 08-18-2017 End: 08-18-2017 Appointment Appointment [facility] Work Phone: Start: 07-12-2017 End: 07-12-2017 Follow Up Appt 6 months Follow Up Appt 6 months [facility] Work Phone: Start: 07-12-2017 End: 07-12-2017 MMM MMM [facility] Work Phone: Start: 07-12-2017 End: 07-12-2017 Follow Up Appt 6 months Follow Up Appt 6 months [facility] Work Phone: Start: 07-12-2017 End: 07-12-2017 MMM MMM [facility] Work Phone: Start: 01-12-2017 End: 01-12-2017 OCCUPATIONAL MEDICINE OFFICER OCCUPATIONAL MEDICINE OFFICER [facility] Work Phone: Start: 01-12-2017 End: 01-12-2017 Ecg routine ecg w/least 12 lds w/i&r EKG (In office) [facility] Work Phone: Start: 01-12-2017 End: 01-12-2017 Follow Up Appt 6 months Follow Up Appt 6 months [facility] Work Phone: Start: 01-12-2017 End: 01-12-2017 OCCUPATIONAL MEDICINE OFFICER OCCUPATIONAL MEDICINE OFFICER [facility] Work Phone: Start: 01-12-2017 End: 01-12-2017 Electrocardiogram, complete EKG (In office) [facility] Work Phone: Start: 01-12-2017 End: 01-12-2017 Follow Up Appt 6 months Follow Up Appt 6 months [facility] Work Phone: Start: 07-16-2016 End: 07-16-2016 Follow Up Appt 6 months Follow Up Appt 6 months [facility] Work Phone: Start: 07-16-2016 End: 07-16-2016 MMM MMM [facility] Work Phone: Start: 07-16-2016 End: 07-16-2016 Follow Up Appt 6 months Follow Up Appt 6 months [facility] Work Phone: Start: 07-16-2016 End: 07-16-2016 MMM MMM [facility] Work Phone: Start: 04-08-2016 End: 04-08-2016 OCCUPATIONAL MEDICINE OFFICER OCCUPATIONAL MEDICINE OFFICER [facility] Work Phone: Start: 04-08-2016 End: 04-08-2016 Follow Up Appt 3 months Follow Up Appt 3 months [facility] Work Phone: Start: 04-08-2016 End: 04-08-2016 OCCUPATIONAL MEDICINE OFFICER OCCUPATIONAL MEDICINE OFFICER [facility] Work Phone: Start: 04-08-2016 End: 04-08-2016 Follow Up Appt 3 months Follow Up Appt 3 months [facility] Work Phone: Start: 01-07-2016 End: 03-23-2016 Cardiac Rehab Cardiac Rehab [facility] [employer] Work Phone: Start: 01-07-2016 End: 01-07-2016 Ecg routine ecg w/least 12 lds w/i&r EKG (In office) [facility] [employer] Work Phone: Start: 01-07-2016 End: 01-07-2016 Follow Up Appt 3 months Follow Up Appt 3 months [facility] [employer] Work Phone: Start: 01-07-2016 End: 01-07-2016 MMM MMM [facility] [employer] Work Phone: Start: 01-07-2016 End: 03-23-2016 Cardiac Rehab Cardiac Rehab [facility] Work Phone: Start: 01-07-2016 End: 01-07-2016 Electrocardiogram, complete EKG (In office) [facility] Work Phone: Start: 01-07-2016 End: 01-07-2016 Follow Up Appt 3 months Follow Up Appt 3 months [facility] Work Phone: Start: 01-07-2016 End: 01-07-2016 MMM MMM [facility] Work Phone: Start: 09-01-2015 End: 09-13-2017 Colonoscopy flx dx w/collj spec when pfrmd Colonoscopy [facility] [employer] Work Phone: Start: 09-01-2015 End: 09-01-2015 Diagnostic colonoscopy Colonoscopy [facility] Work Phone: Start: 01-15-2012 PNEUMOCOCCAL: 65+ (1 - PCV) PNEUMOCOCCAL: 65+ (1 - PCV) [facility] Start: 01-15-2012 PNEUMOVAX AGE 65 AND OVER WITH 5YR LOOKBACK (#1) PNEUMOVAX AGE 65 AND OVER WITH 5YR LOOKBACK (#1) [facility] Start: 1997 SHINGRIX VACCINE (1 of 2) SHINGRIX VACCINE (1 of 2) [facility] Start: 01-15-1992 COLOGUARD (FIT-DNA) COLOGUARD (FIT-DNA) [facility] Start: 01-15-[address] COLONOGRAPHY [facility] Start: 01-15-1992 FECAL OCCULT BLOOD FECAL OCCULT BLOOD [facility] Start: 01-15-1992 SIGMOIDOSCOPY SIGMOIDOSCOPY [facility] Start: 1982 LIPID SCREEN LIPID SCREEN [facility] Start: 1966 Urine microalbumin profile DTAP,TDAP,TD (1 - Tdap) [facility] Start: 1965 HEPATITIS C SCREENING HEPATITIS C SCREENING [facility] Start: 1959 Adult depression screening assessment DEPRESSION SCREENING [facility] Start: 1947 ABDOMINAL AORTIC ANEURYSM SCREENING ABDOMINAL AORTIC ANEURYSM SCREENING [facility] Patient Education Medications [facility] Work Phone: End: 01-29-2023 Screening colonoscopy COLONOSCOPY SCREENING Endoscopy Routine History of colonic polyps 1 Occurrences starting 01/29/2022 until 01/29/2023 [facility] Work Phone: Immunizations Immunization Date Immunization Notes Care Provider Fa cili 08-15-2022 influenza virus vacc ine, unspecified formulation JACOBY OVIEDO GOLD LEAF [employer]INTER - CLIENT SERVICE CONSULTANT [facility] 10-14-2021 SARS-CoV-2 (COVID-19 ) mRNA-1273 vaccine JACOBY OVIEDO G[employer] LEAF PRINTER - CLIENT SERVICE CONSULTANT [facility] 08-05-2021 influenza virus vacc ine, unspecified formulation JACOBY OVIEDO GOLD LEAF PRINTER - CLIENT SERVICE CONSULTANT [facility] 02-02-2021 SARS-CoV-2 (COVID-19 ) mRNA-1273 vaccine JACOBY OVIEDO GOLD LEAF PRINTER - CLIENT SERVICE CONSULTANT [facility] 01-05-2021 SARS-CoV-2 (COVID-19 ) mRNA-1273 vaccine JACOBY OVIEDO GOLD LEAF PRINTER - CLIENT SERVICE CONSULTANT [facility] 07-27-2016 influenza virus vacc ine, unspecified formulation JACOBY OVIEDO GOLD LEAF PRINTER - CLIENT SERVICE CONSULTANT [facility] 07-29-2015 influenza virus vacc ine, unspecified formulation JACOBY OVIEDO GOLD LEAF PRINTER - CLIENT SERVICE CONSULTANT [facility] 05-15-2015 pneumococcal conjuga te vaccine, 13 valent JACOBY OVIEDO GOLD LEAF PRINTER - CLIENT SERVICE CONSULTANT [facility] 05-07-2015 pneumococcal conjuga te vaccine, 13 valent JACOBY OVIEDO GOLD LEAF PRINTER - CLIENT SERVICE CONSULTANT [facility] 05-06-2015 pneumococcal conjuga te vaccine, 13 valent JACOBY OVIEDO GOLD LEAF PRINTER - CLIENT SERVICE CONSULTANT [facility] 09-07-2014 influenza virus vacc ine, unspecified formulation JACOBY OVIEDO GOLD LEAF PRINTER - CLIENT SERVICE CONSULTANT [facility] 01-31-2014 pneumococcal polysaccharide vaccine, 23 valent JACOBY OVIEDO GOLD LEAF PRINTER - CLIENT SERVICE CONSULTANT [facility] 08-15-2013 influenza virus vacc ine, unspecified formulation JACOBY OVIEDO GOLD LEAF PRINTER - CLIENT SERVICE CONSULTANT [facility] 08-01-2012 influenza virus vacc ine, unspecified formulation JACOBY OVIEDO GOLD LEAF PRINTER - CLIENT SERVICE CONSULTANT [facility] 06-07-2011 zoster vaccine, live JACOBY OVIEDO GOLD LEAF PRINTER - CLIENT SERVICE CONSULTANT [facility] 06-06-2011 zoster vaccine, live JACOBY OVIEDO GOLD LEAF PRINTER - CLIENT SERVICE CONSULTANT [facility] 03-07-2011 tetanus toxoid, redu chandrakant diphtheria toxoid, and acellular pertussis vaccine, adsorbed JACOBY OVIEDO GOLD LEAF PRINTER - CLIENT SERVICE CONSULTANT [facility] 03-06-2011 tetanus toxoid, redu chandrakant diphtheria toxoid, and acellular pertussis vaccine, adsorbed JACOBY OVIEDO GOLD LEAF PRINTER - CLIENT SERVICE CONSULTANT [facility] 11-07-2006 pneumococcal polysaccharide vaccine, 23 valent JACOBY OVIEDO GOLD LEAF PRINTER - CLIENT SERVICE CONSULTANT [facility] 11-06-2006 pneumococcal polysaccharide vaccine, 23 valent JACOBY OVIEDO GOLD LEAF PRINTER - CLIENT SERVICE CONSULTANT [facility] Payers Date Payer Category Payer Private Health Insurance [id number] 2017 Medicare [id number] 2015 Private Health Insurance HUMANA HUMANA MEDICARE SUPPLEMENT [id number] 2015-Present [phone] [address] [address] [place] [address] Indemnity [id number] 2012 Medicare MEDICARE MEDICAR E A AND B [id number] 2012-Present [phone] [place] [address] Medicare [id number] 1945 Unknown [id number] 1945 Unknown [id number] 1945 Unknown [id number] Social History Date Type Detail Facility Start: 12-24-2016 End: 07-10-2020 Ex-smoker (finding) [facility] Medical Equipment Procedure Code Equipment Code Equipment Origin al Text Equipment Identifier Dates Blood Glucose Te st Strips Start: 04-03-[address] Start: 04-03-[address] Start: 04-03-2021 See Instructions , 1 bottle of 100 True Metrix Test strips. Pt. tests TID, # 1 EA, 11 Refill(s), Pharmacy: [facility] [address], 172.5, cm, 01/08/21 11:25:00 EST, Height, 91.1, kg, 01/08/21 11:25:00 EST, Dosing Weight Start: 04-03-2021 See Instructions , 1 bottle of 100 True Metrix Test strips. Pt. tests TID, # 1 EA, 11 Refill(s), Pharmacy: [facility] [address], 172.5, cm, 01/08/21 11:25:00 EST, [...] Margarita Gama RN documented in this encounter [facility] 04-09-2022 Miscellaneous Notes Sounds good thank you Patient informed and made aware okay to continue Aspirin Nicole Katz Patient called back and is wondering if he should also stop taking his low dose Asprin as well? Nicole Katz Called patient and informed him that he can be seen for his procedure with his originally schedule provider; Dr. Kothari at [facility]. When stated this to the patient per patient stated No way am I going to [place]. I will stick with the doctor I have now and do the procedure at [facility]. Patient is still set to have procedure at [facility] with Carrol 04/12 as patient wishes Patient was made aware per Dr. Kothari to hold Plavix X 2 days and will be stopping the medication on 04/10. [facility] called and made aware of holding Plavix X 2 days Nicole Katz Spoke with Dr. Kothari. Claudine was supposed to be placed on her schedule for the colonoscopy, not Dr. Branham. Please reschedule Claudine for [facility] on 04/22/2022. Claudine will need to hold his Plavix for 2 days prior to the procedure. Margarita Gama RN [place] with [facility] pre admission called regarding patient, medication to be held prior to procedure on 04/12/22. Questioning if patient should hold Plavix? [phone] [facility] pre admission documented in this encounter [facility] 03-09-2022 Miscellaneous Notes 04-12-2022 was rescheduled to [facility], patient received the max does op sedation and should be done in a hospital setting to be properly sedated. Patient agreed to be rescheduled but wishes to be done at [place]. Due to the original reschedule of Dr Kothari to Dr Branham and then cancellation I scheduled accordingly to patients wishes. 03-12-2022 Colon ASC documented in this encounter [facility] 03-01-2022 Miscellaneous Notes Spoke to patient, will call [facility] and have Rx pulled for CLENPIQ to be filled. documented in this encounter [facility] 01-29-2022 Note HNO ID: [id number] Author: Tess Kotahri MD Service: ? Author Type: Physician Type: [...] For bowels May 31, 2018 Active 05-31-2018 [facility] ([id number]) - iv contrast (radiology procedure) CT Enterography [...] entered by the nurse and reviewed by or Nursing Notes: Nirmala Zhou RN 01/29/2022 1:20 [...] gallbladder problems, de (more content not included)... [facility] 01-29-2022 Nurse Note REVIEW OF SYSTEMS: [...] Nirmala Zhou RN documented in this encounter [facility] 01-29-2022 History of Presen t illness Narrative [...] For bowels May 31, 2018 Active 05-31-2018 [facility] ([id number]) iv contrast (radiology procedure) CT Enterography W [...] entered by the nurse and reviewed by or Nursing Notes: Nirmala Zhou RN 01/29/2022 1:20 [...] patient was offered a surgery/procedure at a [facility] facility. The provider and patient have discussed [...] Tess Kothari MD documented in this encounter [facility] 01-29-2022 Instructions Tess Kothari MD - 01/29/2022 [...] If you do not have a responsible driver license examiner (family member or friend) with you to [...] after the procedure documented in this encounter [facility] Evaluation + Plan note Future Appointments Appointment Date:01/04/2022 11:30:00 AM Scheduled Provider: Location:[facility] Appointment Type:NUT Diet Visit Individual Appointment Date:01/11/2022 09:00:00 AM Scheduled Provider: Location:[facility] Appointment Type:DB Diabetic Individual Visit Appointment Date:2022 10:20:00 AM Scheduled Provider:JACOBY OVIEDO APRN, CNP Location:[facility] Appointment Type:PC OV Follow Up Future Scheduled [id number] Hemoglobin 01/13/22A1C Hemoglobin 01/13/22Complete Blood Count 01/13/22Lipid Profile 01/13/22Complete Metabolic Panel 01/13/22 [facility] Evaluation + Plan note Future Appointments Appointment Date:01/11/2022 09:00:00 AM Scheduled Provider: Location:[facility] Appointment Type:DB Diabetic Individual Visit Appointment Date:2022 10:20:00 AM Scheduled Provider:JACOBY OVIEDO APRN, CNP Location:[facility] Appointment Type:PC OV Follow Up Appointment Date:01/27/2022 11:30:00 AM Scheduled Provider: Location:[facility] Appointment Type:NUT Diet Visit Individual Future Scheduled [id number] Hemoglobin 01/13/22A1C Hemoglobin 01/13/22Complete Blood Count 01/13/22Lipid Profile 01/13/22Complete Metabolic Panel 01/13/22 [facility] Evaluation + Plan note Future Appointments Appointment [...] 07/17/22Microalbumin Level Urine 07/17/22Complete Metabolic Panel 07/17/22 [facility] Evaluation + Plan note Future Appointments Appointment [...] 9/10/22Microalbumin Level Urine 9//22Complete Metabolic Panel 07/17/22 [facility] Evaluation + Plan note Future Appointments Appointment Date:07/12/2023 01:00:00 PM Scheduled Provider: Location:[facility] Appointment Type:DB Diabetic Individual Visit (AOH) Appointment Date:07/14/2023 10:40:00 AM Scheduled Provider:JACOBY OVIEDO APRN, CNP Location:[facility] Appointment Type:PC OV Follow Up Future Scheduled TestsProstate Specific Antigen 9/A1C Hemoglobin 9/2/23A1C Hemoglobin 9//23A1C Hemoglobin 9//22A1C Hemoglobin 6/10/22Lipid Profile 9/2/23Lipid Profile 9//23Lipid Profile 07/16/Albumin/Creatinine Ratio, Random Urine 9//Microalbumin Level Urine 9//23Microalbumin Level Urine 9//22Microalbumin Level Urine 3/8/23Microalbumin Level Urine //Complete Metabolic Panel 9/2/23Complete Metabolic Panel 9//23Complete Metabolic Panel /07/29 [facility] documented in [facility] Narrative No data available for this section [facility] Hospital Discharge instructions No data available for this section [facility] Progress note No data available for this section [facility] Reason for referral (narrative)* Outpatient Procedure (Routine) - Authorized Specialty Diagnoses / Procedures Referred By Patty t Referred To Contact DIGESTIVE [facility] Diagnoses History of colonic polyps Procedures COLONOSCOPY SCREENING COLONOSCOPY FLX DX W/COLLJ SPEC WHEN PFRMD Tess Kothari MD [address] [place] [address] [facility] [address] [place] [address] Referral ID Status Reason Start Date Expiration Date Visits Requested Visits Authorized [id number] Authorized Auto-Generat ed Referral 01/29/2022 01/29/2023 1 1 [facility] Summary Purpose Family History No Family History Records FoundNo Family History Records FoundNo Family History Records Found Advance Directives No Advanced Directives Records FoundDocuments on File Type Date Recorded Patient Psychosocial Rehabilitation Counselor Expl anation Advance Directive(s) 02/26/2022 1:13 PM Additional Source Comments (unrecognized sect ion and content) No Status Records FoundNo Status Records FoundNo Status Records Found INFORMATION SOURCE (unrecogn ized section and content) DATE CREATED AUTHOR AUTHOR'S ORGANIZ ATION 05/05/2022 [facility] DATE CREATED AUTHOR AUTHOR'S ORGANIZ ATION 10/13/2023 [facility] ([place]) Source Comments (unrecognize d section and content) In the event this informatio n is protected by the Federal Confidentiality of Alcohol and Drug Abuse Patient Records regulations: The Federal rules restrict any use of the information to criminally investigate or prosecute any alcohol or drug abuse patient.[facility] the event this information is protected by the Federal Confidentiality of Alcohol and Drug Abuse Patient Records regulations: The Federal rules restrict any use of the information to criminally investigate or prosecute any alcohol or drug abuse patient.[facility] the event this information is protected by the Federal Confidentiality of Alcohol and Drug Abuse Patient Records regulations: The Federal rules restrict any use of the information to criminally investigate or prosecute any alcohol or drug abuse patient.[facility] the event this information is protected by the Federal Confidentiality of Alcohol and Drug Abuse Patient Records regulations: The Federal rules restrict any use of the information to criminally investigate or prosecute any alcohol or drug abuse patient.[facility] the event this information is protected by the Federal Confidentiality of Alcohol and Drug Abuse Patient Records regulations: The Federal rules restrict any use of the information to criminally investigate or prosecute any alcohol or drug abuse patient.[facility] Reason for Visit (unrecogniz ed section and content) Reason Comments 04-12-2022 Colon [facility] Bulb Inspector - Other Reason Comments Results Colonoscopy results 04/12/2022 Reason Comments Patient Question plavix Care Teams (unrecognized sec tion and content) Lure Maker Relationship Specialty Start Date End Date Jacoby Oviedo, CLIENT SERVICE CONSULTANT [address] [place] [address] PCP - General Family Practice 07/29/16 Lure Maker Relationship Specialty Start Date End Date Jacoby Oviedo, CLIENT SERVICE CONSULTANT [address] [place] [address] PCP - General Family Practice 07/29/16 Lure Maker Relationship Specialty Start Date End Date Jacoby Oviedo, CLIENT SERVICE CONSULTANT [address] [place] [address] PCP - General Family Practice 07/29/16 Lure Maker Relationship Specialty Start Date End Date Jacoby Oviedo, CLIENT SERVICE CONSULTANT [address] [place] [address] PCP - General Family Practice 07/29/16 FOR [...] BE BASED ON THE PRIMARY CLINICAL RECORDS. [facility] [employer] [facility]. provides no warranty or guarantee of the accuracy or completeness of information in this document.
[2024-01-03 08:57] LABS: Hematocrit 43.2 % (40-54); Hemoglobin 14.4 g/dL (13.0-16.5); Mean Corp Hgb Conc 33.3 g/dL (32-36); Mean Corpuscular Hgb 32.7 pg (27.0-32.0); Mean Platelet Vol. 8.5 fl (6.2-12.0); Platelet Count 179 K/mm3 (150-450); RBC Distribution Width CV 14.2 % (11.6-14.6); RBC Distribution Width SD 51.6 fl (35.1-43.9); Red Blood Count 4.41 M/mm3 (4.6-6.2)
[2024-01-03 09:46] LABS: PTHIN 98.2 pg/mL (18.4-80.1)
[2024-01-03 10:58] LABS: ALB/GLOB Ratio 0.9 RATIO (0.9-2.4); AST(SGOT) 16 U/L (15-37); Alanine Aminotransfer ALT/SGPT 22 U/L (16-61); Albumin, Serum 3.2 g/dL (3.2-5.0); Alkaline Phosphatase 88 U/L (45-117); Anion Gap 2 (5-15); BUN 11 mg/dL (7-18); BUN/Creat Ratio 9.8 RATIO (10-20); Calcium,Total 8.5 mg/dL (8.5-10.1); Chloride 108 mmol/L (98-107); Cholesterol 78 mg/dL (200); Creatinine, Serum 1.12 mg/dL (0.70-1.30); EST Glomerular Filtration Rate 68 mL/min (>60); Est Glom Filt Rate - Afr Amer 82 mL/min (>60); Globulin 3.6 g/dL (2.2-4.2); Glucose 169 mg/dL (74-106); High Density Lipoprotein 18 mg/dL; PSA,Total - Annual Screen 3.09 ng/mL (0.00-4.00); Potassium 4.2 mmol/L (3.5-5.1); Protein, Total 6.8 g/dL (6.4-8.2); Sodium Level 140 mmol/L (136-145); Triglycerides 301 mg/dL; Very Low Density Lipoprotein 60 mg/dL (5-40)
[2024-01-03 11:03] LABS: Microalbumin,Random Urine 30.1 mg/L (NO RANGE EST.)
[2024-01-03 13:31] LABS: Hemoglobin A1c 7.6 % (3.8-5.6)
[2024-01-07 19:08] LABS: Renin, Plasma 0.313 ng/mL/hr (0.167-5.380)
== END | disposition home or self-care (01) ==
LOC: LAB 08:13
PROVIDERS: PCP Nurse Practitioner Family; Referring Provider Nurse Practitioner Family; Visit Provider Nurse Practitioner Family
DX: Z12.5 Encounter for screening for malignant neoplasm of prostate (principal); E11.22 Type 2 diabetes mellitus with diabetic chronic kidney disease; N18.30 Chronic kidney disease, stage 3 unspecified; I12.9 Hypertensive chronic kidney disease with stage 1 through stage 4 chronic kidney disease, or unspecified chronic kidney disease; E78.5 Hyperlipidemia, unspecified; I25.10 Atherosclerotic heart disease of native coronary artery without angina pectoris
CPT/HCPCS: 36415; 80053; 80061; 82043; 82570; 83036; 83970; 84153; 84244; 85027; G0103

== ENCOUNTER → 2024-04-28 | Outpatient (CLI) | payer MEDICARE, OTHER, SELFPAY ==
--- NOTE | 2024-04-28 07:28 | MRI_ITS ---
ACR Level 3 findings have been noted. An addendum which confirms receipt of the report will follow. EXAM: MR LUMBAR SPINE WITHOUT INTRAVENOUS CONTRAST CLINICAL INDICATION: pain TECHNIQUE: Multiplanar and multisequence MR images of the lumbar spine without intravenous contrast. COMPARISON: MRI lumbar spine, 12/15/2022 and lumbar spine radiographs, 11/18/2022. FINDINGS: VERTEBRAE: Localization images reveal degenerative changes in the cervical spine with moderate to severe spinal canal stenosis at C2-C3 and mild spinal canal stenosis elsewhere in the cervical region as well as mild degenerative changes in the thoracic spine with at least mild multifocal spinal canal stenosis. Mild straightening of expected lumbar lordosis. Multilevel endplate osteophytosis and multilevel facet arthrosis. No distinct evidence of spondylolysis and no evidence of spondylolisthesis. No acute fracture. Modic type II endplate signal changes at L2 and L3. SPINAL CORD: No definite spinal cord signal abnormality. Normal position and signal intensity of the conus medullaris. SOFT TISSUES: No significant abnormality. VASCULATURE: Unruptured infrarenal abdominal aortic aneurysm measuring up to approximately 3.8 cm in diameter similar to the prior MRI examination. DISCS/SPINAL CANAL/NEURAL FORAMINA: L1-L2: Mild to moderate bilateral facet arthrosis. No disc herniation, spinal canal stenosis, or neural foraminal narrowing. L2-L3: Disc bulge and moderate bilateral facet arthrosis and ligamentum flavum thickening. Mild spinal canal stenosis and [id number] bilateral neural foraminal narrowing. L3-L4: Endplate osteophytosis associated with a disc bulge and superimposed central disc herniation. Severe bilateral facet arthrosis. Severe spinal canal stenosis with effacement of CSF from the thecal sac and aggregation of the intrathecal nerve roots. Indeterminate degree of intrathecal nerve root impingement. There is impingement of the bilateral traversing L4 nerve roots and there is impingement of the bilateral foraminal L3 nerve roots. L4-L5: Asymmetrical disc bulge greatest towards the right with right central to foraminal disc herniation and severe bilateral facet arthrosis. Severe spinal canal stenosis with effacement of CSF from the thecal sac and aggregation of the intrathecal nerve roots. Severe bilateral neural foraminal narrowing with impingement of the bilateral foraminal L4 and bilateral traversing L5 nerve roots. Indeterminate degree of intrathecal nerve root impingement. L5-S1: Disc bulge and severe bilateral facet arthrosis. Mild spinal canal stenosis and moderate to severe bilateral neural foraminal narrowing. Bilateral L5 nerve root impingement. MRI/Spine Lumbar (Routine) IMPRESSION: 1. Localization images reveal degenerative changes in the cervical spine with moderate to severe spinal canal stenosis at C2-C3 and mild spinal canal stenosis elsewhere in the cervical region as well as mild degenerative changes in the thoracic spine with at least mild multifocal spinal canal stenosis. Consider MRI cervical spine. 2. Progression of degenerative changes particularly at L3-L4 and L4-L5. At these levels, there is severe spinal canal stenosis and impingement of multiple nerve roots detailed above. Recommend spine surgery consultation if not already performed. 3. Unruptured infrarenal abdominal aortic aneurysm measuring up to approximately 3.8 cm in diameter similar to the prior MRI examination. ACR White Paper guidelines (Ping, et al. JACR 2013; 10(10):789-94) suggest abdomen/pelvis CT or MR imaging follow-up in 2 years. Electronically Signed: Cole He DO at 16:24 EDT ,
== END | disposition home or self-care (01) ==
LOC: MRI 07:03
PROVIDERS: PCP Nurse Practitioner Family; Referring Provider Orthopaedic Surgery; Visit Provider Orthopaedic Surgery
DX: M51.36 Other intervertebral disc degeneration, lumbar region (principal); M48.061 Spinal stenosis, lumbar region without neurogenic claudication
CPT/HCPCS: 72148

== ENCOUNTER → 2024-07-04 | Outpatient (CLI) | payer MEDICARE, OTHER, SELFPAY ==
[2024-07-04 07:44] LABS: Hematocrit 43.4 % (40-54); Hemoglobin 14.1 g/dL (13.0-16.5); Mean Corp Hgb Conc 32.5 g/dL (32-36); Mean Corpuscular Hgb 31.3 pg (27.0-32.0); Mean Corpuscular Volume 96.4 fL (80-94); Mean Platelet Vol. 8.4 fl (6.2-12.0); Platelet Count 157 K/mm3 (150-450); RBC Distribution Width CV 13.1 % (11.6-14.6); RBC Distribution Width SD 46.5 fl (35.1-43.9); White Blood Count 2.7 K/mm3 (4.4-11.0)
[2024-07-04 08:12] LABS: ALB/GLOB Ratio 0.8 RATIO (0.9-2.4); AST(SGOT) 15 U/L (15-37); Alanine Aminotransfer ALT/SGPT 19 U/L (16-61); Alkaline Phosphatase 92 U/L (45-117); Anion Gap 5 (5-15); BUN 10 mg/dL (7-18); BUN/Creat Ratio 9.2 RATIO (10-20); Calcium,Total 8.6 mg/dL (8.5-10.1); Chloride 106 mmol/L (98-107); Cholesterol 75 mg/dL (200); Creatinine, Serum 1.09 mg/dL (0.70-1.30); EST Glomerular Filtration Rate 70 mL/min (>60); Est Glom Filt Rate - Afr Amer 84 mL/min (>60); Globulin 3.6 g/dL (2.2-4.2); Glucose 150 mg/dL (74-106); High Density Lipoprotein 19 mg/dL; Potassium 3.9 mmol/L (3.5-5.1); Protein, Total 6.6 g/dL (6.4-8.2); Sodium Level 142 mmol/L (136-145); Triglycerides 209 mg/dL; Very Low Density Lipoprotein 42 mg/dL (5-40)
[2024-07-04 09:35] LABS: PTHIN 104.2 pg/mL (18.4-80.1)
[2024-07-04 09:36] LABS: Vitamin D,25 Hydroxy 21.4 ng/mL
[2024-07-04 10:38] LABS: Microalbumin,Random Urine 21.3 mg/L (NO RANGE EST.); Microalbumin:Creatinine Ratio 17.2 mg/g CRE (<30 mg/g CRE)
[2024-07-04 14:21] LABS: Hemoglobin A1c 6.8 % (3.8-5.6)
== END | disposition home or self-care (01) ==
PROVIDERS: PCP Nurse Practitioner Family; Referring Provider Nurse Practitioner Family; Visit Provider Nurse Practitioner Family
DX: I12.9 Hypertensive chronic kidney disease with stage 1 through stage 4 chronic kidney disease, or unspecified chronic kidney disease (principal); E11.22 Type 2 diabetes mellitus with diabetic chronic kidney disease; N18.30 Chronic kidney disease, stage 3 unspecified; D63.1 Anemia in chronic kidney disease; E78.5 Hyperlipidemia, unspecified
CPT/HCPCS: 36415; 80053; 80061; 82043; 82306; 82570; 83036; 83970; 84244; 85027

== ENCOUNTER → 2024-07-12 | Outpatient (CLI) | payer MEDICARE, OTHER, SELFPAY ==
--- NOTE | 2024-07-12 15:54 | STRESSREP ---
Stress Test Report Pharmacologic myocardial perfusion stress test. 79-year-old man for preop cardiac evaluation Resting EKG demonstrates sinus rhythm with a rate of 72 bpm. Resting blood pressure is 122/78 mmHg. 0.4 mg of regadenoson was infused per usual protocol followed by rapid intravenous saline flush injection. Continuous EKG monitoring was performed. The maximum heart rate was 100 bpm which was 69% of max impacted heart rate the maximum workload was 1 metabolic equivalent. At rest there were no ST or T wave changes noted to suggest ischemia and at peak infusion nonspecific ST changes were noted which did not meet the criteria for ischemia. No clinical angina is noted. The final blood pressure was 112/68 mmHg. Myocardial perfusion protocol. 11.7 mCi of technetium 99m sestamibi was injected at rest. 0.4 mg of regadenoson was infused per usual protocol. At peak infusion 34.1 mCi of technetium 99m sestamibi was injected stress images were obtained stress and rest images were reconstructed and compared in the short axis vertical long and horizontal long axis. Gated images were also obtained. Perfusion SPECT analysis: Review of the stress images demonstrate normal uptake of tracer noted in all areas of the myocardium. The resting images similar demonstrated normal uptake of tracer noted in all areas of the myocardium. No areas of reversibility are noted to suggest ischemia and no previous infarct is noted. Gated SPECT analysis: The gated ejection fraction is 60%. Conclusion: Normal pharmacologic myocardial perfusion stress test. Preserved ejection fraction.
== END | disposition home or self-care (01) ==
LOC: CVS 07:06
PROVIDERS: PCP Nurse Practitioner Family; Referring Provider Nurse Practitioner Family; Visit Provider Nurse Practitioner Family
DX: Z01.818 Encounter for other preprocedural examination (principal); I10 Essential (primary) hypertension; I71.40 Abdominal aortic aneurysm, without rupture, unspecified; E78.00 Pure hypercholesterolemia, unspecified; Z95.1 Presence of aortocoronary bypass graft; Z79.899 Other long term (current) drug therapy; Z79.82 Long term (current) use of aspirin
CPT/HCPCS: 78452; 93017; A9500; A4216; J2785

== ENCOUNTER 2024-08-15 13:04 | Inpatient (IN) | payer MEDICARE, OTHER, SELFPAY ==
--- NOTE | 2024-08-02 13:59 | EKG12_ITS ---
Test Reason : PRE OP Blood Pressure : / mmHG Vent. Rate : 068 BPM Atrial Rate : 068 BPM P-R Int : 150 ms QRS Dur : 086 ms QT Int : 424 ms P-R-T Axes : 059 017 036 degrees QTc Int : 450 ms Normal sinus rhythm Nonspecific T wave abnormality Abnormal ECG Confirmed by Dae De Los Santos ([id number]), purchasing expeditor SARAH HO ([id number]) on 08/03/2024 6:03:17 AM Referred By: Aubrey Ramirez Confirmed By:Dae De Los Santos
[2024-08-02 14:40] LABS: Absolute Lymphocyte Count 1.02 X10^3/uL (0.83-4.51); Absolute Neutrophil Count 0.8 X10^3/uL (2.0-7.7); Basophil# 0.03 X10^3/uL; Basophil% 1.1 % (0-1); Eosinophil# 0.31 X10^3/uL; Eosinophils% 11.7 % (0-5); Hematocrit 44.1 % (40-54); Hemoglobin 14.1 g/dL (13.0-16.5); Lymphocyte # 1.02 X10^3/ul (0.83-4.51); Lymphocyte % 38.5 % (19-41); Mean Corpuscular Hgb 31.3 pg (27.0-32.0); Mean Corpuscular Volume 97.8 fL (80-94); Mean Platelet Vol. 8.4 fl (6.2-12.0); Monocyte# 0.45 X10^3/uL; NRBC Flagged by Analyzer 0 % (0-5); Neutrophil # 0.83 X10^3/uL (2.7-7.7); Neutrophil % 31.3 % (47-70); POSITIVE DIFFERENTIAL YES; Platelet Count 170 K/mm3 (150-450); RBC Distribution Width CV 13.7 % (11.6-14.6); Red Blood Count 4.51 M/mm3 (4.6-6.2); White Blood Count 2.7 K/mm3 (4.4-11.0)
[2024-08-02 14:50] LABS: Magnesium 2.1 mg/dL (1.6-2.6)
[2024-08-02 14:53] LABS: Differential Indicated SCAN CRITERIA MET
[2024-08-02 15:12] LABS: Differential Comment SCANNED; Hemoglobin A1c 7.1 % (3.8-5.6)
[2024-08-02 15:51] LABS: HIV - WCH Non-Reactive (Nonreactive); Hepatitis B Surface Antibody Non-Reactive; Hepatitis C Antibody Non-Reactive (Nonreactive)
[2024-08-04 07:08] LABS: Hepatitis A AB, Total Negative (Negative)
[2024-08-15] VITALS (19 sets, daily range): BP systolic 103–128; BP diastolic 56–79; PULSE 70–79; RESP 16–18; TEMP 36.3–37.3; O2SAT 95–100; BMI 26.4
[2024-08-15] MEDS: Acetaminophen 500 MG Tablet 1000 MG PO ×3 (06:10→23:19)
[2024-08-15] MEDS: Magnesium 1 GM over 15 mins IV (06:10)
[2024-08-15] MEDS: Lactated Ringers 1,000 ML 15 ML IV ×2 (06:11→14:37)
[2024-08-15] MEDS: Insulin Lispro 100 UNIT/ML INSULN.PEN SC ×2 (06:37→13:30)
--- NOTE | 2024-08-15 06:38 | PRE.ANES_ITS ---
ASA Classification* ASA Classification ASA Classification: 3 Assessment & Plan Anesthesia* Anesthesia Assessment Anesthesia Assessment: Discussed sedation and/or anesthesia options, risks, benefits, and alternatives with patient/parents/legal guardian/POA. Questions invited. The patient/parents/legal guardian/POA seems to understand and agrees to proceed with anesthesia plan. Reviewed the physical assessment, medical history, allergy history and patient home medications list prior to surgery/procedure/anesthetic and documented any changes. Performed airway and anesthesia risk assessments. Anesthesia Type Anesthesia Type: General History Source History Obtained from:: Patient and Chart Anesthesia Focused Assessment* Temperature: 97.8 F Pulse Rate: 70 Blood Pressure: 122/74 Respiratory Rate: 16 Pulse Ox: 100 Oxygen Delivery Method: Room Air Airway Assessment Mouth opens: >3 cm Mallampati Score: II Teeth Condition: Missing (Several missing. the rest are tight.) and Partial (Upper partial is out. Rest of the teeth are tight.) Neck Range of motion (ROM): Limited ROM (Slight decrease in extension) Focused Labs Anesthesia Preop lab: CBC WBC 2.7 K/mm3 (4.4-11.0) L 08/02/24 14:11 RBC 4.51 M/mm3 (4.6-6.2) L 08/02/24 14:11 Hgb 14.1 g/dL (13.0-16.5) 08/02/24 14:11 Hct 44.1 % (40-54) 08/02/24 14:11 Plt Count 170 K/mm3 (150-450) 08/02/24 14:11 CHEMISTRY Potassium 3.9 mmol/L (3.5-5.1) 07/04/24 07:16 Sodium 142 mmol/L (136-145) 07/04/24 07:16 Magnesium 2.1 mg/dL (1.6-2.6) 08/02/24 14:11 BUN 10 mg/dL (7-18) 07/04/24 07:16 Creatinine 1.09 mg/dL (0.70-1.30) 07/04/24 07:16 Glucose 150 mg/dL (74-106) H 07/04/24 07:16 POC Glucose 89 mg/dL (74-106) 04/12/22 12:26 COAG PT 15.9 SECONDS (11.7-14.9) H 05/08/20 16:35 Pre-Assessment Diagnosis/Proposed Procedure Planned Operative Procedure(s): ERAS, 360 Lumbar Fusion L3-4 and L4-5 Anesthesia History Anesthesia History - director talent management: Anesthesia History - director talent management Hx Hospitalization No 07/25/24 09:04 Any Problems With Anesthesia No 07/25/24 09:04 Cholinesterase deficiency No 07/25/24 09:04 You/Your Family Experience No 07/25/24 09:04 fever (hyperthermia) with Relationship Recent Exposure to Contagious No 08/15/24 05:55 Disease Does patient have nerve No 07/25/24 09:04 stimulator Patient instructed to have device shut off --Does patient have Pacemaker No 08/15/24 05:55 or ICD? When Was Last Pacemaker Check QUESTION #4 FULL TEXT: You/Your Family Experience fever (hyperthermia) with Anesthesia Last Oral Intake Last Oral intake: Last Oral Intake NPO since 03:30 08/15/24 05:55 Meds taken in AM with sips of Yes 08/15/24 05:55 water? Meds patient instructed to see medlist 08/15/24 05:55 take am of surgery Any additional information?: Yes NPO since: 03:30 (Patient had Ensure at 330.) PONV PONV - director talent management: PONV - director talent management Female No 07/25/24 09:04 HX of Motion Sickness No 07/25/24 09:04 HX of N/V After Surgery No 07/25/24 09:04 Non-Smoker Yes 07/25/24 09:04 Duration of Surgery greater Yes 07/25/24 09:04 than 60 minutes Number of Risk Factors 2 07/25/24 09:04 PONV Score Moderate Risk 07/25/24 09:04 Height & Weight Height & Weight: Anesthesia: Height & Weight Height 5 ft 9 in 08/15/24 05:55 Weight: 81 kg 08/15/24 05:55 Body Mass Index (BMI) 26.4 08/15/24 05:55 Respiratory Assessment Respiratory Assessment - director talent management: Respiratory Tract Infection Hx - director talent management Hx Respiratory Tract Infection No 07/25/24 09:04 STOP Sleep Apnea STOP Sleep Apnea - director talent management: STOP Sleep Apnea - director talent management Hx Hypertension Yes: CONTROLLED WITH MED 07/25/24 09:04 Hx Sleep Apnea No 07/25/24 09:04 CPAP BIPAP Do you snore loudly (louder No 07/25/24 09:04 than talking or can be heard Do you often feel tired/ No 07/25/24 09:04 fatigued/ sleepy during daytime? Has anyone observed you stop No 07/25/24 09:04 breathing during sleep? STOP Results Negative 07/25/24 09:04 QUESTION #5 FULL TEXT : Do you snore loudly (louder than talking or can be heard through closed doors)? Tobacco Use History Tobacco Use History - director talent management: Tobacco Use History - director talent management Tobacco Use Smoking Status Former smoker 07/25/24 09:04 Hx Tobacco Use No 07/25/24 09:04 Years Smoking Packs Smoked per Day Smoking Cessation Date was No - quit smoking greater 07/25/24 09:04 within the last 15 years than 15 years ago Hx Smoking Cessation Date 08/07/90 07/25/24 09:04 Hx Smoking Cessation Counseling Hematologic Medial History Hematologic Hx - director talent management: Hematologic Medical Hx - merchandiser seasonal Hx of Blood Transfusion No 07/25/24 09:04 Hx of Transfusion in last 3 No 07/25/24 09:04 Months Date of Last Transfusion (if within last 3 months) Ever experience any problems No 07/25/24 09:04 with transfusion(s)? Specify any problems Hx of Preganancy in last 3 N/A 07/25/24 09:04 Months Nurse Filling Out Transfusion NBUCHER 07/25/24 09:04 & Questions: Date: 07/25/24 07/25/24 09:04 Time: 09:05 07/25/24 09:04 Patient unable to answer at this time (ie. confused, unrespo /Reproduction History /Reproductive History - director talent management: /Reproductive Hx- director talent management Hx Now No 07/25/24 09:04 Gestational Age (in weeks): EDC: Hx Hx Para Hx Section SAB No 07/25/24 09:04 Active Medications Active Medications: Current Medications Generic Name Dose Route Start Last Admin Trade Name Freq PRN Reason Stop Dose Admin Acetaminophen 1,000 mg 08/15/24 07:30 08/15/24 06:10 Acetaminophen 500 Mg Tablet PO 08/15/24 07:31 1,000 mg X1 ONE Administration Magnesium Sulfate 1 gm/ 102 mls @ 408 mls/hr 08/15/24 07:30 08/15/24 06:10 Dextrose IV 08/15/24 07:44 408 mls/hr X1 ONE Administration Clindamycin Phosphate 900 mg in 50 mls @ 75 mls/hr 08/15/24 07:30 Cleocin IV 08/15/24 08:09 PREOP ONE Lactated Ringer's 1,000 mls @ 15 mls/hr 08/15/24 06:15 08/15/24 06:11 IV 15 mls/hr .Q48H URIAH Administration Insulin Human Lispro 1 - 6 unit 08/15/24 07:30 Insulin Lispro 100 Unit/Ml Insuln.Pen SC 08/15/24 18:00 Q4H PRN PRN BG>/= 180, SEE PROTOCOL Protocol PFSH Medical History Ambulates with cane Dietary restriction Heartburn Gastric reflux Wears dentures Wears glasses Alcohol use Insulin dependent diabetes mellitus Diabetes Arthritis High cholesterol Easy bruising Excessive bleeding Back pain Former smoker History of echocardiogram History of stress test Hypertension Cardiology follow-up encounter History of heart attack Calculus of distal left ureter Seasonal allergies Atherosclerosis of coronary artery bypass graft without angina pectoris History of non-ST elevation myocardial infarction (NSTEMI) (12/2015) CKD (chronic kidney disease) TIA (transient ischemic attack) Thrombocytopenia Dysarthria Hydronephrosis, left Left ureteral calculus Nephrolithiasis History of kidney stones Essential (primary) hypertension Benign prostatic hyperplasia Atherosclerotic heart disease of [place] coronary artery without angina pectoris Abdominal aortic aneurysm Hyperlipidemia Diabetes mellitus type 2 in nonobese Home Medications ?Medication ?Instructions ?Recorded ?Last Taken ?Type atorvastatin 20 mg tablet 20 mg PO QHS cholesterol 09/15/15 08/14/24 History aspirin 81 mg tablet,delayed 81 mg PO DAILY heart health 01/22/16 08/08/24 History release tadalafil 5 mg tablet 5 mg PO DAILY urinary 05/31/18 08/15/24 History tamsulosin 0.4 mg capsule 0.4 mg PO QHS BPH 05/31/18 08/14/24 History clopidogrel 75 mg tablet 75 mg PO DAILY BLOOD THINNER #90 07/24/18 08/08/24 Rx tabs metformin 1,000 mg 24 hr 1,000 mg PO BID diabetes 08/09/19 08/14/24 History tablet,extended release (gastric reten.) psyllium husk (with sugar) 3 5 ml PO DAILY supplement 05/08/20 05/07/20 History gram/12 gram oral powder insulin degludec 200 unit/mL (3 40 unit subcut DAILY dm 08/12/20 08/14/24 History mL) subcutaneous pen allopurinol 100 mg tablet 100 mg PO DAILY KIDNEY STONES 05/05/21 08/14/24 History dulaglutide 3 mg/0.5 mL 3 mg subcut FR DIABETES 10/18/23 08/08/24 History subcutaneous pen injector (Trulicity) loratadine 10 mg tablet 10 mg PO DAILY ALLERGY SYMPTOMS 10/18/23 08/14/24 History omeprazole 40 mg capsule,delayed 40 mg PO BID gerd 10/18/23 08/15/24 History release bisoprolol fumarate 5 mg tablet 5 mg PO DAILY HYPERTENSION 07/25/24 08/15/24 History Allergy/AdvReac Type Severity Reaction Status Date / Time caffeine Allergy Other Verified 08/15/24 05:49 ibuprofen Allergy Rash Verified 08/15/24 05:49 Penicillins (PCN) Allergy Other Verified 08/15/24 05:49 ciprofloxacin AdvReac Upset Verified 08/15/24 05:49 Stomach Family History Father FH: CABG (coronary artery bypass surgery) Cancer Pancreatic cancer Heart disease Mother Myocardial infarction Heart disease Brother Myocardial infarction CAD (coronary artery disease) Other Family history of coronary artery disease Surgical History History of colonoscopy History of esophagogastroduodenoscopy (EGD) History of cardiac catheterization Hx of cystoscopy History of cystoscopy History of lithotripsy H/O coronary artery bypass surgery (12/30/15) History of tonsillectomy Social History Smoking Status: Former smoker how long ago did patient quit smokin + years ago alcohol intake: current alcohol intake frequency: a few times a month Alcohol type: hard liquor substance use type: does not use caffeine: No what type of physical activity do you participate in: none seatbelt use: always do you feel safe at home: Yes Review of Systems (Anesthesia) ROS Narrative System reviewed and no additional complaints, except as documented.
[2024-08-15 07:09] LABS: Bedside Glucose 239 mg/dL (74-106)
--- NOTE | 2024-08-15 07:30 | PCM.HP.BLA ---
History and Physical Date of Admission: 08/15/24 MR#: [id number] Acct: [id number] Name: ANANTH BARONE MAUREEN Rep #: [id number] : 1945 Provider: Dr. Aubrey Ramirez MD Age/Sex: 79/M Location: [facility] [place].NATHALIE Status: Signed Intake Vital Signs 10/18/2313:33 Height 5 ft 9 in Intake Visit Reasons: lumbar spine Chief Complaint: lumbar spine pain Allergies caffeine Allergy (Verified 08/09/24 10:) Otheribuprofen Allergy (Verified 08/09/24 10:) RashPenicillins (PCN) Allergy (Verified 08/09/24 10:) Otherciprofloxacin Adverse Reaction (Verified 08/09/24 10:) Upset Stomach Medications ?Medication ?Instructions ?Recorded ?Confirmed ?Type atorvastatin 20 mg tablet 20 mg PO QHS cholesterol 09/15/15 08/09/24 History aspirin 81 mg tablet,delayed 81 mg PO DAILY heart health 01/22/16 08/09/24 History release tadalafil 5 mg tablet 5 mg PO DAILY urinary 05/31/18 08/09/24 History tamsulosin 0.4 mg capsule 0.4 mg PO QHS BPH 05/31/18 08/09/24 History clopidogrel 75 mg tablet 75 mg PO DAILY BLOOD THINNER #90 07/24/18 08/09/24 Rx tabs metformin 1,000 mg 24 hr 1,000 mg PO BID diabetes 08/09/19 08/09/24 History tablet,extended release (gastric reten.) psyllium husk (with sugar) 3 5 ml PO DAILY supplement 05/08/20 08/09/24 History gram/12 gram oral powder insulin degludec 200 unit/mL (3 40 unit subcut DAILY dm 08/12/20 08/09/24 History mL) subcutaneous pen allopurinol 100 mg tablet 100 mg PO DAILY KIDNEY STONES 05/05/21 08/09/24 History dulaglutide 3 mg/0.5 mL 3 mg subcut FR DIABETES 10/18/23 08/09/24 History subcutaneous pen injector (Trulicity) loratadine 10 mg tablet 10 mg PO DAILY ALLERGY SYMPTOMS 10/18/23 08/09/24 History omeprazole 40 mg capsule,delayed 40 mg PO BID gerd 10/18/23 08/09/24 History release bisoprolol fumarate 5 mg tablet 5 mg PO DAILY HYPERTENSION 07/25/24 08/09/24 History Have you fallen in the past year?: No PFSH Medical History Ambulates with cane Dietary restriction Heartburn Gastric reflux Wears dentures Wears glasses Alcohol use Insulin dependent diabetes mellitus Diabetes Arthritis High cholesterol Easy bruising Excessive bleeding Back pain Former smoker History of echocardiogram History of stress test Hypertension Cardiology follow-up encounter History of heart attack Calculus of distal left ureter Seasonal allergies Atherosclerosis of coronary artery bypass graft without angina pectoris History of non-ST elevation myocardial infarction (NSTEMI) (12/2015) CKD (chronic kidney disease) TIA (transient ischemic attack) Thrombocytopenia Dysarthria Hydronephrosis, left Left ureteral calculus Nephrolithiasis History of kidney stones Essential (primary) hypertension Benign prostatic hyperplasia Atherosclerotic heart disease of [place] coronary artery without angina pectoris Abdominal aortic aneurysm Hyperlipidemia Diabetes mellitus type 2 in nonobese Surgical History History of colonoscopy History of esophagogastroduodenoscopy (EGD) History of cardiac catheterization Hx of cystoscopy History of cystoscopy History of lithotripsy H/O coronary artery bypass surgery (12/30/15) History of tonsillectomy Family History Father FH: CABG (coronary artery bypass surgery) Cancer Pancreatic cancer Heart diseaseMother Myocardial infarction Heart diseaseBrother Myocardial infarction CAD (coronary artery disease)Other Family history of coronary artery disease Social History Smoking Status: Former smoker how long ago did patient quit smokin + years ago alcohol intake: current alcohol intake frequency: a few times a month Alcohol type: hard liquor substance use type: does not use caffeine: No what type of physical activity do you participate in: none seatbelt use: always do you feel safe at home: Yes HPI lumbar spine Details: This documentation accurately reflects the service provided and the decisions made by me, Dr. Aubrey Ramirez MD 08/09/24 1020. Part of today?s visit was documented by Pooja MCGREGOR, acting as scribe. ANANTH BARONE is a 79 year old M here today for pre-op appt dos: 08/15/24, planned surgery 360 Lumbar Fusion L3-4 and L4-5. HPI from 05/29/24: ANANTH BARONE is a 79 year old M here today for lumbar spine pain. He was referred by Dr. Quinones due to his recent longterm. He reports increased difficulty with walking due to the pain. He does silver sneakers three times a week and has a hard time keeping up with that now. He would like to discuss surgery as a next step. He has an abdominal aorta aneurysm which is unchanged from several years ago and says that he was told it was stable. Ananth has had consultations with Dr. Quinones for his lumbar stenosis and it was recommended that he undergo surgery. He however is diabetic with last last A1c of 7.6 from December of this year. He is yet to have a repeat one after that. He says that his numbers as far as the fasting glucose is concerned in the morning or seem to be in a reasonably better range. He has had low back pain for many years but this is significantly worsened such that now he is severely limited from walking longer distances. He has tried nonsurgical treatment including multiple epidural steroid injections without persistent help. Patient does not notice balance deficits but these have been stable for the last year or 2. He denies any neck pain or upper extremity symptoms or dexterity issues. Ortho Exam General General: Yes no acute distress Neurologic: Yes alert and Yes oriented x3 Spine SPINE TESTING CERVICAL THORACIC LUMBAR Musculoskeletal Strength 0=absent - 5=normal Details: Examination the back shows midline and paraspinal tenderness. Neurologic evaluation of lower extremity shows 5 x 5 power normal shows normal sensations in all dermatomes. Romberg's is positive. Gait shows mild imbalance. Coding Level of Care Code Off vis,est,level 4 Diagnoses Spinal stenosis of lumbar region with neurogenic claudication M48.062 Spondylolisthesis, lumbar region M43.16 Time Spent (min) 35 Assessment and Plan Assessment and Plan (1) Spinal stenosis of lumbar region with neurogenic claudication: Status: Acute (2) Spondylolisthesis, lumbar region: Status: Acute Plan Again reviewed prior MRI and xrays today with the patient. X-rays of the lumbar spine show severe disc height loss for with subtle L4-5 grade 1 spondylolisthesis with mild dynamic instability. MRI shows severe critical stenosis at both L3-4 as well as L4-5 and the central canal. Reviewed the benefits and risks of surgery. Risks of surgery include bleeding, infection, visceral injury, ileus, hardware failure, pseudoarthrosis, adjacent segment degeneration, pneumonia, DVT, pulmonary embolism, atelectasis, gait abnormality, persistent pain, stretch injuries, chance for future surgeries. Patient understands and agrees to proceed with surgery. Explained in detail the procedure of the lumbar fusion. Discussed post surgery restrictions such as no bending, lifting, or twisting for the first 3 months. Answered all questions that he had today in preparation for next week. Patient wishes to proceed with the surgery. He is diabetic and his last a1c from 08/02 was 7.1. He will continue to improve diet and nutrition both prior and after surgery. Consent was signed. Patient is in agreement.
[2024-08-15] MEDS: Clindamycin 900 MG/50 ML BAG 75 MG IV ×3 (07:40→23:22)
--- NOTE | 2024-08-15 07:50 | RAD_ITS ---
EXAM: XR LUMBOSACRAL SPINE, 2 OR 3 VIEWS CLINICAL INDICATION: 360 FUSION L3-4 L4-5 TECHNIQUE: Frontal and lateral views of the lumbar spine and sacrum. COMPARISON: No relevant prior studies available. FINDINGS: VERTEBRAE: Intraoperative images show localization of the L4 vertebral body. Interbody spacers were placed and then bilateral pedicles were placed from L3 through L5. Preserved vertebral body height. No fracture. No spondylolisthesis. Preservation of the normal lumbar lordosis. No significant facet arthropathy. DISC SPACES: No acute findings. Disc spaces are maintained. GASTROINTESTINAL TRACT: Unremarkable as visualized. Included bowel gas pattern is non-obstructive. RAD/Lumbar Spine 2 or 3 Views IMPRESSION: Posterior fusion of L3-L5. Electronically Signed: Vinny Jimenez MD at 17:14 EDT ,
--- NOTE | 2024-08-15 12:21 | PCM.OPRPT ---
Report of Operation Date of Procedure: 08/15/24 Description of Surgical Findings:: Preoperative diagnosis: L4-5 spondylolisthesis, L3-5 disc degeneration, stenosis with neurogenic claudication Postoperative diagnosis: Same Name of procedures L3-5 oblique lumbar interbody fusion (OLIF), minimally invasive left sided approach, lateral decubitus: ? L3-4 anterolateral spinal fusion 41446 ? L4-5 anterolateral fusion 15961/51 ? L3-4 insertion of cage 52431 ? L4-5 insertion of cage 69424/51 ? Bone graft aspirate left iliac crest separate incision ? Allograft cancellous chips Attending Surgeon: Dr. Aubrey Ramirez Estimated blood loss: 150 mL Anesthesia: General Complications: None Indications: Patient is a 79-year-old pleasant gentleman who has had a long history of low back pain and bilateral lower extremity radiation with difficulty walking distances. Xrays & MRI revealed severe L3-5 stenosis, L4-5 subtle spondylolisthesis, L3-4 severe disc degeneration. After undergoing a prolonged period of nonoperative treatment, the patient elected to undergo surgical decompression & fusion. All surgical options were discussed with the patient including anterior and posterior approaches. All risks and benefits associated with the procedure were explained to the patient. The risks include but are not limited to infection, bleeding, injury to nerves and vessels including major vessels like IVC and aorta, persistent paresthesia, persistent pain, dural tear, need for further procedures, adjacent segment degeneration, pseudoarthrosis, hardware failure, retrograde ejaculation, paralytic ileus, etc. Procedure: The patient was identified in the preoperative holding suite using Unique patient identifiers. Skin was marked, consent was reviewed, and all questions were answered. The patient was then brought back to the operative room. A surgical timeout was performed to make sure correct procedure was being done on the correct patient and all operative room staff were on the same page. General endotracheal anesthesia was then given to the patient. Clinton catheter was inserted. The patient was then carefully positioned in right lateral decubitus position with the left side up on a regular OR table. Axillary roll was placed and all bony prominences were well- padded. Hip positioners were placed in the posterior buttocks and anterior sternal area. The surgical area was prepped and draped in usual fashion. Preoperative antibiotic was injected IV as preoperative antibiotic. A final timeout was then again done just before starting the procedure. A 2 inch incision oblique was taken in the left lower quadrant of the abdomen 2 fingerbreadths away from the iliac crest and the lower ribs. Sharp dissection with Bovie was carried out up to the fascia covering the external oblique. The external oblique, internal oblique and transversus abdominis muscles were split along the muscle fibers and retroperitoneal space was entered. Sponge sticks were utilized to move the bowel and peritoneum [id number]-jar-way and psoas muscle was exposed staying within the retroperitoneal plane. [employer] retractor system was positioned and the retractor blade was applied onto the psoas. The interval between psoas and midline structures was developed and appropriate retractors were placed. Once adequate interval was cleared, a disc space was identified and a marker x-ray was taken. This identified the L4-5 disc level. The prepsoas interval was then traced superiorly to expose the L3-4 disc. Annulotomy was done with a long handled knife starting at L4-5. Pituitary was used to remove disc material. Curettes were used to prepare the endplates. Disc space spreaders were utilized to distract and increase the disc height. Near complete discectomy was performed. Smaller disc distractors were also used to bluntly perform a contralateral annulotomy. Trials of serially increasing sizes were used. A Jamshidi needle was used to aspirate bone marrow from the left anterior iliac crest through a separate incision and this aspirate was mixed with the allograft bone chips. A Depuy [place] cage of size of the 18 x 50 x 14 mm with 15 degrees lordosis was packed with corticocancellous allograft bone chips mixed with bone marrow aspirate. This was inserted into the L4-5 disc space. The retractors were then repositioned to expose the L3-4 disc and the procedure was repeated with complete discectomy and endplate preparation. Cage size was 18 x 50 x 12 mm at L3-4. AP and lateral C-arm pictures were taken to confirm good position of the cage. Some bone chips were also packed around the cages. Screw with washer was placed into the lower L3 and L4 body with a washer partially covering the cage at L3-4 and L4-5 respectively. Hemostasis was confirmed. The retractor blades were removed. Closure was done in layers with a continuous strand of # 1 Vicryl in all muscle layers. 2-0 Vicryl was used for subcutaneous tissue and 4-0 for Monocryl for the skin. Steri-Strips were applied and 4 x 4 gauze and Tegaderm were applied. Surgeon: Aubrey Ramirez chief revenue officer: Denise Oshea Admit VTE Documentation VTE Mechan Device Prophylaxis: SCD's Procedures Musculoskeletal [id number]: Other Procedure See Report
--- NOTE | 2024-08-15 12:26 | PCM.OPRPT ---
Report of Operation Date of Procedure: 08/15/24 Description of Surgical Findings:: Preoperative diagnosis: L4-5 spondylolisthesis, L3-5 disc degeneration, stenosis with neurogenic claudication Postoperative diagnosis: Same Name of procedures: L3-5 posterior percutaneous pedicle screw instrumented fusion, prone: ? L3-4 posterior spinal fusion 25590 ? L3-5 posterior pedicle screw instrumentation 69299 ? L4-5 posterior fusion 83232/51 ? Allograft cancellous chips Attending Surgeon: Dr. Aubrey Ramirez Estimated blood loss: 150 mL (total for entire case) Anesthesia: General Complications: None Description of procedure: After the anterior procedure was complete, the patient was then turned supine. The patient was then transferred to Andre table in prone position. Back was prepped and draped in usual fashion. C-arm AP view was then taken. C-arm was positioned in a way that L3 was centralized and superior endplate of was parallel to the beam. Spinous process was centered between the pedicles. Midline was marked with skin marker and lateral borders of the pedicles were also marked. Skin marker was also utilized to dion transversely across the middle of the pedicles at L3. 2 transverse paramedian incisions of 1 inch were placed. The fascia was incised vertically. Finger dissection was utilized to palpate the transverse process and facet joint. Viper Prime screws with towers were inserted and docked onto the transverse processes. This was then slowly moved medially to reach the superior articular process of L3. This was then confirmed on C-arm and then a mallet was utilized to drive the trocar into the pedicle going up to the medial wall of the pedicle on AP view. This was performed both sides. C-arm lateral view confirmed that the tip of the trocar was in the vertebral body, and the screw was advanced into the pedicle and vertebral body. This was repeated similarly at L4 and L5 bilaterally. Screw sizes were 7 x 50 mm at L3, L4 and L5 on both sides. 70 mm precontoured titanium 5.5 mm lordotic chi on both sides were then passed through the screw extensions and reduced down to the screws with the help of Pure [employer] instrumentation system on both sides. AP and lateral view of the C-arm showed good positioning of the screws and cages. Final tightening with the torque screwdriver was then completed. Natalee was utilized to roughen the facet joint at L3-4 and L4-5 on the right side. Cancellous allograft bone chips mixed with bone marrow aspirate were then placed over this decorticated area. Hemostasis was achieved. Closure was done in layers with 0 Vicryls for the fascia, 2-0 Vicryls for the subcutaneous tissue, and Monocryl for the skin. Dermabond was applied. Dressings were applied covered with Tegaderm. The patient was then turned supine onto a hospital bed. The patient was extubated and taken to PACU in stable condition. The patient tolerated the procedure well and no complications occurred. [employer] [place] cage & Viper Prime minimally invasive pedicle screw instrumentation system was utilized in this case. No dural tear was identified intraoperatively. I was present for the entirety of the case and performed the surgery. Surgeon: Aubrey Ramirez precision jig grinder: Denise Oshea Admit VTE Documentation VTE Mechan Device Prophylaxis: SCD's Procedures Musculoskeletal [id number]: Other Procedure See Report
[2024-08-15] MEDS: Ropivacaine 0.5% 30 ML Vial (12:31)
[2024-08-15 12:38] LABS: Bedside Glucose 161 mg/dL (74-106)
[2024-08-15 12:38] LABS: Bedside Glucose 218 mg/dL (74-106)
[2024-08-15 12:38] LABS: Bedside Glucose 186 mg/dL (74-106)
--- NOTE | 2024-08-15 13:10 | PCM.POST.ANE ---
Anesthesia: Postop Eval I Current Vital Signs Temperature: 97.8 F Pulse Rate: 74 Blood Pressure: 125/70 Respiratory Rate: 16 Pulse Ox: 100 Oxygen Delivery Method: Simple Mask Oxygen Flow Rate (L/min): 6 Assessment Airway patent: Yes Spontaneous unlabored respirations: Yes Mental status: Awake and Calm nausea: No Vomiting: No Anesthesia Complication: No Fluid Hydration Crystalloid volume administer (ml): 2,400 Total IV fluid infused: 2,400 Progress Note Anesthesia document: Postop Eval 1 completed: Yes
[2024-08-15 13:46] LABS: Bedside Glucose 223 mg/dL (74-106)
--- NOTE | 2024-08-15 15:05 | PCM.CONS.GEN ---
Assessment & Plan Assessment/Plan (1) Spondylolisthesis, lumbar region: (2) Spinal stenosis of lumbar region with neurogenic claudication: (3) Lumbar spinal stenosis: QUALIFIERS: Neurogenic claudication status: with neurogenic claudication Qualified Code(s): M48.062 - Spinal stenosis, lumbar region with neurogenic claudication (4) Atherosclerosis of coronary artery bypass graft without angina pectoris: QUALIFIERS: [place] vs. transplanted heart: [place] heart Qualified Code(s): I25.810 - Atherosclerosis of coronary artery bypass graft(s) without angina pectoris (5) H/O coronary artery bypass surgery: (6) Essential (primary) hypertension: PLAN: Plan L4-5 spondylolisthesis, L3-5 disc degeneration, stenosis with neurogenic claudication s/p L3-5 posterior percutaneous pedicle screw instrumented fusion, prone; L3-4 posterior spinal fusion ; L3-5 posterior pedicle screw instrumentation ; L4-5 posterior fusion; and Allograft cancellous chips post op day 0. Management per primary. Pain control. Hypertension Blood pressure is stable Bisoprolol continued. Trend blood pressure Diabetes mellitus Patient with hyperglycemia postoperatively Home basal insulin continued. Accu-Cheks with correction scale insulin continued. History of CABG Denies chest pain. Statin continued. Plavix continued. Urinary retention Stable tadalafil and Flomax continued DVT prophylaxis: Agrees with SCD. Advance care planning: Discussed with patient and family advanced directives as well as CODE STATUS. Explained various CODE STATUS: FULL CODE, DNR CCA, DNR CCA with no intubation, and DNR CC- and what each meant. Patient elected to be a full code with CPR and intubation if warranted. Patient's is his surrogate decision maker. Order was placed. Time spent on discussion 16 minutes. Time spent in the patient's overall evaluation,decision-making process, review of diagnostic data, adjustment of management, discussion with other providers, nursing and ancillary staff involved in patient's care documentation, 50 minutes. HPI Consult Data Date of Consult: 08/15/24 HPI Narrative Reason for Consultation: Medical management HPI Narrative: CLAUDINE BARONE, is a 79 M with a significant history of CABG; hypertension; type 2 diabetes mellitus with polyneuropathy; L4-5 spondylolisthesis, L3-5 disc degeneration, stenosis with neurogenic claudication s/p L3-5 posterior percutaneous pedicle screw instrumented fusion, prone; L3-4 posterior spinal fusion; L3-5 posterior pedicle screw instrumentation [id number]; L4-5 posterior fusion; and Allograft cancellous chips post op day 0 and for whom internal medicine has been consulted for medical management of chronic medical conditions including high blood pressure, diabetes and postoperative management. Patient was seen right after surgery as a PACU. He complained of some incisional pain at his lower back. He complained of prior mild nausea after surgery and for which he was medicated. [facility] Medical History Ambulates with cane Dietary restriction Heartburn Gastric reflux Wears dentures Wears glasses Alcohol use Insulin dependent diabetes mellitus Diabetes Arthritis High cholesterol Easy bruising Excessive bleeding Back pain Former smoker History of echocardiogram History of stress test Hypertension Cardiology follow-up encounter History of heart attack Calculus of distal left ureter Seasonal allergies Atherosclerosis of coronary artery bypass graft without angina pectoris History of non-ST elevation myocardial infarction (NSTEMI) (12/2015) CKD (chronic kidney disease) TIA (transient ischemic attack) Thrombocytopenia Dysarthria Hydronephrosis, left Left ureteral calculus Nephrolithiasis History of kidney stones Essential (primary) hypertension Benign prostatic hyperplasia Atherosclerotic heart disease of [place] coronary artery without angina pectoris Abdominal aortic aneurysm Hyperlipidemia Diabetes mellitus type 2 in nonobese Home Medications ?Medication ?Instructions ?Recorded ?Last Taken ?Type atorvastatin 20 mg tablet 20 mg PO QHS cholesterol 09/15/15 08/14/24 History aspirin 81 mg tablet,delayed 81 mg PO DAILY heart health 01/22/16 08/08/24 History release tadalafil 5 mg tablet 5 mg PO DAILY urinary 05/31/18 08/15/24 History tamsulosin 0.4 mg capsule 0.4 mg PO QHS BPH 05/31/18 08/14/24 History clopidogrel 75 mg tablet 75 mg PO DAILY BLOOD THINNER #90 07/24/18 08/08/24 Rx tabs metformin 1,000 mg 24 hr 1,000 mg PO BID diabetes 08/09/19 08/14/24 History tablet,extended release (gastric reten.) psyllium husk (with sugar) 3 5 ml PO DAILY supplement 05/08/20 05/07/20 History gram/12 gram oral powder insulin degludec 200 unit/mL (3 40 unit subcut DAILY dm 08/12/20 08/14/24 History mL) subcutaneous pen allopurinol 100 mg tablet 100 mg PO DAILY KIDNEY STONES 05/05/21 08/14/24 History dulaglutide 3 mg/0.5 mL 3 mg subcut FR DIABETES 10/18/23 08/08/24 History subcutaneous pen injector (Trulicity) loratadine 10 mg tablet 10 mg PO DAILY ALLERGY SYMPTOMS 10/18/23 08/14/24 History omeprazole 40 mg capsule,delayed 40 mg PO BID gerd 10/18/23 08/15/24 History release bisoprolol fumarate 5 mg tablet 5 mg PO DAILY HYPERTENSION 07/25/24 08/15/24 History Allergy/AdvReac Type Severity Reaction Status Date / Time caffeine Allergy Other Verified 08/15/24 05:49 ibuprofen Allergy Rash Verified 08/15/24 05:49 Penicillins (PCN) Allergy Other Verified 08/15/24 05:49 ciprofloxacin AdvReac Upset Verified 08/15/24 05:49 Stomach Family History Father FH: CABG (coronary artery bypass surgery) Cancer Pancreatic cancer Heart disease Mother Myocardial infarction Heart disease Brother Myocardial infarction CAD (coronary artery disease) Other Family history of coronary artery disease Surgical History History of colonoscopy History of esophagogastroduodenoscopy (EGD) History of cardiac catheterization Hx of cystoscopy History of cystoscopy History of lithotripsy H/O coronary artery bypass surgery (12/30/15) History of tonsillectomy Social History Smoking Status: Former smoker how long ago did patient quit smokin + years ago alcohol intake: current alcohol intake frequency: a few times a month Alcohol type: hard liquor substance use type: does not use caffeine: No what type of physical activity do you participate in: none seatbelt use: always do you feel safe at home: Yes ROS ROS Narrative Pertinent positives and pertinent negatives as noted in HPI. All other systems were reviewed and are negative Physical Exam Narrative Physical exam: General: Well-nourished, well-developed. Head: Normocephalic, atraumatic, no tenderness Eyes: Vision is grossly intact. EOMI ENT, no trauma, moist mucous membranes, no rhinorrhea Neck: Nontender, No thyromegaly. CVS: Regular rate and rhythm. S1-S2 present. No murmur, gallop or rub. Respiratory : clear to auscultation bilaterally, chest wall nontender Abdomen: Soft, nontender, nondistended, normal bowel sounds, no masses : Deferred Back: Dry and intact incision at lower back. Extremities: Nontender full range of motion, no trauma Skin: Normal color, no trauma, abrasions Neuro: Alert, oriented, cranial nerves II through XII grossly intact. Psychiatry: Normal mood. Normal affect. Not depressed. Not anxious. Lab / Micro Data 08/02/24 14:11 Labs: Laboratory Results - last 24 hr 08/15/24 06:08: POC Glucose 239 H 08/15/24 07:53: POC Glucose 186 H 08/15/24 09:47: POC Glucose 161 H 08/15/24 11:39: POC Glucose 218 H 08/15/24 13:12: POC Glucose 223 H Charges/Coding Visit Charges Inpatient E&M: 74027 Subs Hosp L3 Procedures Hospitalists Procedures: 84826 Advncd Care Plan 30 Min
[2024-08-15 15:42] LABS: Bedside Glucose 269 mg/dL (74-106)
[2024-08-15] MEDS: metFORMIN (XR) 500 MG Tablet 1000 MG PO (16:04)
[2024-08-15] MEDS: Ketorolac 15 MG/ML Vial IV ×2 (16:05→23:21)
[2024-08-15] MEDS: Methocarbamol 500 MG Tablet 1000 MG PO ×2 (16:27→23:20)
--- NOTE | 2024-08-15 17:00 | POSTOPAN2_ITS ---
Anesthesia Postop Eval I Sum Postop Eval Completion status Anesthesia document: Postop Eval 1 completed: Yes Anesthesia Postop Eval I Summary Anesthesia Postop Eval I Summary: Anesthesia Postop Eval I: Assessment Summary Airway patent Yes 08/15/24 13:13 [email or web address] Spontaneous unlabored Yes 08/15/24 13:13 [email or web address] [email or web address] respirations Mental status Awake,Calm 08/15/24 13:13 [email or web address] nausea No 08/15/24 13:13 [email or web address] Vomiting No 08/15/24 13:13 [email or web address] Anesthesia Postop Eval I: Fluid Summary Crystalloid volume administer 2,400 08/15/24 13:13 WORM [email or web address] PAULAY (ml) Colloids volume administered ( ml) Blood Product volume administered (ml) Total IV fluid infused 2,400 08/15/24 13:13 [email or web address] Anesthesia Postop Eval I: Summary Notes Anesthesia Complication No 08/15/24 13:13 [email or web address] Anesthesia Complication Comment: Post-operative progress note Anesthesia: Postop Eval II Evaluation Mental status: Awake Pain Level: 0 nausea: No Vomiting: No
--- NOTE | 2024-08-15 17:00 | PCM.POSTANE2 ---
Anesthesia Postop Eval I Sum Postop Eval Completion status Anesthesia document: Postop Eval 1 completed: Yes Anesthesia Postop Eval I Summary Anesthesia Postop Eval I Summary: Anesthesia Postop Eval I: Assessment Summary Airway patent Yes 08/15/24 13:13 CONSUMER MARKETING [email or web address] Spontaneous unlabored Yes 08/15/24 13:13 CONSUMER MARKETING [email or web address] respirations Mental status Awake,Calm 08/15/24 13:13 CONSUMER MARKETING [email or web address] nausea No 08/15/24 13:13 CONSUMER MARKETING [email or web address] Vomiting No 08/15/24 13:13 CONSUMER MARKETING [email or web address] Anesthesia Postop Eval I: Fluid Summary Crystalloid volume administer 2,400 08/15/24 13:13 CONSUMER MARKETING ANALYST.ANA PAULAY (ml) Colloids volume administered ( ml) Blood Product volume administered (ml) Total IV fluid infused 2,400 08/15/24 13:13 CONSUMER MARKETING [email or web address] Anesthesia Postop Eval I: Summary Notes Anesthesia Complication No 08/15/24 13:13 CONSUMER MARKETING [email or web address] Anesthesia Complication Comment: Post-operative progress note Anesthesia: Postop Eval II Evaluation Mental status: Awake Pain Level: 0 nausea: No Vomiting: No
[2024-08-15 17:05] LABS: Bedside Glucose 219 mg/dL (74-106)
[2024-08-15] MEDS: Senna/Docusate Sodium 1 Tablet 2 TABLET PO (23:20)
[2024-08-15] MEDS: Atorvastatin Calcium 20 MG Tablet PO (23:20)
[2024-08-15] MEDS: Tamsulosin HCl 0.4 MG Capsule PO (23:21)
[2024-08-15] MEDS: 0.9% Saline Lock 10 ML Syringe IV (23:21)
[2024-08-15] MEDS: Pantoprazole Sodium 40 MG Tablet PO ×2 (23:21→23:22)
[2024-08-15] MEDS: Menthol/Lanolin/Calamine/Znox 113 GM Tube 1 APPLIC TOPICAL (23:43)
[2024-08-16 04:01] VITALS: BP 116/56; PULSE 73; RESP 16; TEMP 36.9; O2SAT 97
[2024-08-16] MEDS: Ketorolac 15 MG/ML Vial IV (05:39)
[2024-08-16] MEDS: Acetaminophen 500 MG Tablet 1000 MG PO ×2 (05:41→13:37)
[2024-08-16] MEDS: 0.9% Saline Lock 10 ML Syringe IV (05:42)
[2024-08-16 06:29] LABS: Hematocrit 34.1 % (40-54); Mean Corp Hgb Conc 32.3 g/dL (32-36); Mean Corpuscular Hgb 31.6 pg (27.0-32.0); Mean Platelet Vol. 8.5 fl (6.2-12.0); Platelet Count 155 K/mm3 (150-450); RBC Distribution Width CV 13.8 % (11.6-14.6); RBC Distribution Width SD 49.7 fl (35.1-43.9); Red Blood Count 3.48 M/mm3 (4.6-6.2); White Blood Count 3.3 K/mm3 (4.4-11.0)
[2024-08-16 07:08] LABS: Anion Gap 5 (5-15); BUN 16 mg/dL (7-18); BUN/Creat Ratio 12.7 RATIO (10-20); Calcium,Total 8.4 mg/dL (8.5-10.1); Chloride 100 mmol/L (98-107); Creatinine, Serum 1.26 mg/dL (0.70-1.30); EST Glomerular Filtration Rate 59 mL/min (>60); Est Glom Filt Rate - Afr Amer 71 mL/min (>60); Glucose 207 mg/dL (74-106); Potassium 4.1 mmol/L (3.5-5.1); Sodium Level 135 mmol/L (136-145)
[2024-08-16 07:36] VITALS: BP 109/49; PULSE 64; RESP 16; TEMP 36.6; O2SAT 92
[2024-08-16] MEDS: Bisoprolol Fumarate 5 MG Tablet PO (07:39)
[2024-08-16] MEDS: Senna/Docusate Sodium 1 Tablet 2 TABLET PO (07:39)
[2024-08-16] MEDS: Methocarbamol 500 MG Tablet 1000 MG PO ×2 (07:40→13:37)
[2024-08-16] MEDS: metFORMIN (XR) 500 MG Tablet 1000 MG PO (07:40)
[2024-08-16] MEDS: Allopurinol 100 MG Tablet PO (07:40)
[2024-08-16] MEDS: TADALAFIL 5 MG PO (07:40)
[2024-08-16] MEDS: Loratadine 10 MG Tablet PO (07:40)
--- NOTE | 2024-08-16 08:00 | RAD_ITS ---
STUDY: X-RAY - LUMBAR SPINE REASON FOR EXAM: Male, 79 years old. s/p lumbar fusion TECHNIQUE: AP and lateral view(s) of the lumbar spine were obtained. COMPARISON: None FINDINGS: Normal lumbar lordosis. There is no substantial scoliosis. There is a normal alignment of the vertebrae. Postop change status post bilateral posterior fusion at L3-4 and L4-5 No evidence for acute fracture or subluxation. No lytic or sclerotic bony lesions. . Disc space heights well-maintained although there is multilevel endplate spurring The soft tissue structures are unremarkable. RAD/Lumbar Spine 2 or 3 Views IMPRESSION: Spondylosis and postsurgical change. No acute fracture or subluxation Electronically Signed: Gustabo Hall MD at 19:08 EDT ,
--- NOTE | 2024-08-16 10:15 | CASEMGMT ---
AUDREY WAGNER Assessment: Face to Face with pt for initial transition planning/care coordination assessment. AUDREY WAGNER introduced self and role at [facility], pt voices understanding and consents to assessment. Pt is A&O x4 and answers all questions appropriately at this time. Pt lying in bed in no distress. Care providers, pharmacy, and demographics verified/updated. Admitting Dx: lumbar fusion L3-4 and L4-5 Strata Score: 2 PCP:Hang Oviedo NP Specialists:James, ortho; Manuel, cardio; Nargis, uro Preferred Pharmacy: [facility] Insurance: [employer] Prescription Benefit: yes LNOK: Alicia Szymanski, ; Wero Szymanski, son Living Arrangements: Pt lives with and son in a singe story home with 2 steps to enter with a grab bar. Pt reports he is I in ADLs and denies concerns at home. Transportation: Pt drives self and denies concerns with transportation. Pt will transport pt until he can drive again. DME:[facility]GM with sufficient supply of strips and lancets, insulin with sufficient supply and needles, FWW, rollator, cane HHC/SNF: Pt has had HHC in the past but cannot recall the name of the agency. Denies SNF stays. Pt states no concerns with going home at time of dc. OT eval'd with no OT recommended. Pt states no further concerns/needs. CM to follow. Advised pt to ask CM if any further question/concerns/needs arise, voices understanding. Pt Goal: Home Plan: Home Ramón VENTURA CM
[2024-08-16] MEDS: Insulin Glargine-YFGN 100 UNIT/ML Pen 40 UNIT SC (11:36)
[2024-08-16] MEDS: Bisacodyl 5 MG Tablet 10 MG PO (11:42)
[2024-08-16 13:51] VITALS: BP 131/55; PULSE 72; RESP 18; TEMP 37.2; O2SAT 97
--- NOTE | 2024-08-16 14:11 | PN.ORTHO_ITS ---
Subjective Subjective Seen with Dr. Ramirez. POD 1 L3-5 fusion. Patient is doing well with his pain well managed. Passed gas and will trial solid foods, if no n/v ready to discharge. Walked with PT with a walker and is clear for home discharge. Says that his leg pain he was having prior to surgery has resolved. Objective Data Objective Data Vital Signs: Vital Signs Temp Pulse Resp BP Pulse Ox O2 Del Method O2 Flow Rate 99.0 F 72 18 131/55 H 97 Room Air 4 08/16/24 13:51 08/16/24 13:51 08/16/24 13:51 08/16/24 13:51 08/16/24 13:51 08/16/24 13:51 08/15/24 15:00 Oxygen Flow Rate (L/min) 4 Oxygen Delivery Method Room Air Weight: 178 lb 9.191 oz Body Mass Index (BMI) 26.4 Intake & Output: Intake and Output for Last 24 Hours 08/14/24 08/15/24 08/16/24 23:59 23:59 23:59 Intake Total 2862 / 2862 925.25 / 925.25 Output Total 350 / 350 Balance 2512 / 2512 925.25 / 925.25 Lab / Micro Data 08/16/24 05:34 08/16/24 05:34 Labs: Laboratory Results - last 24 hr 08/15/24 15:24: POC Glucose 269 H 08/15/24 16:30: POC Glucose 219 H 08/16/24 05:34: WBC 3.3 L, RBC 3.48 L, Hgb 11.0 L, Hct 34.1 L, MCV 98.0 H, MCH 31.6, MCHC 32.3, RDW Std Deviation 49.7 H, RDW Coeff of [place] 13.8, Plt Count 155, MPV 8.5, Sodium 135 L, Potassium 4.1, Chloride 100, Carbon Dioxide 29.0, Anion Gap 5, BUN 16, Creatinine 1.26, Estim Creat Clear Calc 49.10, Est GFR (MDRD) Af Amer 71, Est GFR (MDRD) Non-Af 59 L, BUN/Creatinine Ratio 12.7, Glucose 207 H, C alcium 8.4 L Micro: Microbiology 08/02/24 14:11 Swab (Method) Nasal Screen MRSA/MSSA - Final Radiography Diagnostic Testing: Radiology Impression Lumbar Spine X-Ray 08/15/24 07:50 IMPRESSION: Posterior fusion of L3-L5. Electronically Signed: Vinny Jimenez MD at 17:14 EDT , Physical Exam Narrative Belly and back incisions are covered with a tegaderm and gauze. Neurological exam shows 5x5 power of the lower extremities. Normal sensations across all dermatomes. Const alert, oriented x3 and no apparent distress Assessment & Plan Assessment/Plan (1) S/P lumbar fusion: PLAN: Plan Ready for discharge after tolerating solid food, he has had no issues on a liquid diet. PT/OT - cleared for home. No bending, lifting, or twisting. Pain well managed, discharge meds with include oxycodone, acetaminophen, methocarbamol, and senna. Hold Plavix and aspirin until Tuesday. Follow up in clinic in 2 weeks.
== END 2024-08-16 16:01 | disposition home or self-care (01) | DRG 427 ==
LOC: MS3 08-16 06:51
PROVIDERS: Anesthesiology; Student in an Organized Health Care Education/Training Program; Admitting Provider Orthopaedic Surgery Orthopaedic Surgery of the Spine; PCP Nurse Practitioner Family; Referring Provider Orthopaedic Surgery Orthopaedic Surgery of the Spine; Visit Provider Orthopaedic Surgery Orthopaedic Surgery of the Spine
PROC: 0SG10A0 Fusion of 2 or more Lumbar Vertebral Joints with Interbody Fusion Device, Anterior Approach, Anterior Column, Open Approach (ICD-10-PCS; principal; 2024-08-15 07:00)
DX: M48.062 Spinal stenosis, lumbar region with neurogenic claudication (principal); I25.810 Atherosclerosis of coronary artery bypass graft(s) without angina pectoris; E11.22 Type 2 diabetes mellitus with diabetic chronic kidney disease; E11.42 Type 2 diabetes mellitus with diabetic polyneuropathy; N18.9 Chronic kidney disease, unspecified; I12.9 Hypertensive chronic kidney disease with stage 1 through stage 4 chronic kidney disease, or unspecified chronic kidney disease; M43.16 Spondylolisthesis, lumbar region; Z79.4 Long term (current) use of insulin; E78.00 Pure hypercholesterolemia, unspecified; E11.65 Type 2 diabetes mellitus with hyperglycemia; M51.369 Other intervertebral disc degeneration, lumbar region without mention of lumbar back pain or lower extremity pain; Z87.891 Personal history of nicotine dependence; Z79.84 Long term (current) use of oral hypoglycemic drugs; Z79.85 Long-term (current) use of injectable non-insulin antidiabetic drugs; Z79.82 Long term (current) use of aspirin; Z79.899 Other long term (current) drug therapy; Z79.02 Long term (current) use of antithrombotics/antiplatelets
CPT/HCPCS: 36415; 72100; 76000; 80048; 82962; 83036; 83735; 85025; 85027; 86703; 86706; 86708; 86803; 86850; 86900; 86901; 87081; 93005; 94668; 97162; 97166; C1713; J7120; A4216; J2405; J3475

== ENCOUNTER 2024-10-04 17:50 | Emergency (ER) | payer MEDICARE, OTHER, SELFPAY ==
[2024-10-04 17:51] VITALS: BP 110/68; PULSE 73; RESP 16; TEMP 35.9; O2SAT 97; BMI 25.1
[2024-10-04] MEDS: Lidocaine 1% (20 ml mdv) 20 ML Vial INFILT (19:01)
--- NOTE | 2024-10-04 19:47 | EX.ED.GENINJ ---
HPI History of Present Illness Chief Complaint: Laceration [facility] Medical History Ambulates with cane Dietary restriction Heartburn Gastric reflux Wears dentures Wears glasses Alcohol use Insulin dependent diabetes mellitus Diabetes Arthritis High cholesterol Easy bruising Excessive bleeding Back pain Former smoker History of echocardiogram History of stress test Hypertension Cardiology follow-up encounter History of heart attack Calculus of distal left ureter Seasonal allergies Atherosclerosis of coronary artery bypass graft without angina pectoris History of non-ST elevation myocardial infarction (NSTEMI) (12/2015) CKD (chronic kidney disease) TIA (transient ischemic attack) Thrombocytopenia Dysarthria Hydronephrosis, left Left ureteral calculus Nephrolithiasis History of kidney stones Essential (primary) hypertension Benign prostatic hyperplasia Atherosclerotic heart disease of [place] coronary artery without angina pectoris Abdominal aortic aneurysm Hyperlipidemia Diabetes mellitus type 2 in nonobese Home Medications ?Medication ?Instructions ?Recorded ?Last Taken ?Type atorvastatin 20 mg tablet 20 mg PO QHS cholesterol 09/15/15 08/14/24 History aspirin 81 mg tablet,delayed 81 mg PO DAILY heart health 01/22/16 08/08/24 History release tadalafil 5 mg tablet 5 mg PO DAILY urinary 05/31/18 08/15/24 History tamsulosin 0.4 mg capsule 0.4 mg PO QHS BPH 05/31/18 08/14/24 History clopidogrel 75 mg tablet 75 mg PO DAILY BLOOD THINNER #90 07/24/18 08/08/24 Rx tabs metformin 1,000 mg 24 hr 1,000 mg PO BID diabetes 08/09/19 08/14/24 History tablet,extended release (gastric reten.) psyllium husk (with sugar) 3 5 ml PO DAILY supplement 05/08/20 05/07/20 History gram/12 gram oral powder insulin degludec 200 unit/mL (3 32 unit subcut DAILY dm 08/12/20 08/14/24 History mL) subcutaneous pen allopurinol 100 mg tablet 100 mg PO DAILY KIDNEY STONES 05/05/21 08/14/24 History loratadine 10 mg tablet 10 mg PO DAILY ALLERGY SYMPTOMS 10/18/23 08/14/24 History omeprazole 40 mg capsule,delayed 40 mg PO BID gerd 10/18/23 08/15/24 History release bisoprolol fumarate 5 mg tablet 5 mg PO DAILY HYPERTENSION 07/25/24 08/15/24 History acetaminophen 500 mg tablet 500 mg PO Q6H #30 tabs 08/16/24 Unknown Rx sennosides 8.6 mg-docusate sodium 2 tab PO BID PRN constipation #30 08/16/24 Unknown Rx 50 mg tablet (Stimulant Laxative tabs Plus) Allergy/AdvReac Type Severity Reaction Status Date / Time caffeine Allergy Other Verified 10/04/24 17:51 ibuprofen Allergy Rash Verified 10/04/24 17:51 Penicillins (PCN) Allergy Other Verified 10/04/24 17:51 ciprofloxacin AdvReac Upset Verified 10/04/24 17:51 Stomach Family History Father FH: CABG (coronary artery bypass surgery) Cancer Pancreatic cancer Heart disease Mother Myocardial infarction Heart disease Brother Myocardial infarction CAD (coronary artery disease) Other Family history of coronary artery disease Surgical History (Updated 10/04/24 @ 18:02 by Augustin Ann) H/O spinal fusion History of colonoscopy History of esophagogastroduodenoscopy (EGD) History of cardiac catheterization Hx of cystoscopy History of cystoscopy History of lithotripsy H/O coronary artery bypass surgery (12/30/15) History of tonsillectomy Social History Smoking Status: Former smoker how long ago did patient quit smokin + years ago alcohol intake: current alcohol intake frequency: a few times a month Alcohol type: hard liquor substance use type: does not use caffeine: No what type of physical activity do you participate in: none seatbelt use: always do you feel safe at home: Yes EXAM Physical Exam Const Vital Signs: 10/04/24 17:51 Temperature 96.7 F L Temperature Source Temporal Pulse Rate 73 Respiratory Rate 16 Blood Pressure 110/68 Blood Pressure Mean 82 Pulse Ox 97 Oxygen Delivery Method Room Air MDM MDM MDM Narrative Medical decision making narrative: HISTORY OF PRESENT ILLNESS: 79-year-old male presents with laceration to left hand. [id number]. Notes he was moving a casserole from the abdomen the casserole container dropped as he was picking up the remnants he noticed bleeding to the dorsal surface of his left hand. REVIEW OF SYSTEMS: Pertinent positives: Hand laceration Pertinent negatives: Numbness tingling, loss of sensation PHYSICAL EXAM: Nursing triage notes reviewed, Vital signs reviewed Constitutional: please see mdm HENT: MMM Eyes: Pupils equal round and reactive to light, Extraocular muscles intact Neck: No stridor, no JVD, full neck ROM Lungs: Clear to auscultation, No wheezing or rales. No increased work of breathing, no conversational dyspnea, no accessory muscle use, no nasal flaring. No respiratory distress noted Heart: Regular rate and rhythm, No murmurs, No rubs and No gallops, 2+ distal pulses (radial, femoral, posterior tibial) in all extremities Abdomen: Soft, there is no tenderness, rigidity, rebound or guarding, no obvious peritoneal signs, no palpable pulsatile abdominal masses, no auscultated abdominal bruit : No CVAT Extremities: No edema, compartments are soft, intact range of motion of all fingers. Intact tenderness involvement. Neuro: Intact 5/5 strength with ok sign (median), intact finger abduction (ulnar) intact wrist extension (radial n). Intact sensation in the radial, ulnar, and median nerve distributions. Skin: Small linear 0.5 cm laceration noted to the dorsal surface of the hand bleeding controlled. MEDICAL DECISION MAKING: Chief Complaint: Hand laceration [facility] Narrative: The patient suffered lacerations to the dorsal left hand On exam there was no evidence of foreign bodies. There was no evidence of neurovascular injury. Patient had a normal distal vascular exam, and had intact ROM and sensation. There was also no evidence of tendon injury, with normal distal full range of motion, flexion, extension, abduction, abduction. There is no evidence of local joint space involvement at this time. Wound care applied (irrigation and/or local cleansing solution). Laceration repair was then performed please see procedure note. The patient was given signs and symptoms warnings for infection, such as increasing pain, redness, swelling, associated heat, pus or fever. Patient was given instructions for timely follow-up for removal. Patient agreed with the plan of care Procedure: Laceration repair. The procedure was performed by myself. Indication: Wound repair Risks and benefits: risks, benefits and alternatives were discussed Consent: Consent was obtained. Wound Details: 0.5 cm linear laceration noted to the dorsal surface of the hand. 1 mm in depth. No foreign bodies noted Anesthesia: 1% lidocaine not epinephrine (verbal consent obtained from patient). Wound prep: Patient was prepped and draped in the usual sterile fashion. Tetanus: Updated today Irrigation Solution: Saline Wound Preparation: Cleaned with chlorhexidine, irrigated copiously. The wound was explored to its base in a bloodless field. Procedure Description: Placed to simple interrupted 5-0 Chromic Gut sutures with close approximation hemostasis Patient tolerated the procedure well with no immediate complications Will give prophylactic Keflex to take for 3 days for additional antimicrobial prophylaxis. The patient and/or family, caregivers express understanding. The patient and/or family, caregivers agrees with the plan. Shared decision making: I will have a discussion with the patient and or visitors regarding risk/benefits of further testing or admission. They will be made aware of of the risk/benefits inherent in this decision they will be given the opportunity to voice understanding. Total critical care time today provided was at least 0 minutes. This excludes separately billable procedures. Critical care time (if documented) is secondary to the patient having high probability of clinically significant/life threatening deterioration in the patient's condition which required my urgent intervention. Impression: 1. Hand laceration 2. [id number] male Dispo: Discharge home This note was generated with [employer] dictation software. It may contain incorrect words, spelling, and punctuation that were not noted in review of the chart prior to signing. Discharge Plan Triage Chief Complaint: Laceration ED Provider: Abdulkadir Westbrook Dx/Rx/DC Orders Prescriptions: No Action metformin 1,000 mg tablet,ER gita.retention 24 hr 1,000 mg PO BID loratadine 10 mg tablet 10 mg PO DAILY atorvastatin 20 MG tablet 20 mg PO QHS Patient Comments: Cholesterol aspirin 81 MG tablet,delayed release (DR/EC) 81 mg PO DAILY tamsulosin 0.4 MG capsule 0.4 mg PO QHS tadalafil 5 MG tablet 5 mg PO DAILY psyllium husk (with sugar) 368 GM powder 5 ml PO DAILY insulin degludec 200 unit/mL (3 mL) insulin pen 32 unit SC DAILY omeprazole 40 mg capsule,delayed release(DR/EC) 40 mg PO BID allopurinol 100 mg Tablet 100 mg PO DAILY bisoprolol fumarate 5 mg tablet 5 mg PO DAILY acetaminophen 500 mg Tablet 500 mg PO Q6H Qty: 30 0RF sennosides-docusate sodium [Stimulant Laxative Plus] 8.6-50 mg Tablet 2 tab PO BID PRN (Reason: constipation) Qty: 30 0RF clopidogrel 75 mg tablet 75 mg PO DAILY Qty: 90 3RF Primary Care Provider: Jacoby Oviedo NP Referrals: Jacoby Oviedo [employer]STATION DESIGN DRAFTSPERSON, SUBSTATION DESIGN DRAFTSPERSON-C [Primary Care Provider] - Print Language: Burmese
[2024-10-04] MEDS: Diphth,Pertuss(Acell),Tet Vac 0.5 ML Vial IM (20:27)
== END 2024-10-04 20:51 | disposition home or self-care (01) ==
PROVIDERS: Emergency Provider Emergency Medicine; PCP Nurse Practitioner Family; Visit Provider Emergency Medicine
DX: S61.412A Laceration without foreign body of left hand, initial encounter (principal); E11.22 Type 2 diabetes mellitus with diabetic chronic kidney disease; E78.00 Pure hypercholesterolemia, unspecified; I25.10 Atherosclerotic heart disease of native coronary artery without angina pectoris; I12.9 Hypertensive chronic kidney disease with stage 1 through stage 4 chronic kidney disease, or unspecified chronic kidney disease; N18.9 Chronic kidney disease, unspecified; Z87.891 Personal history of nicotine dependence; K21.9 Gastro-esophageal reflux disease without esophagitis; W25.XXXA Contact with sharp glass, initial encounter; Z23 Encounter for immunization
CPT/HCPCS: 12001; 90471; 99283

== ENCOUNTER 2024-11-13 10:00 | Outpatient (RCR) | payer MEDICARE, OTHER, SELFPAY ==
--- NOTE | 2024-09-11 10:58 | HP.PTEVAL ---
Patient's Visit Information Visit Information Visit Information: CLAUDINE BARONE is a 79 year old M referred to Physical Therapy by Dr. Aubrey Ramirez MD with a diagnosis of s/P lumbar fusion. Date of Evaluation: 09/11/24 Physical Therapist: KETTY Diego Visit Plan Frequency: 2x /Week Duration: 2 Months Plan: 2X/ week for 8 weeks for neutral spine core stability starting on the mat and progressing to sitting/standing, R LE STRENGTHENING, gait training, functional activities such as stairs and curb steps, balance, gait training with HEP Please use gait belt with balance and gait training due to unsteady and neuropathy. Pt has BLT restrictions Pt has Silver Sneakers and would like to go back to that as soon as he is ready and Pt does have neuropathy and balance is not good HEP: standing supported heel and toe raises and pelvic tilts Subjective Subjective: Pt had a L3/L4/L5 back fusion 08-15-24. He is still having back pain and some front of R thigh soreness with touch and just sitting there. The original pain down the back of the leg is now gone. He can not bend forward and we discussed BLT restrictions. His R leg wants to buckle every now and then and that is why he uses the cane. He is starting to not use the cane at home now. He got off the walker week 2 after surgery. Steps: He has not use them. He has 2 steps into the house with a railing. He has been doing the step step motion. He is part of the [employer]ne[employer] program. He is sleeping better everyday. Some nights he wakes up if he rolls the wrong way. Pt reports that his balance is fair and was having a little issue before surgery. Pain Back pain: Pain Intensity (Out of 10): 3 R thigh pain: Pain Intensity (Out of 10): 0 Objective Objective: Gait: walks with decrease stance time on the R LE with a straight cane. Increase veering if he looks R or L. Stairs: Up with the L and down with the R due to R LE weakness with 2 hand rails (pt tried and had decreased strength both concentric and eccentric) LE MMT: R hip flex 11.8 and L 10.8 R knee ext 15.1 and L 19.3 R knee flex 10.3 and L 7.5 R DF 9.7 and L 10.3 R PF 9.9 and L 11.5 Heel and toe raises: Pt struggles with both heel and toe raises but can not raise heels and barely raises B toes even with UE support Patella DTR's 0/3 B -SLR B + HS tightness B Bridge 3/4 normal ROM with slight discomfort Pelvic tilt: struggled a little to get the motion but able to do it after several attempts FGA 7 Balance/Special Test Scores Functional Gait Assessment Score: 7 % Disability: 76.6700 [place] Low Back Score: 20 Goals Goal 1:: I HEP Goal Time Frame: 6-8 Weeks Goal 2:: Be able to go up and down steps recip with 1 hand rail with good R LE strength Goal Time Frame: 6-8 Weeks Goal 3:: Increase LE strength (at the time of the eval: LE MMT: R hip flex 11.8 and L 10.8 R knee ext 15.1 and L 19.3 R knee flex 10.3 and L 7.5 R DF 9.7 and L 10.3 R PF 9.9 and L 11.5) Goal Time Frame: 6-8 Weeks Goal 4:: Improve balance to be able to walk with a straight cane with occ turning head horizontally without losing balance with CGA Goal Time Frame: 6-8 Weeks Goal 5:: Be able to perform X 10 heel and toe raises with UE support to demonstrate increase strength Goal Time Frame: 6-8 Weeks Rehabilitation Potential Rehabilitation Potential: Good Anticipated Interventions Patient/Client Instruction: Educate patient on: Condition and Plan of Care For the Purpose of:: To decrease pain, To increase ROM, To improve nutrient delivery to tissue, To improve muscle performance and motor function, To improve ability to perform ADL's, To increase tolerance to activity/condition/position, To improve performance and independence with ADL's, To decrease level of supervision to perform tasks, To improve ability of physical actions for home/community/work/leisure, To improve gait and locomotor functions, To improve health of tissue, To decrease soft tissue restriction, To increase flexibility/ROM, To improve balance and To improve safety with gait Therapeutic Exercise to Include: Strength training, Endurance training, Balance training, Coordination, Body mechanics, Postural training, Gait and locomotor training, Neuromotor development, Active ROM, Dynamic Lumbar Stabilization and Scapular Strength/Stabilization For the Purpose of:: To decrease pain, To increase ROM, To improve nutrient delivery to tissue, To increase oxygenation perfusion, To improve muscle performance and motor function, To improve ability to perform ADL's, To increase tolerance to activity/condition/position, To improve performance and independence with ADL's, To decrease level of supervision to perform tasks, To improve ability of physical actions for home/community/work/leisure, To improve gait and locomotor functions, To improve health of tissue, To decrease soft tissue restriction, To increase flexibility/ROM, To improve endurance, To improve balance and To improve safety with gait Functional Training to Include: Gait training For the Purpose of:: To improve gait and locomotor functions and To improve safety with gait Text: Thank you for the opportunity to evaluate your patient. For Medicare and Medicare HMO plans, please review the plan of care and approve it. It will need to be FAXED BACK to us at [phone] for Medicare purposes. For Medicare only, by signing this I certify the plan of care. Please let me know if there are questions or concerns regarding this plan of care. Physician Signature: Date:
--- NOTE | 2024-10-09 11:53 | HP.PTREVAL_ITS ---
Re-Evaluation Intro: Dr. Aubrey Ramirez MD, It has been my pleasure to treat CLAUDINE BARONE over the last 9 visits for s/P lumbar fusion. Please see the progress note below for an update on the physical therapy plan of care! Subjective Subjective: Pt does not hurt too bad unless he twist too much etc. He started Silver [employer]neakers classes yesterday. He is starting to not use the can as much at home. He wants to learn indep set up of machines and he wants to get stronger. He does not trust his legs 100% yet. He feels that his balance is still off. He still is unsteady when he is not using the cane. At night in the dark he is more unsteady Objective Objective/Function: LE MMT: R hip flex 11.8 and L 10.8 R knee ext 15.9 and L 21.1 R knee flex 10.4 and L 7.5 R DF 13.3 and L 10.3 R PF 9.9 and L 11.5 Standing heel and toe raises with UE support: Pt is only able to raise heel and toes a very little bit Stairs: 2 hand rails. Pt has to pull self using B hands and R leg struggles with ascending the step compared to the L. CATSIB 75 Gait: walks with a straight cane with decrease toe push off and decrease DF with CGA. Also with CGA he is able to do some horizontal head turns with slight veering at times. Plan Plan Plan: 2X/ week for 8 weeks for neutral spine core stability starting on the mat and progressing to sitting/standing, R LE STRENGTHENING, gait training, functional activities such as stairs and curb steps, balance, gait training with HEP. Please use gait belt with balance and gait training due to unsteady and neuropathy. Pt has BLT restrictions. Pt has Silver Sneakers and would like to go back to that as soon as he is ready and Pt does have neuropathy and balance is not good Balance/Gait/Functional tests Balance/Special Test Scores Functional Gait Assessment Score: 7 % Disability: 76.6700 CATSIB Score (Max score 120 seconds): 75 Oswestry Low Back Score: 7 Goals Goals Goal 1:: I HEP Goal Time Frame: 6-8 Weeks Goal Progress: Goal Met Goal 2:: Be able to go up and down steps recip with 1 hand rail with good R LE strength Goal Time Frame: 6-8 Weeks Goal Progress: Progressing Goal 3:: Increase LE strength (at the time of the eval: LE MMT: R hip flex 11.8 and L 10.8 R knee ext 15.1 and L 19.3 R knee flex 10.3 and L 7.5 R DF 9.7 and L 10.3 R PF 9.9 and L 11.5) Goal Time Frame: 6-8 Weeks Goal Progress: Progressing Goal 4:: Improve balance to be able to walk with a straight cane with occ turning head horizontally without losing balance with CGA Goal Time Frame: 6-8 Weeks Goal Progress: Progressing Goal 5:: Be able to perform X 10 heel and toe raises with UE support to demo nstrate increase strength Goal Time Frame: 6-8 Weeks Goal Progress: Progressing Anticipated Interventions Anticipated Interventions Patient/Client Instruction: Educate patient on: Condition and Plan of Care For the Purpose of:: To decrease pain, To increase ROM, To improve nutrient delivery to tissue, To improve muscle performance and motor function, To improve ability to perform ADL's, To increase tolerance to activity/condition/position, To improve performance and independence with ADL's, To decrease level of supervision to perform tasks, To improve ability of physical actions for home/community/work/leisure, To improve gait and locomotor functions, To improve health of tissue, To decrease soft tissue restriction, To increase flexibility/ROM, To improve balance and To improve safety with gait Therapeutic Exercise to Include: Strength training, Endurance training, Balance training, Coordination, Body mechanics, Postural training, Gait and locomotor training, Neuromotor development, Active ROM, Dynamic Lumbar Stabilization and Scapular Strength/Stabilization For the Purpose of:: To decrease pain, To increase ROM, To improve nutrient delivery to tissue, To increase oxygenation perfusion, To improve muscle performance and motor function, To improve ability to perform ADL's, To increase tolerance to activity/condition/position, To improve performance and independence with ADL's, To decrease level of supervision to perform tasks, To improve ability of physical actions for home/community/work/leisure, To improve gait and locomotor functions, To improve health of tissue, To decrease soft tissue restriction, To increase flexibility/ROM, To improve endurance, To improve balance and To improve safety with gait Functional Training to Include: Gait training For the Purpose of:: To improve gait and locomotor functions and To improve safety with gait Re-Evaluation Ending Re-evaluation ending: Please do not hesitate to contact me at [phone] by phone or if you have questions or concerns regarding this new plan of care! Sincerely, Barbara Dotson, MPT
--- NOTE | 2024-11-13 10:54 | HP.PTDCSUM_ITS ---
Discharge Summary D/C summary: It has been my pleasure to treat CLAUDINE BARONE referred by Dr. Aubrey Ramirez MD, with the diagnosis of s/P lumbar fusion for a total of 15 visit(s). Discharge Date: 11/13/24 Please see the following information for a summary of their discharge status. Subjective Subjective: Pt has been sick since [place] and just still recovering. He reports no pain today. He still has some balance issues still and legs are still a little weak but he is getting better except the last 2 weeks. He will do his HEP as he has exercises and bands at home Pain Back pain: Pain Intensity (Out of 10): 0 R thigh pain: Pain Intensity (Out of 10): 0 Overall Improvement % Improvement: 80 Objective Objective/Function: Stairs: Up and down with 2 hand rails with some decrease eccentric control on the R Gait with occ head turn with a straight cane with CGA with no veering or LOB X 60 feet Standing heel and toe raises: decreased ROM and strength and needs UE for execution and balance LE MMT: R hip flex 15.7 and L 12.1 R knee ext 24 and L 20 R knee flex 10.3 and L 7.5 R DF 14.3 and L 11.9 R PF 9.9 and L 11.5) Goals Goal 1:: I HEP Goal Progress: Goal Met Goal 2:: Be able to go up and down steps recip with 1 hand rail with good R LE strength Goal Progress: Progressing Goal 3:: Increase LE strength (at the time of the eval: LE MMT: R hip flex 11.8 and L 10.8 R knee ext 15.1 and L 19.3 R knee flex 10.3 and L 7.5 R DF 9.7 and L 10.3 R PF 9.9 and L 11.5) Goal Progress: Progressing Goal 4:: Improve balance to be able to walk with a straight cane with occ turning head horizontally without losing balance with CGA Goal Progress: Goal Met Goal 5:: Be able to perform X 10 heel and toe raises with UE support to demonstrate increase strength Goal Progress: Progressing Plan Plan: DC PT to HEP D/C Information Discharge Comments: DC PT to HEP d/c sentence: If there are questions or concerns regarding this patient's physical therapy, please feel free to call me at [phone]. Thank you for the referral of this patient. Sincerely, Barbara Dotson, MPT Balance/Gait/Functional tests Balance/Special Test Scores Functional Gait Assessment Score: 7 % Disability: 76.6700 CATSIB Score (Max score 120 seconds): 75 Oswestry Low Back Score: 4 Improvement % Improvement: 80
== END 2024-11-13 19:00 | disposition home or self-care (01) ==
LOC: PT 10:00
PROVIDERS: PCP Nurse Practitioner Family; Referring Provider Orthopaedic Surgery Orthopaedic Surgery of the Spine; Visit Provider Orthopaedic Surgery Orthopaedic Surgery of the Spine
DX: Z98.1 Arthrodesis status (principal)
CPT/HCPCS: 97110; 97162; 97530

== ENCOUNTER → 2024-12-31 | Outpatient (CLI) | payer MEDICARE, OTHER, SELFPAY ==
[2024-12-31 08:07] LABS: Hematocrit 41.3 % (40-54); Hemoglobin 13.5 g/dL (13.0-16.5); Mean Corp Hgb Conc 32.7 g/dL (32-36); Mean Corpuscular Hgb 31.2 pg (27.0-32.0); Mean Corpuscular Volume 95.4 fL (80-94); Mean Platelet Vol. 8.7 fl (6.2-12.0); Platelet Count 187 K/mm3 (150-450); RBC Distribution Width SD 49.1 fl (35.1-43.9); Red Blood Count 4.33 M/mm3 (4.6-6.2); White Blood Count 2.5 K/mm3 (4.4-11.0)
[2024-12-31 08:22] LABS: PTHIN 63.6 pg/mL (18.4-80.1)
[2024-12-31 08:25] LABS: Vitamin D,25 Hydroxy 66.4 ng/mL
[2024-12-31 09:09] LABS: Hemoglobin A1c 8.1 % (3.8-5.6)
[2025-01-01 07:06] LABS: ALB/GLOB Ratio 0.8 RATIO (0.9-2.4); AST(SGOT) 11 U/L (15-37); Alanine Aminotransfer ALT/SGPT 16 U/L (16-61); Albumin, Serum 3.1 g/dL (3.2-5.0); Alkaline Phosphatase 95 U/L (45-117); Anion Gap 5 (5-15); BUN 15 mg/dL (7-18); BUN/Creat Ratio 12.2 RATIO (10-20); Calcium,Total 8.7 mg/dL (8.5-10.1); Chloride 106 mmol/L (98-107); Cholesterol 79 mg/dL (200); Creatinine, Serum 1.23 mg/dL (0.70-1.30); EST Glomerular Filtration Rate 61 mL/min (>60); Est Glom Filt Rate - Afr Amer 73 mL/min (>60); Globulin 3.9 g/dL (2.2-4.2); Glucose 130 mg/dL (74-106); High Density Lipoprotein 21 mg/dL; PSA,Total - Annual Screen 2.89 ng/mL (0.00-4.00); Potassium 4.1 mmol/L (3.5-5.1); Sodium Level 141 mmol/L (136-145); Triglycerides 184 mg/dL; Very Low Density Lipoprotein 37 mg/dL (5-40)
== END | disposition home or self-care (01) ==
LOC: LAB 07:29
PROVIDERS: PCP Nurse Practitioner Family; Referring Provider Nurse Practitioner Family; Visit Provider Nurse Practitioner Family
DX: Z12.5 Encounter for screening for malignant neoplasm of prostate (principal); E11.22 Type 2 diabetes mellitus with diabetic chronic kidney disease; N18.30 Chronic kidney disease, stage 3 unspecified; I12.9 Hypertensive chronic kidney disease with stage 1 through stage 4 chronic kidney disease, or unspecified chronic kidney disease; N25.81 Secondary hyperparathyroidism of renal origin; E78.5 Hyperlipidemia, unspecified; E55.9 Vitamin D deficiency, unspecified
CPT/HCPCS: 36415; 80053; 80061; 82306; 83036; 83970; 84153; 85027; G0103

== ENCOUNTER 2025-01-22 12:25 | Outpatient (RCR) | payer MEDICARE, OTHER, SELFPAY ==
--- NOTE | 2025-01-22 13:14 | HP.PTEVAL ---
Patient's Visit Information Visit Information Visit Information: CLAUDINE BARONE is a 80 year old M referred to Physical Therapy by MIKY Booth with a diagnosis of Vertigo/BPPV. Date of Evaluation: 01/22/25 Physical Therapist: KETTY Diego Visit Plan Frequency: 1x/Week Duration: 6 Weeks Plan: 1X/ week for 6 weeks to work on BD exercises to see if the dizziness that the pt gets going tash from L sidelying to sit goes away or if sitting and bending down to play with the dog goes away HEP: BD exercises (15 sec on each side X 5 times to each side 3X/ day) Subjective Subjective: Pt has had BPPV in the past and had the crystals repositioned by ENT before. He feels that he needs them put back in place now. He has tried some You Tube videos without success. His current sx are when he is laying down and sits up the room will spin and takes awhile to settle down. When he gets down to play with the dog and come up her will get room spinning dizziness that lasts about 60 seconds. He is guessing R side because her sleeps on his L side and gets up on the R. This has been going on for a couple of months. He walks with a cane because of his back mostly. He does not use the cane in the house. Objective Objective: -Hallpike B for dizziness and nystagmus -Dizziness with smooth pursuits vertical and horizontal -dizziness with head and eyes move together vertical and horizontal. Pt did get some dizziness when coming up from L sidelying and going to sitting with doing BD exercises X 5 to each side staying on the position X 15 seconds before sitting up. He was getting less dizziness each time he sat up. Balance/Special Test Scores Dizziness Score: 28 Goals Goal 1:: I HEP Goal Time Frame: 4-6 Weeks Goal 2:: Abolish dizziness when goes to sit up in bed Goal Time Frame: 4-6 Weeks Goal 3:: Abolish dizziness when go to look down or bend down to play with the dog and go to sit up etc Goal Time Frame: 4-6 Weeks Rehabilitation Potential Rehabilitation Potential: Good Anticipated Interventions Patient/Client Instruction: Educate patient on: Condition and Plan of Care For the Purpose of:: To improve muscle performance and motor function, To improve ability to perform ADL's, To increase tolerance to activity/condition/position, To improve performance and independence with ADL's, To improve health of tissue, To decrease soft tissue restriction, To increase flexibility/ROM, To improve endurance, To improve balance and To improve safety with gait Therapeutic Exercise to Include: Strength training, Postural training, Flexibilty training, Gait and locomotor training, Neuromotor development and Active ROM For the Purpose of:: To improve muscle performance and motor function, To improve ability to perform ADL's, To increase tolerance to activity/condition/position, To improve performance and independence with ADL's, To decrease level of supervision to perform tasks, To improve ability of physical actions for home/community/work/leisure, To improve gait and locomotor functions, To improve health of tissue, To decrease soft tissue restriction, To increase flexibility/ROM, To improve endurance, To improve balance and To improve safety with gait Manual Therapy Techniques to Include: Other Comment: eply if needed Text: Thank you for the opportunity to evaluate your patient. For Medicare and Medicare HMO plans, please review the plan of care and approve it. It will need to be FAXED BACK to us at [phone] for Medicare purposes. For Medicare only, by signing this I certify the plan of care. Please let me know if there are questions or concerns regarding this plan of care. Physician Signature: Date:
--- NOTE | 2025-04-29 10:24 | HP.PT.NRP ---
Patient Information Patient Information: CLAUDINE BARONE was seen in my office for initial evaluation on 01/22/25. The following Plan of Care was established for this patient: POC Established Initial Frequency: 1x/Week Initial Duration: 6 Weeks Anticipated Interventions Patient/Client Instruction: Educate patient on: Condition and Plan of Care For the Purpose of:: To improve muscle performance and motor function, To improve ability to perform ADL's, To increase tolerance to activity/condition/position, To improve performance and independence with ADL's, To improve health of tissue, To decrease soft tissue restriction, To increase flexibility/ROM, To improve endurance, To improve balance and To improve safety with gait Therapeutic Exercise to Include: Strength training, Postural training, Flexibilty training, Gait and locomotor training, Neuromotor development and Active ROM For the Purpose of:: To improve muscle performance and motor function, To improve ability to perform ADL's, To increase tolerance to activity/condition/position, To improve performance and independence with ADL's, To decrease level of supervision to perform tasks, To improve ability of physical actions for home/community/work/leisure, To improve gait and locomotor functions, To improve health of tissue, To decrease soft tissue restriction, To increase flexibility/ROM, To improve endurance, To improve balance and To improve safety with gait Manual Therapy Techniques to Include: Other Comment: eply if needed Last Seen Last Seen: This patient was last seen in our office 01/22/25. Pertinent comments regarding their Physical therapy will appear below: DC PT At this point I will be discontinuing this patient from physical therapy. I would be happy to see this patient again in the future if found appropriate by the physician. Thank you! Barbara Dotson, KETTY Balance/Gait/Functional tests Balance/Special Test Scores Dizziness Score: 28
== END 2025-01-22 19:00 | disposition home or self-care (01) ==
LOC: PT 12:25
PROVIDERS: PCP Nurse Practitioner Family; Referring Provider Nurse Practitioner Family; Visit Provider Nurse Practitioner Family
DX: H81.10 Benign paroxysmal vertigo, unspecified ear (principal)
CPT/HCPCS: 97161

== ENCOUNTER → 2025-03-08 | Outpatient (CLI) | payer MEDICARE, OTHER, SELFPAY ==
[2025-03-13 14:08] LABS: Sex Hormone-binding Globulin 41.6 nmol/L (19.3-76.4); Testosterone, % Free 3.74 % (1.50-4.20); Testosterone, Free 20.83 ng/dL (5.00-21.00); Testosterone, Total 557 ng/dL (264-916)
== END | disposition home or self-care (01) ==
LOC: LAB 12:00
PROVIDERS: PCP Nurse Practitioner Family; Referring Provider Nurse Practitioner Family; Visit Provider Nurse Practitioner Family
DX: E29.1 Testicular hypofunction (principal)
CPT/HCPCS: 36415; 84270; 84402; 84403

== ENCOUNTER → 2025-07-02 | Outpatient (CLI) | payer MEDICARE, OTHER, SELFPAY ==
[2025-07-02 08:46] LABS: Hematocrit 42.5 % (40-54); Hemoglobin 13.9 g/dL (13.0-16.5); Mean Corp Hgb Conc 32.7 g/dL (32-36); Mean Corpuscular Volume 94.7 fL (80-94); Mean Platelet Vol. 8.8 fl (6.2-12.0); Platelet Count 188 K/mm3 (150-450); RBC Distribution Width CV 13.8 % (11.6-14.6); RBC Distribution Width SD 48.1 fl (35.1-43.9); Red Blood Count 4.49 M/mm3 (4.6-6.2); White Blood Count 3.1 K/mm3 (4.4-11.0)
[2025-07-02 09:32] LABS: Creatinine, Urine (random) 93.80 mg/dL (39.00-259.00); Microalbumin,Random Urine < 12.0 mg/L (<20 mg/L)
[2025-07-02 09:33] LABS: PTHIN 53 pg/mL (11-61)
[2025-07-02 09:56] LABS: AST(SGOT) 17 U/L (<=37); Alanine Aminotransfer ALT/SGPT 10 U/L (<=46); Albumin, Serum 3.8 g/dL (3.4-4.8); Alkaline Phosphatase 87 U/L (40-129); Anion Gap 10 (5-15); BUN 23 mg/dL (4-19); BUN/Creat Ratio 18.9 RATIO (10-20); Calcium,Total 9.0 mg/dL (7.6-11.0); Carbon Dioxide 26.0 mmol/L (21.0-32.0); Chloride 104 mmol/L (98-108); Globulin 2.6 g/dL (2.2-4.2); Glucose 114 mg/dL (70-99); Magnesium 2.4 mg/dL (1.5-2.2); Potassium 4.5 mmol/L (3.3-5.1); Vitamin D,25 Hydroxy 36.7 ng/mL (30-100)
[2025-07-02 10:32] LABS: Cholesterol 86 mg/dL (<=200); Low Density Lipoprotein Calc. 34 mg/dL; Triglycerides 162 mg/dL; Very Low Density Lipoprotein 32 mg/dL (5-40); cholesterol:hdl ratio screen 4.46
== END | disposition home or self-care (01) ==
PROVIDERS: PCP Nurse Practitioner Family; Referring Provider Nurse Practitioner Family; Visit Provider Nurse Practitioner Family
DX: I12.9 Hypertensive chronic kidney disease with stage 1 through stage 4 chronic kidney disease, or unspecified chronic kidney disease (principal); E11.22 Type 2 diabetes mellitus with diabetic chronic kidney disease; N18.30 Chronic kidney disease, stage 3 unspecified; E78.5 Hyperlipidemia, unspecified; N25.81 Secondary hyperparathyroidism of renal origin; E55.9 Vitamin D deficiency, unspecified; D63.1 Anemia in chronic kidney disease; E78.1 Pure hyperglyceridemia
CPT/HCPCS: 36415; 80053; 80061; 82043; 82306; 82570; 83036; 83735; 83970; 85027

== ENCOUNTER → 2025-10-01 | Outpatient (CLI) | payer MEDICARE, OTHER, SELFPAY ==
[2025-10-01 10:22] LABS: Hematocrit 45.3 % (40-54); Hemoglobin 14.6 g/dL (13.0-16.5); Mean Corp Hgb Conc 32.2 g/dL (32-36); Mean Corpuscular Volume 93.0 fL (80-94); Mean Platelet Vol. 8.9 fl (6.2-12.0); Platelet Count 183 K/mm3 (150-450); RBC Distribution Width CV 14.8 % (11.6-14.6); RBC Distribution Width SD 51.1 fl (35.1-43.9); Red Blood Count 4.87 M/mm3 (4.6-6.2); White Blood Count 2.9 K/mm3 (4.4-11.0)
[2025-10-01 10:50] LABS: Creatinine, Urine (random) 94.80 mg/dL (39.00-259.00); Microalbumin,Random Urine 28.1 mg/L (<20 mg/L)
[2025-10-01 11:02] LABS: PTHIN 52 pg/mL (11-61)
[2025-10-01 11:58] LABS: AST(SGOT) 19 U/L (<=37); Alanine Aminotransfer ALT/SGPT 15 U/L (<=46); Albumin, Serum 4.0 g/dL (3.4-4.8); Alkaline Phosphatase 79 U/L (40-129); Anion Gap 10 (5-15); BUN 21 mg/dL (4-19); BUN/Creat Ratio 17.5 RATIO (10-20); Calcium,Total 9.1 mg/dL (7.6-11.0); Carbon Dioxide 27.8 mmol/L (21.0-32.0); Chloride 105 mmol/L (98-108); Cholesterol 107 mg/dL (<=200); Globulin 2.9 g/dL (2.2-4.2); Glucose 154 mg/dL (70-99); Low Density Lipoprotein Calc. 60 mg/dL; Potassium 4.7 mmol/L (3.3-5.1); Triglycerides 155 mg/dL; Very Low Density Lipoprotein 31 mg/dL (5-40); Vitamin D,25 Hydroxy 60.3 ng/mL (30-100); cholesterol:hdl ratio screen 5.25
== END | disposition home or self-care (01) ==
PROVIDERS: PCP Nurse Practitioner Family; Referring Provider Nurse Practitioner Family; Visit Provider Nurse Practitioner Family
DX: E11.22 Type 2 diabetes mellitus with diabetic chronic kidney disease (principal); N18.30 Chronic kidney disease, stage 3 unspecified; I12.9 Hypertensive chronic kidney disease with stage 1 through stage 4 chronic kidney disease, or unspecified chronic kidney disease; E78.5 Hyperlipidemia, unspecified; D63.1 Anemia in chronic kidney disease; N25.81 Secondary hyperparathyroidism of renal origin; E55.9 Vitamin D deficiency, unspecified
CPT/HCPCS: 36415; 80053; 80061; 82043; 82306; 82570; 83036; 83970; 85027